=== PATIENT | female | born 1965 | race Caucasian/White ===

== ENCOUNTER → 2018-06-11 10:47 | Outpatient (CLI) | payer MEDICARE, MEDICAID, SELFPAY ==
--- NOTE | 2018-06-11 10:49 | FL_ITS ---
FL barium swallow modified: 06/11/2018 10:49 AM CLINICAL HISTORY: ORDERING PHYSICIAN: Js Gupta MD PATIENT AGE: 52 years Comparison: None TECHNIQUE: Patient administered varying consistencies of barium contrast, while viewed in lateral position under real-time fluoroscopy with cine recording. There is somewhat limited technically due to patient's severe cervical kyphosis FLUOROSCOPY TIME: 1 minute and 27 seconds The study was performed in conjunction with speech pathologist. Please see that report & recommendations. FINDINGS: Patient was given varying consistencies of barium. There was silent aspiration with all consistencies utilized.. IMPRESSION: Silent aspiration. Please see speech pathologist report and recommendations.
--- NOTE | 2018-06-11 13:47 | HMH.SLMBS2 ---
Speech & Language Evaluation Speech/Language Mod Barium Swallow Start: 06/11/18 12:46 Freq: once Status: Complete Protocol: Document 06/11/18 12:46 EDGAR (Rec: 06/11/18 13:47 EDGAR [id number]) MBS Recommendations Diet Dietary Recommendations NPO Mod Barium Swallow Impressions Summary and Impressions Oral Phase Impression No Impairment (WFL) Pharyngeal Phase Impression Severe Impairment Pharyngeal Phase Summary Silent aspiration of all consistencies during the swallow due to incomplete epiglottic closure. Vallecular residue noted with all consistencies. It is recommended that Ms. Jang remain NPO with all nutrition obtained via alternate feeding . Speech/Language MBS Assessment/Goals/Plan Assessment Date of Evaluation: 06/11/18 Evaluation Type Initial Certification Assessment/Problems Dysphagia Does Patient Qualify for Service Yes Qualify/Failure Comment Patient would benefit from ST services at [facility]. Plan Pt/Guardian verbally ack understanding Yes: Manager Community of dx/prognosis/goals G -code Required No Mod Barium Swallow Setup Exam Setup Radiologist Osei Costello Level of Consciousness Awake Position (degrees) 45 Comment Patient had poor posture due to CP Mod Barium Swallow-Lat View Textures Lateral View Food Presentation Thin Liquid via Cup,Thin Liquid via Straw,[place] Liquid via Straw,Honey Liquid via Straw,Pudding Oral Phase Labial Closure No Impairment (WFL) Bolus Formation Pooling L/R No Impairment (WFL) Bolus Formation under Tongue No Impairment (WFL) Bolus Formation Scattered Loss No Impairment (WFL) Aspiration? Yes Degree of Aspiration Medium When aspirated During the swallow Consistencies Aspirated All consistencies Silent aspiration? Yes Pharyngeal Phase Swallow Response Delay Severe Impairment Swallow Delay Time (sec) (seconds) 5 Epiglottic Coverage Moderate Impairment Laryngeal Elevation Moderate Impairment Vallecular Retention Clearing Moderate Impairment Mod Barium Swallow-AP View Performed Mod Barium Swallow A/P View Test Not Applicable/Performed PHYSICIAN CERTIFICATION: I certify the specified therapy services for Lorenza Jang are required, authorized, and review
== END ==
PROVIDERS: PCP Emergency Medicine; Visit Provider Emergency Medicine
DX: R13.10 Dysphagia, unspecified (principal)
CPT/HCPCS: 70371; 92611

== ENCOUNTER 2018-07-29 09:00 | Outpatient (CLI) | payer MEDICARE, MEDICAID, SELFPAY ==
[2018-07-29 09:35] VITALS: BP 135/71; PULSE 57; RESP 18; TEMP 36.6; O2SAT 97
== END 2018-07-29 09:45 | disposition home or self-care (01) ==
LOC: INF 09:12
PROVIDERS: Visit Provider Emergency Medicine
DX: M81.0 Age-related osteoporosis without current pathological fracture (principal)
CPT/HCPCS: 96372; J0897

== ENCOUNTER 2018-08-24 17:15 | Inpatient (IN) ==
--- NOTE | 2018-08-24 17:30 | Emergency Department Note ---
ED Disposition Clinical Impression: Seizure disorder, Cerebral palsy, Pneumonia, SIRS (systemic inflammatory response syndrome), Hydrocephalus Disposition: Still a Patient Condition on Discharge: Fair Referrals: Js Gupta MD [Primary Care Provider] - - Critical Care Critical Care Time: No Attestation: On , the high probability of a clinically significant, sudden or life threatening deterioration of the following system(s) required my full and direct attention, intervention and personal management. The time I documented below is in addition to time spent performing reported procedures but includes the following listed in this critical care notation. Medical Decision Making - Luis Inquiry Pt receiving controlled substance: No Luis was queried for this patient: No Vital Signs: 08/24/18 17:28 08/24/18 19:45 Temperature 104.5 F H 99.6 F Temperature Source Rectal Oral Pulse Rate [Left Radial] 170 H 124 H Respiratory Rate 46 H 20 Blood Pressure [Right Arm] 148/100 H 94/74 L Blood Pressure Mean [Right Arm] 116 80 Blood Pressure Position [Right Arm] Sitting 02 Sat by Pulse Oximetry 94 L 97 Oxygen Delivery Method Nasal Cannula Nasal Cannula Oxygen Flow Rate (LPM) 3 2 - Lab Data Lab Results 08/24/18 18:16: WBC 13.4 H, RBC 4.83, Hgb 15.5, Hct 48.7 H, MCV 100.9 H, MCH 32.0 H, MCHC 31.7 L, RDW 13.1, Plt Count 307, MPV 10.8 H, Neut % (Auto) 81.2 H, Lymph % (Auto) 11.7, [place] % (Auto) 5.5, Eos % (Auto) 1.2, Baso % (Auto) 0.5, [place] # (Auto) 10.9 H, Lymph # (Auto) 1.6, [place] # (Auto) 0.7, Eos # (Auto) 0.2, Baso # (Auto) 0.1 08/24/18 18:16: Sodium 136, Potassium 4.0, Chloride 104, Carbon Dioxide 15 L, Anion Gap 21.0 H, BUN 16, Creatinine 0.88, Estimated Creat Clear 52, Estimated GFR 68, Est GFR ( Amer) 82, Glucose 156 H, Calcium 7.9 L, Magnesium 2.5 H , Total Bilirubin 0.4, AST 42 H, ALT 53, Alkaline Phosphatase 71, Total Protein 6.5, Albumin 2.8 L, Globulin 3.7 H, Albumin/Globulin Ratio 0.8 L 08/24/18 18:16: Lactate 6.0 H Result diagrams: 08/24/18 18:16 08/24/18 18:16 Orders (Tests/Meds): ED MEDICATIONS Generic Name Dose Route Start Last Admin Trade Name Freq PRN Reason Stop Dose Admin Sodium Chloride 1,000 mls @ 999 mls/hr 08/24/18 17:45 08/24/18 17:39 Sod Chlor 0.9% 1000ml Bag IV 08/24/18 18:45 999 mls/hr .Q1H1M TRACY Administration Sodium Chloride 1,290 mls @ 645 mls/hr 08/24/18 19:20 08/24/18 19:32 Sod Chlor 0.9% 1000ml Bag 30 ml/kg infuse over 2 hr (1290 ml) 08/24/18 21:19 645 mls/hr IV Administration .Q2H ONE Levofloxacin/Dextrose 750 mg in 150 mls @ 100 mls/hr 08/24/18 19:45 08/24/18 19:32 Levofloxacin 750mg/150ml Premix IV 09/07/18 19:44 100 mls/hr Q24H TRACY Administration Protocol Discontinued Medications Generic Name Dose Route Start Last Admin Trade Name Celioq PRN Reason Stop Dose Admin Acetaminophen 650 mg 08/24/18 17:15 08/24/18 17:15 Acetaminophen 650mg Suppository RC 08/24/18 17:16 650 mg ONCE ONE Administration Levofloxacin 750 mg 08/24/18 17:35 08/24/18 19:32 Levaquin 750mg Tablet PO 08/24/18 17:36 Not Given ONCE ONE Protocol ORDERS Category Date Time Status CT head/brain wo con Stat Cat Scan 08/24/18 17:33 Taken Drug Screen,Urine Stat Lab 08/24/18 18:32 Received Urinalysis and Microscopic Stat Lab 08/24/18 18:32 Received Blood Culture Stat Micro 08/24/18 18:30 Ordered - Radiology Data #1 Image(s): Chest, Abdomen Image Reviewed: Yes I reviewed the patient's radiology image Preliminary Findings: Abnormal CXR : No acute Abdomen: GB stones. - CT Data CT Scan: Head Time Received: 19:[address] Reviewed: Yes: I discussed the CT results w/the radiologist Preliminary Findings: Abnormal Findings Narrative: Ct brain : S?P shunt and brain calcifications. - ECG Data Tracing #1 Sinus tachycardia 150 baseline artifact no acute findings ECG initial impression date: 08/24/18 ECG initial impression time: 17:20 Medical Decision Narrative: I discussed the patient's chest x-ray with Dr. Costello who is a who agreed that the patient has a right middle lobe or right upper lobe pneumonia. [address] call from [facility] regarding her CT scan with hydrocephalus and a shunt, chronic changes. 1949 I spoke with her Newman who agreed to admit the patient for IV antibiotic therapy using sepsis protocol. General Adult HPI - General Stated complaint: possible seizures, fever, elevated HR Time Seen by Provider: 08/24/18 17:20 Mode of Arrival: EMS Source of Information: EMS, Medical Record - History of Present Illness HPI narrative: 52 years old white female with history of cerebral palsy and detention resident and a ellison of the [facility]. Patient has seizure disorder and she is on Keppra. Today the detention staff noticed multiple seizure activities so they contacted EMS service. Upon arrival the patient had a fever of 102 oxygen saturation of 84% and had no seizure activity. On arrival to the ED her temperature was 104 and she looked mottled from the knee down. Patient is alert tearful, moist mucous membrane, nonverbal and unable to provide history. Onset (ago): hour(s) - Related Data Home Medications Medication Instructions Recorded Confirmed Atorvastatin Calcium [Atorvastatin 10 mg G-TUBE DAILY 08/24/18 08/24/18 10mg Tab] Carvedilol [Carvedilol 3.125mg Tab] 3.125 mg G-TUBE DAILY 08/24/18 08/24/18 Lacosamide [Vimpat] 150 mg PO BID 08/24/18 08/24/18 Lactulose [Lactulose 10gm/15ml 10 gm G-TUBE DAILY 08/24/18 08/24/18 Oral Soln] Loperamide HCl [Loperamide HCl 1 mg G-TUBE DAILY 08/24/18 08/24/18 1mg/5mL UDC] Medroxyprogesterone Acetate 2.5 mg G-TUBE DAILY 08/24/18 08/24/18 [Provera 2.5mg tablet] RX: Cetirizine HCl 10 mg G-TUBE DAILY 08/24/18 08/24/18 RX: Oxybutynin Chloride 5 mg G-TUBE BID 08/24/18 08/24/18 guaiFENesin [Robafen] 100 mg G-TUBE Q4-6H 08/24/18 08/24/18 levETIRAcetam [Keppra] 150 mg G-TUBE BID 08/24/18 08/24/18 Allergies Allergy/AdvReac Type Severity Reaction Status Date / Time ampicillin Allergy Verified 06/03/18 18:22 Penicillins Allergy Verified 06/03/18 18:22 Sulfa (Sulfonamide Allergy Verified 06/03/18 18:22 Antibiotics) sulfamethoxazole Allergy Verified 06/03/18 18:22 [From Bactrim] trimethoprim [From Bactrim] Allergy Verified 06/03/18 18:22 [facility] History - Hepatitis A Screen Attestation statement:: This patient has been screened for Hepatitis A risk factors. I have reviewed the patient's past medical history: Yes (Reviewed the detention records.) Medical History: Denies:: Cancer, Diabetes Mellitus Type 1, Diabetes Mellitus Type 2, MRSA Comment: cp Laterality Cases: Amputation: No - Social History Smoking Status: Smoker, status unknown Alcohol Intake: never Occupational Status: disabled Housing: detention ROS Obtained: Yes All systems reviewed & no additional complaints Physical Exam - General General appearance: alert, in no apparent distress - Head Head exam: atraumatic, normocephalic, normal inspection - Eye Eye exam: Present: normal appearance, PERRL, EOMI, other (Ptosis of the right eyelid. ). Absent: scleral icterus - ENT ENT exam: Present: normal exam, normal oropharynx, mucous membranes moist, TM's normal bilaterally, normal external ear exam - Neck Neck exam: Present: normal inspection, full ROM, trachea midline. Absent: meningismus, lymphadenopathy - Chest Chest inspection: Present: normal inspection, symmetric chest wall rise. Absent: tenderness - Respiratory Respiratory exam: Present: normal lung sounds bilaterally. Absent: respiratory distress - Cardiovascular Cardiovascular exam: Present: regular rate, normal rhythm. Absent: JVD - Abdominal Exam Abdominal exam: Present: soft, normal bowel sounds, other (Feeding tube in place. ). Absent: distention, tenderness, guarding, rebound, rigidity, Perkins's sign, tenderness at McBurney's Point - External exam: Present: normal external exam - Extremities Exam Extremities exam: Present: normal inspection, full ROM, normal capillary refill, other. Absent: tenderness, pedal edema, joint swelling, calf tenderness - Back Exam Back exam: Present: normal inspection. Absent: tenderness, CVA tenderness (R), CVA tenderness (L) - Neurological Exam Neurological exam: Present: alert, other (Right eyelid ptosis, spasticity of the upper and lower extremities.) - Psychiatric Psychiatric exam: Present: normal affect, normal mood - Skin Skin exam: Present: warm, dry, intact, normal color - Lymphatic Lymphatic Findings: no adenopathy
[2018-08-24 18:33] LABS: Basophils # 0.1 K/mm3 (0-0.2); Basophils % 0.5 % (0.1-2.0); Eosinophils # 0.2 K/mm3 (0.0-0.4); Eosinophils % 1.2 % (0.1-12.0); Hematocrit 48.7 % (37.0-47.0); Hemoglobin 15.5 g/dL (12.2-16.2); Lymphocytes # 1.6 K/mm3 (0.7-4.5); Lymphocytes % 11.7 % (10-50); Mean Corpuscular HGB Conc 31.7 g/dL (31.8-35.4); Mean Corpuscular Volume 100.9 fl (81-99); Mean Platelet Volume 10.8 fl (7.4-10.4); Monocytes # 0.7 K/mm3 (0.1-1.0); Monocytes % 5.5 % (1.7-9.3); Neutrophils # 10.9 K/mm3 (1.8-7.8); Neutrophils % 81.2 % (37.0-80.0); Platelet Count 307 K/mm3 (142-424); Red Blood Count 4.83 M/mm3 (4.20-5.40); Red Cell Distribution Width 13.1 % (11.5-17.5); White Blood Count 13.4 K/mm3 (4.8-10.8)
[2018-08-24 18:43] LABS: Albumin Level 2.8 gm/dL (3.4-5.0); Albumin/Globulin Ratio 0.8 (1.1-1.8); Bilirubin,Total 0.4 mg/dL (0.2-1.0); Calcium 7.9 mg/dL (8.5-10.1); Globulin 3.7 gm/dl (1.3-3.2); Total Protein,Serum 6.5 gm/dL (6.4-8.2)
[2018-08-24 19:41] LABS: Microscopic, Urine URINE MICROSCOPIC (MICROSCOPIC)
[2018-08-24 19:49] LABS: Appearance,Urine TURBID (Clear); Bilirubin,Urine Negative (Negative); Blood, Urine 3+ (Negative); Color,Urine YELLOW (Yellow); Glucose,Urine (UA) TRACE (Negative); Ketones,Urine Negative (Negative); Leukocyte Esterase,Urine 1+ (Negative); PH,Urine 6.5 (5.0-8.5); Protein,Urine 3+ (Negative); Specific Gravity, Urine 1.025 (1.005-1.030); Urobilinogen,Urine 0.2 EU/dl (0.2)
[2018-08-24 19:57] LABS: Amorphous Sediment,Urine 4+ /lpf; Squamous Epithelial Cell,Urine 20-50 #/hpf (0-5)
[2018-08-24 20:01] LABS: Amphetamine/Metha Screen,Urine Negative ng/mL (<1000); Barbiturates Screen,Urine Negative ng/mL (<200); Benzodiazepines Screen,Urine Negative ng/mL (<200); Cannabinoid Screen,Urine Negative ng/mL (<50); Cocaine Screen,Urine Negative ng/mL (<300); Methadone Screen,Urine Negative ng/mL (<300); Opiate Screen,Urine Negative ng/mL (<300); Phencyclidine Screen,Urine Negative ng/mL (<25)
--- NOTE | 2018-08-25 07:34 | Pharmacy Consult Notes ---
[facility] Pharmacy VTE Monitoring - Patient Demographics Admission date: 08/24/18 Report Date: 08/25/18 Time: 07:33 Allergies/Adverse Reactions: Patient Allergies ampicillin Allergy (Verified 06/03/18 18:22) Penicillins Allergy (Verified 06/03/18 18:22) Sulfa (Sulfonamide Antibiotics) Allergy (Verified 06/03/18 18:22) sulfamethoxazole [From Bactrim] Allergy (Verified 06/03/18 18:22) trimethoprim [From Bactrim] Allergy (Verified 06/03/18 18:22) Height: 1.65 m Weight: 48.336 kg Patient Problems: Current Active Problems (Updated 08/24/18 @ 19:54 by Argelia Troncoso MD) Seizure disorder (Acute) Pneumonia (Acute) SIRS (systemic inflammatory response syndrome) (Acute) Hydrocephalus (Acute) Cerebral palsy (Chronic) - VTE Risk Labs: VTE Related Lab Results Hgb 15.5 g/dL (12.2-16.2) 08/24/18 18:16 Hct 48.7 % (37.0-47.0) H 08/24/18 18:16 Plt Count 307 K/mm3 (142-424) 08/24/18 18:16 BUN 16 mg/dL (7-18) 08/24/18 18:16 Creatinine 0.88 mg/dL (0.55-1.02) 08/24/18 18:16 Estimated Creat Clear 52 mL/min (50-200) 08/24/18 18:16 VTE Risk Level: Moderate Risk - Prophylaxis VTE Prophylaxis Ordered?: Yes Types of VTE Prophylaxis: TEDS Knee High Location of Applied Device: Bilateral Lower Extremeties - VTE Diagnosis Confirmed Treatment or plan recommended: Continue Current Treatment
[2018-08-25 08:14] LABS: Basophils # 0.1 K/mm3 (0-0.2); Basophils % 0.3 % (0.1-2.0); Eosinophils # 0.1 K/mm3 (0.0-0.4); Eosinophils % 0.7 % (0.1-12.0); Hemoglobin 14.9 g/dL (12.2-16.2); Lymphocytes # 2.5 K/mm3 (0.7-4.5); Lymphocytes % 17.7 % (10-50); Mean Corpuscular HGB Conc 31.7 g/dL (31.8-35.4); Mean Corpuscular Volume 101.3 fl (81-99); Mean Platelet Volume 9.5 fl (7.4-10.4); Monocytes # 0.8 K/mm3 (0.1-1.0); Monocytes % 5.5 % (1.7-9.3); Neutrophils # 10.5 K/mm3 (1.8-7.8); Neutrophils % 75.8 % (37.0-80.0); Platelet Count 209 K/mm3 (142-424); Red Blood Count 4.64 M/mm3 (4.20-5.40); Red Cell Distribution Width 13.1 % (11.5-17.5); White Blood Count 13.9 K/mm3 (4.8-10.8)
[2018-08-25 08:23] LABS: Anion Gap 15.2 mEq/L (5-15)
--- NOTE | 2018-08-25 08:56 | History & Physical Report ---
*Admission Date: 08/24/18 *Chief complaint: Healthcare acquired pneumonia/sepsis *History of present illness: 52 years old white female with history of cerebral palsy and jail resident and a reddy of the [facility]. Patient has seizure disorder and she is on Keppra. Today the jail staff noticed multiple seizure activities so they contacted EMS service. Upon arrival the patient had a fever of 102 oxygen saturation of 84% and had no seizure activity. On arrival to the ED her temperature was 104 and she looked mottled from the knee down. Patient is alert tearful, moist mucous membrane, nonverbal and unable to provide history. Above note per ER physician., Given patient's inability to communicate I have no other information to add to the above-noted note. 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 He is chronically bedbound. Has a G-tube. Reddy of the [facility]. Laterality Cases: Bilateral: Other Other Surgeries: Yes: Other Amputation: No - *Social History Smoking Status: Never smoker Alcohol Intake: never *Occupational Status:: disabled Housing: jail *Travel in the last 8 weeks: None - Psychiatric History Expresses thoughts of harming self/others: None Suicide Plan Description: No Plan Family Hx:: Unable to obtain Review of Systems - Review of Systems Review of systems:: unable to obtain Meds Home Medications Medication Instructions Recorded Confirmed Type Atorvastatin Calcium [Atorvastatin 10 mg G-TUBE DAILY 08/24/18 08/24/18 History 10mg Tab] Carvedilol [Carvedilol 3.125mg Tab] 3.125 mg G-TUBE DAILY 08/24/18 08/24/18 History Cetirizine HCl 10 mg G-TUBE DAILY 08/24/18 08/24/18 History Lacosamide [Vimpat] 150 mg PO BID 08/24/18 08/24/18 History Lactulose [Lactulose 10gm/15ml 10 gm G-TUBE DAILY 08/24/18 08/24/18 History Oral Soln] Loperamide HCl [Loperamide HCl 1 mg G-TUBE DAILY 08/24/18 08/24/18 History 1mg/5mL UDC] Medroxyprogesterone Acetate 2.5 mg G-TUBE DAILY 08/24/18 08/24/18 History [Provera 2.5mg tablet] Oxybutynin Chloride 5 mg G-TUBE BID 08/24/18 08/24/18 History guaiFENesin [Robafen] 100 mg G-TUBE Q4-6H 08/24/18 08/24/18 History levETIRAcetam [Keppra] 150 mg G-TUBE BID 08/24/18 08/24/18 History Allergies Allergy/AdvReac Type Severity Reaction Status Date / Time ampicillin Allergy Verified 06/03/18 18:22 Penicillins Allergy Verified 06/03/18 18:22 Sulfa (Sulfonamide Allergy Verified 06/03/18 18:22 Antibiotics) sulfamethoxazole Allergy Verified 06/03/18 18:22 [From Bactrim] trimethoprim [From Bactrim] Allergy Verified 06/03/18 18:22 Exam Vital signs and Labs for Last 24 Hours: Temp Pulse Resp BP Pulse Ox 99 F 95 H 20 106/72 L 95 08/25/18 01:26 08/25/18 07:00 08/25/18 07:00 08/25/18 07:00 08/25/18 07:00 Laboratory Results - last 24 hr 08/24/18 18:16: WBC 13.4 H, RBC 4.83, Hgb 15.5, Hct 48.7 H, MCV 100.9 H, MCH 32.0 H, MCHC 31.7 L, RDW 13.1, Plt Count 307, MPV 10.8 H, Neut % (Auto) 81.2 H, Lymph % (Auto) 11.7, [place] % (Auto) 5.5, Eos % (Auto) 1.2, Baso % (Auto) 0.5, Neut # (Auto) 10.9 H, Lymph # (Auto) 1.6, [place] # (Auto) 0.7, Eos # (Auto) 0.2, Baso # (Auto) 0.1 08/24/18 18:16: Sodium 136, Potassium 4.0, Chloride 104, Carbon Dioxide 15 L, Anion Gap 21.0 H, BUN 16, Creatinine 0.88, Estimated Creat Clear 52, Estimated GFR 68, Est GFR ( Amer) 82, Glucose 156 H, Calcium 7.9 L, Magnesium 2.5 H , Total Bilirubin 0.4, AST 42 H, ALT 53, Alkaline Phosphatase 71, Total Protein 6.5, Albumin 2.8 L, Globulin 3.7 H, Albumin/Globulin Ratio 0.8 L 08/24/18 18:16: Lactate 6.0 H 08/24/18 18:32: Urine Color Yellow, Urine Appearance Turbid, Urine pH 6.5, Ur Specific [place] 1.025, Urine Protein 3+, Urine Glucose (UA) Trace, Urine Ketones Negative, Urine Blood 3+, Urine Nitrate Negative, Urine Bilirubin Negative, Urine Urobilinogen 0.2, Ur Leukocyte Esterase 1+ A, Urine RBC 10-20, Urine WBC 5-10, Ur Squamous Epith Cells 20-50, Amorphous Sediment 4+ 08/24/18 18:32: Urine Opiates Screen Negative, Urine Methadone Screen Negative, Ur Barbituates Screen Negative, Ur Phencyclidine Scrn Negative, Ur Amphetamines Screen Negative, U Benzodiazepines Scrn Negative, Urine Cocaine Screen Negative, U Marijuana (THC) Screen Negative 08/24/18 22:20: Lactate 1.6 08/25/18 08:00: WBC 13.9 H, RBC 4.64, Hgb 14.9, Hct 47.0, MCV 101.3 H, MCH 32.1 H, MCHC 31.7 L, RDW 13.1, Plt Count 209 D, MPV 9.5, Neut % (Auto) 75.8, Lymph % (Auto) 17.7, [place] % (Auto) 5.5, Eos % (Auto) 0.7, Baso % (Auto) 0.3, Neut # (Auto) 10.5 H, Lymph # (Auto) 2.5, [place] # (Auto) 0.8, Eos # (Auto) 0.1, Baso # (Auto) 0.1 08/25/18 08:00: Sodium 139, Potassium 4.2, Chloride 108 H, Carbon Dioxide 20 L D , Anion Gap 15.2 H, BUN 15, Creatinine 0.44 L D, Estimated Creat Clear 117, Estimated GFR 151, Est GFR ( Amer) 183 D, Glucose 82 D, Calcium 7.0 L D , Magnesium 2.1 D I & O for Last 24 hours: Intake & Output 08/22/18 08/23/18 08/24/18 08/25/18 11:59 11:59 11:59 11:59 Intake Total 2844 / 2844 Output Total 200 / 200 Balance 2644 / 2644 Weight 106 lb 9 oz Microbiology Reports for the Last 24 Hours: Microbiology 08/24/18 18:32 Urine,Catheterized Urine Culture - Preliminary Narrative: Patient is alert, smiles responsively. Is not crying as was reported in the ER yesterday. Heart rate regular. Blood pressure is excellent. Capillary refill has improved. Lung malagon are clear anteriorly and posteriorly. Abdomen is soft, G-tube site looks good. Patient wearing compression stockings. Neurologic exam markedly abnormal with hyperreflexia and stiffness and rigidity with contractures as previously noted. Assessment and Plan (1) Pneumonia Current visit: Yes Status: Acute Category: Medical Code(s): J18.9 - Pneumonia, unspecified organism Agree with admission for broad-spectrum IV antibiotics given high sepsis risk. Await blood cultures. Patient is improving. Remains with good perfusion and good blood pressure. We will stop levo fed drip and transfer out of intensive care unit. (2) SIRS (systemic inflammatory response syndrome) Current visit: Yes Status: Acute Category: Medical Code(s): R65.10 - Systemic inflammatory response syndrome (SIRS) of non-infectious origin without acute organ dysfunction (3) Seizure disorder Current visit: Yes Status: Acute Category: Medical Code(s): G40.909 - Epilepsy, unspecified, not intractable, without status epilepticus Stable. Continue current antiepileptics. (4) Cerebral palsy Current visit: Yes Status: Chronic Category: Medical Code(s): G80.9 - Cerebral palsy, unspecified (5) Complication of feeding tube Current visit: No Status: Acute Category: Medical Code(s): K94.23 - Gastrostomy malfunction - Assessment and plan all Dx Assessment and Plan for all problems:: Please note one hour critical care time.
--- NOTE | 2018-08-26 09:20 | Discharge Summary ---
General - General Admission date:: 08/24/18 <Senthil Molina - 08/26/18 18:44> 08/24/18 <Heber Holloway - 08/26/18 09:20> Discharge date: 08/26/18 <nelsyleslieHeber - 08/26/18 09:20> HPI HPI: 52 years old white female with history of cerebral palsy and residential resident and a ellison of the [facility]. Patient has seizure disorder and she is on Keppra. Today the residential staff noticed multiple seizure activities so they contacted EMS service. Upon arrival the patient had a fever of 102 oxygen saturation of 84% and had no seizure activity. On arrival to the ED her temperature was 104 and she looked mottled from the knee down. Patient is alert tearful, moist mucous membrane, nonverbal and unable to provide history. Above note per ER physician., Given patient's inability to communicate I have no other information to add to the above-noted note. <Heber Holloway - 08/26/18 09:20> Hospital Course Hospital Course: x ray: IMPRESSION: Peripheral wedge-shaped opacification in the right midlung which may be due to underlying pneumonia. ct head:IMPRESSION: 1. 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 2. Mild prominence of the lateral ventricles which could be related to underlying atrophy or developing hydrocephalus. Old studies are needed for comparison. 3. CHEMISTRY TEACHER shunt present. 4. No acute intracranial hemorrhage Today patient is alert, patient is answering yes or no to short questions. Will discharge back to [facility] with continuing Levaquin for pneumonia and UTI. Blood cultures and urine culture is pending call [facility] lab within 24 hours for results. While inpatient patient received IV fluids, IV antibiotics, and monitoring for seizure activities. Patient was placed on IV Levophed for blood pressure control drip was DC this a.m. blood pressure is 121/79. Patient skin is pink,pale in color normal to patient's baseline. <Heber Holloway - 08/26/18 09:27> Objective Vital signs: Temp Pulse Resp BP Pulse Ox 97.6 F 104 H 18 121/79 99 08/26/18 08:00 08/26/18 08:00 08/26/18 08:00 08/26/18 08:00 08/26/18 08:00 <Senthil Molina - 08/26/18 18:44> Temp Pulse Resp BP Pulse Ox 97.6 F 104 H 18 121/79 99 08/26/18 08:00 08/26/18 08:00 08/26/18 08:00 08/26/18 08:00 08/26/18 08:00 <nelsyleslieOseinikoena - 08/26/18 09:20> no acute distress, chronically ill appearing <juan carlosHeber - 08/26/18 09:27> - *Routine HEENT Exam Head: Present: normocephalic <juan carlosOseinikoena - 08/26/18 09:27> Eye: Present: PERRL <juan carlosOseinikoena - 08/26/18 09:27> ENT: Present: mucous membranes moist <juan carlosOseinikoena - 08/26/18 09:27> - *Routine Neck Exam Present: supple, full ROM <juan carlosOseiyvonne - 08/26/18 09:27> - *Routine Respiratory Exam Present: rhonchi, diminished air movement <ZoëleslieOseinikoena - 08/26/18 09:27> - *Routine Cardiovascular Exam Present: RRR <juan carlosOseinikoena - 08/26/18 09:27> - *Routine Abdominal Exam Present: soft, normoactive bowel sounds <juan carlosOseinikoena - 08/26/18 09:27> Comments: PEG tube in place <juan carlosOseiyvonne - 08/26/18 09:27> - *Routine Extremities Exam Present: full ROM, pulses intact, normal capillary refill <ZoëleslieOseinikoena - 08/26/18 09:27> - *Routine Skin Exam Present: intact <juan carlosOseiyvonne - 08/26/18 09:27> - *Routine Neurological Exam Present: alert <juan carlosOseiyvonne - 08/26/18 09:27> - Routine Psychiatric Exam Present: normal affect <juan carlosOseiyvonne - 08/26/18 09:27> Results Labs on day of discharge: Preliminary micro results at discharge 08/24/18 18:30 Blood Culture - Preliminary Blood NO GROWTH AFTER 48 HOURS 08/24/18 18:32 Urine Culture - Preliminary Urine,Catheterized <Senthil Molina - 08/26/18 18:44> Preliminary micro results at discharge 08/24/18 18:32 Urine Culture - Preliminary Urine,Catheterized <Heber Holloway - 08/26/18 09:20> - Additional Comments Rounded with nurse practitioner. Agree with exam findings and care plan as documented. <Senthil Molina - 08/26/18 18:44> Rounded with Dr. Molina all orders per Dr. Molina <Heber Holloway - 08/26/18 09:27> DS: Diagnosis - Discharge Diagnosis (1) Pneumonia Status: Acute (2) SIRS (systemic inflammatory response syndrome) Status: Acute (3) Seizure disorder Status: Acute (4) Cerebral palsy Status: Chronic (5) Complication of feeding tube Status: Acute <Heber Holloway - 08/26/18 09:21> (1) Pneumonia Status: Acute (2) SIRS (systemic inflammatory response syndrome) Status: Acute (3) Seizure disorder Status: Acute (4) Cerebral palsy Status: Chronic (5) Complication of feeding tube Status: Acute <Senthil Molina - 08/26/18 18:44> Discharge Plan - Patient Discharge Instructions ACTIVITY: Continue current activity <Heber Holloway - 08/26/18 09:27> DIET: continue same diet <Heber Holloway - 08/26/18 09:27> Patient Instructions: Pneumonia-Adult, DI for Sepsis -- Adult <Senthil Molina - 08/26/18 18:44> Forms: <Senthil Molina - 08/26/18 18:44> - Follow up Plan Follow up with: Heber Holloway APRN [Advanced Practice Nurse] - <Senthil Molina - 08/26/18 18:44> Disposition: Xfer SNF <Senthil Molina - 08/26/18 18:44> Home Medications: Home Medications Medication Instructions Recorded Confirmed Type Atorvastatin Calcium [Atorvastatin 10 mg G-TUBE HS 08/24/18 08/25/18 History 10mg Tab] Carvedilol [Carvedilol 3.125mg Tab] 3.125 mg G-TUBE DAILY 08/24/18 08/24/18 History Cetirizine HCl 10 mg G-TUBE DAILY 08/24/18 08/24/18 History Lacosamide [Vimpat] 150 mg G-TUBE BID 08/24/18 08/25/18 History Lactulose [Lactulose 10gm/15ml 20 gm G-TUBE DAILY 08/24/18 08/25/18 History Oral Soln] Oxybutynin Chloride 5 mg G-TUBE BID 08/24/18 08/24/18 History guaiFENesin [Robafen] 10 ml G-TUBE Q4HP PRN 08/24/18 08/25/18 History levETIRAcetam [Keppra] 1,500 mg G-TUBE BID 08/24/18 08/25/18 History Acetaminophen [Acetaminophen 325mg 650 mg G-TUBE Q6HP PRN 08/25/18 08/25/18 History tab] Calcium Carbonate [Calcium Antacid] 400 mg G-TUBE DAILY 08/25/18 08/25/18 History Loperamide HCl [Loperamide] 2 mg G-TUBE POSTTR 08/25/18 08/25/18 History Medroxyprogesterone Acetate 150 mg IM DIRECTED 08/25/18 08/25/18 History [Depo-Provera 150mg/mL Syringe] Multivitamin,Ther and Minerals 1 each G-TUBE DAILY 08/25/18 08/25/18 History [Vitamin and Minerals] Propylene Glycol/Peg 400 [Systane 1 drp OP BID 08/25/18 08/25/18 History Ultra 0.4-0.3% Eye Drp] Sennosides/Docusate Sodium 1 tab G-TUBE BID 08/25/18 08/25/18 History [Senokot-S Tablet] levoFLOXacin [Levaquin 500mg 500 mg PO DAILY #7 tab 08/26/18 Rx tab] <Senthil Molina - 08/26/18 18:44> Prescriptions/Medication Reconciliation: New levoFLOXacin [Levaquin 500mg tab] 500 mg PO DAILY #7 tab Continued Oxybutynin Chloride 5 mg G-TUBE BID levETIRAcetam [Keppra] 1,500 mg G-TUBE BID Lacosamide [Vimpat] 150 mg G-TUBE BID guaiFENesin [Robafen] 10 ml G-TUBE Q4HP PRN PRN Reason: Congestion Carvedilol [Carvedilol 3.125mg Tab] 3.125 mg G-TUBE DAILY Atorvastatin Calcium [Atorvastatin 10mg Tab] 10 mg G-TUBE HS Acetaminophen [Acetaminophen 325mg tab] 650 mg G-TUBE Q6HP PRN PRN Reason: As Needed For Fever Or Pain Calcium Carbonate [Calcium Antacid] 400 mg G-TUBE DAILY Medroxyprogesterone Acetate [Depo-Provera 150mg/mL Syringe] 150 mg IM DIRECTED Multivitamin,Ther and Minerals [Vitamin and Minerals] 1 each G-TUBE DAILY Propylene Glycol/Peg 400 [Systane Ultra 0.4-0.3% Eye Drp] 1 drp OP BID Lactulose [Lactulose 10gm/15ml Oral Soln] 20 gm G-TUBE DAILY Cetirizine HCl 10 mg G-TUBE DAILY Loperamide HCl [Loperamide] 2 mg G-TUBE POSTTR Sennosides/Docusate Sodium [Senokot-S Tablet] 1 tab G-TUBE BID <Senthil Molina - 08/26/18 18:44>
== END 2018-08-26 11:16 | DRG 194 ==
LOC: ER 17:15 → 2ND 19:58
PROVIDERS: ADMIT Emergency Medicine; ATTEND Emergency Medicine
CPT/HCPCS: 36415; 70450; 74021; 74022; 80048; 80053; 80305; 81001; 83605; 83735; 85025; 87040; 87086; 87088; 87186; 93005; 94761; 96365; 96366; 96367; 99285; J1956

== ENCOUNTER 2018-12-27 10:22 | Inpatient (IN) ==
[2018-12-27 10:40] LABS: Microscopic, Urine URINE MICROSCOPIC (MICROSCOPIC)
--- NOTE | 2018-12-27 10:42 | Emergency Department Note ---
ED Disposition Clinical Impression: Acute cystitis without hematuria Sepsis Qualifiers: Sepsis type: sepsis due to unspecified organism Sepsis acute organ dysfunction status: without acute organ dysfunction Qualified Code(s): A41.9 - Sepsis, u nspecified organism Right lower lobe pneumonia Qualifiers: Pneumonia type: due to unspecified organism Qualified Code(s): J18.9 - Pneumonia, unspecified organism Disposition: Admitted As Inpatient Condition on Discharge: Good Instructions: Pneumonia-Adult, DI for Fever (Symptom) -- Adult Additional Instructions: Discussed the patient's care with Dr. Booth who is covering for Dr. Gupta patient given aztreonam and vancomycin and Levaquin for her infections and for the sepsis protocol and is also being admitted to Dr. to Dr. Gupta with Dr. Booth covering Time of Disposition: 13:18 - Critical Care Critical Care Time: Yes Attestation: On , the high probability of a clinically significant, sudden or life threatening deterioration of the following system(s) required my full and direct attention, intervention and personal management. The time I documented below is in addition to time spent performing reported procedures but includes the following listed in this critical care notation. Total Critical Care Time: 60 Vital system(s) involved:: Respiratory Failure My critical care processes included: Assessment & monitoring of V/S, Initial and Re-exams, Data Review/Interpretation, Coordinating Care, Medication Orders and management, Documentation Medical Decision Making - Medical Records Medical records reviewed: Yes: I reviewed the patient's medical records. - Luis Inquiry Pt receiving controlled substance: No Luis was queried for this patient: No Vital Signs: 12/27/18 10:23 12/27/18 11:10 12/27/18 11:41 Temperature 103.4 F H Temperature Source Rectal Pulse Rate [Right Radial] 145 H 138 H 131 H Respiratory Rate 29 H Blood Pressure [Right Arm] 148/90 H 164/95 H 153/95 H Blood Pressure Mean [Right Arm] 109 118 114 02 Sat by Pulse Oximetry 80 L 86 L 87 L Oxygen Delivery Method Nasal Cannula Oxygen Flow Rate (LPM) 2 12/27/18 11:58 12/27/18 12:20 12/27/18 13:05 Temperature Temperature Source Pulse Rate [Right Radial] 130 H 127 H 123 H Respiratory Rate Blood Pressure [Right Arm] 171/87 H 157/98 H 167/97 H Blood Pressure Mean [Right Arm] 115 117 120 02 Sat by Pulse Oximetry 90 L 89 L 84 L Oxygen Delivery Method Oxygen Flow Rate (LPM) - Lab Data Lab Results 12/27/18 10:35: Urine Color Yellow, Urine Appearance Sl cloudy, Urine pH 6.0, Ur Specific [place] 1.025, Urine Protein 2+, Urine Glucose (UA) Negative, Urine Ketones Negative, Urine Blood 1+, Urine Nitrate Positive, Urine Bilirubin Negative, Urine Urobilinogen 0.2, Ur Leukocyte Esterase Trace, Urine RBC None, Urine WBC Occasional, Ur Squamous Epith Cells Occasional, Urine Bacteria 3+ 12/27/18 10:37: Influenza Type A Ag Negative, Influenza Type B Ag Negative 12/27/18 10:41: Specimen Source Right radial, O2 % 10% nrb, ABG pH 7.48 H, ABG pCO2 35.2, ABG pO2 53.4 L, ABG HCO3 25.4, ABG Total CO2 26.5, ABG O2 Saturation 89 L, ABG Base Excess 1.9, Osei Test Patient unable 12/27/18 11:06: Sodium 133 L, Potassium 4.1, Chloride 96 L, Carbon Dioxide 26, Anion Gap 15.1 H, BUN 13, Creatinine 0.46 L, Estimated Creat Clear 135, Estimated GFR 143, Est GFR ( Amer) 173, Glucose 137 H, Calcium 8.6, Total Bilirubin 0.3, AST 31, ALT 44, Alkaline Phosphatase 62, Troponin I < 0.02, Total Protein 6.5, Albumin 2.0 L, Globulin 4.5 H, Albumin/Globulin Ratio 0.4 L 12/27/18 11:06: Lactate 1.6 12/27/18 11:36: WBC 6.0, RBC 4.94, Hgb 13.4, Hct 38.5, MCV 77.9 L, MCH 27.1, MCHC 34.8, RDW 30.2 H*, Plt Count 92 L, MPV 18.1 H, Neut % (Auto) 72.1, Lymph % (Auto) 19.4, [place] % (Auto) 5.3, Eos % (Auto) 0.1, Baso % (Auto) 3.1 H, Neut # (Auto) 4.3, Lymph # (Auto) 1.2, [place] # (Auto) 0.3, Eos # (Auto) 0.0, Baso # (Auto) 0.2 Result diagrams: 12/27/18 11:36 12/27/18 11:06 Orders (Tests/Meds): ED MEDICATIONS Generic Name Dose Route Start Last Admin Trade Name Freq PRN Reason Stop Dose Admin Levofloxacin/Dextrose 500 mg in 100 mls @ 100 mls/hr 12/27/18 13:15 12/27/18 13:13 Levaquin 500mg/100ml Premix IV 01/10/19 13:14 100 mls/hr Q24H TRACY Administration Protocol Vancomycin HCl 1,000 mg/ 250 mls @ 125 mls/hr 12/27/18 13:10 Sodium Chloride IV 12/27/18 15:09 ONCE ONE Aztreonam 1 gm/ Sodium 50 mls @ 100 mls/hr 12/27/18 13:15 Chloride IV 01/10/19 13:14 Q8H TRACY Protocol Discontinued Medications Generic Name Dose Route Start Last Admin Trade Name Freq PRN Reason Stop Dose Admin Acetaminophen 650 mg 12/27/18 10:30 12/27/18 10:36 Acetaminophen 650mg Suppository RC 12/27/18 10:31 650 mg ONCE ONE Administration Sodium Chloride 1,000 mls @ 999 mls/hr 12/27/18 10:30 12/27/18 10:52 Sod Chlor 0.9% 1000ml Bag IV 12/27/18 11:30 999 mls/hr .Q1H1M TRACY Administration Methylprednisolone Sodium Succinate 125 mg 12/27/18 10:36 12/27/18 11:17 Solu-Medrol 125mg/2ml Vial IV 12/27/18 10:37 125 mg ONCE ONE Administration ORDERS Category Date Time Status CT head/brain wo con Stat Cat Scan 12/27/18 10:39 Taken XR chest portable Stat Exams 12/27/18 10:29 Taken Levetiracetam (Keppra) Stat Lab 12/27/18 11:06 Received Blood Culture Stat Micro 12/27/18 11:06 Received Urine Culture Stat Micro 12/27/18 10:35 Received - Radiology Data #1 Image(s): Chest Image Reviewed: Yes I reviewed the patient's radiology results, Yes I reviewed the patient's radiology image Right lower lobe infiltrate pending radiologist review - CT Data CT Scan: Head Time Received: 13:[address] Reviewed: Yes: I have reviewed the patient's CT results, I discussed the C T results w/the radiologist, I have viewed the radiologist's interpretation Preliminary Findings: Normal/NAD Resp/SOB HPI - General Chief Complaint: Fever Stated Complaint: FEVER Time Seen by Provider: 12/27/18 10:24 Mode of Arrival: EMS Limitations: Altered Mental Status Description of Symptoms (Recalled from ER Triage Doc. by RN): PT PRESENTS TO ED WITH C/O SHORTNESS OF BREATH, FEVER AND ALTERED MENTAL STATUS REPORTED BY PENITENTIARY. - History of Present Illness Patient is a 53-year-old severely debilitated wart of the stage II was sent from [facility] with worsening shortness of breath and fever to 103.4 degrees. Patient is nonverbal has a history of cerebral palsy and on arrival has an O2 sat of 79% on 2 L now satting 83.7% on 6 L and has a blood pressure 148/90 a temp of 103 and a heart rate of 144. She is a reddy of the [facility] and is a full code MD Complaint: shortness of breath Onset (ago): hour(s) Context: recent illness Relieving factors: nothing Exacerbating factors: other (Cerebral palsy and patient is immobile) - Related Data Home Medications Medication Instructions Recorded Confirmed Atorvastatin Calcium [Atorvastatin 10 mg G-TUBE HS 08/24/18 12/27/18 10mg Tab] Carvedilol [Carvedilol 3.125mg Tab] 3.125 mg G-TUBE DAILY 08/24/18 12/27/18 Cetirizine HCl 10 mg G-TUBE DAILY 08/24/18 12/27/18 Lacosamide [Vimpat] 150 mg G-TUBE BID 08/24/18 12/27/18 Lactulose [Lactulose 10gm/15ml 20 gm G-TUBE DAILY 08/24/18 12/27/18 Oral Soln] Oxybutynin Chloride 5 mg G-TUBE BID 08/24/18 12/27/18 guaiFENesin [Robafen] 10 ml G-TUBE Q4HP PRN 08/24/18 12/27/18 levETIRAcetam [Keppra] 1,500 mg G-TUBE BID 08/24/18 12/27/18 Acetaminophen [Acetaminophen 325mg 650 mg G-TUBE Q6HP PRN 08/25/18 12/27/18 tab] Loperamide HCl [Loperamide] 2 mg G-TUBE POSTTR 08/25/18 12/27/18 Medroxyprogesterone Acetate 150 mg IM DIRECTED 08/25/18 12/27/18 [Depo-Provera 150mg/mL Syringe] Multivitamin,Ther and Minerals 1 each G-TUBE DAILY 08/25/18 12/27/18 [Vitamin and Minerals] Sennosides/Docusate Sodium 1 tab G-TUBE BID 08/25/18 12/27/18 [Senokot-S Tablet] Fluticasone Propionate [24 Hour 1 spray IH DAILY 12/27/18 12/27/18 Allergy] Ketotifen Fumarate 1 - 2 drops OP BID 12/27/18 12/27/18 Propylene Glycol/Peg 400/Pf 1 each OP BID 12/27/18 12/27/18 [Systane Ultra 0.4-0.3% Eye Drp] Allergies Allergy/AdvReac Type Severity Reaction Status Date / Time ampicillin Allergy Verified 12/27/18 10:29 Penicillins Allergy Verified 12/27/18 10:29 Sulfa (Sulfonamide Allergy Verified 12/27/18 10:29 Antibiotics) sulfamethoxazole Allergy Verified 12/27/18 10:29 [From Bactrim] trimethoprim [From Bactrim] Allergy Verified 12/27/18 10:29 [facility] History - Hepatitis A Screen Drug use history?: No High risk sexual behaviors?: No History of sexually transmitted infection?: No Currently employed?: No Childcare worker?: No Do you have indoor plumbing?: Yes Do you have electricity?: Yes Attestation statement:: This patient has been screened for Hepatitis A risk factors. 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 He is chronically bedbound. Has a G-tube. Reddy of the [facility]. Laterality Cases: Bilateral: Other Other Surgeries: Yes: Other Amputation: No - Social History Smoking Status: Never smoker Alcohol Intake: never Occupational Status: disabled Housing: care home Family Hx:: Unable to obtain ROS Obtained: Yes All systems reviewed & no additional complaints - Constitutional Constitutional: Reports system reviewed and no additional complaints, except as docu, Reports as per HPI, Reports other (Patient has a feeding tube in place) - Respiratory Respiratory: Yes system reviewed and no additional complaints, except as docu, Yes as per HPI - Neurologic Neurologic: Reports system reviewed and no additional complaints, except as docu, Reports as per HPI (Patient has cerebral palsy and is nonverbal) Physical Exam - General General appearance: in distress - Head Head exam: atraumatic - Eye Eye exam: Present: other (Patient is obtunded) - ENT ENT exam: Present: normal exam - Neck Neck exam: Present: normal inspection - Chest Chest inspection: Present: normal inspection - Respiratory Respiratory exam: Present: respiratory distress, wheezes, accessory muscle use - Cardiovascular Cardiovascular exam: Present: regular rate, tachycardia - Abdominal Exam Abdominal exam: Present: soft, normal bowel sounds (Feeding tube in place) - Neurological Exam Neurological exam: Present: other (Patient is obtunded and not verbally responsive)
[2018-12-27 10:50] LABS: ABG Base Excess 1.9 mmol/L (-2.4-2.3); ABG HCO3 25.4 mmhg (22.0-26.0); ABG Oxygen Saturation 89 % (90-100); ABG PCO2 35.2 mmhg (35.0-45.0); ABG PH 7.48 mmol/L (7.35-7.45); ABG PO2 53.4 mmhg (80-100); ABG TCO2 26.5 mmhg (23-27)
[2018-12-27 10:51] LABS: Allen's Test Patient Unable
[2018-12-27 10:52] LABS: Appearance,Urine SL CLOUDY (Clear); Bilirubin,Urine Negative (Negative); Blood, Urine 1+ (Negative); Color,Urine YELLOW (Yellow); Glucose,Urine (UA) Negative (Negative); Ketones,Urine Negative (Negative); Leukocyte Esterase,Urine TRACE (Negative); Protein,Urine 2+ (Negative); Specific Gravity, Urine 1.025 (1.005-1.030); Urobilinogen,Urine 0.2 EU/dl (0.2)
[2018-12-27 11:39] LABS: Bacteria,Urine 3+ /lpf; Squamous Epithelial Cell,Urine Occasional #/hpf (0-5); WBC,Urine Occasional #/hpf (0-3)
[2018-12-27 11:51] LABS: Alanine Aminotransferase 44 U/L (12-78); Albumin/Globulin Ratio 0.4 (1.1-1.8); Alkaline Phosphatase 62 U/L (46-116); Anion Gap 15.1 mEq/L (5-15); Aspartate Amino Transferase 31 U/L (15-37); Bilirubin,Total 0.3 mg/dL (0.2-1.0); Blood Urea Nitrogen 13 mg/dL (7-18); Calcium 8.6 mg/dL (8.5-10.1); Carbon Dioxide 26 mmol/L (21.0-32.0); Chloride 96 mmol/L (98-107); Globulin 4.5 gm/dl (1.3-3.2); Glucose 137 mg/dL (74-106); Sodium 133 mmol/L (136-145); Total Protein,Serum 6.5 gm/dL (6.4-8.2)
[2018-12-27 12:32] LABS: Basophils # 0.2 K/mm3 (0-0.2); Basophils % 3.1 % (0.1-2.0); Eosinophils % 0.1 % (0.1-12.0); Hematocrit 38.5 % (37.0-47.0); Hemoglobin 13.4 g/dL (12.2-16.2); Lymphocytes # 1.2 K/mm3 (0.7-4.5); Lymphocytes % 19.4 % (10-50); Mean Corpuscular HGB Conc 34.8 g/dL (31.8-35.4); Mean Corpuscular Volume 77.9 fl (81-99); Mean Platelet Volume 18.1 fl (7.4-10.4); Monocytes # 0.3 K/mm3 (0.1-1.0); Monocytes % 5.3 % (1.7-9.3); Neutrophils # 4.3 K/mm3 (1.8-7.8); Neutrophils % 72.1 % (37.0-80.0); Platelet Count 92 K/mm3 (142-424); Red Blood Count 4.94 M/mm3 (4.20-5.40)
[2018-12-27 12:40] LABS: Red Cell Distribution Width 30.2 % (11.5-17.5)
--- NOTE | 2018-12-27 14:27 | Pharmacy Consult Notes ---
- Pharmacy Consult Date: 12/27/18 Time: 14:26 Referring provider: DR. IBANEZ Reason for Consult:: VANCOMYCIN DOSING Allergies and ADEs:: Allergies Allergy/AdvReac Type Severity Reaction Status Date / Time ampicillin Allergy Verified 12/27/18 10:29 Penicillins Allergy Verified 12/27/18 10:29 Sulfa (Sulfonamide Allergy Verified 12/27/18 10:29 Antibiotics) sulfamethoxazole Allergy Verified 12/27/18 10:29 [From Bactrim] trimethoprim [From Bactrim] Allergy Verified 12/27/18 10:29 Home Medications:: Home Medications Medication Instructions Recorded Confirmed Type Atorvastatin Calcium [Atorvastatin 10 mg G-TUBE HS 08/24/18 12/27/18 History 10mg Tab] Carvedilol [Carvedilol 3.125mg Tab] 3.125 mg G-TUBE DAILY 08/24/18 12/27/18 History Cetirizine HCl 10 mg G-TUBE DAILY 08/24/18 12/27/18 History Lacosamide [Vimpat] 150 mg G-TUBE BID 08/24/18 12/27/18 History Lactulose [Lactulose 10gm/15ml 20 gm G-TUBE DAILY 08/24/18 12/27/18 History Oral Soln] Oxybutynin Chloride 5 mg G-TUBE BID 08/24/18 12/27/18 History guaiFENesin [Robafen] 10 ml G-TUBE Q4HP PRN 08/24/18 12/27/18 History levETIRAcetam [Keppra] 1,500 mg G-TUBE BID 08/24/18 12/27/18 History Acetaminophen [Acetaminophen 325mg 650 mg G-TUBE Q6HP PRN 08/25/18 12/27/18 History tab] Loperamide HCl [Loperamide] 2 mg G-TUBE POSTTR 08/25/18 12/27/18 History Medroxyprogesterone Acetate 150 mg IM DIRECTED 08/25/18 12/27/18 History [Depo-Provera 150mg/mL Syringe] Multivitamin,Ther and Minerals 1 each G-TUBE DAILY 08/25/18 12/27/18 History [Vitamin and Minerals] Sennosides/Docusate Sodium 1 tab G-TUBE BID 08/25/18 12/27/18 History [Senokot-S Tablet] Fluticasone Propionate [24 Hour 1 spray IH DAILY 12/27/18 12/27/18 History Allergy] Ketotifen Fumarate 1 - 2 drops OP BID 12/27/18 12/27/18 History Propylene Glycol/Peg 400/Pf 1 each OP BID 12/27/18 12/27/18 History [Systane Ultra 0.4-0.3% Eye Drp] Height: 1.63 m Weight: 50.916 kg Laboratory Results:: Laboratory Results - last 24 hr 12/27/18 10:35: Urine Color Yellow, Urine Appearance Sl cloudy, Urine pH 6.0, Ur Specific [place] 1.025, Urine Protein 2+, Urine Glucose (UA) Negative, Urine Ketones Negative, Urine Blood 1+, Urine Nitrate Positive, Urine Bilirubin Negative, Urine Urobilinogen 0.2, Ur Leukocyte Esterase Trace, Urine RBC None, Urine WBC Occasional, Ur Squamous Epith Cells Occasional, Urine Bacteria 3+ 12/27/18 10:37: Influenza Type A Ag Negative, Influenza Type B Ag Negative 12/27/18 10:41: Specimen Source Right radial, O2 % 10% nrb, ABG pH 7.48 H, ABG pCO2 35.2, ABG pO2 53.4 L, ABG HCO3 25.4, ABG Total CO2 26.5, ABG O2 Saturation 89 L, ABG Base Excess 1.9, Osei Test Patient unable 12/27/18 11:06: Sodium 133 L, Potassium 4.1, Chloride 96 L, Carbon Dioxide 26, Anion Gap 15.1 H, BUN 13, Creatinine 0.46 L, Estimated Creat Clear 135, Estimated GFR 143, Est GFR ( Amer) 173, Glucose 137 H, Calcium 8.6, Total Bilirubin 0.3, AST 31, ALT 44, Alkaline Phosphatase 62, Troponin I < 0.02, Total Protein 6.5, Albumin 2.0 L, Globulin 4.5 H, Albumin/Globulin Ratio 0.4 L 12/27/18 11:06: Lactate 1.6 12/27/18 11:36: WBC 6.0, RBC 4.94, Hgb 13.4, Hct 38.5, MCV 77.9 L, MCH 27.1, MCHC 34.8, RDW 30.2 H*, Plt Count 92 L, MPV 18.1 H, Neut % (Auto) 72.1, Lymph % (Auto) 19.4, [place] % (Auto) 5.3, Eos % (Auto) 0.1, Baso % (Auto) 3.1 H, Neut # (Auto) 4.3, Lymph # (Auto) 1.2, [place] # (Auto) 0.3, Eos # (Auto) 0.0, Baso # (Auto) 0.2 Medical History: Reports:: Hyperlipidemia Denies:: Cancer, Diabetes Mellitus Type 1, Diabetes Mellitus Type 2, MRSA Assessment and Plan - Assessment and plan all Dx Assessment and Plan for all problems:: BASED ON PATIENT FACTORS, RECOMMEND VANCOMYCIN 1 GM IV Q12H. PHARMACY WILL FOLLOW DAILY AND ADJUST APPROPRIATE.
--- NOTE | 2018-12-27 14:53 | Pharmacy Consult Notes ---
[facility] Pharmacy VTE Monitoring - Patient Demographics Admission date: 12/27/18 Report Date: 12/27/18 Time: 14:53 Allergies/Adverse Reactions: Patient Allergies ampicillin Allergy (Verified 12/27/18 10:29) Penicillins Allergy (Verified 12/27/18 10:29) Sulfa (Sulfonamide Antibiotics) Allergy (Verified 12/27/18 10:29) sulfamethoxazole [From Bactrim] Allergy (Verified 12/27/18 10:29) trimethoprim [From Bactrim] Allergy (Verified 12/27/18 10:29) Height: 1.63 m Weight: 50.916 kg Patient Problems: Current Active Problems Sepsis (Acute) Right lower lobe pneumonia (Acute) Acute cystitis without hematuria (Acute) - VTE Risk Labs: VTE Related Lab Results Hgb 13.4 g/dL (12.2-16.2) 12/27/18 11:36 Hct 38.5 % (37.0-47.0) 12/27/18 11:36 Plt Count 92 K/mm3 (142-424) L 12/27/18 11:36 BUN 13 mg/dL (7-18) 12/27/18 11:06 Creatinine 0.46 mg/dL (0.55-1.02) L 12/27/18 11:06 Estimated Creat Clear 135 mL/min (50-200) 12/27/18 11:06 - Prophylaxis VTE Prophylaxis Ordered?: Yes Types of VTE Prophylaxis: TEDS Knee High Location of Applied Device: Bilateral Lower Extremeties
--- NOTE | 2018-12-27 18:25 | Electrocardiograph Report ---
APPROVED REPORT Exam: Resting ECG HR:140 bpm ECG Measurements Heart Rate 140 AXES ID 152 P 65 QRSd 76 QRS 31 QT 254 T36 QTc 387 <Conclusion> Sinus tachycardia Otherwise normal ECG Electronically signed by : Natalio Dunne, 12/27/2018 18:24:39
[2018-12-28 06:57] LABS: Basophils % 0.4 % (0.1-2.0); Eosinophils % 0.1 % (0.1-12.0); Hematocrit 33.8 % (37.0-47.0); Lymphocytes # 1.5 K/mm3 (0.7-4.5); Lymphocytes % 12.1 % (10-50); Mean Corpuscular HGB Conc 31.2 g/dL (31.8-35.4); Mean Corpuscular Volume 87.4 fl (81-99); Mean Platelet Volume 11.9 fl (7.4-10.4); Monocytes # 0.6 K/mm3 (0.1-1.0); Monocytes % 5.1 % (1.7-9.3); Neutrophils # 10.1 K/mm3 (1.8-7.8); Neutrophils % 82.4 % (37.0-80.0); Platelet Count 184 K/mm3 (142-424); Red Blood Count 3.86 M/mm3 (4.20-5.40); White Blood Count 12.3 K/mm3 (4.8-10.8)
[2018-12-28 06:58] LABS: Hemoglobin 10.5 g/dL (12.2-16.2)
[2018-12-28 07:13] LABS: Albumin Level 1.6 gm/dL (3.4-5.0); Albumin/Globulin Ratio 0.4 (1.1-1.8); Anion Gap 15.3 mEq/L (5-15); Bilirubin,Total 0.4 mg/dL (0.2-1.0); Calcium 8.6 mg/dL (8.5-10.1); Globulin 4.3 gm/dl (1.3-3.2); Total Protein,Serum 5.9 gm/dL (6.4-8.2)
--- NOTE | 2018-12-28 09:28 | History & Physical Report ---
*Admission Date: 12/27/18 *Chief complaint: soa *History of present illness: Patient is a 53-year-old severely debilitated [place] was sent from [facility] with worsening shortness of breath and fever to 103.4 degrees. Patient is nonverbal has a history of cerebral palsy and on arrival to ED has an O2 sat of 79% on 2 L now 83.7% on 6 L and has a blood pressure 148/90 a temp of 103 and a heart rate of 144. Pt admitted for UTI and workup, [facility] History I have reviewed the patient's past medical history: Yes Medical History: Reports:: Hyperlipidemia Denies:: Cancer, Diabetes Mellitus Type 1, Diabetes Mellitus Type 2, MRSA *Have you ever received a pneumonia vaccine?: Yes *Have you received a flu vaccine this season?: Yes Laterality Cases: Bilateral: Other Other Surgeries: Yes: Other Amputation: No - *Social History Smoking Status: Unknown if ever smoked Alcohol Intake: never *Occupational Status:: disabled Housing: group home *Travel in the last 8 weeks: None Family Hx:: Unable to obtain Review of Systems - Review of Systems Review of systems:: pertinent systems reviewed and negative unless documented below - Constitutional Reports fever(s) - Eyes Denies change in vision - ENT Denies change in voice - *Cardiovascular Reports shortness of breath, Denies chest pain with activity - *Respiratory Reports shortness of breath - *Gastrointestinal Denies nausea, Denies vomiting - *Musculoskeletal Denies joint pain - Integumentary/Breasts Denies rash - *Neurologic Denies dizziness - Psychiatric Denies anxiety - Endocrine Denies excessive sweating - Hematologic/Lymphatic Denies enlarged lymph nodes - Allergic/Immunologic Denies lip swelling Meds Home Medications Medication Instructions Recorded Confirmed Type Atorvastatin Calcium [Atorvastatin 10 mg G-TUBE HS 08/24/18 12/27/18 History 10mg Tab] Carvedilol [Carvedilol 3.125mg Tab] 3.125 mg G-TUBE DAILY 08/24/18 12/27/18 History Cetirizine HCl 10 mg G-TUBE DAILY 08/24/18 12/27/18 History Lacosamide [Vimpat] 150 mg G-TUBE BID 08/24/18 12/27/18 History Lactulose [Lactulose 10gm/15ml 20 gm G-TUBE DAILY 08/24/18 12/27/18 History Oral Soln] Oxybutynin Chloride 5 mg G-TUBE BID 08/24/18 12/27/18 History guaiFENesin [Robafen] 10 ml G-TUBE Q4HP PRN 08/24/18 12/27/18 History levETIRAcetam [Keppra] 1,500 mg G-TUBE BID 08/24/18 12/27/18 History Acetaminophen [Acetaminophen 325mg 650 mg G-TUBE Q6HP PRN 08/25/18 12/27/18 History tab] Loperamide HCl [Loperamide] 2 mg G-TUBE POSTTR 08/25/18 12/27/18 History Medroxyprogesterone Acetate 150 mg IM DIRECTED 08/25/18 12/27/18 History [Depo-Provera 150mg/mL Syringe] Multivitamin,Ther and Minerals 1 each G-TUBE DAILY 08/25/18 12/27/18 History [Vitamin and Minerals] Sennosides/Docusate Sodium 1 tab G-TUBE BID 08/25/18 12/27/18 History [Senokot-S Tablet] Calcium Carbonate 1,000 mg PO BID 12/27/18 12/27/18 History Cyanocobalamin (Vitamin B-12) 1,000 mcg G-TUBE DAILY 12/27/18 12/27/18 History [Vitamin B-12 1000mcg Tablet] Denosumab [Denosumab 60mg/mL 60 mg SQ DIRECTED 12/27/18 12/27/18 History syringe] Fluticasone Propionate [24 Hour 1 spray IH DAILY 12/27/18 12/27/18 History Allergy] Ketotifen Fumarate 1 - 2 drops OP BID 12/27/18 12/27/18 History Propylene Glycol/Peg 400/Pf 1 each OP BID 12/27/18 12/27/18 History [Systane Ultra 0.4-0.3% Eye Drp] Allergies Allergy/AdvReac Type Severity Reaction Status Date / Time ampicillin Allergy Verified 12/27/18 10:29 Penicillins Allergy Verified 12/27/18 10:29 Sulfa (Sulfonamide Allergy Verified 12/27/18 10:29 Antibiotics) sulfamethoxazole Allergy Verified 12/27/18 10:29 [From Bactrim] trimethoprim [From Bactrim] Allergy Verified 12/27/18 10:29 Exam Vital signs and Labs for Last 24 Hours: Temp Pulse Resp BP Pulse Ox 97.4 F L 94 H 22 117/78 93 L 12/28/18 07:59 12/28/18 07:59 12/28/18 07:59 12/28/18 07:59 12/28/18 07:59 Laboratory Results - last 24 hr 12/27/18 10:35: Urine Color Yellow, Urine Appearance Sl cloudy, Urine pH 6.0, Ur Specific [place] 1.025, Urine Protein 2+, Urine Glucose (UA) Negative, Urine Ketones Negative, Urine Blood 1+, Urine Nitrate Positive, Urine Bilirubin Negative, Urine Urobilinogen 0.2, Ur Leukocyte Esterase Trace, Urine RBC None, Urine WBC Occasional, Ur Squamous Epith Cells Occasional, Urine Bacteria 3+ 12/27/18 10:37: Influenza Type A Ag Negative, Influenza Type B Ag Negative 12/27/18 10:41: Specimen Source Right radial, O2 % 10% nrb, ABG pH 7.48 H, ABG pCO2 35.2, ABG pO2 53.4 L, ABG HCO3 25.4, ABG Total CO2 26.5, ABG O2 Saturation 89 L, ABG Base Excess 1.9, Osei Test Patient unable 12/27/18 11:06: Sodium 133 L, Potassium 4.1, Chloride 96 L, Carbon Dioxide 26, Anion Gap 15.1 H, BUN 13, Creatinine 0.46 L, Estimated Creat Clear 135, Estimated GFR 143, Est GFR ( Amer) 173, Glucose 137 H, Calcium 8.6, Total Bilirubin 0.3, AST 31, ALT 44, Alkaline Phosphatase 62, Troponin I < 0.02, Total Protein 6.5, Albumin 2.0 L, Globulin 4.5 H, Albumin/Globulin Ratio 0.4 L 12/27/18 11:06: Lactate 1.6 12/27/18 11:36: WBC 6.0, RBC 4.94, Hgb 13.4, Hct 38.5, MCV 77.9 L, MCH 27.1, MCHC 34.8, RDW 30.2 H*, Plt Count 92 L, MPV 18.1 H, Neut % (Auto) 72.1, Lymph % (Auto) 19.4, [place] % (Auto) 5.3, Eos % (Auto) 0.1, Baso % (Auto) 3.1 H, Neut # (Auto) 4.3, Lymph # (Auto) 1.2, [place] # (Auto) 0.3, Eos # (Auto) 0.0, Baso # (Auto) 0.2 12/27/18 16:06: POC Glucose 123 H 12/27/18 20:24: POC Glucose 99 12/28/18 05:42: POC Glucose 105 12/28/18 06:36: WBC 12.3 H D, RBC 3.86 L, Hgb 10.5 L D, Hct 33.8 L, MCV 87.4, MCH 27.2, MCHC 31.2 L, RDW 15.0 D, Plt Count 184 D, MPV 11.9 H, Neut % (Auto) 82.4 H, Lymph % (Auto) 12.1, [place] % (Auto) 5.1, Eos % (Auto) 0.1, Baso % (Auto) 0.4, Neut # (Auto) 10.1 H, Lymph # (Auto) 1.5, [place] # (Auto) 0.6, Eos # (Auto) 0.0, Baso # (Auto) 0.0 12/28/18 06:36: Sodium 140, Potassium 4.3, Chloride 107, Carbon Dioxide 22, Anion Gap 15.3 H, BUN 14, Creatinine 0.37 L, Estimated Creat Clear 153, Estimated GFR 184, Est GFR ( Amer) 223 D, Glucose 97 D, Calcium 8.6, Magnesium 1.8, Total Bilirubin 0.4, AST 40 H D, ALT 49, Alkaline Phosphatase 55, Total Protein 5.9 L, Albumin 1.6 L D, Globulin 4.3 H, Albumin/Globulin Ratio 0.4 L I & O for Last 24 hours: Intake & Output 12/25/18 12/26/18 12/27/18 12/28/18 11:59 11:59 11:59 11:59 Intake Total 2091 / 2091 Output Total 1175 / 1175 Balance 917 / 917 Weight 130 lb 119 lb 1 oz Microbiology Reports for the Last 24 Hours: Microbiology 12/27/18 10:35 Urine,Catheterized Urine Culture - Preliminary Gram Negative Rods - Constitutional thin, chronically ill appearing - *Routine HEENT Exam Head: Present: normocephalic Eye: Present: PERRL ENT: Present: mucous membranes moist - *Routine Neck Exam Present: supple. Absent: lymphadenopathy - *Routine Respiratory Exam Present: decreased breath sounds, wheezes - *Routine Cardiovascular Exam Present: RRR - *Routine Abdominal Exam Present: soft, normoactive bowel sounds. Absent: tenderness Comments: g tube in place - *Routine Extremities Exam Present: full ROM. Absent: cyanosis, clubbing, edema - *Routine Skin Exam Present: warm - *Routine Neurological Exam Present: alert - Routine Psychiatric Exam Present: normal affect Assessment and Plan (1) UTI (urinary tract infection) Current visit: No Status: Acute Qualifiers: Urinary tract infection type: catheter-associated UTI Indwelling urinary catheter type: unspecified Encounter type: initial encounter Qualified Code(s): T83.511A - Infection and inflammatory reaction due to indwelling urethral catheter, initial encounter; N39.0 - Urinary tract infection, site not specified Category: Medical Code(s): N39.0 - Urinary tract infection, site not specified (2) Cerebral palsy Current visit: No Status: Chronic Qualifiers: Cerebral palsy type: unspecified type Qualified Code(s): G80.9 - Cerebral palsy, unspecified Category: Medical Code(s): G80.9 - Cerebral palsy, unspecified (3) Feeding by G-tube Current visit: No Status: Chronic Category: Medical Code(s): Z93.1 - Gastrostomy status - Assessment and plan all Dx Assessment and Plan for all problems:: rounded with marysol all orders per marysol waiting for blood cx try to obtain iv access
--- NOTE | 2018-12-29 13:15 | Progress Note ---
Internal Medicine - PN: Subj *Date: 12/29/18 *Time: 13:13 Interval history: pt with uti with gram neg - Exam Vital signs and Labs for Last 24 Hours: Temp Pulse Resp BP Pulse Ox 98.3 F 100 H 18 163/95 H 98 12/29/18 12:00 12/29/18 12:00 12/29/18 12:00 12/29/18 12:00 12/29/18 12:00 Laboratory Results - last 24 hr 12/28/18 16:40: POC Glucose 105 12/28/18 21:22: POC Glucose 113 H 12/29/18 05:52: POC Glucose 95 12/29/18 11:21: POC Glucose 91 I & O for Last 24 hours: Intake & Output 12/27/18 12/28/18 12/29/18 12/30/18 11:59 11:59 11:59 11:59 Intake Total 2092 / 2092 1534 / 1534 Output Total 1175 / 1175 430 / 430 Balance 917 / 917 1104 / 1104 Weight 130 lb 119 lb 1 oz 113 lb 5 oz Microbiology Reports for the Last 24 Hours: Microbiology 12/27/18 11:06 Blood Blood Culture - Preliminary NO GROWTH AFTER 48 HOURS 12/27/18 11:06 Blood Blood Culture - Preliminary NO GROWTH AFTER 48 HOURS 12/27/18 10:35 Urine,Catheterized Urine Culture - Final Klebsiella pneumoniae - Constitutional no acute distress - *Routine HEENT Exam Head: Present: normocephalic Eye: Present: EOMI, PERRL ENT: Present: mucous membranes dry - *Routine Neck Exam Absent: JVD - *Routine Respiratory Exam Present: decreased breath sounds - *Routine Cardiovascular Exam Present: RRR - *Routine Abdominal Exam Comments: has g tube - *Routine Extremities Exam Absent: calf tenderness - *Routine Skin Exam Present: intact - *Routine Neurological Exam Present: alert, CN II-XII intact - Routine Psychiatric Exam Present: normal affect Assessment and Plan (1) UTI (urinary tract infection) Current visit: No Status: Acute Qualifiers: Urinary tract infection type: catheter-associated UTI Indwelling urinary catheter type: unspecified Encounter type: initial encounter Qualified Code(s): T83.511A - Infection and inflammatory reaction due to indwelling urethral catheter, initial encounter; N39.0 - Urinary tract infection, site not specified Category: Medical Code(s): N39.0 - Urinary tract infection, site not specified (2) Cerebral palsy Current visit: No Status: Chronic Qualifiers: Cerebral palsy type: unspecified type Qualified Code(s): G80.9 - Cerebral palsy, unspecified Category: Medical Code(s): G80.9 - Cerebral palsy, unspecified (3) Feeding by G-tube Current visit: No Status: Chronic Category: Medical Code(s): Z93.1 - Gastrostomy status (4) Klebsiella pneumoniae infection Current visit: Yes Status: Acute Category: Medical Code(s): B96.1 - Klebsiella pneumoniae [K. pneumoniae] as the cause of diseases classified elsewhere
--- NOTE | 2018-12-30 09:34 | Discharge Summary ---
General - General Admission date:: 12/27/18 Discharge date: 12/30/18 HPI HPI: Patient is a 53-year-old severely debilitated [place] was sent from [facility] with worsening shortness of breath and fever to 103.4 degrees. Patient is nonverbal has a history of cerebral palsy and on arrival to ED has an O2 sat of 79% on 2 L now 83.7% on 6 L and has a blood pressure 148/90 a temp of 103 and a heart rate of 144. Pt admitted for UTI and workup, Hospital Course Hospital Course: head ct:IMPRESSION: No Acute Intracranial Findings NoSignificant Change Since August 2018 Ct Head Again note the stable large calcified mass measures up to 2.2 cm AP dimension along region quadrant quadrigeminal plate or possibly pineal. Suspect this mass lesion yields the underlying hydrocephalus (spiral CT to yield multiplanar imaging could better localize if so desired. Only axial images obtained today) Moderate ventriculomegaly again noted similar to August 2018-stable Longstanding appearing RESERVATIONIST shunt catheter entering from right grossly intact and unchanged chest x ray: IMPRESSION: Limited markedly rotated portable CXR Right perihilar infiltrate. With additional infiltrate seen extending into right mid lung and right base Suggestion left perihilar, central infiltrate as well. Some of these appearance could be due developing CHF. urine culture positive for Klebseiella Pneumonie- will treat with 6 more days of Rocephin at [place]. transfer back to [place] continue rocephin. Objective Vital signs: Temp Pulse Resp BP Pulse Ox 98.1 F 93 H 19 171/93 H 96 12/30/18 07:53 12/30/18 07:53 12/30/18 07:53 12/30/18 07:53 12/30/18 07:53 chronically ill appearing - *Routine HEENT Exam Head: Present: normocephalic Eye: Present: PERRL ENT: Present: mucous membranes moist - *Routine Respiratory Exam Present: rhonchi, wheezes - *Routine Cardiovascular Exam Present: RRR - *Routine Abdominal Exam Present: soft, normoactive bowel sounds Comments: g tube left quad - *Routine Extremities Exam Present: full ROM - *Routine Skin Exam Present: warm - *Routine Neurological Exam Present: alert - Routine Psychiatric Exam Present: normal affect Results Labs on day of discharge: Labs from last 24 hours 11/02/0512/29/18 12/29/18 06:10 20:38 16:55 POC Glucose 99 84 97 12/29/18 12/29/18 11:21 05:52 POC Glucose 91 95 Preliminary micro results at discharge 12/27/18 11:06 Blood Culture - Preliminary Blood NO GROWTH AFTER 48 HOURS 12/27/18 11:06 Blood Culture - Preliminary Blood NO GROWTH AFTER 48 HOURS - Additional Comments rounded with marysol all orders per marysol DS: Diagnosis - Discharge Diagnosis (1) UTI (urinary tract infection) Status: Acute (2) Cerebral palsy Status: Chronic (3) Feeding by G-tube Status: Chronic (4) Klebsiella pneumoniae infection Status: Acute Discharge Plan - Patient Discharge Instructions ACTIVITY: Continue current activity DIET: continue same diet Patient Instructions: Pneumonia-Adult, DI for Urinary Tract Infection (UTI), DI for Sepsis -- Adult - Follow up Plan Disposition: [facility] Home Medications: Home Medications Medication Instructions Recorded Confirmed Type Atorvastatin Calcium [Atorvastatin 10 mg G-TUBE HS 08/24/18 12/27/18 History 10mg Tab] Carvedilol [Carvedilol 3.125mg Tab] 3.125 mg G-TUBE DAILY 08/24/18 12/27/18 History Cetirizine HCl 10 mg G-TUBE DAILY 08/24/18 12/27/18 History Lacosamide [Vimpat] 150 mg G-TUBE BID 08/24/18 12/27/18 History Lactulose [Lactulose 10gm/15ml 20 gm G-TUBE DAILY 08/24/18 12/27/18 History Oral Soln] Oxybutynin Chloride 5 mg G-TUBE BID 08/24/18 12/27/18 History guaiFENesin [Robafen] 10 ml G-TUBE Q4HP PRN 08/24/18 12/27/18 History levETIRAcetam [Keppra] 1,500 mg G-TUBE BID 08/24/18 12/27/18 History Acetaminophen [Acetaminophen 325mg 650 mg G-TUBE Q6HP PRN 08/25/18 12/27/18 History tab] Loperamide HCl [Loperamide] 2 mg G-TUBE Q6HP PRN 08/25/18 12/28/18 History Medroxyprogesterone Acetate 150 mg IM DIRECTED 08/25/18 12/27/18 History [Depo-Provera 150mg/mL Syringe] Multivitamin,Ther and Minerals 1 each G-TUBE DAILY 08/25/18 12/27/18 History [Vitamin and Minerals] Cyanocobalamin (Vitamin B-12) 1,000 mcg G-TUBE DAILY 12/27/18 12/27/18 History [Vitamin B-12 1000mcg Tablet] Denosumab [Denosumab 60mg/mL 60 mg SQ DIRECTED 12/27/18 12/27/18 History syringe] Fluticasone Propionate [24 Hour 1 spray IH DAILY 12/27/18 12/27/18 History Allergy] Ketotifen Fumarate 1 - 2 drops OP BID 12/27/18 12/27/18 History Propylene Glycol/Peg 400/Pf 1 drop OP BID 12/27/18 12/28/18 History [Systane Ultra 0.4-0.3% Eye Drp] Sennosides [Senna Lax] 8.6 mg G-TUBE BID 12/28/18 12/28/18 History Ceftriaxone Sodium [Rocephin 1gm 1 gm IM Q24H 6 Days #6 vial 12/30/18 Rx vial] Prescriptions/Medication Reconciliation: New Ceftriaxone Sodium [Rocephin 1gm vial] 1 gm IM Q24H 6 Days #6 vial Continued Oxybutynin Chloride 5 mg G-TUBE BID levETIRAcetam [Keppra] 1,500 mg G-TUBE BID Lacosamide [Vimpat] 150 mg G-TUBE BID guaiFENesin [Robafen] 10 ml G-TUBE Q4HP PRN PRN Reason: Congestion Carvedilol [Carvedilol 3.125mg Tab] 3.125 mg G-TUBE DAILY Atorvastatin Calcium [Atorvastatin 10mg Tab] 10 mg G-TUBE HS Acetaminophen [Acetaminophen 325mg tab] 650 mg G-TUBE Q6HP PRN PRN Reason: As Needed For Fever Or Pain Medroxyprogesterone Acetate [Depo-Provera 150mg/mL Syringe] 150 mg IM DIRECTED Multivitamin,Ther and Minerals [Vitamin and Minerals] 1 each G-TUBE DAILY Ketotifen Fumarate 1 - 2 drops OP BID Fluticasone Propionate [24 Hour Allergy] 1 spray IH DAILY Denosumab [Denosumab 60mg/mL syringe] 60 mg SQ DIRECTED Cyanocobalamin (Vitamin B-12) [Vitamin B-12 1000mcg Tablet] 1,000 mcg G-TUBE DAILY Lactulose [Lactulose 10gm/15ml Oral Soln] 20 gm G-TUBE DAILY Cetirizine HCl 10 mg G-TUBE DAILY Loperamide HCl [Loperamide] 2 mg G-TUBE Q6HP PRN PRN Reason: Diarrhea Propylene Glycol/Peg 400/Pf [Systane Ultra 0.4-0.3% Eye Drp] 1 drop OP BID Sennosides [Senna Lax] 8.6 mg G-TUBE BID - Problem Reconciliation Problems Reviewed?: Yes
== END 2018-12-30 14:00 | DRG 699 ==
LOC: ER 10:22 → 2ND 13:33
PROVIDERS: ADMIT Family Medicine; ATTEND Emergency Medicine
CPT/HCPCS: 36415; 70450; 71010; 71045; 80053; 80177; 81001; 82803; 82962; 83605; 83735; 84484; 85025; 87040; 87086; 87088; 87186; 87275; 87276; 93005; 94761; 96365; 96367; 96375; 99285; J1335; J1956; J3370

== ENCOUNTER 2019-01-28 09:21 | Outpatient (CLI) | payer MEDICARE, MEDICAID, SELFPAY ==
[2019-01-28 09:34] VITALS: BP 147/101; PULSE 93; RESP 18; O2SAT 100
== END 2019-01-28 09:34 | disposition home or self-care (01) ==
LOC: INF 09:21
PROVIDERS: Visit Provider Emergency Medicine
DX: M81.0 Age-related osteoporosis without current pathological fracture (principal)
CPT/HCPCS: 96372; J0897

== ENCOUNTER → 2019-03-23 12:43 | Outpatient (CLI) | payer MEDICARE, MEDICAID, SELFPAY | PROVIDERS: Visit Provider Emergency Medicine | DX: J11.1 Influenza due to unidentified influenza virus with other respiratory manifestations (principal) | CPT/HCPCS: 87275; 87276 ==

== ENCOUNTER → 2019-07-24 09:30 | Outpatient (CLI) | payer MEDICARE, MEDICAID, SELFPAY | PROVIDERS: PCP Emergency Medicine; Visit Provider Emergency Medicine | DX: Z12.31 Encounter for screening mammogram for malignant neoplasm of breast (principal) ==

== ENCOUNTER 2019-07-29 09:29 | Outpatient (CLI) | payer MEDICARE, MEDICAID, SELFPAY ==
--- NOTE | 2019-07-29 09:57 | US_ITS ---
PROCEDURE: US BREAST LT COMPLETE CLINICAL INDICATION: SCREENING COMPARISON: US BREAST RT COMPLETE from 07/29/2019 FINDINGS: The patient was unable to perform a mammogram. Ultrasound of the left breast including axilla shows no cystic or solid nodules. IMPRESSION: Negative left breast ultrasound. Dictated by: Osei Costello MD 08/07/2019 09:51 Electronically signed by Osei Costello MD in [place] 08/07/2019 09:51
--- NOTE | 2019-07-29 09:57 | US_ITS ---
PROCEDURE: US BREAST RT COMPLETE CLINICAL INDICATION: SCREENING COMPARISON: No exams were available for comparison FINDINGS: The patient is unable to have a mammogram. General survey performed of the right breast shows a 6 mm cyst at 11 o'clock near the nipple. At 12 o'clock there is a hypoechoic nodule at 7 mm and may be due to a cyst or fibroadenoma. Six-month follow-up suggested. This does contain some low level echoes. IMPRESSION: Probably benign findings. Recommend six-month follow-up. Dictated by: Osei Costello MD 08/07/2019 09:50 Electronically signed by Osei Costello MD in [place] 08/07/2019 09:50
[2019-07-29 10:41] VITALS: BP 139/88; PULSE 87; RESP 18; TEMP 36.9; O2SAT 98
== END 2019-07-29 11:00 | disposition home or self-care (01) ==
LOC: INF 09:29
PROVIDERS: PCP Emergency Medicine; Visit Provider Emergency Medicine
DX: M81.0 Age-related osteoporosis without current pathological fracture (principal); R92.8 Other abnormal and inconclusive findings on diagnostic imaging of breast
CPT/HCPCS: 76641; 96372; J0897

== ENCOUNTER → 2019-12-02 11:40 | Outpatient (CLI) | payer MEDICARE, MEDICAID, SELFPAY ==
--- NOTE | 2019-12-02 12:12 | XR_ITS ---
PROCEDURE: XR KUB CLINICAL INDICATION: CHECK G-TUBE PLACEMENT COMPARISON: CT CT ABDOMEN PELVIS WO CON from 10/12/2018 CR XR CHEST PORTABLE from 04/18/2019 FINDINGS: There are multiple peritoneal shunt catheters present. This includes a tube in the right mid abdominal region which appears to be coming from the left parasternal area of the chest. Cannot confirm that this catheter is complete over the spine area. An additional left parasternal catheter noted superiorly extending to the right mid lower abdomen incompletely imaged with a curled catheter also noted in the left upper quadrant. There is a G-tube present overlying the lower abdominal area just to the left of midline at the L3-L4 level. There are multiple right upper quadrant calcifications consistent with gallstones. Left nephrolithiasis present. Kidney stones on the left measure up to 16 mm. IMPRESSION: 1. G-tube noted over the mid to lower abdomen region as described above. 2. Multiple peritoneal/STUNT PERFORMER shunts noted. 3. Left nephrolithiasis Dictated by: Osei Costello MD 12/02/2019 13:57 Osei Costello MD in [place] 12/02/2019 13:57
--- NOTE | 2019-12-02 16:00 | XR_ITS ---
PROCEDURE: XR KUB CLINICAL INDICATION: G TUBE PLACEMENT COMPARISON: No exams were available for comparison FINDINGS: Fluoroscopy time: 33 seconds A mixture of gas a graafian and water was injected into the G-tube. The tube is in good position in the region of the body of the stomach inferiorly. No evidence of contrast extravasation. IMPRESSION: Adequate position of G-tube Dictated by: Osei Costello MD 12/02/2019 17:59 Osei Costello MD in [place] 12/02/2019 17:59
== END ==
PROVIDERS: PCP Emergency Medicine; Visit Provider Surgery
DX: K94.23 Gastrostomy malfunction (principal); Z78.9 Other specified health status
CPT/HCPCS: 74018; 76000

== ENCOUNTER 2019-12-09 08:17 | Emergency (ER) | payer MEDICARE, MEDICAID, SELFPAY ==
[2019-12-09 08:17] VITALS: BP 128/77; PULSE 91; RESP 17; TEMP 36.6; O2SAT 96; BMI 20.4
--- NOTE | 2019-12-09 08:34 | XR_ITS ---
PROCEDURE: XR KUB CLINICAL INDICATION: PEG replaced Evaluate PEG tube placement COMPARISON: CT CT ABDOMEN PELVIS WO CON from 10/12/2018 FINDINGS: Two images are submitted with Gastrografin injected into the G-tube. The G-tube is in satisfactory position in the region of the body of the stomach with no evidence of contrast extravasation. Multiple tubular density is once again noted over the abdomen consistent with WIRER MAINTENANCE shunts as previously described. IMPRESSION: G-tube in satisfactory position without evidence of contrast extravasation Dictated by: Osei Costello MD 12/09/2019 09:49 Osei Costello MD in [place] 12/09/2019 09:49
--- NOTE | 2019-12-09 08:36 | HMH.EDGENADL ---
ED Disposition Clinical Impression: PEG tube malfunction Disposition: Xfer SNF Condition on Discharge: Good Instructions: How to Care for Your PEG Tube Referrals: Js Gupta MD [Primary Care Provider] - Time of Disposition: 08:44 - Critical Care Critical Care Time: No Attestation: On 12/09/19, the high probability of a clinically significant, sudden or life threatening deterioration of the following system(s) required my full and direct attention, intervention and personal management. The time I documented below is in addition to time spent performing reported procedures but includes the following listed in this critical care notation. Medical Decision Making - Medical Records Medical records reviewed: Yes: I reviewed the patient's medical records. - Luis Inquiry Pt receiving controlled substance: No Vital Signs: 12/09/19 08:17 Temperature 97.9 F Temperature Source Oral Pulse Rate [Right Radial] 91 H Respiratory Rate 17 Blood Pressure [Right Arm] 128/77 Blood Pressure Mean [Right Arm] 94 02 Sat by Pulse Oximetry 96 Orders (Tests/Meds): ED MEDICATIONS Discontinued Medications Generic Name Dose Route Start Last Admin Trade Name Freq PRN Reason Stop Dose Admin Diatrizoate Meglum/Diatrizoate Sod 15 ml 12/09/19 08:35 Diatrizoate Laverne 66% & Diatrizoate Na 10% 30ml Udc PO 12/09/19 08:36 ONCE ONE ORDERS Category Date Time Status KUB (single view) [XR KUB] Stat Exams 12/09/19 08:34 Ordered Medical Decision Narrative: In summary this is a 54-year-old G-tube dependent female presenting to the emergency department with a PEG tube complication. Patient clinically stable on arrival. Vital signs within normal limits. 18 Faroese G-tube obtained. Tube exchanged without difficulty. Inflated with 20 cc of sterile water. Procedure well-tolerated. Port PEG xray performed with contrast. Shows contrast in the lumen of the stomach. Tube okay to use. Patient discharged in stable condition. Instructed to follow-up with her PCP and general surgery as needed. General Adult HPI - General Chief complaint: Abdominal Pain Stated complaint: g tube Time Seen by Provider: 12/09/19 08:26 Mode of Arrival: EMS Limitations: Physical Limitations Description of Symptoms (Recalled from ER Triage Doc. by RN): pt presents to ed with c/o pulling out g tube from [place]. - History of Present Illness HPI narrative: 54-year-old female presenting to the emergency department by EMS with a G-tube complication. Patient uses tube for feeding medications. Nursing staff this morning noticed that her G-tube was dislodged. They believe she pulled it out overnight. They were able to use it yesterday evening without difficulty. Chart review shows that the patient had the G-tube changed on 12/02/2019. Documentation at that time says that an 18 Faroese gastrostomy tube was placed without difficulty. The track was mature. No documented complications. Patient is minimally verbal, unable to state if she has abdominal pain, nausea, other concerns. - Related Data Home Medications Medication Instructions Recorded Confirmed Atorvastatin Calcium [Lipitor 10mg 10 mg G-TUBE HS 08/24/18 12/02/19 Tab] Cetirizine HCl 10 mg G-TUBE DAILY 08/24/18 12/02/19 Lacosamide [Vimpat] 150 mg G-TUBE BID 08/24/18 12/02/19 Lactulose [Lactulose 10gm/15ml 20 gm G-TUBE DAILY 08/24/18 12/02/19 Oral Soln] Oxybutynin Chloride 5 mg G-TUBE BID 08/24/18 12/02/19 carvediloL [Carvedilol 3.125mg Tab] 3.125 mg G-TUBE DAILY 08/24/18 12/02/19 guaiFENesin [Robafen] 10 ml G-TUBE Q4HP PRN 08/24/18 12/02/19 levETIRAcetam [Keppra] 1,500 mg G-TUBE BID 08/24/18 12/02/19 Acetaminophen [Acetaminophen 325mg 650 mg G-TUBE Q6HP PRN 08/25/18 12/02/19 tab] Loperamide HCl [Loperamide] 2 mg G-TUBE Q6HP PRN 08/25/18 12/02/19 Medroxyprogesterone Acetate 150 mg IM DIRECTED 08/25/18 12/02/19 [Depo-Provera 150mg/mL Syringe] Mu
[2019-12-09 09:33] VITALS: BP 135/79; PULSE 74; RESP 15; TEMP 36.8; O2SAT 99
== END 2019-12-09 09:33 ==
PROVIDERS: Emergency Provider Emergency Medicine; PCP Emergency Medicine
DX: K94.23 Gastrostomy malfunction (principal); E78.5 Hyperlipidemia, unspecified; Z88.0 Allergy status to penicillin; Z88.2 Allergy status to sulfonamides; G80.9 Cerebral palsy, unspecified
CPT/HCPCS: 43762; 74018; 99283

== ENCOUNTER 2019-12-16 05:53 | Emergency (ER) | payer MEDICARE, MEDICAID, SELFPAY ==
[2019-12-16 05:24] VITALS: BP 146/94; PULSE 84; RESP 18; TEMP 36.5; O2SAT 98; BMI 27.4
[2019-12-16 05:37] VITALS: BMI 26.5
--- NOTE | 2019-12-16 05:38 | XR_ITS ---
PROCEDURE: XR KUB CLINICAL INDICATION: g tube placement COMPARISON: CT CT ABDOMEN PELVIS WO CON from 10/12/2018 FINDINGS: A G-tube is seen within the body of the stomach near the greater curvature. Contrast was injected opacifying the stomach duodenal bulb and descending duodenum. There is no evidence of leakage around the G-tube. Bowel gas pattern is unremarkable with mild dilatation of the transverse colon. There are multiple calcified gallstones right upper quadrant. A drainage catheter appears to be present overlying the of gallstones and projecting over the inferior edge of the liver shadow.. There is no evidence of free air. IMPRESSION: Satisfactory placement of G-tube Dictated by: Dr. Myles Diaz MD 12/16/2019 07:57 Dr. Myles Diaz MD in [place] 12/16/2019 07:57
--- NOTE | 2019-12-16 05:45 | HMH.EDNVD ---
ED Disposition Clinical Impression: Encounter for gastrojejunal tube placement, Gastrojejunostomy tube dislodgement Disposition: Home, Self-Care Condition on Discharge: Good Instructions: DI for Feeding Tube Exchange Additional Instructions: resume orders - Critical Care Critical Care Time: No Attestation: On , the high probability of a clinically significant, sudden or life threatening deterioration of the following system(s) required my full and direct attention, intervention and personal management. The time I documented below is in addition to time spent performing reported procedures but includes the following listed in this critical care notation. Medical Decision Making - Medical Records Medical records reviewed: Yes: I reviewed the patient's medical records. - Luis Inquiry Pt receiving controlled substance: No Vital Signs: 12/16/19 05:24 Temperature 97.7 F Temperature Source Oral Pulse Rate [Right Radial] 84 Respiratory Rate 18 Blood Pressure [Right Arm] 146/94 H Blood Pressure Mean [Right Arm] 111 Blood Pressure Source [Right Arm] Automatic Cuff Blood Pressure Position [Right Arm] Supine 02 Sat by Pulse Oximetry 98 Oxygen Delivery Method Nasal Cannula Oxygen Flow Rate (LPM) 2 Orders (Tests/Meds): ORDERS Category Date Time Status XR KUB Stat Exams 12/16/19 05:38 Ordered Nausea/Vomiting/Diarrhea HPI - General Chief complaint: Recheck/Abnormal Lab/Rx Stated complaint: Gtube pulled out Time Seen by Provider: 12/16/19 05:30 Mode of Arrival: EMS Source of Information: EMS, Medical Record Limitations: Language Barrier Description of Symptoms (Recalled from ER Triage Doc. by RN): Mary sent pt to ED d/t pt pulling G-Tube out. Pt is non-verbal but does respond to commands. GCS 11. No apparent distress. - History of Present Illness HPI Narrative: g tube out at [facility] complaint: other (g tube out ) Onset (ago): hour(s) Associated Abdominal Pain: No Context: other (g tube out ) Associated symptoms: denies other symptoms - Related Data Home Medications Medication Instructions Recorded Confirmed Atorvastatin Calcium [Lipitor 10mg 10 mg G-TUBE HS 08/24/18 12/02/19 Tab] Cetirizine HCl 10 mg G-TUBE DAILY 08/24/18 12/02/19 Lacosamide [Vimpat] 150 mg G-TUBE BID 08/24/18 12/02/19 Lactulose [Lactulose 10gm/15ml 20 gm G-TUBE DAILY 08/24/18 12/02/19 Oral Soln] Oxybutynin Chloride 5 mg G-TUBE BID 08/24/18 12/02/19 carvediloL [Carvedilol 3.125mg Tab] 3.125 mg G-TUBE DAILY 08/24/18 12/02/19 guaiFENesin [Robafen] 10 ml G-TUBE Q4HP PRN 08/24/18 12/02/19 levETIRAcetam [Keppra] 1,500 mg G-TUBE BID 08/24/18 12/02/19 Acetaminophen [Acetaminophen 325mg 650 mg G-TUBE Q6HP PRN 08/25/18 12/02/19 tab] Loperamide HCl [Loperamide] 2 mg G-TUBE Q6HP PRN 08/25/18 12/02/19 Medroxyprogesterone Acetate 150 mg IM DIRECTED 08/25/18 12/02/19 [Depo-Provera 150mg/mL Syringe] Multivitamin,Ther and Minerals 1 each G-TUBE DAILY 08/25/18 12/02/19 [Vitamin and Minerals] Cyanocobalamin (Vitamin B-12) 1,000 mcg G-TUBE DAILY 12/27/18 12/02/19 [Vitamin B-12 1000mcg Tablet] Denosumab [Denosumab 60mg/mL 60 mg SQ DIRECTED 12/27/18 12/02/19 syringe] Fluticasone Propionate [24 Hour 1 spray IH DAILY 12/27/18 12/02/19 Allergy] Ketotifen Fumarate 1 - 2 drops OP BID 12/27/18 12/02/19 Propylene Glycol/Peg 400/Pf 1 drp OP BID 12/27/18 12/02/19 [Systane Ultra 0.4-0.3% Eye Drp] Sennosides [Senna Lax] 8.6 mg G-TUBE BID 12/28/18 12/02/19 Allergies Allergy/AdvReac Type Severity Reaction Status Date / Time ampicillin Allergy Verified 12/09/19 08:25 Penicillins Allergy Verified 12/09/19 08:25 Sulfa (Sulfonamide Allergy Verified 12/09/19 08:25 Antibiotics) sulfamethoxazole Allergy Verified 12/09/19 08:25 [From Bactrim] trimethoprim [From Bactrim] Allergy Verified 12/09/19 08:25 [facility] History - Hepatitis A Screen Drug use history?: No High risk sexual beha
[2019-12-16 06:26] VITALS: BP 148/87; PULSE 93; RESP 18; TEMP 36.5; O2SAT 90
== END 2019-12-16 06:25 ==
LOC: ER 06:23
PROVIDERS: Emergency Provider Emergency Medicine; PCP Emergency Medicine
DX: K94.23 Gastrostomy malfunction (principal); G80.8 Other cerebral palsy; E78.5 Hyperlipidemia, unspecified; Z79.899 Other long term (current) drug therapy; Z88.0 Allergy status to penicillin; Z88.2 Allergy status to sulfonamides
CPT/HCPCS: 43762; 74018; 99283

== ENCOUNTER 2019-12-16 15:22 | Emergency (ER) | payer MEDICARE, MEDICAID, SELFPAY ==
[2019-12-16 15:24] VITALS: BP 127/77; PULSE 83; RESP 18; TEMP 37.3; O2SAT 100; BMI 23.0
[2019-12-16 15:25] VITALS: BMI 23.0
--- NOTE | 2019-12-16 15:26 | XR_ITS ---
PROCEDURE: XR KUB CLINICAL INDICATION: gtube placement COMPARISON: CT CT ABDOMEN PELVIS WO CON from 10/12/2018 FINDINGS: Contrast is injected into the G-tube which appears be in good position. The tube is in the region of the body of the stomach with no obvious extravasation. Incidental note is made of cholelithiasis. Multiple shunt tubes are present in the abdomen. IMPRESSION: PEG tube tip in good position. Dictated by: Osei Costello MD 12/16/2019 16:00 Osei Costello MD in [place] 12/16/2019 16:00
--- NOTE | 2019-12-16 15:31 | HMH.EDGENADL ---
ED Disposition Clinical Impression: Gastrojejunostomy tube dislodgement Disposition: Xfer SNF Condition on Discharge: Good Instructions: DI for Gastrostomy: Permanent and Temporary Additional Instructions: Follow-up with your primary care provider in 2 to 3 days for reevaluation. - Critical Care Critical Care Time: No Attestation: On , the high probability of a clinically significant, sudden or life threatening deterioration of the following system(s) required my full and direct attention, intervention and personal management. The time I documented below is in addition to time spent performing reported procedures but includes the following listed in this critical care notation. Medical Decision Making - Medical Records Medical records reviewed: Yes: I reviewed the patient's medical records. - Luis Inquiry Pt receiving controlled substance: No Orders (Tests/Meds): ED MEDICATIONS Discontinued Medications Generic Name Dose Route Start Last Admin Trade Name Freq PRN Reason Stop Dose Admin Diatrizoate Meglum/Diatrizoate Sod 30 ml 12/16/19 15:28 12/16/19 15:36 Diatrizoate Laverne 66% & Diatrizoate Na 10% 30ml Udc FEED TUBE 12/16/19 15:29 30 ml ONCE ONE Administration ORDERS Category Date Time Status Abdomen XR flat & upright [XR acute abdomen series] Exams 12/16/19 15:26 Ordered Stat - Radiology Data #1 Image(s): Abdomen Image Reviewed: Yes I reviewed the patient's radiology image Gastrograffin indicates appropriate placement of G-tube Medical Decision Narrative: Patient with G-tube removal from erratic extremity movements. G-tube replaced easily. Confirmed with port PEG. Discharged back to correction. General Adult HPI - General Stated complaint: gtube dislodged Time Seen by Provider: 12/16/19 15:25 Mode of Arrival: EMS Source of Information: EMS Limitations: Altered Mental Status - History of Present Illness HPI narrative: This is a 54-year-old female with a past medical history significant for Vassar's chorea who presents to the emergency department for accidental removal of G-tube. Patient was also here at 4 AM this morning for the same as she has erratic extremity movements and accidentally pulled out her G-tube. This happened again today and so she is here for G-tube replacement. No complaints or other acute conditions reported by correction staff. - Related Data Home Medications Medication Instructions Recorded Confirmed Atorvastatin Calcium [Lipitor 10mg 10 mg G-TUBE HS 07/07/19 10/14/20 Tab] Cetirizine HCl 10 mg G-TUBE DAILY 08/24/18 12/02/19 Lacosamide [Vimpat] 150 mg G-TUBE BID 08/24/18 12/02/19 Lactulose [Lactulose 10gm/15ml 20 gm G-TUBE DAILY 08/24/18 12/02/19 Oral Soln] Oxybutynin Chloride 5 mg G-TUBE BID 08/24/18 12/02/19 carvediloL [Carvedilol 3.125mg Tab] 3.125 mg G-TUBE DAILY 08/24/18 12/02/19 guaiFENesin [Robafen] 10 ml G-TUBE Q4HP PRN 08/24/18 12/02/19 levETIRAcetam [Keppra] 1,500 mg G-TUBE BID 08/24/18 12/02/19 Acetaminophen [Acetaminophen 325mg 650 mg G-TUBE Q6HP PRN 08/25/18 12/02/19 tab] Loperamide HCl [Loperamide] 2 mg G-TUBE Q6HP PRN 08/25/18 12/02/19 Medroxyprogesterone Acetate 150 mg IM DIRECTED 08/25/18 12/02/19 [Depo-Provera 150mg/mL Syringe] Multivitamin,Ther and Minerals 1 each G-TUBE DAILY 08/25/18 12/02/19 [Vitamin and Minerals] Cyanocobalamin (Vitamin B-12) 1,000 mcg G-TUBE DAILY 12/27/18 12/02/19 [Vitamin B-12 1000mcg Tablet] Denosumab [Denosumab 60mg/mL 60 mg SQ DIRECTED 12/27/18 12/02/19 syringe] Fluticasone Propionate [24 Hour 1 spray IH DAILY 12/27/18 12/02/19 Allergy] Ketotifen Fumarate 1 - 2 drops OP BID 12/27/18 12/02/19 Propylene Glycol/Peg 400/Pf 1 drp OP BID 12/27/18 12/02/19 [Systane Ultra 0.4-0.3% Eye Drp] Sennosides [Senna Lax] 8.6 mg G-TUBE BID 12/28/18 12/02/19 Allergies Allergy/AdvReac Type Severity Reaction Status Date / Time ampicillin Allergy
--- NOTE | 2019-12-16 15:34 | PC.NURSE ---
rad at BS
[2019-12-16 15:57] VITALS: BP 122/83; PULSE 80; RESP 18; TEMP 37.3; O2SAT 100
== END 2019-12-16 15:57 | disposition home or self-care (01) ==
PROVIDERS: Emergency Provider Emergency Medicine; PCP Emergency Medicine
DX: K94.23 Gastrostomy malfunction (principal); G80.8 Other cerebral palsy; G10 Huntington's disease; E78.5 Hyperlipidemia, unspecified; Z79.899 Other long term (current) drug therapy; Z88.2 Allergy status to sulfonamides
CPT/HCPCS: 43762; 74018; 99282; 99283

== ENCOUNTER 2019-12-23 20:23 | Emergency (ER) | payer MEDICARE, MEDICAID, SELFPAY ==
[2019-12-23 20:30] VITALS: RESP 14; TEMP 36.8; O2SAT 98; BMI 23.6
--- NOTE | 2019-12-23 20:34 | XR_ITS ---
PROCEDURE: XR KUB CLINICAL INDICATION: verify gtube placement COMPARISON: CT CT ABDOMEN PELVIS WO CON from 10/12/2018 FINDINGS: There are 2 KUBs which are obtained before and after Gastrografin injection into the G-tube. The G-tube peers to be in good position along the body of the stomach with no contrast extravasation. 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 IMPRESSION: Peg tube in good position. Dictated by: Osei Costello MD 12/24/2019 05:31 Osei Costello MD in [place] 12/24/2019 05:31
[2019-12-23 20:37] VITALS: BP 140/98; PULSE 75; RESP 16; O2SAT 98
--- NOTE | 2019-12-23 20:51 | HMH.EDRECH ---
ED Disposition Clinical Impression: Dislodged gastrostomy tube Disposition: Home, Self-Care Condition on Discharge: Good Instructions: How to Care for Your PEG Tube Additional Instructions: resume orders Referrals: Js Gupta MD [Primary Care Provider] - - Critical Care Critical Care Time: No Attestation: On 12/23/19, the high probability of a clinically significant, sudden or life threatening deterioration of the following system(s) required my full and direct attention, intervention and personal management. The time I documented below is in addition to time spent performing reported procedures but includes the following listed in this critical care notation. Medical Decision Making - Medical Records Medical records reviewed: Yes: I reviewed the patient's medical records. - Luis Inquiry Pt receiving controlled substance: No Vital Signs: 12/23/19 20:30 12/23/19 20:37 Temperature 98.2 F Temperature Source Oral Pulse Rate [Right] 75 Respiratory Rate 14 16 Blood Pressure [Right Arm] 140/98 H Blood Pressure Mean [Right Arm] 112 02 Sat by Pulse Oximetry 98 98 Oxygen Delivery Method Room Air Room Air Orders (Tests/Meds): ORDERS Category Date Time Status XR KUB Stat Exams 12/23/19 20:34 Ordered - Radiology Data #1 Image(s): KUB Image Reviewed: Yes I reviewed the patient's radiology image Preliminary Findings: Abnormal (g-tube ok ) Recheck HPI - General Chief Complaint: Recheck/Abnormal Lab/Rx Stated Complaint: pulled out feeding tube Time Seen by Provider: 12/23/19 20:35 Mode of Arrival: Family Vehicle Source of Information: Patient, EMS, Medical Record Limitations: No Limitations Description of Symptoms (Recalled from ER Triage Doc. by RN): gtube pulled out at some point of time while at the group home. unclear on how long exactly its been out. vss. sent over for replacement - History of Present Illness HPI narrative: pulled out g tube at [facility] - MD complaint: other (pulled out g tube ) Associated symptoms: none - Related Data Home Medications Medication Instructions Recorded Confirmed Atorvastatin Calcium [Lipitor 10mg 10 mg G-TUBE HS 08/24/18 12/23/19 Tab] Cetirizine HCl 10 mg G-TUBE DAILY 08/24/18 12/23/19 Lacosamide [Vimpat] 150 mg G-TUBE BID 08/24/18 12/23/19 Lactulose [Lactulose 10gm/15ml 20 gm G-TUBE DAILY 08/24/18 12/23/19 Oral Soln] Oxybutynin Chloride 5 mg G-TUBE BID 08/24/18 12/23/19 carvediloL [Carvedilol 3.125mg Tab] 3.125 mg G-TUBE DAILY 08/24/18 12/23/19 guaiFENesin [Robafen] 10 ml G-TUBE Q4HP PRN 08/24/18 12/23/19 levETIRAcetam [Keppra] 1,500 mg G-TUBE BID 08/24/18 12/23/19 Acetaminophen [Acetaminophen 325mg 650 mg G-TUBE Q6HP PRN 08/25/18 12/23/19 tab] Loperamide HCl [Loperamide] 2 mg G-TUBE Q6HP PRN 08/25/18 12/23/19 Medroxyprogesterone Acetate 150 mg IM DIRECTED 08/25/18 12/23/19 [Depo-Provera 150mg/mL Syringe] Multivitamin,Ther and Minerals 1 each G-TUBE DAILY 08/25/18 12/23/19 [Vitamin and Minerals] Cyanocobalamin (Vitamin B-12) 1,000 mcg G-TUBE DAILY 12/27/18 12/23/19 [Vitamin B-12 1000mcg Tablet] Denosumab [Denosumab 60mg/mL 60 mg SQ DIRECTED 12/27/18 12/23/19 syringe] Fluticasone Propionate [24 Hour 1 spray IH DAILY 12/27/18 12/23/19 Allergy] Ketotifen Fumarate 1 - 2 drops OP BID 12/27/18 12/23/19 Propylene Glycol/Peg 400/Pf 1 drp OP BID 12/27/18 12/23/19 [Systane Ultra 0.4-0.3% Eye Drp] Sennosides [Senna Lax] 8.6 mg G-TUBE BID 12/28/18 12/23/19 Allergies Allergy/AdvReac Type Severity Reaction Status Date / Time ampicillin Allergy Verified 12/09/19 08:25 Penicillins Allergy Verified 12/09/19 08:25 Sulfa (Sulfonamide Allergy Verified 12/09/19 08:25 Antibiotics) sulfamethoxazole Allergy Verified 12/09/19 08:25 [From Bactrim] trimethoprim [From Bactrim] Allergy Verified 12/09/19 08:25 H History - Hepatitis A Screen Drug use history?: No High risk sexual
[2019-12-23 21:15] VITALS: BP 151/71; PULSE 81; RESP 14; TEMP 36.8; O2SAT 97
== END 2019-12-23 21:21 | disposition home or self-care (01) ==
PROVIDERS: Emergency Provider Emergency Medicine; PCP Emergency Medicine
DX: K94.23 Gastrostomy malfunction (principal); G10 Huntington's disease; G80.8 Other cerebral palsy; Z88.0 Allergy status to penicillin; Z88.2 Allergy status to sulfonamides; E78.5 Hyperlipidemia, unspecified; Z79.899 Other long term (current) drug therapy
CPT/HCPCS: 74018; 99282

== ENCOUNTER 2019-12-29 08:30 | Emergency (ER) | payer MEDICARE, MEDICAID, SELFPAY ==
[2019-12-29] VITALS (17 sets, daily range): BP systolic 102–133; BP diastolic 65–95; PULSE 102–149; RESP 14–22; TEMP 37.7–38.6; O2SAT 90–100; BMI 25.7
--- NOTE | 2019-12-29 08:32 | PC.NURSE ---
called pharmacy for keppra dosing.
--- NOTE | 2019-12-29 08:34 | XR_ITS ---
PROCEDURE: XR CHEST PORTABLE CLINICAL HISTORY: poss pneumoina Endotracheal tube placement COMPARISON: CR XR CHEST PORTABLE from 10/12/2018 CR XR CHEST PORTABLE from 12/27/2018 CR XR CHEST PORTABLE from 04/18/2019 FINDINGS: 9:02 a.m.. The endotracheal tube is slightly low 6 mm above the brian projected toward the right mainstem bronchus. Normal heart size. Infiltrate is present in the right lung base. DENTAL INSURANCE BILLER shunt is noted traversing the hemithorax and looped in the left upper quadrant. No acute bony abnormalities. IMPRESSION: Low position of endotracheal tube with right lower lobe pneumonia May in the ER was notified of these findings by telephone 12/29/2019 at 9:29 a.m. Dictated by: Osei Costello MD 12/29/2019 09:31 Osei Costello MD in [place] 12/29/2019 09:31
--- NOTE | 2019-12-29 08:55 | PC.NURSE ---
attempted to do US IV, unsuccessful at this time
--- NOTE | 2019-12-29 08:57 | PC.NURSE ---
EJ attempted, no success at this time. Pt remains stable, no seizure activity at this time. HR 149
--- NOTE | 2019-12-29 08:58 | PC.NURSE ---
Second US guided IV attempted with no success
[2019-12-29 09:00] LABS: Alanine Aminotransferase 51 U/L (12-78); Albumin Level 4.3 g/dl (3.5-5.0); Albumin/Globulin Ratio 1.3 (1.1-1.8); Alkaline Phosphatase 71 U/L (38-126); Aspartate Amino Transferase 38 U/L (14-36); Bilirubin,Total 0.6 mg/dl (0.2-1.3); Blood Urea Nitrogen 19 mg/dl (7-17); Carbon Dioxide 22 mmol/L (22.0-30.0); Chloride 104 mmol/L (98-107); Estimated Glomerular Filt Rate 66 ml/min (>60); GFR (African American) 80 ML/MIN (>60); Globulin 3.2 g/dL (1.3-3.2); Glucose 221 mg/dl (74-100); Sodium 147 mmol/L (136-145); Total Protein,Serum 7.5 g/dl (6.3-8.2)
--- NOTE | 2019-12-29 09:03 | PC.NURSE ---
Pt intubated at this time. ENT placed 22 at the lip with 7.5 tube. Pt stable at this time.
[2019-12-29 09:04] LABS: Basophils # 0.2 K/mm3 (0-0.2); Eosinophils # 0.2 K/mm3 (0.0-0.4); Eosinophils % 1.3 % (0.1-12.0); Hematocrit 55.8 % (37.0-47.0); Hemoglobin 17.6 g/dL (12.2-16.2); Lymphocytes # 9.4 K/mm3 (0.7-4.5); Lymphocytes % 61.7 % (10-50); Mean Corpuscular HGB Conc 31.6 g/dL (31.8-35.4); Mean Corpuscular Hemoglobin 34.3 pg (27.0-31.2); Mean Corpuscular Volume 108.5 fl (81-99); Mean Platelet Volume 12.2 fl (7.4-10.4); Monocytes # 0.6 K/mm3 (0.1-1.0); Monocytes % 4.2 % (1.7-9.3); Neutrophils # 4.8 K/mm3 (1.8-7.8); Neutrophils % 31.7 % (37.0-80.0); Platelet Count 258 K/mm3 (142-424); Red Blood Count 5.14 M/mm3 (4.20-5.40); White Blood Count 15.2 K/mm3 (4.8-10.8)
--- NOTE | 2019-12-29 09:04 | PC.NURSE ---
Central line tray at bedside. MD attempted, not successful at this time.
--- NOTE | 2019-12-29 09:08 | PC.NURSE ---
Portable x-ray, tube is placed 20 at the lip. Pt tolerated well. VSS
[2019-12-29 09:11] LABS: MANUAL DIFFERENTIAL MANUAL DIFFERENTIAL (MANUAL DIFF)
--- NOTE | 2019-12-29 09:14 | ECG_ITS ---
APPROVED REPORT Exam: Resting ECG HR:130 bpm ECG Measurements Heart Rate 130 AXES RI 142 P 51 QRSd 76 QRS 14 QT 310 T 76 QTc 456 Conclusion Sinus tachycardia Poor r wave progression - unchanged over prior Abnormal ECG Electronically signed by : Abhijit Bradford, 12/29/2019 19:47:51
[2019-12-29 09:16] LABS: Troponin I < 0.01 ng/ml (0.00-0.034)
[2019-12-29 09:17] LABS: Eosinophils % 2 % (0-3); Lymphocytes % 58 % (10-50); Monocytes % 1 % (2-9); Neutrophils % 38 % (42-76); Total Cells Counted 100
[2019-12-29 09:23] LABS: Platelet Estimate Normal; RBC Morphology Normal
--- NOTE | 2019-12-29 09:23 | PC.NURSE ---
notified of potassium 6
--- NOTE | 2019-12-29 09:29 | PC.NURSE ---
Olivia with RT at bedside for ABG collection.
--- NOTE | 2019-12-29 09:30 | PC.NURSE ---
ETT pulled back to 20 cm at lip. Pt being prepped for central line placement. Hienra IV complete.
--- NOTE | 2019-12-29 09:30 | PC.NURSE ---
Spoke with Dr. Costello who advised tube needed to be pulled back 2-3 centimeters. Notified
[2019-12-29 09:42] LABS: ABG Base Excess -7.9 mmol/L (-2.4-2.3); ABG HCO3 16.8 mmhg (22.0-26.0); ABG Oxygen Saturation 100 % (90-100); ABG PCO2 27.3 mmhg (35.0-45.0); ABG PH 7.41 mmol/L (7.35-7.45); ABG PO2 328.7 mmhg (80-100); ABG TCO2 17.6 mmhg (23-27)
[2019-12-29 09:43] LABS: Allen's Test UNABLE; Oxygen 100 %; PEEP 10; Source R RADIAL; Tidal Volume 350; Vent Rate 20
--- NOTE | 2019-12-29 09:50 | PC.NURSE ---
dr hackett attempting central line placement at this time.
--- NOTE | 2019-12-29 09:50 | PC.NURSE ---
ABG results in, given to Dr Bradley.
[2019-12-29 09:51] LABS: Procalcitonin 0.056 ng/mL (0.0-2.0)
--- NOTE | 2019-12-29 09:51 | PC.NURSE ---
Vent settings as follows per RT: AC14, FIo2 60%, PEEP+8, Vt 350
--- NOTE | 2019-12-29 09:56 | PC.NURSE ---
Dr Bradley attempted right neck central line placement and is unsuccessful.
--- NOTE | 2019-12-29 09:56 | PC.NURSE ---
Dr Bradley attempting left femoral central line placement and is success. central line secured per hospital protocol. pt tolerated well.
--- NOTE | 2019-12-29 10:23 | HMH.EDGENADL ---
ED Disposition Clinical Impression: Status epilepticus, Right lower lobe pneumonia, Acute respiratory failure with hypoxia, Hyperkalemia Sepsis Qualifiers: Sepsis acute organ dysfunction status: with acute organ dysfunction UTI (urinary tract infection) Qualifiers: Urinary tract infection type: site unspecified Disposition: Xfer Short-Term Hosp Condition on Discharge: Critical Referrals: PCP,No [Non-Staff] - - Critical Care Critical Care Time: Yes (45) Attestation: On 12/29/19, the high probability of a clinically significant, sudden or life threatening deterioration of the following system(s) required my full and direct attention, intervention and personal management. The time I documented below is in addition to time spent performing reported procedures but includes the following listed in this critical care notation. Total Critical Care Time: 45 Vital system(s) involved:: Metabolic Failure, Respiratory Failure My critical care processes included: Assessment & monitoring of V/S, Initial and Re-exams, Data Review/Interpretation, Coordinating Care, Medication Orders and management Medical Decision Making - Medical Records Medical records reviewed: Yes: I reviewed the patient's medical records. - Luis Inquiry Pt receiving controlled substance: No Vital Signs: 12/29/19 08:30 12/29/19 08:57 12/29/19 09:04 Temperature 101.5 F H Temperature Source Rectal Pulse Rate [Right Radial] 134 H 149 H 139 H Respiratory Rate 22 Blood Pressure [Left Arm] 124/85 Blood Pressure Mean [Left Arm] 98 Blood Pressure Source [Left Arm] Blood Pressure Position [Left Arm] 02 Sat by Pulse Oximetry 90 L 92 L 93 L Oxygen Delivery Method Non-Rebreather Non-Rebreather Ambu-Bag Oxygen Flow Rate (LPM) 12/29/19 09:05 12/29/19 09:07 12/29/19 09:11 Temperature Temperature Source Pulse Rate [Right Radial] 135 H 145 H 114 H Respiratory Rate Blood Pressure [Left Arm] 131/88 102/83 L Blood Pressure Mean [Left Arm] 102 89 Blood Pressure Source [Left Arm] Automatic Cuff Automatic Cuff Blood Pressure Position [Left Arm] Sitting Sitting 02 Sat by Pulse Oximetry 97 92 L 98 Oxygen Delivery Method Ambu-Bag Non-Rebreather Non-Rebreather Oxygen Flow Rate (LPM) 15 15 12/29/19 09:30 12/29/19 09:37 12/29/19 09:39 Temperature Temperature Source Pulse Rate [Right Radial] 133 H 124 H 127 H Respiratory Rate Blood Pressure [Left Arm] 102/65 L 109/69 L 106/71 L Blood Pressure Mean [Left Arm] 77 82 82 Blood Pressure Source [Left Arm] Automatic Cuff Blood Pressure Position [Left Arm] Sitting 02 Sat by Pulse Oximetry 100 100 100 Oxygen Delivery Method Mechanical Ventilation Mechanical Ventilation Oxygen Flow Rate (LPM) 12/29/19 10:00 12/29/19 10:30 12/29/19 11:06 Temperature Temperature Source Pulse Rate [Right Radial] 125 H 122 H 116 H Respiratory Rate Blood Pressure [Left Arm] 112/85 117/86 119/91 H Blood Pressure Mean [Left Arm] 94 96 100 Blood Pressure Source [Left Arm] Automatic Cuff Automatic Cuff Automatic Cuff Blood Pressure Position [Left Arm] Sitting Sitting Sitting 02 Sat by Pulse Oximetry 99 100 100 Oxygen Delivery Method Mechanical Ventilation Mechanical Ventilation Mechanical Ventilation Oxygen Flow Rate (LPM) 100 12/29/19 11:17 12/29/19 11:37 Temperature Temperature Source Pulse Rate [Right Radial] 121 H 119 H Respiratory Rate Blood Pressure [Left Arm] 133/92 H 127/95 H Blood Pressure Mean [Left Arm] 105 105 Blood Pressure Source [Left Arm] Automatic Cuff Automatic Cuff Blood Pressure Position [Left Arm] Sitting Sitting 02 Sat by Pulse Oximetry 100 100 Oxygen Delivery Method Mechanical Ventilation Mechanical Ventilation Oxygen Flow Rate (LPM) - Lab Data Lab results reviewed: Yes: I reviewed the patient's lab results. Lab Results 12/29/19 08:32: WBC 15.2 H, RBC 5.14, Hgb 17.6 H, Hct 55.8 H, MCV 108.5 H, MCH 34.3 H, MCHC 31.6 L, RDW 13.0
--- NOTE | 2019-12-29 10:27 | PC.NURSE ---
dr hackett consulting with dr Alvarez pulmonary at concerning possible patient transfer/acceptance.
--- NOTE | 2019-12-29 10:30 | PC.NURSE ---
patient placed on list at [facility]. states there is 8 patients ahead of her on the list.
--- NOTE | 2019-12-29 10:32 | PC.NURSE ---
[facility] contacted for transfer consult. hospitalist to call back.
--- NOTE | 2019-12-29 10:37 | PC.NURSE ---
rpid covid swab collected and to lab for resulting.
--- NOTE | 2019-12-29 10:39 | PC.NURSE ---
[facility] called for transfer consult. To return call once bed status assessed.
--- NOTE | 2019-12-29 10:45 | PC.NURSE ---
[facility] returns call and electric transfer operator states that they do not have any ICU beds and they do not place ICU patient on a wait list. Coordinator states to call back later to check for bed status if needed.
--- NOTE | 2019-12-29 10:47 | PC.NURSE ---
Called [facility] to speak with a Neuro ICU hospitalist. They will return call.
[2019-12-29 10:50] LABS: Microscopic, Urine URINE MICROSCOPIC (MICROSCOPIC)
[2019-12-29 10:50] LABS: Adenovirus,PCR Not Detected (NotDetected); Bordetella Pertussis Not Detected (NotDetected); Chlamydophila Pneumoniae, PCR Not Detected (NotDetected); Coronavirus 19, PCR Not Detected (NotDetected); Coronavirus 229E Not Detected (NotDetected); Coronavirus NL63 Not Detected (NotDetected); Coronavirus OC43 Not Detected (NotDetected); Coronovirus HKU1,PCR Not Detected (NotDetected); Human Metapneumovirus Not Detected (NotDetected); Influenza A, PCR Not Detected (NotDetected); Influenza AH1, 2009 Not Detected (NotDetected); Influenza AH1, PCR Not Detected (NotDetected); Influenza AH3,PCR Not Detected (NotDetected); Influenza B, PCR Not Detected (NotDetected); Mycoplasma Pneumoniae, PCR Not Detected (NotDetected); Parainfluenza 1, PCR Not Detected (NotDetected); Parainfluenza 2, PCR Not Detected (NotDetected); Parainfluenza 3, PCR Not Detected (NotDetected); Parainfluenza 4, PCR Not Detected (NotDetected); Respiratory Syncytial Virus Not Detected (NotDetected); Rhinovirus/Enterovirus Not Detected (NotDetected)
[2019-12-29 10:51] LABS: Appearance,Urine CLOUDY (Clear); Bilirubin,Urine Negative (Negative); Blood, Urine 1+ (Negative); Color,Urine YELLOW (Yellow); Glucose,Urine (UA) 2+ (Negative); Ketones,Urine Negative (Negative); Leukocyte Esterase,Urine 1+ (Negative); Nitrate,Urine Negative (Negative); Protein,Urine 2+ (Negative); Specific Gravity, Urine >= 1.030 (1.005-1.030); Urobilinogen,Urine 0.2 EU/dl (0.2)
[2019-12-29 10:56] LABS: Chloride 104 mmol/L (98-107); Sodium 146 mmol/L (136-145)
--- NOTE | 2019-12-29 10:56 | PC.NURSE ---
[facility] returned call.
--- NOTE | 2019-12-29 10:58 | PC.NURSE ---
Pt was given 1 liter of LR, order was stated for 500 ml
[2019-12-29 10:59] LABS: Bacteria,Urine 1+ /lpf; Squamous Epithelial Cell,Urine Occasional #/hpf (0-5)
[2019-12-29 10:59] LABS: Blood Urea Nitrogen 20 mg/dl (7-17); Creatinine Clearance Estimated 76 mL/min (50-200); Estimated Glomerular Filt Rate 66 ml/min (>60); GFR (African American) 80 ML/MIN (>60)
[2019-12-29 11:00] LABS: Calcium 9.8 mg/dl (8.4-10.2); Carbon Dioxide 19 mmol/L (22.0-30.0); Glucose 213 mg/dl (74-100)
[2019-12-29 11:02] LABS: Lactic Acid 4.7 mmol/L (0.7-2.1)
--- NOTE | 2019-12-29 11:02 | PC.NURSE ---
critical lactic reported to dr hackett. new orders received.
--- NOTE | 2019-12-29 11:03 | PC.NURSE ---
critical potassium reported at 6.[address] Bradley. fluid resusitation already initiated for septic shock prior to receiving lab values. SEE MAR.
--- NOTE | 2019-12-29 11:05 | PC.NURSE ---
[facility] called with Dr Capone to wants to speak with Dr. Bradley. Dr Capone hung up while on hold. Called [facility] back and had them repage him at this time. Spoke with
--- NOTE | 2019-12-29 11:09 | PC.NURSE ---
Dr rocha returned call
--- NOTE | 2019-12-29 11:11 | PC.NURSE ---
Calling [facility] at this time
--- NOTE | 2019-12-29 11:12 | PC.NURSE ---
[facility] does not have ICU beds at this time. aware. going to call [facility] at this time.
--- NOTE | 2019-12-29 12:06 | PC.NURSE ---
Dr Domingo pulmonary at [facility] states that he accepts patient. cargo services coordinator states that they have no beds currently and that patient can be placed on a list.
--- NOTE | 2019-12-29 12:10 | PC.NURSE ---
Attempted to contact for possible admission here until bed is available at other facility. No answer at this time. Will continue to monitor
--- NOTE | 2019-12-29 12:37 | PC.NURSE ---
FARRUKH Ortiz on phone with [facility]. Attempting to arrange transport to
--- NOTE | 2019-12-29 12:37 | PC.NURSE ---
Glucose check was 78
[2019-12-29 12:44] LABS: Troponin I 0.17 ng/ml (0.00-0.034)
--- NOTE | 2019-12-29 12:51 | PC.NURSE ---
Report given to Oly at
--- NOTE | 2019-12-29 12:52 | PC.NURSE ---
Updated [facility] about pt transfer
--- NOTE | 2019-12-29 13:35 | PC.NURSE ---
Flight crew at [id number]
--- NOTE | 2019-12-29 13:36 | PC.NURSE ---
Flight crew departed w/ patient
[2019-12-29 13:49] LABS: POC Glucose,Bedside 78 (70-110)
[2019-12-29 13:49] LABS: POC Glucose,Bedside 104 (70-110)
[2019-12-29 14:49] LABS: Reflex Lactic Add Lactic Reflex
--- NOTE | 2020-01-01 09:21 | PC.NURSE ---
attempted to contact [facility] multiple times, drill rig operator helper has transferred me to the unit where pt is assigned but there is no answer at nurses station. Will call back later.
[2020-01-03 17:09] LABS: Levetiracetam (Keppra) <1.0 ug/mL (10.0-40.0)
== END 2019-12-29 14:07 | disposition short-term general hospital (02) ==
PROVIDERS: Emergency Provider Physician Assistant; PCP Emergency Medicine
DX: G40.803 Other epilepsy, intractable, with status epilepticus (principal); J18.9 Pneumonia, unspecified organism; E87.5 Hyperkalemia; G80.9 Cerebral palsy, unspecified; N30.00 Acute cystitis without hematuria; G10 Huntington's disease; E78.5 Hyperlipidemia, unspecified; Z79.899 Other long term (current) drug therapy; Z88.0 Allergy status to penicillin; Z88.2 Allergy status to sulfonamides
CPT/HCPCS: 31500; 71045; 80048; 80053; 80177; 81001; 82803; 82962; 83605; 84145; 84484; 85007; 85025; 87040; 87070; 87077; 87086; 87088; 87186; 87205; 87581; 87633; 87798; 93005; 96365; 96366; 96367; 96375; 96376; 99285; C1751; J0330; J1953; J2543; J2704; J3370

== ENCOUNTER 2020-01-07 21:31 | Emergency (ER) | payer MEDICARE, MEDICAID, SELFPAY ==
[2020-01-07 21:29] VITALS: BP 124/80; PULSE 81; RESP 16; TEMP 36.3; O2SAT 97; BMI 31.2
--- NOTE | 2020-01-07 21:42 | XR_ITS ---
PROCEDURE: XR KUB CLINICAL INDICATION: removed gtube Evaluate G-tube placement COMPARISON: CT CT ABDOMEN PELVIS WO CON from 10/12/2018 CR XR KUB from 12/23/2019 FINDINGS: Two KUBs are submitted. The 1st KUB shows AUTOMOBILE TECHNICIAN shunts curled in the abdomen as before some of which are discontinuous. There is a nonspecific bowel gas pattern. G-tube is present in the left mid abdominal region. Bilateral nephrolithiasis noted. The 2nd KUB shows contrast injected into the G-tube which is in good position. The bulb is in the region of the fundus of the stomach. No evidence of contrast extravasation into the peritoneal cavity. IMPRESSION: Intragastric location of the tip of the G-tube. Bilateral nephrolithiasis. Tubing curled in the abdomen consistent with AUTOMOBILE TECHNICIAN shunts Dictated by: Osei Costello MD 01/08/2020 05:46 Osei Costello MD in [place] 01/08/2020 05:46
--- NOTE | 2020-01-07 21:52 | PC.NURSE ---
rad at bedside for KUB to confirm placement
--- NOTE | 2020-01-07 21:53 | PC.NURSE ---
12f gtube replaced. Abd binder applied after confirmation xray taken.
[2020-01-07 22:00] VITALS: BP 128/82; PULSE 88; RESP 17; O2SAT 95
--- NOTE | 2020-01-07 22:11 | HMH.EDNVD ---
ED Disposition Clinical Impression: Dislodged gastrostomy tube, Feeding by G-tube Disposition: Home, Self-Care Condition on Discharge: Good Instructions: How to Care for Your PEG Tube Additional Instructions: resume prev orders Referrals: Js Gupta MD [Primary Care Provider] - - Critical Care Critical Care Time: No Attestation: On 01/07/20, the high probability of a clinically significant, sudden or life threatening deterioration of the following system(s) required my full and direct attention, intervention and personal management. The time I documented below is in addition to time spent performing reported procedures but includes the following listed in this critical care notation. Medical Decision Making - Medical Records Medical records reviewed: Yes: I reviewed the patient's medical records. - Luis Inquiry Pt receiving controlled substance: No Vital Signs: 01/07/20 21:29 01/07/20 22:00 Temperature 97.4 F L Temperature Source Axillary Pulse Rate [Left Radial] 81 88 Respiratory Rate 16 17 Blood Pressure [Right Arm] 124/80 128/82 Blood Pressure Mean [Right Arm] 94 97 Blood Pressure Source [Right Arm] Automatic Cuff Automatic Cuff Blood Pressure Position [Right Arm] Supine Supine 02 Sat by Pulse Oximetry 97 95 Oxygen Delivery Method Room Air Room Air Orders (Tests/Meds): ORDERS Category Date Time Status XR KUB Stat Exams 01/07/20 21:42 Taken - Radiology Data #1 Image(s): Abdomen Image Reviewed: Yes I reviewed the patient's radiology image Preliminary Findings: Abnormal (has gtube ) Nausea/Vomiting/Diarrhea HPI - General Chief complaint: Recheck/Abnormal Lab/Rx Stated complaint: pulled gtube out Time Seen by Provider: 01/07/20 21:55 Mode of Arrival: EMS Source of Information: Patient, EMS, Medical Record Limitations: Language Barrier Description of Symptoms (Recalled from ER Triage Doc. by RN): [place] reports pt removed gtube. - History of Present Illness HPI Narrative: g tube dislodged at [facility] complaint: other (g tube out ) Onset (ago): hour(s) Associated Abdominal Pain: No Severity: moderate Associated symptoms: denies other symptoms - Related Data Home Medications Medication Instructions Recorded Confirmed Atorvastatin Calcium [Lipitor 10mg 10 mg G-TUBE HS 08/24/18 01/07/20 Tab] Cetirizine HCl 10 mg G-TUBE DAILY 08/24/18 01/07/20 Lacosamide [Vimpat] 150 mg G-TUBE BID 08/24/18 01/07/20 Lactulose [Lactulose 10gm/15ml 20 gm G-TUBE DAILY 08/24/18 01/07/20 Oral Soln] Oxybutynin Chloride 5 mg G-TUBE BID 08/24/18 01/07/20 carvediloL [Carvedilol 3.125mg Tab] 3.125 mg G-TUBE DAILY 08/24/18 01/07/20 guaiFENesin [Robafen] 10 ml G-TUBE Q4H PRN 08/24/18 01/07/20 levETIRAcetam [Keppra] 1,500 mg G-TUBE BID 08/24/18 01/07/20 Acetaminophen [Acetaminophen 325mg 650 mg G-TUBE Q6H PRN 08/25/18 01/07/20 tab] Loperamide HCl [Loperamide] 2 mg G-TUBE Q6H PRN 08/25/18 01/07/20 Medroxyprogesterone Acetate 150 mg IM DIRECTED 08/25/18 01/07/20 [Depo-Provera 150mg/mL Syringe] Multivitamin,Ther and Minerals 1 each G-TUBE DAILY 08/25/18 01/07/20 [Vitamin and Minerals] Cyanocobalamin (Vitamin B-12) 1,000 mcg G-TUBE DAILY 12/27/18 01/07/20 [Vitamin B-12 1000mcg Tablet] Denosumab [Denosumab 60mg/mL 60 mg SQ DIRECTED 12/27/18 01/07/20 syringe] Fluticasone Propionate [24 Hour 1 spray IH DAILY 12/27/18 01/07/20 Allergy] Ketotifen Fumarate 1 - 2 drops OP BID 12/27/18 01/07/20 Propylene Glycol/Peg 400/Pf 1 drp OP BID 12/27/18 01/07/20 [Systane Ultra 0.4-0.3% Eye Drp] Sennosides [Senna Lax] 8.6 mg G-TUBE BID 12/28/18 01/07/20 Lacosamide [Vimpat] 125 mg NG-TUBE BID 01/07/20 01/07/20 Allergies Allergy/AdvReac Type Severity Reaction Status Date / Time ampicillin Allergy Verified 12/09/19 08:25 Penicillins Allergy Verified 12/09/19 08:25 Sulfa (Sulfonamide Allergy Verified 12/09/19 08:25 Antibiotics) sulfamethoxazole Allergy
--- NOTE | 2020-01-07 22:57 | PC.NURSE ---
received verification of vrad confirmation of placement. md states is ok.
--- NOTE | 2020-01-07 23:16 | PC.NURSE ---
Report called to Gini Hernandez at this time.
[2020-01-07 23:17] VITALS: BP 115/95; PULSE 102; RESP 14; TEMP 36.7; O2SAT 99
== END 2020-01-07 23:39 | disposition home or self-care (01) ==
PROVIDERS: Emergency Provider Emergency Medicine; PCP Emergency Medicine
DX: K94.23 Gastrostomy malfunction (principal); G80.9 Cerebral palsy, unspecified; G10 Huntington's disease; E78.5 Hyperlipidemia, unspecified; Z88.0 Allergy status to penicillin; Z79.899 Other long term (current) drug therapy
CPT/HCPCS: 43762; 74018; 99283

== ENCOUNTER → 2020-01-21 13:32 | Outpatient (CLI) | payer MEDICARE, MEDICAID, SELFPAY ==
--- NOTE | 2020-01-21 13:33 | US_ITS ---
PROCEDURE: US BREAST RT COMPLETE CLINICAL INDICATION: Follow-up breast cysts COMPARISON: US US BREAST RT COMPLETE from 07/29/2019 US US BREAST LT COMPLETE from 07/29/2019 FINDINGS: The patient is unable perform a mammogram. There is a hypoechoic area at 12 o'clock measuring 6 by 6 mm. There is some enhanced through transmission of sound. The margin of the nodule somewhat irregular. This is now more hypoechoic than when compared to the previous study and there is no posterior acoustical shadowing. 11 o'clock there is 5 mm cyst unchanged IMPRESSION: Two cystic lesions of the right breast once again noted not significantly changed Dictated by: Osei Costello MD 01/29/2020 18:45 Osei Costello MD in [place] 01/29/2020 18:45
== END ==
PROVIDERS: PCP Emergency Medicine; Visit Provider Emergency Medicine
DX: R92.8 Other abnormal and inconclusive findings on diagnostic imaging of breast (principal)
CPT/HCPCS: 76641

== ENCOUNTER 2020-01-29 10:35 | Outpatient (CLI) | payer MEDICARE, MEDICAID, SELFPAY ==
[2020-01-29 11:15] VITALS: BP 111/73; PULSE 94; RESP 20; TEMP 36.9; O2SAT 95
== END 2020-01-29 11:30 | disposition home or self-care (01) ==
LOC: INF 10:40
PROVIDERS: Visit Provider Emergency Medicine
DX: G80.9 Cerebral palsy, unspecified (principal); M81.0 Age-related osteoporosis without current pathological fracture
CPT/HCPCS: 96372; J0897

== ENCOUNTER 2020-02-09 16:59 | Emergency (ER) | payer MEDICARE, MEDICAID, SELFPAY ==
[2020-02-09 16:57] VITALS: BP 135/91; PULSE 73; RESP 16; TEMP 36.8; O2SAT 98; BMI 24.7
--- NOTE | 2020-02-09 17:08 | XR_ITS ---
PROCEDURE: XR KUB CLINICAL INDICATION: G tube placement - with gastrograffin COMPARISON: CT CT ABDOMEN PELVIS WO CON from 10/12/2018 CR XR KUB from 01/07/2020 FINDINGS: Gastrografin is injected into the G-tube. The bulb of the G-tube is in the region of the body of the stomach. No evidence of extravasation of contrast. Numerous segmented CLINICAL GENETICS LABORATORY CHIEF shunt tubing noted. Bilateral nephrolithiasis. IMPRESSION: G-tube tip is in the region of the body of the stomach. Dictated by: Osei Costello MD 02/09/2020 17:34 Osei Costello MD in [place] 02/09/2020 17:34
--- NOTE | 2020-02-09 17:09 | PC.NURSE ---
Assisted MD with G-tube replacement, will get confirmation xrays.
--- NOTE | 2020-02-09 17:10 | HMH.EDGENADL ---
ED Disposition Clinical Impression: Dislodged gastrostomy tube Disposition: Home, Self-Care Condition on Discharge: Good - Critical Care Critical Care Time: No Attestation: On , the high probability of a clinically significant, sudden or life threatening deterioration of the following system(s) required my full and direct attention, intervention and personal management. The time I documented below is in addition to time spent performing reported procedures but includes the following listed in this critical care notation. Medical Decision Making - Luis Inquiry Pt receiving controlled substance: No Vital Signs: 02/09/20 16:57 Temperature 98.2 F Temperature Source Oral Pulse Rate [Radial] 73 Respiratory Rate 16 Blood Pressure [Right Arm] 135/91 H Blood Pressure Mean [Right Arm] 105 Blood Pressure Position [Right Arm] Sitting 02 Sat by Pulse Oximetry 98 Oxygen Delivery Method Room Air Orders (Tests/Meds): ED MEDICATIONS Discontinued Medications Generic Name Dose Route Start Last Admin Trade Name Freq PRN Reason Stop Dose Admin Diatrizoate Meglum/Diatrizoate Sod 15 ml 02/09/20 17:09 02/09/20 17:11 Diatrizoate Laverne 66% & Diatrizoate Na 10% 30ml Udc PO 02/09/20 17:10 15 ml ONCE ONE Administration - Radiology Data #1 Image(s): KUB Image Reviewed: Yes I have reviewed radiologist's interpretation PROCEDURE: XR KUB CLINICAL INDICATION: G tube placement - with gastrograffin COMPARISON: CT CT ABDOMEN PELVIS WO CON from 10/12/2018 CR XR KUB from 01/07/2020 FINDINGS: Gastrografin is injected into the G-tube. The bulb of the G-tube is in the region of the body of the stomach. No evidence of extravasation of contrast. Numerous segmented ARCHITECTURAL DRAFTSPERSON shunt tubing noted. Bilateral nephrolithiasis. IMPRESSION: G-tube tip is in the region of the body of the stomach. Dictated by: Osei Costello MD 02/09/2020 17:34 Osei Costello MD in [place] 02/09/2020 17:34 General Adult HPI - General Chief complaint: Recheck/Abnormal Lab/Rx Stated complaint: pulled g tube out Time Seen by Provider: 02/09/20 17:00 Mode of Arrival: EMS Limitations: Physical Limitations Description of Symptoms (Recalled from ER Triage Doc. by RN): TO ED PER [facility] PT PULLED OUT G-TUBE. - History of Present Illness HPI narrative: Brought in by ambulance from [facility] for gastrostomy tube being dislodged. This is a recurrent problem for the patient. The tube was not brought in, but I have reviewed her last several visits for gastrostomy tube replacement and it appears that a 12 Kinyarwanda tube with a 5 cc balloon was used for the last several times. - Related Data Home Medications Medication Instructions Recorded Confirmed Atorvastatin Calcium [Lipitor 10mg 10 mg G-TUBE HS 08/24/18 01/29/20 Tab] Cetirizine HCl 10 mg G-TUBE DAILY 08/24/18 01/29/20 Lacosamide [Vimpat] 150 mg G-TUBE BID 08/24/18 01/29/20 Lactulose [Lactulose 10gm/15ml 20 gm G-TUBE DAILY 08/24/18 01/29/20 Oral Soln] Oxybutynin Chloride 5 mg G-TUBE BID 08/24/18 01/29/20 guaiFENesin [Robafen] 10 ml G-TUBE Q4H PRN 08/24/18 01/29/20 levETIRAcetam [Keppra] 1,500 mg G-TUBE BID 08/24/18 01/29/20 Acetaminophen [Acetaminophen 325mg 650 mg G-TUBE Q6H PRN 08/25/18 01/29/20 tab] Loperamide HCl [Loperamide] 2 mg G-TUBE Q6H PRN 08/25/18 01/29/20 Medroxyprogesterone Acetate 150 mg IM DIRECTED 08/25/18 01/29/20 [Depo-Provera 150mg/mL Syringe] Multivitamin,Ther and Minerals 1 each G-TUBE DAILY 08/25/18 01/29/20 [Vitamin and Minerals] Cyanocobalamin (Vitamin B-12) 1,000 mcg G-TUBE DAILY 12/27/18 01/29/20 [Vitamin B-12 1000mcg Tablet] Fluticasone Propionate [24 Hour 1 spray IH DAILY 12/27/18 01/29/20 Allergy] Ketotifen Fumarate 1 - 2 drops OP BID 12/27/18 01/29/20 Propylene Glycol/Peg 400/Pf 1 drp OP BID 12/27/18 01/29/20 [Systane Ultra 0.4-0.3% Eye Drp] Sennosides [Senna Lax] 8.6 mg G-TUBE BID 12/28/18 01/29/20 Lac
--- NOTE | 2020-02-09 18:36 | PC.NURSE ---
Report called to Mary.
[2020-02-09 18:41] VITALS: BP 135/78; PULSE 78; RESP 16; TEMP 36.6; O2SAT 98
== END 2020-02-09 18:42 | disposition home or self-care (01) ==
PROVIDERS: Emergency Provider Emergency Medicine; PCP Emergency Medicine
DX: K94.23 Gastrostomy malfunction (principal); G80.9 Cerebral palsy, unspecified; G40.901 Epilepsy, unspecified, not intractable, with status epilepticus; E78.5 Hyperlipidemia, unspecified; Z88.0 Allergy status to penicillin; Z88.2 Allergy status to sulfonamides; Z79.899 Other long term (current) drug therapy
CPT/HCPCS: 43762; 74018; 99283

== ENCOUNTER → 2020-03-04 21:04 | Outpatient (CLI) | payer MEDICARE, MEDICAID, SELFPAY | PROVIDERS: PCP Emergency Medicine; Visit Provider Emergency Medicine | DX: U07.1 COVID-19 (principal) | CPT/HCPCS: U0003 ==

== ENCOUNTER 2020-03-24 10:01 | Emergency (ER) | payer MEDICARE, MEDICAID, SELFPAY ==
[2020-03-24 10:02] VITALS: BP 132/93; PULSE 94; PULSE 97; RESP 18; TEMP 37.1; O2SAT 94; O2SAT 95; BMI 27.4
--- NOTE | 2020-03-24 10:13 | HMH.EDGENADL ---
ED Disposition Clinical Impression: Dislodged gastrostomy tube Disposition: Home, Self-Care Condition on Discharge: Fair Instructions: How to Care for Your PEG Tube Time of Disposition: 10:31 - Critical Care Critical Care Time: No Attestation: On , the high probability of a clinically significant, sudden or life threatening deterioration of the following system(s) required my full and direct attention, intervention and personal management. The time I documented below is in addition to time spent performing reported procedures but includes the following listed in this critical care notation. Medical Decision Making - Medical Records Medical records reviewed: Yes: I reviewed the patient's medical records. - Luis Inquiry Pt receiving controlled substance: No Vital Signs: 03/24/20 10:02 Temperature 98.7 F Temperature Source Oral Pulse Rate [Radial] 94 H Respiratory Rate 18 Blood Pressure [Right Arm] 132/93 H Blood Pressure Mean [Right Arm] 106 Blood Pressure Position [Right Arm] Sitting 02 Sat by Pulse Oximetry 94 L Oxygen Delivery Method Room Air Orders (Tests/Meds): ORDERS Category Date Time Status KUB (single view) [XR KUB] Stat Exams 03/24/20 10:30 Ordered Medical Decision Narrative: In summary this is a 54-year-old female, G-tube dependent, presenting to the emergency department with a feeding tube complication. Patient in no distress on arrival. The G-tube site is clean and intact. A 16 Dominican catheter was placed to hold the tract. Chart review shows that she previously had a 22 Dominican feeding tube. [facility] requesting an increase in size if possible. 16 Dominican gastrostomy tube placed without difficulty. X-ray confirms placement. Patient stable for discharge back to her nursing facility. General Adult HPI - General Chief complaint: Recheck/Abnormal Lab/Rx Stated complaint: Pulled G-tube Time Seen by Provider: 03/24/20 10:13 Mode of Arrival: EMS Source of Information: EMS, Medical Record Limitations: Physical Limitations Description of Symptoms (Recalled from ER Triage Doc. by RN): to ed per zachery pt pulled out g-tube this am. [facility] was unable to replace tube. - History of Present Illness HPI narrative: 54-year-old female presenting to the emergency department with a G-tube complication. She [place] by EMS from her [place] [facility]. [facility] staff state that she pulled her G-tube out earlier this morning. They did not have a replacement and were unable to replace it. They did not send the tube with her. Patient is nonverbal. Does not appear to be in any pain on arrival. Tube was most recently changed on February 09, 2020. At that time she had a 12 Dominican gastrostomy tube placed. Old tract. - Related Data Home Medications Medication Instructions Recorded Confirmed Atorvastatin Calcium [Lipitor 10mg 10 mg G-TUBE HS 08/24/18 03/07/20 Tab] Cetirizine HCl 10 mg G-TUBE DAILY 08/24/18 03/07/20 Lacosamide [Vimpat] 150 mg G-TUBE BID 08/24/18 03/07/20 Lactulose [Lactulose 10gm/15ml 20 gm G-TUBE DAILY 08/24/18 03/07/20 Oral Soln] Oxybutynin Chloride 5 mg G-TUBE BID 08/24/18 03/07/20 guaiFENesin [Robafen] 10 ml G-TUBE Q4H PRN 08/24/18 03/07/20 levETIRAcetam [Keppra] 1,500 mg G-TUBE BID 08/24/18 03/07/20 Acetaminophen [Acetaminophen 325mg 650 mg G-TUBE Q6H PRN 08/25/18 03/07/20 tab] Loperamide HCl [Loperamide] 2 mg G-TUBE Q6H PRN 08/25/18 03/07/20 Medroxyprogesterone Acetate 150 mg IM DIRECTED 08/25/18 03/07/20 [Depo-Provera 150mg/mL Syringe] Multivitamin,Ther and Minerals 1 each G-TUBE DAILY 08/25/18 03/07/20 [Vitamin and Minerals] Cyanocobalamin (Vitamin B-12) 1,000 mcg G-TUBE DAILY 12/27/18 03/07/20 [Vitamin B-12 1000mcg Tablet] Fluticasone Propionate [24 Hour 1 spray IH DAILY 12/27/18 03/07/20 Allergy] Ketotifen Fumarate 1 - 2 drops OP BID 12/27/18 03/07/20 Propylene Glycol/Peg 400/Pf 1 drp OP BID 12/27/18 03/07/20 [Systane Ultra
--- NOTE | 2020-03-24 10:30 | XR_ITS ---
PROCEDURE: XR KUB CLINICAL INDICATION: G-tube replaced COMPARISON: CT CT ABDOMEN PELVIS WO CON from 10/12/2018 FINDINGS: Small amount contrast is injected into the G-tube which appears to be in good position in the region the body of the stomach. Multiple separate HAT CUTTER shunt tubing noted as before some of which is discontinuous. Multiple gallstones noted. Left-sided renal calculi. IMPRESSION: G-tube in good position. Dictated by: Osei Costello MD 03/24/2020 11:02 Osei Costello MD in [place] 03/24/2020 11:02
[2020-03-24 10:32] VITALS: BP 128/92; PULSE 100; RESP 18; O2SAT 97
[2020-03-24 11:02] VITALS: BP 140/95; PULSE 100; RESP 18; O2SAT 95
--- NOTE | 2020-03-24 11:16 | PC.NURSE ---
report called to elisabet perales rn
--- NOTE | 2020-03-24 11:16 | PC.NURSE ---
calling [facility] for transfer back to long term
[2020-03-24 11:52] VITALS: BP 140/94; PULSE 74; RESP 16; TEMP 36.9; O2SAT 98
== END 2020-03-24 11:53 | disposition home or self-care (01) ==
PROVIDERS: Emergency Provider Emergency Medicine; PCP Emergency Medicine
DX: K94.23 Gastrostomy malfunction (principal); G80.9 Cerebral palsy, unspecified; G40.909 Epilepsy, unspecified, not intractable, without status epilepticus; G91.9 Hydrocephalus, unspecified; Z88.0 Allergy status to penicillin; Z88.2 Allergy status to sulfonamides; Z79.899 Other long term (current) drug therapy
CPT/HCPCS: 43762; 74018; 99283

== ENCOUNTER 2020-05-08 18:44 | Emergency (ER) | payer MEDICARE, MEDICAID, SELFPAY ==
[2020-05-08 18:44] VITALS: BP 143/98; PULSE 112; RESP 18; TEMP 37.2; O2SAT 96; BMI 21.1
--- NOTE | 2020-05-08 19:00 | XR_ITS ---
PROCEDURE: XR CHEST PORTABLE CLINICAL HISTORY: rhochi lung sounds noted COMPARISON: CR XR CHEST PORTABLE from 12/27/2018 CR XR CHEST PORTABLE from 04/18/2019 CR XR CHEST PORTABLE from 12/29/2019 FINDINGS: The cardiomediastinal silhouette and pulmonary vascularity are within normal limits. TOBACCO SWEEPER shunt traverses the right hemithorax. Right hemidiaphragm is slightly elevated. Minimal atelectatic changes are present in the right lung base. There are old left-sided rib fractures. Degenerative changes are present in the left shoulder. No acute bony abnormalities. IMPRESSION: Minimal right basilar atelectasis with other nonacute findings as described above Dictated by: Osei Costello MD 05/09/2020 05:37 Osei Costello MD in [place] 05/09/2020 05:37
--- NOTE | 2020-05-08 19:13 | PC.NURSE ---
rad at BS
[2020-05-08 19:50] LABS: Chloride 104 mmol/L (98-107); Potassium 4.5 mmoL/L (3.5-5.1); Sodium 137 mmol/L (136-145)
--- NOTE | 2020-05-08 19:50 | HMH.EDGENADL ---
ED Disposition Clinical Impression: Rhonchi Disposition: Home, Self-Care Condition on Discharge: Fair Referrals: PCP,No [Primary Care Provider] - - Critical Care Critical Care Time: No Attestation: On 05/08/20, the high probability of a clinically significant, sudden or life threatening deterioration of the following system(s) required my full and direct attention, intervention and personal management. The time I documented below is in addition to time spent performing reported procedures but includes the following listed in this critical care notation. Medical Decision Making - Medical Records Medical records reviewed: Yes: I reviewed the patient's medical records. - Luis Inquiry Pt receiving controlled substance: No Vital Signs: 05/08/20 18:44 Temperature 99.0 F Temperature Source Rectal Pulse Rate [Right Radial] 112 H Respiratory Rate 18 Blood Pressure [Right Arm] 143/98 H Blood Pressure Mean [Right Arm] 113 Blood Pressure Source [Right Arm] Automatic Cuff Blood Pressure Position [Right Arm] Sitting 02 Sat by Pulse Oximetry 96 Oxygen Delivery Method Nasal Cannula Oxygen Flow Rate (LPM) 2 - Lab Data Lab Results 05/08/20 19:20: WBC 10.9 H, RBC 4.86, Hgb 15.3, Hct 47.4 H, MCV 97.6, MCH 31.5 H, MCHC 32.3, RDW 15.0, Plt Count 284, MPV 10.3, Neut % (Auto) 67.2, Lymph % (Auto) 25.3, [place] % (Auto) 6.4, Eos % (Auto) 0.6, Baso % (Auto) 0.6, Neut # (Auto) 7.3, Lymph # (Auto) 2.7, [place] # (Auto) 0.7, Eos # (Auto) 0.1, Baso # (Auto) 0.1 05/08/20 19:20: Sodium 137, Potassium 4.5, Chloride 104, Carbon Dioxide 27, Anion Gap 10.5, BUN 19 H, Creatinine 0.50 L, Estimated Creat Clear 116, Estimated GFR 130, Est GFR ( Amer) 157, Glucose 91, Calcium 9.7, Total Bilirubin 0.6, AST 41 H, ALT 30, Alkaline Phosphatase 78, Total Protein 7.6, Albumin 4.1, Globulin 3.5 H, Albumin/Globulin Ratio 1.2 Result diagrams: 05/08/20 19:20 05/08/20 19:20 Orders (Tests/Meds): ORDERS Category Date Time Status Chest XR -- portable [XR chest portable] Stat Exams 05/08/20 19:00 Taken Medical Decision Narrative: Patient presents as a transfer from alf for bilateral wheezes. On my exam, patient sounds rhonchorous with bilateral breath sounds. Given concern for wheezes, basic labs including a CBC and a CMP were obtained along with a chest x-ray. I reviewed patient's chest x-ray which not demonstrate any signs of focal pneumonia. Patient's labs were nonactionable at this time. Patient was discharged in stable condition back to the alf. General Adult HPI - General Chief complaint: Recheck/Abnormal Lab/Rx Stated complaint: RESPIRATORY Time Seen by Provider: 05/08/20 18:55 Mode of Arrival: EMS Source of Information: EMS Limitations: Physical Limitations Description of Symptoms (Recalled from ER Triage Doc. by RN): Pt was sent to ED for evaluation for alf reporting bilateral wheezes. Pt presents to ED, Rhonchi noted in kev lung malagon. Pt is to her normal mentation, pt has hx of CP. Pt is home O2 dependent at 2L per NC, no distress noted. - History of Present Illness HPI narrative: Patient presents from alf after staff identified bilateral wheezes on routine examination. Patient is on 2 L nasal cannula at baseline, and continues to be on 2 L now without distress. Of note, patient was diagnosed with a UTI earlier today and has been started on antibiotic therapy. No further history obtained secondary to patient's condition. Treatments prior to arrival: none - Related Data Home Medications Medication Instructions Recorded Confirmed Atorvastatin Calcium [Lipitor 10mg 10 mg G-TUBE HS 08/24/18 03/07/20 Tab] Cetirizine HCl 10 mg G-TUBE DAILY 08/24/18 03/07/20 Lacosamide [Vimpat] 150 mg G-TUBE BID 08/24/18 03/07/20 Lactulose [Lactulose 10gm/15ml 20 gm G-TUBE DAILY 08/24/18 03/07/20 Oral Soln] Oxybutynin Chloride 5 mg G-TUBE BID 08/24/18 03/07/20 guaiFENesin [Robafen]
[2020-05-08 19:53] LABS: Alanine Aminotransferase 30 U/L (12-78); Albumin Level 4.1 g/dl (3.5-5.0); Albumin/Globulin Ratio 1.2 (1.1-1.8); Alkaline Phosphatase 78 U/L (38-126); Anion Gap 10.5 mEq/L (5-15); Aspartate Amino Transferase 41 U/L (14-36); Bilirubin,Total 0.6 mg/dl (0.2-1.3); Blood Urea Nitrogen 19 mg/dl (7-17); Calcium 9.7 mg/dl (8.4-10.2); Carbon Dioxide 27 mmol/L (22.0-30.0); Creatinine Clearance Estimated 116 mL/min (50-200); Estimated Glomerular Filt Rate 130 ml/min (>60); GFR (African American) 157 ML/MIN (>60); Globulin 3.5 g/dL (1.3-3.2); Glucose 91 mg/dl (74-100); Total Protein,Serum 7.6 g/dl (6.3-8.2)
[2020-05-08 19:56] LABS: Basophils # 0.1 K/mm3 (0-0.2); Basophils % 0.6 % (0.1-2.0); Eosinophils # 0.1 K/mm3 (0.0-0.4); Eosinophils % 0.6 % (0.1-12.0); Hematocrit 47.4 % (37.0-47.0); Hemoglobin 15.3 g/dL (12.2-16.2); Lymphocytes # 2.7 K/mm3 (0.7-4.5); Lymphocytes % 25.3 % (10-50); Mean Corpuscular HGB Conc 32.3 g/dL (31.8-35.4); Mean Corpuscular Hemoglobin 31.5 pg (27.0-31.2); Mean Corpuscular Volume 97.6 fl (81-99); Mean Platelet Volume 10.3 fl (7.4-10.4); Monocytes # 0.7 K/mm3 (0.1-1.0); Monocytes % 6.4 % (1.7-9.3); Neutrophils # 7.3 K/mm3 (1.8-7.8); Neutrophils % 67.2 % (37.0-80.0); Platelet Count 284 K/mm3 (142-424); Red Blood Count 4.86 M/mm3 (4.20-5.40); White Blood Count 10.9 K/mm3 (4.8-10.8)
[2020-05-08 22:09] VITALS: BP 126/65; PULSE 97; RESP 18; TEMP 37.2; O2SAT 96
== END 2020-05-08 22:12 | disposition home or self-care (01) ==
PROVIDERS: Emergency Provider Emergency Medicine
DX: R06.2 Wheezing (principal); N30.00 Acute cystitis without hematuria; G80.9 Cerebral palsy, unspecified; Z93.1 Gastrostomy status; Z99.81 Dependence on supplemental oxygen; E78.5 Hyperlipidemia, unspecified; Z79.899 Other long term (current) drug therapy; Z88.0 Allergy status to penicillin; Z88.2 Allergy status to sulfonamides
CPT/HCPCS: 71045; 80053; 85025; 99283

== ENCOUNTER 2020-05-10 13:48 | Inpatient (IN) | payer MEDICARE, MEDICAID, SELFPAY ==
[2020-05-10] VITALS (14 sets, daily range): BP systolic 95–137; BP diastolic 69–92; PULSE 103–122; RESP 22–30; TEMP 36.4–38.4; O2SAT 89–100; BMI 211106.5; BMI 21.1; BMI 22.3
--- NOTE | 2020-05-10 14:25 | PC.NURSE ---
contacted [facility] nurse to come down to attempt u/s guided IV
[2020-05-10 14:33] LABS: Chloride 102 mmol/L (98-107); Sodium 136 mmol/L (136-145)
[2020-05-10 14:34] LABS: Potassium 5.2 mmoL/L (3.5-5.1)
[2020-05-10 14:36] LABS: Alanine Aminotransferase 27 U/L (12-78); Albumin Level 3.6 g/dl (3.5-5.0); Alkaline Phosphatase 67 U/L (38-126); Anion Gap 11.2 mEq/L (5-15); Aspartate Amino Transferase 27 U/L (14-36); Bilirubin,Total 0.6 mg/dl (0.2-1.3); Blood Urea Nitrogen 26 mg/dl (7-17); Carbon Dioxide 28 mmol/L (22.0-30.0); Creatinine Clearance Estimated 145 mL/min (50-200); Estimated Glomerular Filt Rate 168 ml/min (>60); GFR (African American) 203 ML/MIN (>60); Globulin 3.5 g/dL (1.3-3.2); Total Protein,Serum 7.1 g/dl (6.3-8.2)
[2020-05-10 14:37] LABS: Calcium 9.4 mg/dl (8.4-10.2); Glucose 130 mg/dl (74-100)
--- NOTE | 2020-05-10 14:45 | HMH.EDGENADL ---
ED Disposition Clinical Impression: HCAP (healthcare-associated pneumonia) Respiratory failure Qualifiers: Chronicity: acute on chronic Respiratory failure complication: hypoxia Qualified Code(s): J96.21 - Acute and chronic respiratory failure with hypoxia Sepsis Qualifiers: Sepsis type: sepsis due to unspecified organism Sepsis acute organ dysfunction status: with acute organ dysfunction Severe sepsis acute organ dysfunction type: acute respiratory failure Acute respiratory failure type: with hypoxia Severe sepsis shock status: without septic shock Qualified Code(s): A41.9 - Sepsis, unspecified organism Disposition: Admitted As Inpatient Condition on Discharge: Serious - Critical Care Critical Care Time: Yes Attestation: On 05/10/20, the high probability of a clinically significant, sudden or life threatening deterioration of the following system(s) required my full and direct attention, intervention and personal management. The time I documented below is in addition to time spent performing reported procedures but includes the following listed in this critical care notation. Total Critical Care Time: 45 Vital system(s) involved:: Respiratory Failure My critical care processes included: Assessment & monitoring of V/S, Initial and Re-exams, Data Review/Interpretation, Coordinating Care, Medication Orders and management, Documentation Medical Decision Making - Medical Records Medical records reviewed: Yes: I reviewed the patient's medical records. MR Comment: Seen in this emergency department 2 days ago for reported wheezing. Diagnosed with rhonchi. Work-up unremarkable. - Luis Inquiry Pt receiving controlled substance: No Vital Signs: 05/10/20 13:49 05/10/20 13:58 05/10/20 14:00 Temperature 101.1 F H Temperature Source Oral Pulse Rate 122 H 122 H Pulse Rate [Apical] 121 H Respiratory Rate 26 H Blood Pressure Blood Pressure [Left Arm] 95/71 L Blood Pressure Mean Blood Pressure Mean [Left Arm] 79 Blood Pressure Source [Left Arm] Automatic Cuff Blood Pressure Position [Left Arm] Sitting 02 Sat by Pulse Oximetry 89 L 89 L 89 L Oxygen Delivery Method Nasal Cannula Oxygen Flow Rate (LPM) 4 05/10/20 14:15 05/10/20 14:30 05/10/20 14:45 Temperature Temperature Source Pulse Rate 118 H 111 H 111 H Pulse Rate [Apical] Respiratory Rate 30 H 26 H 26 H Blood Pressure Blood Pressure [Left Arm] Blood Pressure Mean Blood Pressure Mean [Left Arm] Blood Pressure Source [Left Arm] Blood Pressure Position [Left Arm] 02 Sat by Pulse Oximetry 93 L 95 97 Oxygen Delivery Method Oxygen Flow Rate (LPM) 05/10/20 16:00 05/10/20 16:30 05/10/20 17:00 Temperature Temperature Source Pulse Rate 109 H 104 H 112 H Pulse Rate [Apical] Respiratory Rate 24 22 22 Blood Pressure 137/89 130/89 135/92 H Blood Pressure [Left Arm] Blood Pressure Mean 103 97 102 Blood Pressure Mean [Left Arm] Blood Pressure Source [Left Arm] Blood Pressure Position [Left Arm] 02 Sat by Pulse Oximetry 99 99 100 Oxygen Delivery Method Nasal Cannula Nasal Cannula Nasal Cannula Oxygen Flow Rate (LPM) 5 5 5 05/10/20 17:30 Temperature Temperature Source Pulse Rate 103 H Pulse Rate [Apical] Respiratory Rate 24 Blood Pressure 117/87 Blood Pressure [Left Arm] Blood Pressure Mean 92 Blood Pressure Mean [Left Arm] Blood Pressure Source [Left Arm] Blood Pressure Position [Left Arm] 02 Sat by Pulse Oximetry 99 Oxygen Delivery Method Oxygen Flow Rate (LPM) - Lab Data Lab Results 05/10/20 13:58: Specimen Source Right radial, O2 % 5l nc, ABG pH 7.48 H, ABG pCO2 34.2 L, ABG pO2 70.9 L, ABG HCO3 24.7, ABG Total CO2 25.7, ABG O2 Saturation 96, ABG Base Excess 1.1, Osei Test Patient unable 05/10/20 14:05: Sodium 136, Potassium 5.2 H, Chloride 102, Carbon Dioxide 28, Anion Gap 11.2, BUN 26 H D, Creatinine 0.40 L, Estimated Creat Clear 145, Estimated GFR 168, Est GF
[2020-05-10 14:52] LABS: ABG Base Excess 1.1 mmol/L (-2.4-2.3); ABG HCO3 24.7 mmhg (22.0-26.0); ABG Oxygen Saturation 96 % (90-100); ABG PCO2 34.2 mmhg (35.0-45.0); ABG PH 7.48 mmol/L (7.35-7.45); ABG PO2 70.9 mmhg (80-100); ABG TCO2 25.7 mmhg (23-27)
[2020-05-10 14:53] LABS: Allen's Test Patient Unable; Oxygen 5L NC %; Source Right Radial
--- NOTE | 2020-05-10 15:02 | XR_ITS ---
PROCEDURE: XR CHEST PORTABLE CLINICAL HISTORY: low saO2 COMPARISON: CR XR CHEST PORTABLE from 04/18/2019 CR XR CHEST PORTABLE from 12/29/2019 CR XR CHEST PORTABLE from 05/08/2020 FINDINGS: Normal heart size. 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 There is a 2nd tubular density in the right neck region also and may be related to an additional shunt tube. The right hemidiaphragm is elevated. There is increased density of the right lung which is developed in the interval suggesting right-sided pneumonia and/or volume loss versus posterior layering effusion. The left lung is clear. Severe degenerative changes are present in the shoulders. IMPRESSION: Increased density of the right lung has developed in the interval may be due to pneumonia, volume loss/atelectatic change and/or posterior layering effusion. Dictated by: Osei Costello MD 05/10/2020 16:55 Osei Costello MD in [place] 05/10/2020 16:55
[2020-05-10 15:05] LABS: Microscopic, Urine URINE MICROSCOPIC (MICROSCOPIC)
[2020-05-10 15:19] LABS: Appearance,Urine CLOUDY (Clear); Bilirubin,Urine Negative (Negative); Blood, Urine 3+ (Negative); Color,Urine YELLOW (Yellow); Glucose,Urine (UA) Negative (Negative); Ketones,Urine Negative (Negative); Leukocyte Esterase,Urine 2+ (Negative); Nitrate,Urine Negative (Negative); PH,Urine 5.5 (5.0-8.5); Protein,Urine TRACE (Negative); Urobilinogen,Urine 0.2 EU/dl (0.2)
[2020-05-10 15:37] LABS: Lactic Acid 0.9 mmol/L (0.7-2.1)
[2020-05-10 15:45] LABS: Basophils # 0.1 K/mm3 (0-0.2); Basophils % 0.3 % (0.1-2.0); Eosinophils # 0.1 K/mm3 (0.0-0.4); Eosinophils % 0.4 % (0.1-12.0); Hematocrit 38.7 % (37.0-47.0); Hemoglobin 12.9 g/dL (12.2-16.2); Lymphocytes # 3.2 K/mm3 (0.7-4.5); Lymphocytes % 22.9 % (10-50); Mean Corpuscular HGB Conc 33.3 g/dL (31.8-35.4); Mean Corpuscular Volume 95.9 fl (81-99); Mean Platelet Volume 10.6 fl (7.4-10.4); Monocytes % 7.4 % (1.7-9.3); Neutrophils # 9.8 K/mm3 (1.8-7.8); Platelet Count 194 K/mm3 (142-424); Red Blood Count 4.03 M/mm3 (4.20-5.40); Red Cell Distribution Width 14.8 % (11.5-17.5); White Blood Count 14.2 K/mm3 (4.8-10.8)
[2020-05-10 16:09] LABS: WBC,Urine 20-50 #/hpf (0-3)
[2020-05-10 16:10] LABS: Bacteria,Urine 3+ /lpf; Mucus,Urine 2+ /lpf; RBC,Urine 20-50 #/hpf (0-3); Squamous Epithelial Cell,Urine TNTC #/hpf (0-5)
--- NOTE | 2020-05-10 17:31 | PC.NURSE ---
[facility] pharmacy paged per railroad operator
--- NOTE | 2020-05-10 17:33 | PC.NURSE ---
per lab 25 mins left on covid swab
--- NOTE | 2020-05-10 17:38 | PC.NURSE ---
spoke with emil in pharmacy r/t vancomycin dosing he states to do Vancomycin q12h per IV notified ER of pharmacy's dosing
--- NOTE | 2020-05-10 17:41 | ECG_ITS ---
APPROVED REPORT Exam: Resting ECG HR:113 bpm ECG Measurements Heart Rate 113 AXES [place] 176 P 34 QRSd 72 QRS 25 QT 326 T 49 QTc 447 Conclusion Sinus tachycardia Otherwise normal ECG Electronically signed by : Abhijit Bradford, 05/11/2020 17:47:33
--- NOTE | 2020-05-10 18:01 | PC.NURSE ---
talked to house about admitting
--- NOTE | 2020-05-10 18:40 | PC.NURSE ---
report called to Silvia Atwood RN on second floor at this time, states she will send staff down to get pt
--- NOTE | 2020-05-10 18:49 | PC.NURSE ---
Pt arrived to the floor at this tome.
--- NOTE | 2020-05-10 20:08 | HMH.HP ---
*Admission Date: 05/10/20 *Chief complaint: altered mental status - *History of present illness: this pt was sent from [facility] in from group home with report of low oxygen saturation. The patient has cerebral palsy and is debilitated, she is unable to give any history herself. She has recently had Covid. pt was admitted for ivf and treatment [facility] History I have reviewed the patient's past medical history: Yes Medical History: Reports:: Hyperlipidemia Denies:: Cancer, Diabetes Mellitus Type 1, Diabetes Mellitus Type 2, Internal Pacemaker, MRSA *Have you ever received a pneumonia vaccine?: No *Have you received a flu vaccine this season?: No Other Medical History: Reports: Other (cerebral palsy) Laterality Cases: Bilateral: Other Other Surgeries: Yes: Other. No: Pacemaker Amputation: No Fractures: No - *Social History Smoking Status: Never smoker Alcohol Intake: never *Occupational Status:: unemployed Housing: house Household Members: spouse *Travel in the last 8 weeks: None Family Hx:: Unable to obtain Review of Systems - Review of Systems Review of systems:: unable to obtain Meds Home Medications Medication Instructions Recorded Confirmed Type Atorvastatin Calcium [Lipitor 10mg 10 mg G-TUBE HS 08/24/18 05/10/20 History Tab] Cetirizine HCl 10 mg G-TUBE DAILY 08/24/18 05/10/20 History Lactulose [Lactulose 10gm/15ml 30 ml G-TUBE DAILYP PRN 08/24/18 05/11/20 History Oral Soln] guaiFENesin [Robafen] 10 ml G-TUBE Q4HP PRN 08/24/18 05/11/20 History levETIRAcetam [Keppra] 500 mg G-TUBE BID 08/24/18 05/10/20 History Acetaminophen [Acetaminophen 325mg 500 mg G-TUBE Q6H PRN 08/25/18 05/11/20 History tab] Loperamide HCl [Loperamide] 2 mg G-TUBE Q6HP PRN 08/25/18 05/11/20 History Medroxyprogesterone Acetate 150 mg IM .EVERY 3 MONTHS 08/25/18 05/11/20 History [Depo-Provera 150mg/mL Syringe] Multivitamin,Ther and Minerals 1 each G-TUBE DAILY 08/25/18 05/10/20 History [Vitamin and Minerals] Cyanocobalamin (Vitamin B-12) 1,000 mcg G-TUBE DAILY 12/27/18 05/11/20 History [Vitamin B-12 1000mcg Tablet] Fluticasone Propionate [24 Hour 1 spray IH DAILY 12/27/18 05/10/20 History Allergy] Ketotifen Fumarate 1 drops OP BID 12/27/18 05/11/20 History Propylene Glycol/Peg 400/Pf 1 drp OP BID 12/27/18 05/11/20 History [Systane Ultra 0.4-0.3% Eye Drp] Sennosides [Senna Lax] 8.6 mg G-TUBE BID 12/28/18 05/10/20 History carvedilol 3.125 mg tablet 3.125 mg G-TUBE BID tab 01/25/20 05/10/20 History lisinopril 2.5 mg tablet 2.5 mg G-TUBE DAILY tab 01/25/20 05/11/20 History Furosemide [Furosemide 20mg Tab*] 20 mg G-TUBE DAILY 01/29/20 05/11/20 History Spironolactone [Spironolactone 12.5 mg G-TUBE DAILY 01/29/20 05/11/20 History 25mg Tablet] Lacosamide [Vimpat] 60 mg G-TUBE BID 05/10/20 05/11/20 History nitrofurantoin macrocrystaL 100 mg G-TUBE BID 05/10/20 05/11/20 History [Macrodantin 100mg capsule] Acetaminophen [Tylenol 500mg 500 mg G-TUBE BID 05/11/20 05/11/20 History tablet] Denosumab [Denosumab 60mg/mL 60 mg SQ .EVERY 6 MONTHS 05/11/20 05/11/20 History syringe] Cefdinir [Omnicef 125mg/5mL Oral 300 mg G-TUBE BID 7 Days #1 bottle 05/13/20 Rx Susp 60mL] Allergies Allergy/AdvReac Type Severity Reaction Status Date / Time ampicillin Allergy Verified 05/10/20 22:51 Penicillins Allergy Verified 05/10/20 22:51 Sulfa (Sulfonamide Allergy Verified 05/10/20 22:51 Antibiotics) sulfamethoxazole Allergy Verified 05/10/20 22:51 [From Bactrim] trimethoprim [From Bactrim] Allergy Verified 05/10/20 22:51 Exam Vital signs and Labs for Last 24 Hours: Temp Pulse Resp BP Pulse Ox 98.2 F 115 H 22 115/85 99 05/10/20 18:58 05/10/20 18:58 05/10/20 18:58 05/10/20 18:58 05/10/20 18:58 Laboratory Results - last 24 hr 05/10/20 13:58: Specimen Source Right radial, O2 % 5l nc, ABG pH 7.48 H, ABG pCO2 34.2 L, ABG pO2 70.9 L, ABG HCO3 24.7, ABG Total CO2 25.7, A
[2020-05-11] VITALS (7 sets, daily range): BP systolic 108–146; BP diastolic 69–93; PULSE 93–114; RESP 16–26; TEMP 36.8–37.3; O2SAT 97–100; BMI 21.7
--- NOTE | 2020-05-11 03:04 | PC.NURSE ---
20[facility] pharmacy contacted to verify vancomycin dose, David from pharmacy stated that the 1250 mg dose was correct and verified the mixing of the medication
--- NOTE | 2020-05-11 04:48 | PC.NURSE ---
0440 Dr. Damico notified of conflict with cefepime and this patient's allergies, Dr. Damico advised to hold this medication
--- NOTE | 2020-05-11 06:19 | PC.NURSE ---
pt is non verbal, has been turned t/o the shift, remains on 5L NC, O2 sats 95-100%, tried to decrease O2 to 4L and O2 sats dropped to low 80's, coarse crackles and wheezing noted on auscultation,
--- NOTE | 2020-05-11 07:56 | HMH.PHAVTE ---
[facility] Pharmacy VTE Monitoring - Patient Demographics Admission date: 05/11/20 Report Date: 05/11/20 Time: 07:56 Allergies/Adverse Reactions: Patient Allergies ampicillin Allergy (Verified 05/10/20 22:51) Penicillins Allergy (Verified 05/10/20 22:51) Sulfa (Sulfonamide Antibiotics) Allergy (Verified 05/10/20 22:51) sulfamethoxazole [From Bactrim] Allergy (Verified 05/10/20 22:51) trimethoprim [From Bactrim] Allergy (Verified 05/10/20 22:51) Height: 1.63 m Weight: 57.691 kg Patient Problems: Current Active Problems Sepsis (Acute) HCAP (healthcare-associated pneumonia) (Acute) Respiratory failure (Acute) - VTE Risk Labs: VTE Related Lab Results Hgb 12.9 g/dL (12.2-16.2) 05/10/20 15:30 Hct 38.7 % (37.0-47.0) 05/10/20 15:30 Plt Count 194 K/mm3 (142-424) D 05/10/20 15:30 BUN 26 mg/dl (7-17) H D 05/10/20 14:05 Creatinine 0.40 mg/dl (0.52-1.04) L 05/10/20 14:05 Estimated Creat Clear 145 mL/min (50-200) 05/10/20 14:05 Was VTE Risk Assessment Performed: Yes VTE Score: 8 VTE Risk Level: Moderate Risk Clinical Trial Participant: No - Prophylaxis VTE Prophylaxis Ordered?: Yes Types of VTE Prophylaxis: TEDS Knee High
--- NOTE | 2020-05-11 08:32 | HMH.PHACONS ---
- Pharmacy Consult Date: 05/11/20 Time: 08:32 Referring provider: DR. IBANEZ Reason for Consult:: VANCOMYCIN DOSING Allergies and ADEs:: Allergies Allergy/AdvReac Type Severity Reaction Status Date / Time ampicillin Allergy Verified 05/10/20 22:51 Penicillins Allergy Verified 05/10/20 22:51 Sulfa (Sulfonamide Allergy Verified 05/10/20 22:51 Antibiotics) sulfamethoxazole Allergy Verified 05/10/20 22:51 [From Bactrim] trimethoprim [From Bactrim] Allergy Verified 05/10/20 22:51 Home Medications:: Home Medications Medication Instructions Recorded Confirmed Type Atorvastatin Calcium [Lipitor 10mg 10 mg G-TUBE HS 08/24/18 05/10/20 History Tab] Cetirizine HCl 10 mg G-TUBE DAILY 08/24/18 05/10/20 History Lactulose [Lactulose 10gm/15ml 20 gm G-TUBE DAILY 08/24/18 05/10/20 History Oral Soln] Oxybutynin Chloride 5 mg G-TUBE BID 08/24/18 03/07/20 History guaiFENesin [Robafen] 10 ml G-TUBE Q4H PRN 08/24/18 03/07/20 History levETIRAcetam [Keppra] 500 mg G-TUBE BID 08/24/18 05/10/20 History Acetaminophen [Acetaminophen 325mg 650 mg G-TUBE Q6H PRN 08/25/18 03/07/20 History tab] Loperamide HCl [Loperamide] 2 mg G-TUBE Q6H PRN 08/25/18 03/07/20 History Medroxyprogesterone Acetate 150 mg IM DIRECTED 08/25/18 03/07/20 History [Depo-Provera 150mg/mL Syringe] Multivitamin,Ther and Minerals 1 each G-TUBE DAILY 08/25/18 05/10/20 History [Vitamin and Minerals] Cyanocobalamin (Vitamin B-12) 1,000 mcg G-TUBE DAILY 12/27/18 03/07/20 History [Vitamin B-12 1000mcg Tablet] Fluticasone Propionate [24 Hour 1 spray IH DAILY 12/27/18 05/10/20 History Allergy] Ketotifen Fumarate 1 - 2 drops OP BID 12/27/18 03/07/20 History Propylene Glycol/Peg 400/Pf 1 drp OP BID 12/27/18 03/07/20 History [Systane Ultra 0.4-0.3% Eye Drp] Sennosides [Senna Lax] 8.6 mg G-TUBE BID 12/28/18 05/10/20 History carvedilol 3.125 mg tablet 3.125 mg G-TUBE BID tab 01/25/20 05/10/20 History lisinopril 2.5 mg tablet 2.5 mg NG-TUBE DAILY tab 01/25/20 05/10/20 History Furosemide [Furosemide 20mg Tab*] 20 mg NG-TUBE DAILY 01/29/20 05/10/20 History Spironolactone [Spironolactone 12.5 mg NG-TUBE DAILY 01/29/20 05/10/20 History 25mg Tablet] denosumab 60 mg/mL subcutaneous 60 mg SQ DIRECTED #1 ml 02/01/20 03/07/20 Rx syringe lacosamide 10 mg/mL oral solution 60 mg NG-TUBE BID #360 ml 04/06/20 Rx Lacosamide [Vimpat] 60 mg FEED TUBE BID 05/10/20 05/10/20 History nitrofurantoin macrocrystaL 100 mg FEED TUBE BID 05/10/20 05/10/20 History [Macrodantin 100mg capsule] Height: 1.63 m Weight: 57.691 kg Laboratory Results:: Laboratory Results - last 24 hr 05/10/20 13:58: Specimen Source Right radial, O2 % 5l nc, ABG pH 7.48 H, ABG pCO2 34.2 L, ABG pO2 70.9 L, ABG HCO3 24.7, ABG Total CO2 25.7, ABG O2 Saturation 96, ABG Base Excess 1.1, Osei Test Patient unable 05/10/20 14:05: Sodium 136, Potassium 5.2 H, Chloride 102, Carbon Dioxide 28, Anion Gap 11.2, BUN 26 H D, Creatinine 0.40 L, Estimated Creat Clear 145, Estimated GFR 168, Est GFR ( Amer) 203 D, Glucose 130 H, Calcium 9.4, Total Bilirubin 0.6, AST 27 D, ALT 27, Alkaline Phosphatase 67, Total Protein 7.1, Albumin 3.6, Globulin 3.5 H, Albumin/Globulin Ratio 1.0 L 05/10/20 14:37: Urine Color Yellow, Urine Appearance Cloudy, Urine pH 5.5, Ur Specific [place] 1.020, Urine Protein Trace, Urine Glucose (UA) Negative, Urine Ketones Negative, Urine Blood 3+, Urine Nitrate Negative, Urine Bilirubin Negative, Urine Urobilinogen 0.2, Ur Leukocyte Esterase 2+ A, Urine RBC 20-50, Urine WBC 20-50, Ur Squamous Epith Cells Tntc, Urine Bacteria 3+, Urine Mucus 2+ 05/10/20 15:10: Lactate 0.9 05/10/20 15:30: WBC 14.2 H D, RBC 4.03 L, Hgb 12.9, Hct 38.7, MCV 95.9, MCH 32.0 H, MCHC 33.3, RDW 14.8, Plt Count 194 D, MPV 10.6 H, Neut % (Auto) 69.0, Lymph % (Auto) 22.9, [place] % (Auto) 7.4, Eos % (Auto) 0.4, Baso % (Auto) 0.3, Neut # (Auto) 9.8 H, Lymph # (Auto) 3.2, [place] # (Auto) 1.0, Eos # (A
--- NOTE | 2020-05-11 09:02 | HMH.ACPN2 ---
Internal Medicine - PN: Subj *Date: 05/11/20 *Time: 20:31 Interval history: 54-year-old female patient resting quietly, she is unresponsive. Chest x-ray showing pneumonia, on cefepime, Levaquin, and vancomycin IV antibiotics. We will begin tube feeds today and remove bennett. Exam Vital signs and Labs for Last 24 Hours: Temp Pulse Resp BP Pulse Ox 98.8 F 98 H 18 138/83 100 05/11/20 08:00 05/11/20 08:00 05/11/20 08:00 05/11/20 08:00 05/11/20 08:00 Laboratory Results - last 24 hr 05/10/20 13:58: Specimen Source Right radial, O2 % 5l nc, ABG pH 7.48 H, ABG pCO2 34.2 L, ABG pO2 70.9 L, ABG HCO3 24.7, ABG Total CO2 25.7, ABG O2 Saturation 96, ABG Base Excess 1.1, Osei Test Patient unable 05/10/20 14:05: Sodium 136, Potassium 5.2 H, Chloride 102, Carbon Dioxide 28, Anion Gap 11.2, BUN 26 H D, Creatinine 0.40 L, Estimated Creat Clear 145, Estimated GFR 168, Est GFR ( Amer) 203 D, Glucose 130 H, Calcium 9.4, Total Bilirubin 0.6, AST 27 D, ALT 27, Alkaline Phosphatase 67, Total Protein 7.1, Albumin 3.6, Globulin 3.5 H, Albumin/Globulin Ratio 1.0 L 05/10/20 14:37: Urine Color Yellow, Urine Appearance Cloudy, Urine pH 5.5, Ur Specific [place] 1.020, Urine Protein Trace, Urine Glucose (UA) Negative, Urine Ketones Negative, Urine Blood 3+, Urine Nitrate Negative, Urine Bilirubin Negative, Urine Urobilinogen 0.2, Ur Leukocyte Esterase 2+ A, Urine RBC 20-50, Urine WBC 20-50, Ur Squamous Epith Cells Tntc, Urine Bacteria 3+, Urine Mucus 2+ 05/10/20 15:10: Lactate 0.9 05/10/20 15:30: WBC 14.2 H D, RBC 4.03 L, Hgb 12.9, Hct 38.7, MCV 95.9, MCH 32.0 H, MCHC 33.3, RDW 14.8, Plt Count 194 D, MPV 10.6 H, Neut % (Auto) 69.0, Lymph % (Auto) 22.9, [place] % (Auto) 7.4, Eos % (Auto) 0.4, Baso % (Auto) 0.3, Neut # (Auto) 9.8 H, Lymph # (Auto) 3.2, [place] # (Auto) 1.0, Eos # (Auto) 0.1, Baso # (Auto) 0.1 I & O for Last 24 hours: Intake & Output 05/08/20 05/09/20 05/10/20 05/11/20 23:59 23:59 23:59 23:59 Intake Total 965 / 965 Output Total 450 / 450 Balance 515 / 515 Weight 130 lb 9 oz 127 lb 3 oz Microbiology Reports for the Last 24 Hours: Microbiology 05/10/20 15:28 Nasopharyngeal Coronavirus COVID-19 PCR - Final - Constitutional no acute distress, chronically ill appearing - *Routine HEENT Exam Head: Present: normocephalic Eye: Present: EOMI ENT: Present: mucous membranes moist - *Routine Neck Exam Present: trachea midline. Absent: tracheal deviation - *Routine Respiratory Exam Present: rhonchi. Absent: accessory muscle use - *Routine Cardiovascular Exam Present: RRR - *Routine Abdominal Exam Present: soft, normoactive bowel sounds. Absent: tenderness, firm Comments: Feeding tube in place - *Routine Extremities Exam Present: pulses intact. Absent: cyanosis, clubbing - *Routine Skin Exam Present: intact, dry, warm. Absent: cyanosis, erythema Comments: Feeding tube in place - *Routine Neurological Exam Present: alert, altered mental status - Routine Psychiatric Exam Present: unable to assess Assessment and Plan (1) Dislodged gastrostomy tube Status: Acute Category: Medical Code(s): Z43.1 - Encounter for attention to gastrostomy (2) Complication of feeding tube Status: Acute Category: Medical Code(s): K94.23 - Gastrostomy malfunction (3) Pneumonia Status: Acute Category: Medical Code(s): J18.9 - Pneumonia, unspecified organism (4) Status epilepticus Status: Acute Category: Medical Code(s): G40.901 - Epilepsy, unspecified, not intractable, with status epilepticus - Assessment and plan all Dx Assessment and Plan for all problems:: Rounded w/ Dr. Gupta, all orders per Dr. Gupta: 1. Cont current medical regimen 2. D/C Bennett 3. Start Tube feeds
--- NOTE | 2020-05-11 09:04 | PC.NURSE ---
Called Mary for remainder of pt's med rec. Med rec completed at this time.
--- NOTE | 2020-05-11 09:24 | DIET.NUTRFU ---
Pt from [facility] admit with AMS, she has a Jtube and receives continuous tube feeding regimen of Osmolite 1.5 at 35ml/h there. Verbal order from Dr. Gupta received to initiate enteral nutrition. Recommend initiating continuous tube feeding regimen of Osmolite 1.2 at 20ml/h and advance by 10ml/h q 8h as tolerated to goal rate of 44ml/h. Pt currently receiving IVF at 100ml/h, recommend minimal water flushes of 30-60ml at GR checks/for irrigation. If IVF dc'd water flushes of 225ml q 6h meets additional fluid needs. This regimen provides 1214kcal, 56g protein, 159g cho, 40g fat, and 830ml free water. (1728ml total fluids with water flushes of 225ml q6h)
--- NOTE | 2020-05-11 09:35 | SW/DCPLANNER ---
Addendum entered by Lay Baker 05/13/20 10:10: I have notified Julee with [facility] that this patient will return today. No further COVID testing is needed at this time. Original Note: This patient currently resides at [facility]. I have spoke with Julee from [facility] and she has stated that patient is ICF level of care. I will continue to follow up with Julee until patient is medically stable for discharge.
--- NOTE | 2020-05-11 11:07 | HMH.PHAINT ---
home medication list verified using mar from [facility]
--- NOTE | 2020-05-11 18:42 | PC.NURSE ---
RA SATS 89%. PUT PT BACK ON 2L N/C
[2020-05-12] VITALS (7 sets, daily range): BP systolic 116–143; BP diastolic 70–88; PULSE 95–107; RESP 17–24; TEMP 36.8–37.4; O2SAT 94–100; BMI 22.4
--- NOTE | 2020-05-12 03:35 | PC.NURSE ---
NO acute changes overnight, pt on 2L NC. Lungs have crackles noted throughout, no cough. Pt has been turned q2h, oral care q2h. PEG tube is patent, tube feed running at 40ml/hr. Last residual was 0. Bowel sounds x4, abd soft and nontender. IV patent, NS @ 100. VSS, call light in reach, no concerns at this time.
[2020-05-12 09:12] LABS: Vancomycin,Trough 13.5 ug/mL (5.0-10.0)
--- NOTE | 2020-05-12 09:55 | HMH.PHACONS ---
- Pharmacy Consult Date: 05/12/20 Time: 09:55 Referring provider: DR. IBANEZ Reason for Consult:: VANCOMYCIN TROUGH LEVEL Allergies and ADEs:: Allergies Allergy/AdvReac Type Severity Reaction Status Date / Time ampicillin Allergy Verified 05/10/20 22:51 Penicillins Allergy Verified 05/10/20 22:51 Sulfa (Sulfonamide Allergy Verified 05/10/20 22:51 Antibiotics) sulfamethoxazole Allergy Verified 05/10/20 22:51 [From Bactrim] trimethoprim [From Bactrim] Allergy Verified 05/10/20 22:51 Home Medications:: Home Medications Medication Instructions Recorded Confirmed Type Atorvastatin Calcium [Lipitor 10mg 10 mg G-TUBE HS 08/24/18 05/10/20 History Tab] Cetirizine HCl 10 mg G-TUBE DAILY 08/24/18 05/10/20 History Lactulose [Lactulose 10gm/15ml 30 ml G-TUBE DAILYP PRN 08/24/18 05/11/20 History Oral Soln] guaiFENesin [Robafen] 10 ml G-TUBE Q4HP PRN 08/24/18 05/11/20 History levETIRAcetam [Keppra] 500 mg G-TUBE BID 08/24/18 05/10/20 History Acetaminophen [Acetaminophen 325mg 500 mg G-TUBE Q6H PRN 08/25/18 05/11/20 History tab] Loperamide HCl [Loperamide] 2 mg G-TUBE Q6HP PRN 08/25/18 05/11/20 History Medroxyprogesterone Acetate 150 mg IM .EVERY 3 MONTHS 08/25/18 05/11/20 History [Depo-Provera 150mg/mL Syringe] Multivitamin,Ther and Minerals 1 each G-TUBE DAILY 08/25/18 05/10/20 History [Vitamin and Minerals] Cyanocobalamin (Vitamin B-12) 1,000 mcg G-TUBE DAILY 12/27/18 05/11/20 History [Vitamin B-12 1000mcg Tablet] Fluticasone Propionate [24 Hour 1 spray IH DAILY 12/27/18 05/10/20 History Allergy] Ketotifen Fumarate 1 drops OP BID 12/27/18 05/11/20 History Propylene Glycol/Peg 400/Pf 1 drp OP BID 12/27/18 05/11/20 History [Systane Ultra 0.4-0.3% Eye Drp] Sennosides [Senna Lax] 8.6 mg G-TUBE BID 12/28/18 05/10/20 History carvedilol 3.125 mg tablet 3.125 mg G-TUBE BID tab 01/25/20 05/10/20 History lisinopril 2.5 mg tablet 2.5 mg G-TUBE DAILY tab 01/25/20 05/11/20 History Furosemide [Furosemide 20mg Tab*] 20 mg G-TUBE DAILY 01/29/20 05/11/20 History Spironolactone [Spironolactone 12.5 mg G-TUBE DAILY 01/29/20 05/11/20 History 25mg Tablet] Lacosamide [Vimpat] 60 mg G-TUBE BID 05/10/20 05/11/20 History nitrofurantoin macrocrystaL 100 mg G-TUBE BID 05/10/20 05/11/20 History [Macrodantin 100mg capsule] Acetaminophen [Tylenol 500mg 500 mg G-TUBE BID 05/11/20 05/11/20 History tablet] Denosumab [Denosumab 60mg/mL 60 mg SQ .EVERY 6 MONTHS 05/11/20 05/11/20 History syringe] Height: 1.63 m Weight: 59.477 kg Laboratory Results:: Laboratory Results - last 24 hr 05/12/20 08:46: Vancomycin Trough 13.5 H Medical History: Reports:: Hyperlipidemia Denies:: Cancer, Diabetes Mellitus Type 1, Diabetes Mellitus Type 2, Internal Pacemaker, MRSA Assessment and Plan (1) Dislodged gastrostomy tube Status: Acute Category: Medical Code(s): Z43.1 - Encounter for attention to gastrostomy (2) Complication of feeding tube Status: Acute Category: Medical Code(s): K94.23 - Gastrostomy malfunction (3) Pneumonia Status: Acute Category: Medical Code(s): J18.9 - Pneumonia, unspecified organism (4) Status epilepticus Status: Acute Category: Medical Code(s): G40.901 - Epilepsy, unspecified, not intractable, with status epilepticus - Assessment and plan all Dx Assessment and Plan for all problems:: BASED ON PATIENT FACTORS AND VANCOMYCIN TROUGH LEVEL, RECOMMEND CONTINUING VANCOMYCIN 1250 MG IV Q12H. PHARMACY WILL CONTINUE TO MONITOR DAILY AND ADJUST APPROPRIATE.
[2020-05-12 10:01] LABS: Chloride 109 mmol/L (98-107); Potassium 4.5 mmoL/L (3.5-5.1); Sodium 135 mmol/L (136-145)
[2020-05-12 10:04] LABS: Anion Gap 11.5 mEq/L (5-15); Blood Urea Nitrogen 14 mg/dl (7-17); Carbon Dioxide 19 mmol/L (22.0-30.0); Creatinine Clearance Estimated 206 mL/min (50-200); Estimated Glomerular Filt Rate 234 ml/min (>60); GFR (African American) 283 ML/MIN (>60); Glucose 124 mg/dl (74-100)
--- NOTE | 2020-05-12 14:00 | PC.NURSE ---
pt sputum induced at his time. cup left at bedside.
--- NOTE | 2020-05-12 16:09 | P.PN_ITS ---
Internal Medicine - PN: Subj *Date: 05/12/20 *Time: 08:45 Exam Vital signs and Labs for Last 24 Hours: Temp Pulse Resp BP Pulse Ox 99.3 F 99 H 20 135/77 100 05/12/20 11:22 05/12/20 11:22 05/12/20 11:22 05/12/20 11:22 05/12/20 11:22 Laboratory Results - last 24 hr 05/10/20 14:37: Urine Color Yellow, Urine Appearance Cloudy, Urine pH 5.5, Ur Specific [place] 1.020, Urine Protein Trace, Urine Glucose (UA) Negative, Urine Ketones Negative, Urine Blood 3+, Urine Nitrate Negative, Urine Bilirubin Negative, Urine Urobilinogen 0.2, Ur Leukocyte Esterase 2+ A, Urine RBC 20-50, Urine WBC 20-50, Ur Squamous Epith Cells Tntc, Urine Bacteria 3+, Urine Mucus 2+ 05/12/20 08:46: Vancomycin Trough 13.5 H 05/12/20 08:46: Sodium 135 L, Potassium 4.5, Chloride 109 H, Carbon Dioxide 19 L D, Anion Gap 11.5, BUN 14 D, Creatinine 0.30 L D, Estimated Creat Clear 206, Estimated GFR 234, Est GFR ( Amer) 283 D, Glucose 124 H, Calcium 8.0 L D I & O for Last 24 hours: Intake & Output 05/10/20 05/11/20 05/12/20 05/13/20 11:59 11:59 11:59 11:59 Intake Total 965 / 965 0 / 0 0 / 0 Output Total 450 / 450 250 / 250 Balance 515 / 515 -250 / -250 0 / 0 Weight 126 lb 15.78 oz 131 lb 2 oz Microbiology Reports for the Last 24 Hours: Microbiology 05/10/20 15:10 Blood Blood Culture - Preliminary NO GROWTH AFTER 48 HOURS 05/10/20 14:37 Urine,Catheterized Urine Culture - Preliminary Gram Negative Rods 05/10/20 15:10 Blood Blood Culture - Preliminary - Constitutional no acute distress, chronically ill appearing - *Routine HEENT Exam Head: Present: normocephalic Eye: Present: PERRL ENT: Present: mucous membranes moist - *Routine Neck Exam Present: supple. Absent: lymphadenopathy - *Routine Respiratory Exam Present: decreased breath sounds, rhonchi - *Routine Cardiovascular Exam Present: RRR - *Routine Abdominal Exam Present: soft, normoactive bowel sounds, other. Absent: tenderness Comments: peg tube in place - *Routine Extremities Exam Present: normal capillary refill. Absent: cyanosis, clubbing, edema - *Routine Skin Exam Present: warm. Absent: rash - *Routine Neurological Exam pt is nonverbal - Routine Psychiatric Exam Present: unable to assess Assessment and Plan (1) Dislodged gastrostomy tube Status: Acute Category: Medical Code(s): Z43.1 - Encounter for attention to gastrostomy (2) Complication of feeding tube Status: Acute Category: Medical Code(s): K94.23 - Gastrostomy malfunction (3) Pneumonia Status: Acute Category: Medical Code(s): J18.9 - Pneumonia, unspecified organism (4) Status epilepticus Status: Acute Category: Medical Code(s): G40.901 - Epilepsy, unspecified, not intractable, with status epilepticus (5) COVID-19 Status: Acute Category: Medical Code(s): U07.1 - COVID-19 dx 03/14/20 (6) UTI (urinary tract infection) Status: Acute Qualifiers: Urinary tract infection type: site unspecified Category: Medical Code(s): N39.0 - Urinary tract infection, site not specified - Assessment and plan all Dx Assessment and Plan for all problems:: rounded with dr suarez all orders per dr suarez wait final cx results
--- NOTE | 2020-05-12 16:44 | PC.NURSE ---
Pt opens her eyes spontaneously, obeys motor commands, and is non-verbal. GCS is 11. Pt is receiving O2 via NC @ 2 LPM with sats. >90%. Lungs CTA. No edema noted. Pt is incontinent and a brief is in place. No BM this shift. Pt has been turned/repositioned and provided oral care Q2H this shift. PEG tube is in place and pt is receiving Osmolite 1.2 @ 44 ML/HR with 30/60 ML water flushes Q4H. Residuals have been 0 today. 20 G peripheral IV in the RT chest is patent and infusing NS @ 100 ML/HR. VSS. Call light within reach. Will continue to monitor.
--- NOTE | 2020-05-12 18:42 | PC.NURSE ---
RA SATS 96%. LEFT PT ON RA. INFORMED RN
[2020-05-13] VITALS: BP 154/99; PULSE 99; RESP 22; TEMP 37.5; O2SAT 96
--- NOTE | 2020-05-13 03:12 | PC.NURSE ---
No acute changes overnight, pt has been turned q2h, oral care q2h. IV is patent, 20g L chest, NS @ 100. Lungs are CTA, on room air. PEG in place, osmolite 1.2 @ goal, 44ml/hr, residuals have been 0. Pt has been incontinent of urine, brief is in place. NO BM this shift. Pt is nonverbal, opens eyes spontaneously. VSS, call light in reach, no concerns at this time
[2020-05-13 04:00] VITALS: BP 157/81; PULSE 95; RESP 24; TEMP 37.3; O2SAT 93
[2020-05-13 05:00] VITALS: BMI 22.7
[2020-05-13 07:12] LABS: Basophils % 0.3 % (0.1-2.0); Eosinophils # 0.1 K/mm3 (0.0-0.4); Eosinophils % 1.2 % (0.1-12.0); Hematocrit 41.2 % (37.0-47.0); Hemoglobin 13.6 g/dL (12.2-16.2); Lymphocytes # 2.2 K/mm3 (0.7-4.5); Lymphocytes % 24.7 % (10-50); Mean Corpuscular HGB Conc 32.9 g/dL (31.8-35.4); Mean Corpuscular Hemoglobin 31.9 pg (27.0-31.2); Mean Corpuscular Volume 96.7 fl (81-99); Mean Platelet Volume 11.1 fl (7.4-10.4); Monocytes # 1.1 K/mm3 (0.1-1.0); Neutrophils # 5.5 K/mm3 (1.8-7.8); Neutrophils % 61.9 % (37.0-80.0); Platelet Count 222 K/mm3 (142-424); Red Blood Count 4.26 M/mm3 (4.20-5.40); Red Cell Distribution Width 14.7 % (11.5-17.5); White Blood Count 8.8 K/mm3 (4.8-10.8)
[2020-05-13 08:00] VITALS: BP 137/97; PULSE 122; RESP 17; TEMP 37.4; O2SAT 94
[2020-05-13 08:23] LABS: Anion Gap 12.2 mEq/L (5-15); Blood Urea Nitrogen 8 mg/dl (7-17); Calcium 8.2 mg/dl (8.4-10.2); Carbon Dioxide 20 mmol/L (22.0-30.0); Chloride 107 mmol/L (98-107); Creatinine Clearance Estimated 314 mL/min (50-200); Estimated Glomerular Filt Rate 373 ml/min (>60); GFR (African American) 451 ML/MIN (>60); Glucose 108 mg/dl (74-100); Potassium 5.2 mmoL/L (3.5-5.1); Sodium 134 mmol/L (136-145)
--- NOTE | 2020-05-13 09:03 | P.PN_ITS ---
Internal Medicine - PN: Subj *Date: 05/13/20 *Time: 09:03 Exam Vital signs and Labs for Last 24 Hours: Temp Pulse Resp BP Pulse Ox 99.2 F 95 H 24 157/81 H 93 L 05/13/20 04:00 05/13/20 04:00 05/13/20 04:00 05/13/20 04:00 05/13/20 04:00 Laboratory Results - last 24 hr 05/10/20 14:37: Urine Color Yellow, Urine Appearance Cloudy, Urine pH 5.5, Ur Specific [place] 1.020, Urine Protein Trace, Urine Glucose (UA) Negative, Urine Ketones Negative, Urine Blood 3+, Urine Nitrate Negative, Urine Bilirubin Negative, Urine Urobilinogen 0.2, Ur Leukocyte Esterase 2+ A, Urine RBC 20-50, Urine WBC 20-50, Ur Squamous Epith Cells Tntc, Urine Bacteria 3+, Urine Mucus 2+ 05/12/20 08:46: Vancomycin Trough 13.5 H 05/12/20 08:46: Sodium 135 L, Potassium 4.5, Chloride 109 H, Carbon Dioxide 19 L D, Anion Gap 11.5, BUN 14 D, Creatinine 0.30 L D, Estimated Creat Clear 206, Estimated GFR 234, Est GFR ( Amer) 283 D, Glucose 124 H, Calcium 8.0 L D 05/13/20 06:20: WBC 8.8 D, RBC 4.26, Hgb 13.6, Hct 41.2, MCV 96.7, MCH 31.9 H, MCHC 32.9, RDW 14.7, Plt Count 222, MPV 11.1 H, Neut % (Auto) 61.9, Lymph % (Auto) 24.7, [place] % (Auto) 12.0 H, Eos % (Auto) 1.2, Baso % (Auto) 0.3, Neut # (Auto) 5.5, Lymph # (Auto) 2.2, [place] # (Auto) 1.1 H, Eos # (Auto) 0.1, Baso # (Auto) 0.0 05/13/20 06:20: Sodium 134 L, Potassium 5.2 H, Chloride 107, Carbon Dioxide 20 L , Anion Gap 12.2, BUN 8 D, Creatinine 0.20 L D, Estimated Creat Clear 314 H, Estimated GFR 373, Est GFR ( Amer) 451 D, Glucose 108 H, Calcium 8.2 L I & O for Last 24 hours: Intake & Output 05/10/20 05/11/20 05/12/20 05/13/20 23:59 23:59 23:59 23:59 Intake Total 965 / 965 4273 / 4273 Output Total 700 / 700 Balance 265 / 265 4273 / 4273 Weight 59.222 kg 57.6 kg 59.477 kg 60.413 kg Microbiology Reports for the Last 24 Hours: Microbiology 05/10/20 14:37 Urine,Catheterized Urine Culture - Final Proteus mirabilis 05/10/20 15:10 Blood Blood Culture - Preliminary NO GROWTH AFTER 48 HOURS Assessment and Plan (1) Dislodged gastrostomy tube Status: Acute Category: Medical Code(s): Z43.1 - Encounter for attention to gastrostomy (2) Complication of feeding tube Status: Acute Category: Medical Code(s): K94.23 - Gastrostomy malfunction (3) Pneumonia Status: Acute Category: Medical Code(s): J18.9 - Pneumonia, unspecified organism (4) Status epilepticus Status: Acute Category: Medical Code(s): G40.901 - Epilepsy, unspecified, not intractable, with status epilepticus (5) COVID-19 Status: Acute Category: Medical Code(s): U07.1 - COVID-19 (6) UTI (urinary tract infection) Status: Acute Qualifiers: Urinary tract infection type: site unspecified Category: Medical Code(s): N39.0 - Urinary tract infection, site not specified The patient's infection will respond to the chosen ABx?: Yes (SENSITIVE PROTEUS IN URINE) Is the patient receiving the right drug, dose, and route?: Yes Could a more targeted ABx be ordered?: No
--- NOTE | 2020-05-13 09:49 | HMH.DCSUM ---
General - General Admission date:: 05/10/20 Discharge date: 05/13/20 HPI HPI: this pt was [facility] with report of low oxygen saturation. The patient has cerebral palsy and is debilitated, she is unable to give any history herself. She has recently had Covid. pt was admitted for ivf and treatment Hospital Course Hospital Course: Laboratory Tests 05/10/20 05/10/20 05/10/20 13:58 14:05 14:37 WBC RBC Hgb Hct MCV MCH MCHC RDW Plt Count MPV Neut % (Auto) Lymph % (Auto) [place] % (Auto) Eos % (Auto) Baso % (Auto) Neut # (Auto) Lymph # (Auto) [place] # (Auto) Eos # (Auto) Baso # (Auto) Specimen Source Right radial O2 % 5l nc ABG pH 7.48 H ABG pCO2 34.2 L ABG pO2 70.9 L ABG HCO3 24.7 ABG Total CO2 25.7 ABG O2 Saturation 96 ABG Base Excess 1.1 Osei Test Patient unable Sodium 136 Potassium 5.2 H Chloride 102 Carbon Dioxide 28 Anion Gap 11.2 BUN 26 H D Creatinine 0.40 L Estimated Creat Clear 145 Estimated GFR 168 Est GFR ( Amer) 203 D Glucose 130 H Lactate Calcium 9.4 Total Bilirubin 0.6 AST 27 D ALT 27 Alkaline Phosphatase 67 Total Protein 7.1 Albumin 3.6 Globulin 3.5 H Albumin/Globulin Ratio 1.0 L Urine Color Yellow Urine Appearance Cloudy Urine pH 5.5 Ur Specific [place] 1.020 Urine Protein Trace Urine Glucose (UA) Negative Urine Ketones Negative Urine Blood 3+ Urine Nitrate Negative Urine Bilirubin Negative Urine Urobilinogen 0.2 Ur Leukocyte Esterase 2+ A Urine RBC 20-50 Urine WBC 20-50 Ur Squamous Epith Cells Tntc Urine Bacteria 3+ Urine Mucus 2+ Vancomycin Trough 05/10/20 05/10/20 05/12/20 15:10 15:30 08:46 WBC 14.2 H D RBC 4.03 L Hgb 12.9 Hct 38.7 MCV 95.9 MCH 32.0 H MCHC 33.3 RDW 14.8 Plt Count 194 D MPV 10.6 H Neut % (Auto) 69.0 Lymph % (Auto) 22.9 [place] % (Auto) 7.4 Eos % (Auto) 0.4 Baso % (Auto) 0.3 Neut # (Auto) 9.8 H Lymph # (Auto) 3.2 [place] # (Auto) 1.0 Eos # (Auto) 0.1 Baso # (Auto) 0.1 Specimen Source O2 % ABG pH ABG pCO2 ABG pO2 ABG HCO3 ABG Total CO2 ABG O2 Saturation ABG Base Excess Osei Test Sodium Potassium Chloride Carbon Dioxide Anion Gap BUN Creatinine Estimated Creat Clear Estimated GFR Est GFR ( Amer) Glucose Lactate 0.9 Calcium Total Bilirubin AST ALT Alkaline Phosphatase Total Protein Albumin Globulin Albumin/Globulin Ratio Urine Color Urine Appearance Urine pH Ur Specific [place] Urine Protein Urine Glucose (UA) Urine Ketones Urine Blood Urine Nitrate Urine Bilirubin Urine Urobilinogen Ur Leukocyte Esterase Urine RBC Urine WBC Ur Squamous Epith Cells Urine Bacteria Urine Mucus Vancomycin Trough 13.5 H 05/12/20 05/13/20 05/13/20 08:46 06:20 06:20 WBC 8.8 D RBC 4.26 Hgb 13.6 Hct 41.2 MCV 96.7 MCH 31.9 H MCHC 32.9 RDW 14.7 Plt Count 222 MPV 11.1 H Neut % (Auto) 61.9 Lymph % (Auto) 24.7 [place] % (Auto) 12.0 H Eos % (Auto) 1.2 Baso % (Auto) 0.3 Neut # (Auto) 5.5 Lymph # (Auto) 2.2 [place] # (Auto) 1.1 H Eos # (Auto) 0.1 Baso # (Auto) 0.0 Specimen Source O2 % ABG pH ABG pCO2 ABG pO2 ABG HCO3 ABG Total CO2 ABG O2 Saturation ABG Base Excess Osei Test Sodium 135 L 134 L Potassium 4.5 5.2 H Chloride 109 H 107 Carbon Dioxide 19 L D 20 L Anion Gap 11.5 12.2 BUN 14 D 8 D Creatinine 0.30 L D 0.20 L D Estimated Creat Clear 206 314 H Estimated GFR 234 373 Est GFR ( Amer) 283 D 451 D Glucose 124 H 108 H Lactate
== END 2020-05-13 11:30 | DRG 193 ==
LOC: ER 17:01 → 2ND 19:21
PROVIDERS: Nurse Practitioner Family; Admitting Provider Family Medicine; Emergency Provider Emergency Medicine; Visit Provider Emergency Medicine
DX: J18.9 Pneumonia, unspecified organism (principal); J96.21 Acute and chronic respiratory failure with hypoxia; G82.50 Quadriplegia, unspecified; N39.0 Urinary tract infection, site not specified; Z88.0 Allergy status to penicillin; Z88.2 Allergy status to sulfonamides; Z88.1 Allergy status to other antibiotic agents; Y95 Nosocomial condition; E78.5 Hyperlipidemia, unspecified; G80.9 Cerebral palsy, unspecified; Z74.01 Bed confinement status; Z93.1 Gastrostomy status; G40.901 Epilepsy, unspecified, not intractable, with status epilepticus; Z86.16 Personal history of COVID-19; Y83.3 Surgical operation with formation of external stoma as the cause of abnormal reaction of the patient, or of later complication, without mention of misadventure at the time of the procedure; K94.29 Other complications of gastrostomy
CPT/HCPCS: 36415; 71045; 80048; 80053; 80202; 81001; 82803; 83605; 85025; 87040; 87077; 87086; 87088; 87186; 93005; 96365; 99283; 99284; J1956; J3370; U0003

== ENCOUNTER 2020-05-30 06:11 | Emergency (ER) | payer MEDICARE, MEDICAID, SELFPAY ==
[2020-05-30] VITALS (16 sets, daily range): BP systolic 140–169; BP diastolic 76–110; PULSE 74–94; RESP 16–24; TEMP 36.8; O2SAT 93–98; BMI 27.4
--- NOTE | 2020-05-30 06:18 | HMH.EDGENADL ---
ED Disposition Clinical Impression: Facial swelling UTI (urinary tract infection) Qualifiers: Urinary tract infection type: site unspecified Hematuria presence: with hematuria Qualified Code(s): N39.0 - Urinary tract infection, site not specified; R31.9 - Hematuria, unspecified Disposition: Home, Self-Care Condition on Discharge: Good Instructions: DI for Urinary Tract Infection (UTI), DI for General Allergic Reactions Additional Instructions: Rocephin 1 g intramuscular daily for 6 more days, beginning on 05/31/2020. Decadron liquid, 10 mg once on 06/01/2020. Benadryl liquid 25 mg every 6 hours for 3 days beginning today, 05/30/2020. Call primary care provider if any worsening of symptoms. Referrals: PCP,No [Non-Staff] - - Critical Care Critical Care Time: No Attestation: On 05/30/20, the high probability of a clinically significant, sudden or life threatening deterioration of the following system(s) required my full and direct attention, intervention and personal management. The time I documented below is in addition to time spent performing reported procedures but includes the following listed in this critical care notation. Medical Decision Making - Medical Records Medical records reviewed: Yes: I reviewed the patient's medical records. MR Comment: Reviewed discharge summary from most recent admission. The patient had healthcare associated pneumonia and was also discovered to have a urinary tract infection with Proteus. Sensitive to cefepime, with which she was treated in the hospital. Discharged on Cefdinir. - Luis Inquiry Pt receiving controlled substance: No Vital Signs: 05/30/20 06:01 05/30/20 06:30 Temperature 98.3 F Temperature Source Oral Pulse Rate [Right Brachial] 94 H Respiratory Rate 22 20 Blood Pressure 152/104 H Blood Pressure [Right Arm] 169/110 H Blood Pressure Mean 126 Blood Pressure Mean [Right Arm] 129 Blood Pressure Source [Right Arm] Automatic Cuff Blood Pressure Position [Right Arm] Sitting 02 Sat by Pulse Oximetry 93 L Oxygen Delivery Method Room Air - Lab Data Lab Results 05/30/20 06:50: Urine Color Yellow, Urine Appearance Clear, Urine pH 7.0, Ur Specific [place] 1.010, Urine Protein Negative, Urine Glucose (UA) Negative, Urine Ketones Negative, Urine Blood 2+, Urine Nitrate Positive, Urine Bilirubin Negative, Urine Urobilinogen 0.2, Ur Leukocyte Esterase 2+ A, Urine RBC 10-20, Urine WBC 10-20, Ur Squamous Epith Cells 3-5, Urine Bacteria 1+ 05/30/20 07:15: WBC 9.0, RBC 5.03, Hgb 16.0, Hct 48.6 H, MCV 96.7, MCH 31.8 H, MCHC 32.9, RDW 14.4, Plt Count 368, MPV 9.1, Neut % (Auto) 56.8, Lymph % (Auto) 35.3, [place] % (Auto) 6.6, Eos % (Auto) 0.7, Baso % (Auto) 0.6, Neut # (Auto) 5.1, Lymph # (Auto) 3.2, [place] # (Auto) 0.6, Eos # (Auto) 0.1, Baso # (Auto) 0.1 05/30/20 07:15: Sodium 133 L, Potassium 5.2 H, Chloride 100, Carbon Dioxide 25, Anion Gap 13.2, BUN 11, Creatinine 0.30 L, Estimated Creat Clear 243, Estimated GFR 234, Est GFR ( Amer) 283, Glucose 94, Calcium 9.5 Result diagrams: 05/30/20 07:15 05/30/20 07:15 Orders (Tests/Meds): ED MEDICATIONS Generic Name Dose Route Start Last Admin Trade Name Freq PRN Reason Stop Dose Admin Dexamethasone Sodium Phosphate 10 mg 05/30/20 08:05 Dexamethasone 4mg/Ml 1ml Vial IV 05/30/20 08:06 ONCE ONE Ceftriaxone Sodium 1 gm/ 50 mls @ 100 mls/hr 05/30/20 08:04 Sodium Chloride IV 05/30/20 08:33 ONCE ONE Protocol Discontinued Medications Generic Name Dose Route Start Last Admin Trade Name Freq PRN Reason Stop Dose Admin Diphenhydramine HCl 25 mg 05/30/20 06:50 05/30/20 07:36 Diphenhydramine 50mg/Ml Vial IV 05/30/20 06:51 25 mg ONCE ONE Administration Methylprednisolone Sodium Succinate 125 mg 05/30/20 06:50 05/30/20 07:34 Methylprednisolone Sod Succ 125mg Vial IV 05/30/20 06:51 125 mg ONCE ONE Administration ORDERS Category Date Time Status C-Reactive Pro
--- NOTE | 2020-05-30 06:58 | PC.NURSE ---
in&out cath pt, she tolerated well.
--- NOTE | 2020-05-30 06:58 | PC.NURSE ---
unable to get labs on pt, notified lab for the need of blood draw
[2020-05-30 07:00] LABS: Microscopic, Urine URINE MICROSCOPIC (MICROSCOPIC)
[2020-05-30 07:01] LABS: Appearance,Urine CLEAR (Clear); Bilirubin,Urine Negative (Negative); Blood, Urine 2+ (Negative); Color,Urine YELLOW (Yellow); Glucose,Urine (UA) Negative (Negative); Ketones,Urine Negative (Negative); Leukocyte Esterase,Urine 2+ (Negative); Nitrate,Urine POSITIVE (Negative); Protein,Urine Negative (Negative); Urobilinogen,Urine 0.2 EU/dl (0.2)
--- NOTE | 2020-05-30 07:03 | PC.NURSE ---
Lab called to report it will be awhile for someone to come draw labs. FARRUKH Webster will attempt IV access
[2020-05-30 07:08] LABS: Bacteria,Urine 1+ /lpf
[2020-05-30 07:43] LABS: Basophils # 0.1 K/mm3 (0-0.2); Basophils % 0.6 % (0.1-2.0); Eosinophils # 0.1 K/mm3 (0.0-0.4); Eosinophils % 0.7 % (0.1-12.0); Hematocrit 48.6 % (37.0-47.0); Lymphocytes # 3.2 K/mm3 (0.7-4.5); Lymphocytes % 35.3 % (10-50); Mean Corpuscular HGB Conc 32.9 g/dL (31.8-35.4); Mean Corpuscular Hemoglobin 31.8 pg (27.0-31.2); Mean Corpuscular Volume 96.7 fl (81-99); Mean Platelet Volume 9.1 fl (7.4-10.4); Monocytes # 0.6 K/mm3 (0.1-1.0); Monocytes % 6.6 % (1.7-9.3); Neutrophils # 5.1 K/mm3 (1.8-7.8); Neutrophils % 56.8 % (37.0-80.0); Platelet Count 368 K/mm3 (142-424); Red Blood Count 5.03 M/mm3 (4.20-5.40); Red Cell Distribution Width 14.4 % (11.5-17.5)
[2020-05-30 07:57] LABS: Chloride 100 mmol/L (98-107)
[2020-05-30 07:58] LABS: Potassium 5.2 mmoL/L (3.5-5.1); Sodium 133 mmol/L (136-145)
[2020-05-30 08:01] LABS: Anion Gap 13.2 mEq/L (5-15); Blood Urea Nitrogen 11 mg/dl (7-17); Calcium 9.5 mg/dl (8.4-10.2); Carbon Dioxide 25 mmol/L (22.0-30.0); Creatinine Clearance Estimated 243 mL/min (50-200); Estimated Glomerular Filt Rate 234 ml/min (>60); GFR (African American) 283 ML/MIN (>60); Glucose 94 mg/dl (74-100)
[2020-05-30 08:10] LABS: Lactic Acid 0.8 mmol/L (0.7-2.1)
[2020-05-30 08:12] LABS: Alanine Aminotransferase 26 U/L (12-78); Albumin Level 3.5 g/dl (3.5-5.0); Alkaline Phosphatase 80 U/L (38-126); Aspartate Amino Transferase 29 U/L (14-36); Bilirubin,Indirect 0.4 mg/dL (0.0-0.9); Bilirubin,Total 0.4 mg/dl (0.2-1.3); Bilirubin,Unconjugated 0.4 mg/dL (0.0-1.1); Total Protein,Serum 6.4 g/dl (6.3-8.2)
[2020-05-30 08:18] LABS: C-Reactive Protein 6.7 mg/L (0-4)
[2020-05-30 08:25] LABS: Erythrocyte Sedimentation Rate 17 mm/hr (0-30)
[2020-05-30 08:32] LABS: Procalcitonin 0.068 ng/mL (0.0-2.0)
--- NOTE | 2020-05-30 09:09 | PC.NURSE ---
EMS NOTIFIED PATIENT REQUIRES TRANSPORTATION. NO ETA AT THIS TIME
--- NOTE | 2020-05-30 09:28 | PC.NURSE ---
GAVE REPORT TO GREGG CUNNINGHAM RN AT THIS TIME
== END 2020-05-30 13:50 | disposition home or self-care (01) ==
PROVIDERS: Emergency Provider Emergency Medicine; PCP Emergency Medicine
DX: N30.01 Acute cystitis with hematuria (principal); R22.0 Localized swelling, mass and lump, head; G80.8 Other cerebral palsy; Z79.899 Other long term (current) drug therapy; Z88.0 Allergy status to penicillin; Z88.2 Allergy status to sulfonamides; E78.5 Hyperlipidemia, unspecified
CPT/HCPCS: 80048; 80076; 81001; 83605; 84145; 85025; 85651; 86140; 87040; 87070; 87077; 87086; 87186; 87205; 96374; 96375; 99283

== ENCOUNTER 2020-07-01 16:58 | Emergency (ER) | payer MEDICARE, MEDICAID, SELFPAY ==
[2020-07-01 16:58] VITALS: BP 115/77; PULSE 57; RESP 16; TEMP 36.8; O2SAT 98; BMI 21.3
--- NOTE | 2020-07-01 17:42 | XR_ITS ---
PROCEDURE INFORMATION: Exam: XR Abdomen Exam date and time: 07/01/2020 5:42 PM Age: 54 years old Clinical indication: Device placement; Gi device; Other: Gtube; Additional info: G tube placement TECHNIQUE: Imaging protocol: XR of the abdomen. Views: Frontal supine view of the abdomen. 1 View. COMPARISON: CR XR KUB 03/24/2020 10:56 AM FINDINGS: Tubes, catheters and devices: G-tube in good position in the stomach. There is reflux of contrast into the distal esophagus. Gastrointestinal tract: No bowel obstruction. Bones/joints: Unremarkable. IMPRESSION: G-tube is seen in the stomach but contrast shows reflux into the distal esophagus.
[2020-07-01 17:50] VITALS: BP 122/93; PULSE 64; O2SAT 80
--- NOTE | 2020-07-01 17:50 | PC.NURSE ---
Rad at bedside
--- NOTE | 2020-07-01 18:24 | HMH.EDGENADL ---
ED Disposition Clinical Impression: Dislodged gastrostomy tube Disposition: Home, Self-Care Condition on Discharge: Good Referrals: Provider,Referral, [Primary Care Provider] - - Critical Care Critical Care Time: No Attestation: On 07/01/20, the high probability of a clinically significant, sudden or life threatening deterioration of the following system(s) required my full and direct attention, intervention and personal management. The time I documented below is in addition to time spent performing reported procedures but includes the following listed in this critical care notation. Medical Decision Making - Medical Records Medical records reviewed: Yes: I reviewed the patient's medical records. - Luis Inquiry Pt receiving controlled substance: No Vital Signs: 07/01/20 16:58 07/01/20 17:50 Temperature 98.2 F Temperature Source Oral Pulse Rate 64 Pulse Rate [Right] 57 L Respiratory Rate 16 Blood Pressure 122/93 H Blood Pressure [Right Arm] 115/77 Blood Pressure Mean [Right Arm] 89 Blood Pressure Source [Right Arm] Automatic Cuff Blood Pressure Position [Right Arm] Sitting 02 Sat by Pulse Oximetry 98 80 L Oxygen Delivery Method Room Air Orders (Tests/Meds): ED MEDICATIONS Discontinued Medications Generic Name Dose Route Start Last Admin Trade Name Freq PRN Reason Stop Dose Admin Diatrizoate Meglum/Diatrizoate Sod 30 ml 07/01/20 17:52 07/01/20 17:53 Diatrizoate [place] 66% & Diatrizoate Na 10% 30ml Udc PO 07/01/20 17:53 30 ml ONCE ONE Administration - Reevaluation(s) Time: 18:26 Reevaluation #1: On reevaluation, patient tolerated procedure well. We did obtain films with Gastrografin. The G-tube appears to be in appropriate place, however there is reflux into the esophagus. We did try to manipulate the tube and it appears to be pulling gastric contents without any issue. Patient needs to follow-up with PCP. Given strict return precautions. [facility] verbalized understanding. Medical Decision Narrative: 54-year-old female presented to the emergency department after removing G-tube. This will be replaced by emergency physician. General Adult HPI - General Chief complaint: Recheck/Abnormal Lab/Rx Stated complaint: G-tube Replacement Time Seen by Provider: 07/01/20 17:00 Mode of Arrival: EMS Limitations: No Limitations Description of Symptoms (Recalled from ER Triage Doc. by RN): PT pulled out g-tube - History of Present Illness HPI narrative: 54-year-old female presented to the emergency department with removal of her G-tube. Patient is done this frequently in the past. She is G-tube dependent. There were no other injuries sustained. This appears to be accidental. Patient has severe debility at baseline. No fevers or chills. No vomiting or diarrhea. - Related Data Home Medications Medication Instructions Recorded Confirmed Atorvastatin Calcium [Lipitor 10mg 10 mg G-TUBE HS 08/24/18 05/30/20 Tab] Cetirizine HCl 10 mg G-TUBE DAILY 08/24/18 05/30/20 Lactulose [Lactulose 10gm/15ml 30 ml G-TUBE DAILYP PRN 08/24/18 05/30/20 Oral Soln] guaiFENesin [Robafen] 10 ml G-TUBE Q4HP PRN 08/24/18 05/30/20 levETIRAcetam [Keppra] 500 mg G-TUBE BID 08/24/18 05/30/20 Acetaminophen [Acetaminophen 325mg 500 mg G-TUBE Q6H PRN 08/25/18 05/30/20 tab] Loperamide HCl [Loperamide] 2 mg G-TUBE Q6HP PRN 08/25/18 05/30/20 Medroxyprogesterone Acetate 150 mg IM .EVERY 3 MONTHS 08/25/18 05/30/20 [Depo-Provera 150mg/mL Syringe] Multivitamin,Ther and Minerals 1 each G-TUBE DAILY 08/25/18 05/30/20 [Vitamin and Minerals] Cyanocobalamin (Vitamin B-12) 1,000 mcg G-TUBE DAILY 12/27/18 05/30/20 [Vitamin B-12 1000mcg Tablet] Fluticasone Propionate [24 Hour 1 spray IH DAILY 12/27/18 05/30/20 Allergy] Ketotifen Fumarate 1 drops OP BID 12/27/18 05/30/20 Propylene Glycol/Peg 400/Pf 1 drp OP BID 12/27/18 05/30/20 [Systane Ultra 0.4-0.3% Eye Drp]
--- NOTE | 2020-07-01 18:51 | PC.NURSE ---
Called report to amber
[2020-07-01 18:59] VITALS: BP 112/86; PULSE 74; RESP 16; TEMP 36.8; O2SAT 98
== END 2020-07-01 19:01 | disposition home or self-care (01) ==
PROVIDERS: Emergency Provider Emergency Medicine
DX: Z43.4 Encounter for attention to other artificial openings of digestive tract (principal); G80.9 Cerebral palsy, unspecified; E78.5 Hyperlipidemia, unspecified; Z88.0 Allergy status to penicillin; Z88.2 Allergy status to sulfonamides; Z79.899 Other long term (current) drug therapy
CPT/HCPCS: 43762; 74018; 99283

== ENCOUNTER 2020-08-08 08:25 | Inpatient (IN) | payer MEDICARE, MEDICAID, SELFPAY ==
[2020-08-08] VITALS (38 sets, daily range): BP systolic 64–142; BP diastolic 38–79; PULSE 91–148; RESP 16–39; TEMP 36.8–39.9; O2SAT 90–100; BMI 24.7; BMI 24.5; BMI 22.7
--- NOTE | 2020-08-08 08:40 | HMH.EDGENADL ---
ED Disposition Clinical Impression: Septic shock Aspiration pneumonia Qualifiers: Aspiration pneumonia type: due to regurgitated food Laterality: right Lung location: middle lobe of lung Qualified Code(s): J69.0 - Pneumonitis due to inhalation of food and vomit Acute respiratory failure Qualifiers: Respiratory failure complication: hypoxia Qualified Code(s): J96.01 - Acute respiratory failure with hypoxia UTI (urinary tract infection) Qualifiers: Urinary tract infection type: site unspecified Hematuria presence: with hematuria Qualified Code(s): N39.0 - Urinary tract infection, site not specified; R31.9 - Hematuria, unspecified Disposition: Admitted As Inpatient Condition on Discharge: Fair - Critical Care Critical Care Time: Yes Attestation: On 08/08/20, the high probability of a clinically significant, sudden or life threatening deterioration of the following system(s) required my full and direct attention, intervention and personal management. The time I documented below is in addition to time spent performing reported procedures but includes the following listed in this critical care notation. Total Critical Care Time: 95 Vital system(s) involved:: Circulatory Failure, Respiratory Failure, Shock (Septic) My critical care processes included: Assessment & monitoring of V/S, Initial and Re-exams, Data Review/Interpretation, Coordinating Care, Medication Orders and management, Documentation Medical Decision Making - Medical Records Medical records reviewed: Yes: I reviewed the patient's medical records. - Luis Inquiry Pt receiving controlled substance: No Vital Signs: 08/08/20 08:25 08/08/20 08:50 08/08/20 08:57 Temperature 103.9 F H Temperature Source Rectal Pulse Rate 142 H Pulse Rate [Left] 148 H Respiratory Rate 39 H 32 H Blood Pressure 101/52 L Blood Pressure [Right Arm] 106/78 L Blood Pressure Mean Blood Pressure Mean [Right Arm] 87 Blood Pressure Source Manual Cuff/ Auscultation Blood Pressure Source [Right Arm] Automatic Cuff Blood Pressure Position Supine Blood Pressure Position [Right Arm] Sitting 02 Sat by Pulse Oximetry 93 L 98 Oxygen Delivery Method Non-Rebreather Non-Rebreather Oxygen Flow Rate (LPM) 15 15 08/08/20 09:00 08/08/20 09:15 08/08/20 09:22 Temperature Temperature Source Pulse Rate 140 H 139 H 136 H Pulse Rate [Left] Respiratory Rate 32 H 30 H 30 H Blood Pressure 127/61 85/49 L 92/57 L Blood Pressure [Right Arm] Blood Pressure Mean Blood Pressure Mean [Right Arm] Blood Pressure Source Blood Pressure Source [Right Arm] Blood Pressure Position Blood Pressure Position [Right Arm] 02 Sat by Pulse Oximetry 97 100 97 Oxygen Delivery Method Non-Rebreather Non-Rebreather Non-Rebreather Oxygen Flow Rate (LPM) 15 15 15 08/08/20 09:43 08/08/20 10:01 Temperature 102.1 F H Temperature Source Rectal Pulse Rate 124 H Pulse Rate [Left] Respiratory Rate 32 H Blood Pressure 89/38 L Blood Pressure [Right Arm] Blood Pressure Mean 55 Blood Pressure Mean [Right Arm] Blood Pressure Source Blood Pressure Source [Right Arm] Blood Pressure Position Blood Pressure Position [Right Arm] 02 Sat by Pulse Oximetry 97 Oxygen Delivery Method Non-Rebreather Oxygen Flow Rate (LPM) 15 - Lab Data Lab results reviewed: Yes: I reviewed the patient's lab results. Lab Results 08/08/20 08:20: Lactate 4.5 H 08/08/20 08:20: Sodium 133 L, Potassium 4.6, Chloride 98, Carbon Dioxide 23, Anion Gap 16.6 H, BUN 19 H, Creatinine 0.60, Estimated Creat Clear 106, Estimated GFR 105, Est GFR ( Amer) 127, Glucose 111 H, Calcium 8.7, Total Bilirubin 0.5, AST 42 H, ALT 29, Alkaline Phosphatase 82, Total Protein 6.6, Albumin 3.6, Globulin 3.0, Albumin/Globulin Ratio 1.2 08/08/20 08:50: WBC 8.7, RBC 5.13, Hgb 15.5, Hct 47.2 H, MCV 91.9, MCH 30.2, MCHC 32.9, RDW 15.1, Plt Count 120 L, MPV 9.9, Neut % (Auto) 93.7 H, Lymph % (Auto
--- NOTE | 2020-08-08 08:57 | XR_ITS ---
PROCEDURE: XR CHEST PORTABLE CLINICAL HISTORY: hypoxia COMPARISON: CR XR CHEST PORTABLE from 12/29/2019 CR XR CHEST PORTABLE from 05/08/2020 CR XR CHEST PORTABLE from 05/10/2020 FINDINGS: The cardiomediastinal silhouette and pulmonary vascularity are within normal limits. Patchy density is present in the right upper and right lower lobe laterally and may be due to pneumonia. Suggest following till clear. Left lung is clear. [employer] shunts are noted as previously described. Degenerative changes are noted in the shoulders. IMPRESSION: Right upper and right lower lobe pneumonia laterally Dictated by: Osei Costello MD 08/08/2020 09:46 Osei Costello MD in [facility] 08/08/2020 09:46
--- NOTE | 2020-08-08 09:00 | PC.NURSE ---
upon assessment of patient, patient has skin breakdown/scab on left elbow that appears to be healing. patient also has excoriation/erythema on left butt cheek with breakdown, appears to be a stage one pressure sore. patient was cleaned up, bennett catheter inserted and medication administered. MD notified of patient skin conditions, and temperature of 103.9 rectally.
--- NOTE | 2020-08-08 09:10 | PC.NURSE ---
critical lab called from lab of Lactic Acid 4.5. Notified.
[2020-08-08 09:11] LABS: Microscopic, Urine URINE MICROSCOPIC (MICROSCOPIC)
[2020-08-08 09:11] LABS: Lactic Acid 4.5 mmol/L (0.7-2.1)
[2020-08-08 09:21] LABS: Coronavirus 19, PCR Not Detected (NotDetected); Influenza A, PCR Not Detected (NotDetected); Influenza B, PCR Not Detected (NotDetected)
--- NOTE | 2020-08-08 09:24 | PC.NURSE ---
received a phone call from Lab for critical lab values. Lab stated that NA was 167, K was >14, CA+ was <1. I asked lab to please rerun labs as to the critical nature and that if necessary labs would need to be redrawn. She is supposed to call me when new labs result.
[2020-08-08 09:39] LABS: Appearance,Urine CLEAR (Clear); Bilirubin,Urine Negative (Negative); Blood, Urine 2+ (Negative); Color,Urine YELLOW (Yellow); Glucose,Urine (UA) Negative (Negative); Ketones,Urine Negative (Negative); Leukocyte Esterase,Urine 2+ (Negative); Nitrate,Urine POSITIVE (Negative); Protein,Urine Negative (Negative); Urobilinogen,Urine 0.2 EU/dl (0.2)
[2020-08-08 09:39] LABS: ABG Base Excess -8.1 mmol/L (-2.4-2.3); ABG HCO3 16.3 mmhg (22.0-26.0); ABG Oxygen Saturation 88 % (90-100); ABG PCO2 25.2 mmhg (35.0-45.0); ABG PH 7.43 mmol/L (7.35-7.45); ABG PO2 53.7 mmhg (80-100); Oxygen 100% %
[2020-08-08 09:40] LABS: Source R BRACHIAL
--- NOTE | 2020-08-08 09:41 | ECG_ITS ---
APPROVED REPORT Exam: Resting ECG HR:137 bpm ECG Measurements Heart Rate 137 AXES DE 148 P 63 QRSd 70 QRS 37 QT 324 T 51 QTc 489 Conclusion Sinus tachycardia Otherwise normal ECG Electronically signed by : Abhijit Bradford, 08/10/2020 17:40:41
--- NOTE | 2020-08-08 09:47 | PC.NURSE ---
attempted to call state guardian listed on [facility] sheet x2. will not accept call
--- NOTE | 2020-08-08 09:47 | PC.NURSE ---
called lab and checked on blood that was getting re-ran. Rut in lab stated that the blood should be ready and resulted within the next 10-15 min.
[2020-08-08 09:51] LABS: Bacteria,Urine 3+ /lpf
[2020-08-08 10:13] LABS: Chloride 98 mmol/L (98-107); Sodium 133 mmol/L (136-145)
[2020-08-08 10:14] LABS: Potassium 4.6 mmoL/L (3.5-5.1)
[2020-08-08 10:16] LABS: Alanine Aminotransferase 29 U/L (12-78); Alkaline Phosphatase 82 U/L (38-126); Anion Gap 16.6 mEq/L (5-15); Aspartate Amino Transferase 42 U/L (14-36); Bilirubin,Total 0.5 mg/dl (0.2-1.3); Blood Urea Nitrogen 19 mg/dl (7-17); Carbon Dioxide 23 mmol/L (22.0-30.0); Creatinine Clearance Estimated 106 mL/min (50-200); Estimated Glomerular Filt Rate 105 ml/min (>60); GFR (African American) 127 ML/MIN (>60)
[2020-08-08 10:17] LABS: Albumin Level 3.6 g/dl (3.5-5.0); Albumin/Globulin Ratio 1.2 (1.1-1.8); Calcium 8.7 mg/dl (8.4-10.2); Glucose 111 mg/dl (74-100); Total Protein,Serum 6.6 g/dl (6.3-8.2)
--- NOTE | 2020-08-08 10:30 | PC.NURSE ---
ART LINE RT ARM PER DR LOREDO
--- NOTE | 2020-08-08 10:37 | PC.NURSE ---
lab called to inform the ED that we will need another CBC redraw due to issues in the lab with the blood.
[2020-08-08 10:52] LABS: Basophils % 0.4 % (0.1-2.0); Eosinophils % 0.2 % (0.1-12.0); Hematocrit 47.2 % (37.0-47.0); Hemoglobin 15.5 g/dL (12.2-16.2); Lymphocytes # 0.1 K/mm3 (0.7-4.5); Lymphocytes % 1.5 % (10-50); Mean Corpuscular HGB Conc 32.9 g/dL (31.8-35.4); Mean Corpuscular Hemoglobin 30.2 pg (27.0-31.2); Mean Corpuscular Volume 91.9 fl (81-99); Mean Platelet Volume 9.9 fl (7.4-10.4); Monocytes # 0.4 K/mm3 (0.1-1.0); Monocytes % 4.3 % (1.7-9.3); Neutrophils # 8.1 K/mm3 (1.8-7.8); Neutrophils % 93.7 % (37.0-80.0); Platelet Count 120 K/mm3 (142-424); Red Blood Count 5.13 M/mm3 (4.20-5.40); Red Cell Distribution Width 15.1 % (11.5-17.5); White Blood Count 8.7 K/mm3 (4.8-10.8)
[2020-08-08 10:54] LABS: MANUAL DIFFERENTIAL MANUAL DIFFERENTIAL (MANUAL DIFF)
[2020-08-08 11:23] LABS: Eosinophils % 1 % (0-3); Lymphocytes % 7 % (10-50); Monocytes % 10 % (2-9); Neutrophils % 82 % (42-76); Platelet Estimate Normal; Total Cells Counted 100
[2020-08-08 11:24] LABS: Hypochromasia 1+
--- NOTE | 2020-08-08 11:33 | XR_ITS ---
PROCEDURE: XR CHEST PORTABLE CLINICAL HISTORY: central line placement COMPARISON: CR XR CHEST PORTABLE from 05/08/2020 CR XR CHEST PORTABLE from 05/10/2020 CR XR CHEST PORTABLE from 08/08/2020 FINDINGS: Left IJ central venous line has been placed. No evidence of pneumothorax. There is moderate patient rotation. The tip is in the area of the distal SVC/right atrium. The right hemidiaphragm is elevated with increasing density in the right upper lobe which may be due to worsening volume loss/consolidation. Infiltrate is present in the right lower lobe. WRIST [employer]ER shunts are noted on the right. There are degenerative changes in the shoulders. IMPRESSION: Status post left IJ CVL placement without evidence of pneumothorax. The tip is in the right atrial/distal SVC region. Increasing density right upper lobe with increasing elevation of the right hemidiaphragm suggesting worsening right upper lobe volume loss/consolidation with infiltrate in the right lower lobe. Dictated by: Osei Costello MD 08/08/2020 11:56 Osei Costello MD in [facility] 08/08/2020 11:56
--- NOTE | 2020-08-08 11:56 | PC.NURSE ---
ER discussing pt with Dr Gupta for admission
--- NOTE | 2020-08-08 12:04 | PC.NURSE ---
CARE MANAGEMENT CALLED FOR BED
--- NOTE | 2020-08-08 12:21 | PC.NURSE ---
NOR EPI RIP INCREASED TO 9MCG
--- NOTE | 2020-08-08 12:50 | PC.NURSE ---
ATTEMPTED TO CALL REPORT. ROOM NEEDS CLEANED, WILL CALL BACK WHEN ROOM IS READY
[2020-08-08 13:01] LABS: Reflex Lactic Add Lactic Reflex
--- NOTE | 2020-08-08 13:03 | PC.NURSE ---
NOREPI DRIP INCREASED TO 11MCG
--- NOTE | 2020-08-08 13:09 | PC.NURSE ---
NOREPI INCREASED TO 13MCG
--- NOTE | 2020-08-08 13:24 | SW/DCPLANNER ---
Addendum entered by Lay Baker 08/09/20 14:23: I have notified Julee with [facility] that this patient will transfer today. Addendum entered by Lay Baker 08/09/20 10:45: Due to Dr Gupta requested I have started the process of making this patient a DNR due to being a ellison of the [facility]. I will consult with Dr Damico/Pj to complete patient information for code change status . Original Note: This patient currently resides at [facility]. I spoke with Julee whom stated that patient is ICF level of care. I will continue to follow up with Julee until patient is medically stable for discharge.
[2020-08-08 13:33] LABS: Lactic Acid Follow Up (RFLX 1) 3.9 mmol/L (0.7-2.1)
--- NOTE | 2020-08-08 13:39 | PC.NURSE ---
REPORT CALLED TO KEELEY LEIVA RN
[2020-08-08 15:20] LABS: Reflex Lactic (2 hrs) Add Lactic Reflex
--- NOTE | 2020-08-08 15:32 | P.CONPHA_ITS ---
[facility] Pharmacy VTE Monitoring - Patient Demographics Admission date: 08/08/20 Report Date: 08/08/20 Time: 15:33 Allergies/Adverse Reactions: Patient Allergies ampicillin Allergy (Verified 08/08/20 08:45) Penicillins Allergy (Verified 08/08/20 08:45) Sulfa (Sulfonamide Antibiotics) Allergy (Verified 08/08/20 08:45) sulfamethoxazole [From Bactrim] Allergy (Verified 08/08/20 08:45) trimethoprim [From Bactrim] Allergy (Verified 08/08/20 08:45) Height: 1.57 m Weight: 60.526 kg Patient Problems: Current Active Problems Septic shock (Acute) UTI (urinary tract infection) (Acute) Aspiration pneumonia (Acute) Acute respiratory failure (Acute) - VTE Risk Labs: VTE Related Lab Results Hgb 15.5 g/dL (12.2-16.2) 08/08/20 08:50 Hct 47.2 % (37.0-47.0) H 08/08/20 08:50 Plt Count 120 K/mm3 (142-424) L 08/08/20 08:50 BUN 19 mg/dl (7-17) H 08/08/20 08:20 Creatinine 0.60 mg/dl (0.52-1.04) 08/08/20 08:20 Estimated Creat Clear 106 mL/min (50-200) 08/08/20 08:20 Clinical Trial Participant: No - Prophylaxis VTE Prophylaxis Ordered?: Yes Types of VTE Prophylaxis: IPCS Knee High, Pharmacological Pharmacologic Type: Enoxaparin
[2020-08-08 15:38] LABS: ABG Base Excess -6.2 mmol/L (-2.4-2.3); ABG HCO3 18.6 mmhg (22.0-26.0); ABG Oxygen Saturation 97 % (90-100); ABG PCO2 30.4 mmhg (35.0-45.0); ABG PO2 92.1 mmhg (80-100); ABG TCO2 19.5 mmhg (23-27)
[2020-08-08 15:39] LABS: Allen's Test Patient Unable; Oxygen 100 %
[2020-08-08 15:40] LABS: Source A LINE
--- NOTE | 2020-08-08 16:03 | CT_ITS ---
PROCEDURE: CT HEAD/BRAIN WO CON CLINICAL INDICATION: AMS Mac Altered mental status, altered level of consciousness, confusion, disorientation COMPARISON: CT HEADWO CT head/brain wo con from 08/24/[address] HEAD/BRAIN WO CON from 12/27/2018 TECHNIQUE: Axial images obtained. All CT scans at the facility use one or more dose reduction, viz: automated exposure control, ma/kV adjustment per patient size (including targeted exams where dose is matched to indication, i.e. head), or iterative reconstruction technique. FINDINGS: Helical imaging performed. Moderate patient head rotation. 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 There has been a craniotomy in the central and left aspect of the parietal bone and central occipital area. There is severe hydrocephalus which has worsened compared to the previous exam. A [employer] INTERN shunt is present from the right parietal temporal area extending into the anterior horn of the right lateral ventricle. Low-density changes are present in the periventricular region may be related to transependymal flow of CSF. The 3rd ventricle is somewhat obliterated by the calcific mass. No acute intracranial hemorrhage is evident. IMPRESSION: No change the calcific mass within the pineal area extending into the posterior aspect of the 3rd ventricle. 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 Dictated by: Osei Costello MD 08/09/2020 09:46 Osei Costello MD in [place] 08/09/2020 09:46
--- NOTE | 2020-08-08 16:07 | HMH.PULMCON ---
*Admission Date: 08/08/20 *Reason for consult:: Acute hypoxic respiratory failure, septic shock *History of present illness: Patient altered responding only to painful stimuli, much of history is obtained from chart review Ms. Jang is a 54-year-old female with a history of cerebral palsy chronically debilitated assisted patient was presented with worsening mentation and respiratory status and on admission to the ER patient found to be in septic shock has received 1.8 L of fluids and was initiated on pressors and pulmonary was called for further management. [facility] History Medical History: Reports:: Hyperlipidemia Denies:: Cancer, Diabetes Mellitus Type 1, Diabetes Mellitus Type 2, Internal Pacemaker, MRSA *Have you ever received a pneumonia vaccine?: No *Have you received a flu vaccine this season?: No Other Medical History: Reports: Other (cerebral palsy) Laterality Cases: Bilateral: Other Other Surgeries: Yes: Other. No: Pacemaker Amputation: No Fractures: No - *Social History Last grade of school completed: Some college Smoking Status: Never smoker Alcohol Intake: never Substance Use Type: other *Occupational Status:: disabled Housing: assisted Household Members: spouse *Travel in the last 8 weeks: None Family Hx:: Unable to obtain ROS - Review of Systems Unable to obtain as patient was altered and only grimacing to painful stimuli Meds Home Medications Medication Instructions Recorded Confirmed Type Atorvastatin Calcium [Lipitor 10mg 10 mg G-TUBE HS 08/24/18 08/08/20 History Tab] Cetirizine HCl 10 mg G-TUBE DAILY 08/24/18 08/08/20 History Lactulose [Lactulose 10gm/15ml 30 ml G-TUBE DAILYP PRN 08/24/18 08/08/20 History Oral Soln] guaiFENesin [Robafen] 10 ml G-TUBE Q4HP PRN 08/24/18 08/08/20 History levETIRAcetam [Keppra] 500 mg G-TUBE BID 08/24/18 08/08/20 History Acetaminophen [Acetaminophen 325mg 500 mg G-TUBE Q4HP PRN 08/25/18 08/08/20 History tab] Loperamide HCl [Loperamide] 2 mg G-TUBE Q6HP PRN 08/25/18 08/08/20 History Multivitamin,Ther and Minerals 1 each G-TUBE DAILY 08/25/18 08/08/20 History [Vitamin and Minerals] Cyanocobalamin (Vitamin B-12) 1,000 mcg G-TUBE DAILY 12/27/18 08/08/20 History [Vitamin B-12 1000mcg Tablet] Fluticasone Propionate [24 Hour 1 spray IH DAILY 12/27/18 08/08/20 History Allergy] Ketotifen Fumarate 1 drops OP BIDP PRN 12/27/18 08/08/20 History Propylene Glycol/Peg 400/Pf 1 drp OP DAILY 12/27/18 08/08/20 History [Systane Ultra 0.4-0.3% Eye Drp] Sennosides [Senna Lax] 17.2 mg G-TUBE BID 12/28/18 08/08/20 History carvedilol 3.125 mg tablet 3.125 mg G-TUBE BID tab 01/25/20 08/08/20 History lisinopril 2.5 mg tablet 2.5 mg G-TUBE DAILY tab 01/25/20 08/08/20 History Furosemide [Furosemide 20mg Tab*] 20 mg G-TUBE DAILY 01/29/20 08/08/20 History Spironolactone [Spironolactone 12.5 mg G-TUBE DAILY 01/29/20 08/08/20 History 25mg Tablet] Acetaminophen [Tylenol 500mg 500 mg G-TUBE BID 05/11/20 08/08/20 History tablet] Denosumab [Denosumab 60mg/mL 60 mg SQ .EVERY 6 MONTHS 05/11/20 08/08/20 History syringe] lacosamide 10 mg/mL oral solution 60 mg G-TUBE BID #360 ml 07/13/20 08/08/20 Rx Calcium Carbonate 500 mg PO BID 08/08/20 08/08/20 History Allergies Allergy/AdvReac Type Severity Reaction Status Date / Time ampicillin Allergy Verified 08/08/20 08:45 Penicillins Allergy Verified 08/08/20 08:45 Sulfa (Sulfonamide Allergy Verified 08/08/20 08:45 Antibiotics) sulfamethoxazole Allergy Verified 08/08/20 08:45 [From Bactrim] trimethoprim [From Bactrim] Allergy Verified 08/08/20 08:45 Exam - Constitutional Constitutional:: Absent: no acute distress, comfortable, healthy appearing - HENMT Exam HENMT: Present: atraumatic - Respiratory Exam Respiratory:: Present: respiratory distress. Absent: able to speak in complete sentences, normal breath sounds Comments: Coarse breath sounds in the left lung malagon and signi
--- NOTE | 2020-08-08 16:31 | HMH.HP ---
*Admission Date: 08/08/20 *Chief complaint: sepsis *History of present illness: 54yr old female presented to ED via EMS sent for evaluation from the skilled nursing after being found this am in resp distress making gasping sounds and foaming at the mouth with a fever. Patient has a history of cerebral palsy chronically debilitated skilled nursing. This am per skilled nursing staff pt was having worsening mentation and respiratory status. pt is a ellison of the the [facility] and is non verbal. Pt receives tube feedings. pt was found to be in sepic shock and sepsis with multiple organ failure and admitted to hospital for treatment, consult and interventions. [facility] History I have reviewed the patient's past medical history: Yes Medical History: Reports:: Hyperlipidemia Denies:: Cancer, Diabetes Mellitus Type 1, Diabetes Mellitus Type 2, Internal Pacemaker, MRSA *Have you ever received a pneumonia vaccine?: No *Have you received a flu vaccine this season?: No Other Medical History: Reports: Other (cerebral palsy) Laterality Cases: Bilateral: Other Other Surgeries: Yes: Other. No: Pacemaker Amputation: No Fractures: No - *Social History Smoking Status: Never smoker Alcohol Intake: never *Occupational Status:: disabled Housing: skilled nursing Household Members: spouse *Travel in the last 8 weeks: None Family Hx:: Unable to obtain Review of Systems - Review of Systems Review of systems:: unable to obtain Meds Home Medications Medication Instructions Recorded Confirmed Type Atorvastatin Calcium [Lipitor 10mg 10 mg G-TUBE HS 08/24/18 08/08/20 History Tab] Cetirizine HCl 10 mg G-TUBE DAILY 08/24/18 08/08/20 History Lactulose [Lactulose 10gm/15ml 30 ml G-TUBE DAILYP PRN 08/24/18 08/08/20 History Oral Soln] guaiFENesin [Robafen] 10 ml G-TUBE Q4HP PRN 08/24/18 08/08/20 History levETIRAcetam [Keppra] 500 mg G-TUBE BID 08/24/18 08/08/20 History Acetaminophen [Acetaminophen 325mg 500 mg G-TUBE Q4HP PRN 08/25/18 08/08/20 History tab] Loperamide HCl [Loperamide] 2 mg G-TUBE Q6HP PRN 08/25/18 08/08/20 History Multivitamin,Ther and Minerals 1 each G-TUBE DAILY 08/25/18 08/08/20 History [Vitamin and Minerals] Cyanocobalamin (Vitamin B-12) 1,000 mcg G-TUBE DAILY 12/27/18 08/08/20 History [Vitamin B-12 1000mcg Tablet] Fluticasone Propionate [24 Hour 1 spray IH DAILY 12/27/18 08/08/20 History Allergy] Ketotifen Fumarate 1 drops OP BIDP PRN 12/27/18 08/08/20 History Propylene Glycol/Peg 400/Pf 1 drp OP DAILY 12/27/18 08/08/20 History [Systane Ultra 0.4-0.3% Eye Drp] Sennosides [Senna Lax] 17.2 mg G-TUBE BID 12/28/18 08/08/20 History carvedilol 3.125 mg tablet 3.125 mg G-TUBE BID tab 01/25/20 08/08/20 History lisinopril 2.5 mg tablet 2.5 mg G-TUBE DAILY tab 01/25/20 08/08/20 History Furosemide [Furosemide 20mg Tab*] 20 mg G-TUBE DAILY 01/29/20 08/08/20 History Spironolactone [Spironolactone 12.5 mg G-TUBE DAILY 01/29/20 08/08/20 History 25mg Tablet] Acetaminophen [Tylenol 500mg 500 mg G-TUBE BID 05/11/20 08/08/20 History tablet] Denosumab [Denosumab 60mg/mL 60 mg SQ .EVERY 6 MONTHS 05/11/20 08/08/20 History syringe] lacosamide 10 mg/mL oral solution 60 mg G-TUBE BID #360 ml 07/13/20 08/08/20 Rx Calcium Carbonate 500 mg PO BID 08/08/20 08/08/20 History Allergies Allergy/AdvReac Type Severity Reaction Status Date / Time ampicillin Allergy Verified 08/08/20 08:45 Penicillins Allergy Verified 08/08/20 08:45 Sulfa (Sulfonamide Allergy Verified 08/08/20 08:45 Antibiotics) sulfamethoxazole Allergy Verified 08/08/20 08:45 [From Bactrim] trimethoprim [From Bactrim] Allergy Verified 08/08/20 08:45 Exam Vital signs and Labs for Last 24 Hours: Temp Pulse Resp BP Pulse Ox 98.6 F 110 H 32 H 82/54 L 94 L 08/08/20 15:14 08/08/20 16:00 08/08/20 14:34 08/08/20 14:34 08/08/20 13:49 Laboratory Results - last 24 hr 08/08/20 08:20: Lactate 4.5 H 08/08/20 08:20: Sodium 133 L, Potassium 4.6
[2020-08-08 16:32] LABS: Lactic Acid Follow up (RFLX 2) 1.5 mmol/L (0.7-2.1)
--- NOTE | 2020-08-08 19:50 | PC.NURSE ---
late entry: 1423 142/79 levo at 15mcg decreased to 12mcg 1530 93/38 levo increased to 12mcg
--- NOTE | 2020-08-08 21:51 | PC.NURSE ---
Trash pulled and patient changed at 1999
[2020-08-09] VITALS (21 sets, daily range): BP systolic 90–115; BP diastolic 51–74; PULSE 88–113; RESP 19–25; TEMP 36.9–37.9; O2SAT 88–100; BMI 22.8
--- NOTE | 2020-08-09 00:12 | PC.NURSE ---
She was noted to have a large mucus plug on her sheets at shift change. Her O2 has been weaned from 40LPM 100%FiO2 to 30LPM 90FiO2 on the vapotherm. She received a complete bed bath and linen change. NSR-sinus tach on telemetry. HOB elevated. She continues to be turned and repositioned and provided oral care q 2 hours. F/c is patent with yellow, clear urine that has a strong odor. She is in contact precautions r/t CRE swab pending.
[2020-08-09 05:23] LABS: Basophils # 0.1 K/mm3 (0-0.2); Basophils % 0.4 % (0.1-2.0); Eosinophils # 0.1 K/mm3 (0.0-0.4); Eosinophils % 0.2 % (0.1-12.0); Hematocrit 37.5 % (37.0-47.0); Lymphocytes # 1.8 K/mm3 (0.7-4.5); Mean Corpuscular HGB Conc 33.6 g/dL (31.8-35.4); Mean Corpuscular Hemoglobin 30.3 pg (27.0-31.2); Mean Corpuscular Volume 90.2 fl (81-99); Mean Platelet Volume 9.6 fl (7.4-10.4); Monocytes # 1.2 K/mm3 (0.1-1.0); Monocytes % 3.4 % (1.7-9.3); Neutrophils # 32.6 K/mm3 (1.8-7.8); Neutrophils % 90.9 % (37.0-80.0); Platelet Count 140 K/mm3 (142-424); Red Blood Count 4.15 M/mm3 (4.20-5.40); Red Cell Distribution Width 15.6 % (11.5-17.5); White Blood Count 35.8 K/mm3 (4.8-10.8)
[2020-08-09 05:26] LABS: MANUAL DIFFERENTIAL MANUAL DIFFERENTIAL (MANUAL DIFF)
[2020-08-09 05:27] LABS: Chloride 106 mmol/L (98-107)
[2020-08-09 05:28] LABS: Potassium 3.6 mmoL/L (3.5-5.1); Sodium 137 mmol/L (136-145)
[2020-08-09 05:30] LABS: Alanine Aminotransferase 23 U/L (12-78); Albumin Level 2.6 g/dl (3.5-5.0); Albumin/Globulin Ratio 0.9 (1.1-1.8); Alkaline Phosphatase 60 U/L (38-126); Anion Gap 10.6 mEq/L (5-15); Aspartate Amino Transferase 40 U/L (14-36); Bilirubin,Total 0.2 mg/dl (0.2-1.3); Blood Urea Nitrogen 14 mg/dl (7-17); Carbon Dioxide 24 mmol/L (22.0-30.0); Creatinine Clearance Estimated 126 mL/min (50-200); Estimated Glomerular Filt Rate 130 ml/min (>60); GFR (African American) 157 ML/MIN (>60); Globulin 2.9 g/dL (1.3-3.2); Hemoglobin 12.5 g/dL (12.2-16.2); Total Protein,Serum 5.5 g/dl (6.3-8.2)
[2020-08-09 05:31] LABS: Glucose 87 mg/dl (74-100)
--- NOTE | 2020-08-09 05:35 | PC.NURSE ---
trash pulled and pt repositioned at this time
[2020-08-09 05:45] LABS: Calcium 7.7 mg/dl (8.4-10.2)
[2020-08-09 05:51] LABS: Lymphocytes % 4 % (10-50); Monocytes % 3 % (2-9); Neutrophils % 93 % (42-76); Platelet Estimate Normal; Stomatocytes 1+; Total Cells Counted 100
--- NOTE | 2020-08-09 07:26 | DIET.NUTRFU ---
Nutrition Consult to initiate TF received. Pt has been started on Osmolite 1.2 at 20mL/hr continuous with a goal rate of 44mL/hr. Recommend advancing TF by 10mL/hr every 8 hours as tolerated to reach goal rate of 44mL/hr. Pt is currently receiving IV Fluids so minimal water flushes of 30-60mL recommend at [facility] checks for irrigation. When IV fluids discontinued it is recommend that free water flushes are increased to 225mL every 6 hours to meet additional fluid needs. This TF goal will provide the most similar in house TF as pt receives at [facility]. Will monitor and adjust TF/fluid to match patients needs.
--- NOTE | 2020-08-09 08:18 | HMH.PHACONS ---
- Pharmacy Consult Date: 08/08/20 Time: 16:16 Referring provider: DR. XIONG Reason for Consult:: VANCOMYCIN DOSING Allergies and ADEs:: Allergies Allergy/AdvReac Type Severity Reaction Status Date / Time ampicillin Allergy Verified 08/08/20 08:45 Penicillins Allergy Verified 08/08/20 08:45 Sulfa (Sulfonamide Allergy Verified 08/08/20 08:45 Antibiotics) sulfamethoxazole Allergy Verified 08/08/20 08:45 [From Bactrim] trimethoprim [From Bactrim] Allergy Verified 08/08/20 08:45 Home Medications:: Home Medications Medication Instructions Recorded Confirmed Type Atorvastatin Calcium [Lipitor 10mg 10 mg G-TUBE HS 08/24/18 08/08/20 History Tab] Cetirizine HCl 10 mg G-TUBE DAILY 08/24/18 08/08/20 History Lactulose [Lactulose 10gm/15ml 30 ml G-TUBE DAILYP PRN 08/24/18 08/08/20 History Oral Soln] guaiFENesin [Robafen] 10 ml G-TUBE Q4HP PRN 08/24/18 08/08/20 History levETIRAcetam [Keppra] 500 mg G-TUBE BID 08/24/18 08/08/20 History Acetaminophen [Acetaminophen 325mg 500 mg G-TUBE Q4HP PRN 08/25/18 08/08/20 History tab] Loperamide HCl [Loperamide] 2 mg G-TUBE Q6HP PRN 08/25/18 08/08/20 History Multivitamin,Ther and Minerals 1 each G-TUBE DAILY 08/25/18 08/08/20 History [Vitamin and Minerals] Cyanocobalamin (Vitamin B-12) 1,000 mcg G-TUBE DAILY 12/27/18 08/08/20 History [Vitamin B-12 1000mcg Tablet] Fluticasone Propionate [24 Hour 1 spray IH DAILY 12/27/18 08/08/20 History Allergy] Ketotifen Fumarate 1 drops OP BIDP PRN 12/27/18 08/08/20 History Propylene Glycol/Peg 400/Pf 1 drp OP DAILY 12/27/18 08/08/20 History [Systane Ultra 0.4-0.3% Eye Drp] Sennosides [Senna Lax] 17.2 mg G-TUBE BID 12/28/18 08/08/20 History carvedilol 3.125 mg tablet 3.125 mg G-TUBE BID tab 01/25/20 08/08/20 History lisinopril 2.5 mg tablet 2.5 mg G-TUBE DAILY tab 01/25/20 08/08/20 History Furosemide [Furosemide 20mg Tab*] 20 mg G-TUBE DAILY 01/29/20 08/08/20 History Spironolactone [Spironolactone 12.5 mg G-TUBE DAILY 01/29/20 08/08/20 History 25mg Tablet] Acetaminophen [Tylenol 500mg 500 mg G-TUBE BID 05/11/20 08/08/20 History tablet] Denosumab [Denosumab 60mg/mL 60 mg SQ .EVERY 6 MONTHS 05/11/20 08/08/20 History syringe] lacosamide 10 mg/mL oral solution 60 mg G-TUBE BID #360 ml 07/13/20 08/08/20 Rx Calcium Carbonate 500 mg PO BID 08/08/20 08/08/20 History Height: 1.63 m Weight: 60.526 kg Laboratory Results:: Laboratory Results - last 24 hr 08/08/20 08:20: Lactate 4.5 H 08/08/20 08:20: Sodium 133 L, Potassium 4.6, Chloride 98, Carbon Dioxide 23, Anion Gap 16.6 H, BUN 19 H, Creatinine 0.60, Estimated Creat Clear 106, Estimated GFR 105, Est GFR ( Amer) 127, Glucose 111 H, Calcium 8.7, Total Bilirubin 0.5, AST 42 H, ALT 29, Alkaline Phosphatase 82, Total Protein 6.6, Albumin 3.6, Globulin 3.0, Albumin/Globulin Ratio 1.2 08/08/20 08:50: WBC 8.7, RBC 5.13, Hgb 15.5, Hct 47.2 H, MCV 91.9, MCH 30.2, MCHC 32.9, RDW 15.1, Plt Count 120 L, MPV 9.9, Neut % (Auto) 93.7 H, Lymph % (Auto) 1.5 L, [place] % (Auto) 4.3, Eos % (Auto) 0.2, Baso % (Auto) 0.4, Neut # (Auto) 8.1 H, Lymph # (Auto) 0.1 L, [place] # (Auto) 0.4, Eos # (Auto) 0.0, Baso # (Auto) 0.0, Total Counted 100, Neutrophils % (Manual) 82 H, Lymphocytes % (Manual) 7 L, Monocytes % (Manual) 10 H, Eosinophils % (Manual) 1, Platelet Estimate Normal, Hypochromasia 1+ 08/08/20 08:58: Specimen Source R brachial, O2 % 100%, ABG pH 7.43, ABG pCO2 25.2 L, ABG pO2 53.7 L, ABG HCO3 16.3 L, ABG Total CO2 17.0 L, ABG O2 Saturation 88 L, ABG Base Excess -8.1 L 08/08/20 09:05: Urine Color Yellow, Urine Appearance Clear, Urine pH 6.0, Ur Specific [place] 1.010, Urine Protein Negative, Urine Glucose (UA) Negative, Urine Ketones Negative, Urine Blood 2+, Urine Nitrate Positive, Urine Bilirubin Negative, Urine Urobilinogen 0.2, Ur Leukocyte Esterase 2+ A, Urine RBC 10-20, Urine WBC 5-10, Ur Squamous Epith Cells None, Urine Bacteria 3+ 08/08/20 09:15: SARS-CoV-2 (PCR) Not d
--- NOTE | 2020-08-09 08:27 | PC.NURSE ---
assessed peg tube, no residual/stomach contents, but could hear appropriate placement. currently patient is receiving a high dose of levophed. will hold off on starting tube feeds until this can be weaned down.
--- NOTE | 2020-08-09 08:50 | PC.NURSE ---
noted on art line patient map starting to maintain 70 80s so decreased levophed down to 13mcg/min
--- NOTE | 2020-08-09 09:44 | PC.NURSE ---
sujit turned vapotherm down to 60%
--- NOTE | 2020-08-09 09:45 | HMH.ACPN2 ---
Internal Medicine - PN: Subj *Date: 08/09/20 *Time: 09:45 Exam Vital signs and Labs for Last 24 Hours: Temp Pulse Resp BP Pulse Ox 100.2 F H 109 H 22 99/60 L 95 08/09/20 09:00 08/09/20 09:00 08/09/20 09:00 08/09/20 09:00 08/09/20 09:00 Laboratory Results - last 24 hr 08/08/20 08:20: Sodium 133 L, Potassium 4.6, Chloride 98, Carbon Dioxide 23, Anion Gap 16.6 H, BUN 19 H, Creatinine 0.60, Estimated Creat Clear 106, Estimated GFR 105, Est GFR ( Amer) 127, Glucose 111 H, Calcium 8.7, Total Bilirubin 0.5, AST 42 H, ALT 29, Alkaline Phosphatase 82, Total Protein 6.6, Albumin 3.6, Globulin 3.0, Albumin/Globulin Ratio 1.2 08/08/20 08:50: WBC 8.7, RBC 5.13, Hgb 15.5, Hct 47.2 H, MCV 91.9, MCH 30.2, MCHC 32.9, RDW 15.1, Plt Count 120 L, MPV 9.9, Neut % (Auto) 93.7 H, Lymph % (Auto) 1.5 L, [place] % (Auto) 4.3, Eos % (Auto) 0.2, Baso % (Auto) 0.4, Neut # (Auto) 8.1 H, Lymph # (Auto) 0.1 L, [place] # (Auto) 0.4, Eos # (Auto) 0.0, Baso # (Auto) 0.0, Total Counted 100, Neutrophils % (Manual) 82 H, Lymphocytes % (Manual) 7 L, Monocytes % (Manual) 10 H, Eosinophils % (Manual) 1, Platelet Estimate Normal, Hypochromasia 1+ 08/08/20 09:05: Urine Color Yellow, Urine Appearance Clear, Urine pH 6.0, Ur Specific [place] 1.010, Urine Protein Negative, Urine Glucose (UA) Negative, Urine Ketones Negative, Urine Blood 2+, Urine Nitrate Positive, Urine Bilirubin Negative, Urine Urobilinogen 0.2, Ur Leukocyte Esterase 2+ A, Urine RBC 10-20, Urine WBC 5-10, Ur Squamous Epith Cells None, Urine Bacteria 3+ 08/08/20 09:15: SARS-CoV-2 (PCR) Not detected, Influenza A Untype (PCR) Not detected, Influenza Type B (PCR) Not detected 08/08/20 13:20: Lactate 3.9 H 08/08/20 15:34: Specimen Source A line, O2 % 100, ABG pH 7.40, ABG pCO2 30.4 L, ABG pO2 92.1, ABG HCO3 18.6 L, ABG Total CO2 19.5 L, ABG O2 Saturation 97, ABG Base Excess -6.2 L, Osei Test Patient unable 08/08/20 15:34: ABG Lactate 2.0 08/08/20 16:15: Lactate 1.5 08/09/20 05:16: WBC 35.8 H* D, RBC 4.15 L, Hgb 12.5 D, Hct 37.5, MCV 90.2, MCH 30.3, MCHC 33.6, RDW 15.6, Plt Count 140 L, MPV 9.6, Neut % (Auto) 90.9 H, Lymph % (Auto) 5.0 L, [place] % (Auto) 3.4, Eos % (Auto) 0.2, Baso % (Auto) 0.4, Neut # (Auto) 32.6 H, Lymph # (Auto) 1.8, [place] # (Auto) 1.2 H, Eos # (Auto) 0.1, Baso # (Auto) 0.1, Total Counted 100, Neutrophils % (Manual) 93 H, Lymphocytes % (Manual) 4 L, Monocytes % (Manual) 3, Platelet Estimate Normal, RBC Morphology Not Reportable, Stomatocytes 1+ 08/09/20 05:16: Sodium 137, Potassium 3.6 D, Chloride 106, Carbon Dioxide 24, Anion Gap 10.6, BUN 14 D, Creatinine 0.50 L, Estimated Creat Clear 126, Estimated GFR 130, Est GFR ( Amer) 157 D, Glucose 87 D, Calcium 7.7 L D, Total Bilirubin 0.2, AST 40 H, ALT 23, Alkaline Phosphatase 60, Total Protein 5.5 L, Albumin 2.6 L D, Globulin 2.9, Albumin/Globulin Ratio 0.9 L I & O for Last 24 hours: Intake & Output 0608/07/20 08/08/20 08/09/20 23:59 23:59 23:59 23:59 Intake Total 615 / 615 1212.484 / 1212.484 Output Total 870 / 870 807 / 807 Balance -255 / -255 405.484 / 405.484 Weight 133 lb 6.075 oz 133 lb 7 oz Microbiology Reports for the Last 24 Hours: Microbiology 08/08/20 09:05 Urine,Catheterized Urine Culture - Preliminary Gram Negative Rods 08/08/20 Unknown Sputum - Expectorated Sputum Gram Stain - Final Assessment and Plan (1) Acute respiratory failure Status: Acute Qualifiers: Respiratory failure complication: hypoxia Qualified Code(s): J96.01 - Acute respiratory failure with hypoxia Category: Medical Code(s): J96.00 - Acute respiratory failure, unspecified whether with hypoxia or hypercapnia (2) Acute respiratory failure with hypoxia Status: Acute Category: Medical Code(s): J96.01 - Acute respiratory failure with hypoxia (3) Aspiration pneumonia Status: Acute Qualifiers: Aspiration pneumonia type: due to regurgitated food Laterality: right L
--- NOTE | 2020-08-09 10:23 | HMH.ITSTN ---
TALKED TO FARRUKH YU, AND NOTIFIED HER ON SIGNIFICANT FINDINGS FOR HEAD CT @ 0038
--- NOTE | 2020-08-09 10:29 | HMH.PULMPN ---
Internal Medicine - PN: Subj *Date: 08/09/20 *Time: 10:29 Interval history: No acute respiratory events overnight. Exam - Constitutional Constitutional:: Absent: no acute distress, comfortable - HENMT Exam HENMT: Present: normocephalic - Eye Exam Eyes:: Present: normal appearance both eyes and related structures - Neck Exam Neck:: Present: normal visual inspection - Respiratory Exam Respiratory:: Present: respiratory distress, decreased breath sounds, crackles. Absent: able to speak in complete sentences - Cardiovascular Exam Cardiac:: Present: S1, S2 - GI Exam GI:: Present: soft - Skin Exam Skin: Present: warm - Neurological Exam Neurological: Absent: alert, awake, normal cognition - Extremities Exam Extremities: Present: no cyanosis, no clubbing, edema Assessment and Plan (1) Acute respiratory failure Status: Acute Qualifiers: Respiratory failure complication: hypoxia Qualified Code(s): J96.01 - Acute respiratory failure with hypoxia Category: Medical Code(s): J96.00 - Acute respiratory failure, unspecified whether with hypoxia or hypercapnia (2) Acute respiratory failure with hypoxia Status: Acute Category: Medical Code(s): J96.01 - Acute respiratory failure with hypoxia (3) Aspiration pneumonia Status: Acute Qualifiers: Aspiration pneumonia type: due to regurgitated food Laterality: right Lung location: middle lobe of lung Qualified Code(s): J69.0 - Pneumonitis due to inhalation of food and vomit Category: Medical Code(s): J69.0 - Pneumonitis due to inhalation of food and vomit (4) Sepsis with multiple organ dysfunction (MOD) Status: Acute Category: Medical Code(s): A41.9 - Sepsis, unspecified organism; R65.20 - Severe sepsis without septic shock (5) Septic shock Status: Acute Category: Medical Code(s): A41.9 - Sepsis, unspecified organism; R65.21 - Severe sepsis with septic shock - Assessment and plan all Dx Assessment and Plan for all problems:: #Acute hypoxic respiratory failure: #Pneumonia: #Septic shock: 54-year-old history of cerebral palsy chronically debilitated presented with worsening respiratory failure and septic shock. Patient has prior episodes of bacteremia and UTI with staph aureus, staph epi Proteus and Enterococcus and Klebsiella. Patient also noted to be in septic shock with elevated lactate status post resuscitation with fluids and initiated on pressors. Patient also having seizure disorder and she is on Keppra at 500 twice daily. The possibility of underlying seizures and status epilepticus cannot be completely ruled out. Patient was loaded with Keppra along with continuation of IV Keppra twice daily Patient repeat ABG improved oxygenation and normalized lactic with Patient hemodynamics improved with improving map. Respiratory status improved, FiO2 decreased to 60% this morning CT head performed yesterday showed shunt malfunction with worsening hydrocephalus, patient need immediate transfer to neurosurgical care. Urine culture growing gram-negative rods, will continue current antibiotics awaiting further cultures Plan: -Recommend STAT EEG and immediate transfer to higher level of care where neurosurgical intervention is available for her shunt malfunction -Continue high flow nasal cannula to maintain oxygen saturation goal of 90 to 92%. Will obtain sputum cultures. -Follow with blood, urine and sputum cultures -Elevate the bed at 30 degrees with strict aspiration precautions. -Continuevancomycin and cefepime at 2 g -DuoNebs every 6 hours scheduled #Thank you for involving pulmonary in this patient care. We will continue to follow. Please call with any questions or concerns.
--- NOTE | 2020-08-09 10:53 | HMH.DCSUM ---
General - General Admission date:: 08/08/20 Discharge date: 08/09/20 HPI HPI: 54yr old female presented to ED via EMS sent for evaluation from the [facility] after being found this am in resp distress making gasping sounds and foaming at the mouth with a fever. Patient has a history of cerebral palsy chronically debilitated [facility]. This am per [facility] staff pt was having worsening mentation and respiratory status. pt [place] and is non verbal. Pt receives tube feedings. pt was found to be in sepic shock and sepsis with multiple organ failure and admitted to hospital for treatment, consult and interventions. Hospital Course Hospital Course: 54yr old female presented to ED via EMS sent for evaluation from the [facility] after being found this am in resp distress making gasping sounds and foaming at the mouth with a fever. Patient has a history of cerebral palsy chronically debilitated [facility]. This am per [facility] staff pt was having worsening mentation and respiratory status. pt [place] and is non verbal. Pt receives tube feedings. pt was found to be in sepic shock and sepsis with multiple organ failure and admitted to hospital for treatment, consult and interventions. 08/08/20 CXR: FINDINGS: The cardiomediastinal silhouette and pulmonary vascularity are within normal limits. Patchy density is present in the right upper and right lower lobe laterally and may be due to pneumonia. Suggest following till clear. Left lung is clear. [employer] shunts are noted as previously described. Degenerative changes are noted in the shoulders. IMPRESSION: Right upper and right lower lobe pneumonia laterally Dictated by: Osei Costlelo MD 08/08/[address]: FINDINGS: Helical imaging performed. Moderate patient head rotation. 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 There has been a craniotomy in the central and left aspect of the parietal bone and central occipital area. There is severe hydrocephalus which has worsened compared to the previous exam. A [employer] shunt is present from the right parietal temporal area extending into the anterior horn of the right lateral ventricle. Low-density changes are present in the periventricular region may be related to transependymal flow of CSF. The 3rd ventricle is somewhat obliterated by the calcific mass. No acute intracranial hemorrhage is evident. IMPRESSION: No change the calcific mass within the pineal area extending into the posterior aspect of the 3rd ventricle. 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 Dictated by: Osei Costello MD Pulmonary has seen and recommends: Patient also noted to be in septic shock with elevated lactate status post resuscitation with fluids and initiated on pressors. Patient also having seizure disorder and she is on Keppra at 500 twice daily. The possibility of underlying seizures and status epilepticus cannot be completely ruled out. Patient was loaded with Keppra along with continuation of IV Keppra twice daily Patient repeat ABG improved oxygenation and normalized lactic with Patient hemodynamics improved with improving map. Respiratory status improved, FiO2 decreased to 60% this morning CT head performed yesterday showed shunt malfunction with worsening hydrocephalus, patient need immediate transfer to neurosurgical care. Urine culture growing gram-negative rods, will continue current antibiotics awaiting further cultures Plan: -Recommend STAT EEG and immediate transfer to higher level of care where neurosurgical intervention is available for her shunt malfunction -Continue high flow nasal cannula to maintain oxygen saturation goal of 90 to 92%. Will obtain sputum cultures. -Follow with blood, urine and sputum cultures -
--- NOTE | 2020-08-09 10:56 | PC.NURSE ---
after most recent turn noted patient o2 sats dropped to 80% and pressures dripped into the 70s systolic. patient levophed was increased and at the end was at 20mcg/min. currently pressure has stabilized with a bp of 80-90s systolic. vapotherm was increased back up to 100%. improvement was noted after deep suction from respiratory therapy. currently with a o2 sat of 95%>
--- NOTE | 2020-08-09 11:43 | PC.NURSE ---
1033 sujit was the one who ordered head ct so results called to him 1035 dr. yoon was also notified of the ct of the head findings.
--- NOTE | 2020-08-09 11:45 | XR_ITS ---
PROCEDURE: XR CHEST PORTABLE CLINICAL HISTORY: PNA Pneumonia COMPARISON: CR XR CHEST PORTABLE from 05/10/2020 CR XR CHEST PORTABLE from 08/08/2020 CR XR CHEST PORTABLE from 08/08/2020 FINDINGS: Increasing opacification/volume loss of the right lung is once again noted. There is mild patient rotation. There is some tracheal shift toward the right. Left IJ central venous line tip is in the region right atrium/distal SVC. Left lung is clear. IMPRESSION: Increasing opacification of the right lung consistent underlying pneumonia and/or volume loss. It is difficult to determine how much mediastinal shift there is to the right due to patient rotation however, the trachea does appear bowed to the right suggesting that the alveolar process may be more due to collapse as opposed to pneumonia. CT chest may provide further evaluation if clinically warranted. Dictated by: Osei Costello MD 08/09/2020 14:14 Osei Costello MD in [facility] 08/09/2020 14:14
--- NOTE | 2020-08-09 11:49 | PC.NURSE ---
reported notification of blood cultures to md office
--- NOTE | 2020-08-09 14:23 | PC.NURSE ---
attempted to call report to [facility] at this time. stated they would call back
--- NOTE | 2020-08-09 14:33 | PC.NURSE ---
called and updated giann guardian about the plan of care and transfer to .
--- NOTE | 2020-08-09 14:37 | PC.NURSE ---
decreased levophed to 18mcg/min
--- NOTE | 2020-08-09 14:57 | PC.NURSE ---
report called to [facility]
--- NOTE | 2020-08-09 15:13 | PC.NURSE ---
decreased levophed down to 16mcg/min a this time systolic maintaining 110-120
--- NOTE | 2020-08-09 15:43 | PC.NURSE ---
[facility] has arrived for patient. report given to them.
--- NOTE | 2020-08-09 15:43 | PC.NURSE ---
patient levophed has gradually been decreased down and she will be leaving on 12mcg/min of levophed.
[2020-08-11 05:26] LABS: Peripheral Smear Review Scanned Result
== END 2020-08-09 16:07 | disposition short-term general hospital (02) | DRG 871 ==
LOC: ER 09:54 → 2ND 12:41
PROVIDERS: Internal Medicine Pulmonary Disease; Admitting Provider Emergency Medicine; Emergency Provider Family Medicine; Visit Provider Emergency Medicine
DX: A41.9 Sepsis, unspecified organism (principal); J96.01 Acute respiratory failure with hypoxia; J69.0 Pneumonitis due to inhalation of food and vomit; R65.21 Severe sepsis with septic shock; N39.0 Urinary tract infection, site not specified; G80.9 Cerebral palsy, unspecified; R31.9 Hematuria, unspecified; E78.5 Hyperlipidemia, unspecified; Z88.1 Allergy status to other antibiotic agents; Z88.0 Allergy status to penicillin; Z88.2 Allergy status to sulfonamides; G40.909 Epilepsy, unspecified, not intractable, without status epilepticus; Z74.01 Bed confinement status; Z93.1 Gastrostomy status
CPT/HCPCS: 36415; 36620; 70450; 71045; 80053; 81001; 82803; 83605; 85007; 85025; 87040; 87070; 87077; 87081; 87086; 87088; 87186; 87205; 93005; 94640; 94760; 96365; 96367; 99285; C1751; J1335; J1953; J3370; U0003

== ENCOUNTER → 2020-09-01 11:22 | Outpatient (CLI) | payer MEDICARE, MEDICAID, SELFPAY ==
[2020-09-01 11:42] LABS: Basophils # 0.1 K/mm3 (0-0.2); Eosinophils % 0.3 % (0.1-12.0); Hematocrit 38.7 % (37.0-47.0); Hemoglobin 12.7 g/dL (12.2-16.2); Lymphocytes # 2.9 K/mm3 (0.7-4.5); Lymphocytes % 28.4 % (10-50); Mean Corpuscular HGB Conc 32.7 g/dL (31.8-35.4); Mean Corpuscular Hemoglobin 29.5 pg (27.0-31.2); Mean Corpuscular Volume 90.3 fl (81-99); Mean Platelet Volume 9.6 fl (7.4-10.4); Monocytes # 0.7 K/mm3 (0.1-1.0); Monocytes % 6.8 % (1.7-9.3); Neutrophils # 6.5 K/mm3 (1.8-7.8); Neutrophils % 63.3 % (37.0-80.0); Platelet Count 467 K/mm3 (142-424); Red Blood Count 4.29 M/mm3 (4.20-5.40); Red Cell Distribution Width 15.9 % (11.5-17.5); White Blood Count 10.3 K/mm3 (4.8-10.8)
[2020-09-01 11:49] LABS: Chloride 101 mmol/L (98-107); Potassium 4.3 mmoL/L (3.5-5.1); Sodium 138 mmol/L (136-145)
[2020-09-01 11:51] LABS: Blood Urea Nitrogen 24 mg/dl (7-17); Estimated Glomerular Filt Rate 130 ml/min (>60); GFR (African American) 157 ML/MIN (>60)
[2020-09-01 11:52] LABS: Alanine Aminotransferase 39 U/L (12-78); Albumin Level 4.1 g/dl (3.5-5.0); Albumin/Globulin Ratio 1.1 (1.1-1.8); Alkaline Phosphatase 83 U/L (38-126); Anion Gap 13.3 mEq/L (5-15); Aspartate Amino Transferase 36 U/L (14-36); Bilirubin,Total 0.2 mg/dl (0.2-1.3); Calcium 9.4 mg/dl (8.4-10.2); Carbon Dioxide 28 mmol/L (22.0-30.0); Globulin 3.7 g/dL (1.3-3.2); Glucose 105 mg/dl (74-100); Total Protein,Serum 7.8 g/dl (6.3-8.2)
== END ==
PROVIDERS: Visit Provider Emergency Medicine
DX: R09.89 Other specified symptoms and signs involving the circulatory and respiratory systems (principal)
CPT/HCPCS: 80053; 85025

== ENCOUNTER 2020-09-25 10:26 | Inpatient (IN) | payer MEDICARE, MEDICAID, SELFPAY ==
[2020-09-25] VITALS (17 sets, daily range): BP systolic 84–118; BP diastolic 51–81; PULSE 78–121; RESP 16–32; TEMP 36.6–37.1; O2SAT 97–100; BMI 27.4; BMI 21.0
--- NOTE | 2020-09-25 10:04 | HMH.EDSOB ---
ED Disposition Clinical Impression: Community acquired pneumonia Qualifiers: Laterality: right Lung location: lower lobe of lung Qualified Code(s): J18.9 - Pneumonia, unspecified organism Sepsis Qualifiers: Sepsis type: sepsis due to unspecified organism Sepsis acute organ dysfunction status: without acute organ dysfunction Qualified Code(s): A41.9 - Sepsis, unspecified organism Disposition: Admitted as Observation Condition on Discharge: Serious - Critical Care Critical Care Time: No Attestation: On , the high probability of a clinically significant, sudden or life threatening deterioration of the following system(s) required my full and direct attention, intervention and personal management. The time I documented below is in addition to time spent performing reported procedures but includes the following listed in this critical care notation. Medical Decision Making - Medical Records Medical records reviewed: Yes: I reviewed the patient's medical records. - Luis Inquiry Pt receiving controlled substance: No Vital Signs: 09/25/20 09:58 09/25/20 10:25 09/25/20 10:35 Temperature 98.8 F Temperature Source Rectal Pulse Rate 116 H 119 H Pulse Rate [Left Radial] 114 H Respiratory Rate 26 H 28 H 27 H Blood Pressure 101/69 L Blood Pressure [Right Arm] 109/81 L Blood Pressure Mean Blood Pressure Mean [Right Arm] 90 Blood Pressure Source [Right Arm] Automatic Cuff Blood Pressure Position [Right Arm] Sitting 02 Sat by Pulse Oximetry 97 98 99 Oxygen Delivery Method Room Air BiPAP 09/25/20 11:00 09/25/20 11:15 09/25/20 11:40 Temperature Temperature Source Pulse Rate 118 H 121 H 119 H Pulse Rate [Left Radial] Respiratory Rate 30 H 30 H 30 H Blood Pressure 96/60 L 84/57 L Blood Pressure [Right Arm] Blood Pressure Mean 73 Blood Pressure Mean [Right Arm] Blood Pressure Source [Right Arm] Blood Pressure Position [Right Arm] 02 Sat by Pulse Oximetry 99 99 100 Oxygen Delivery Method BiPAP BiPAP BiPAP - Lab Data Lab results reviewed: Yes: I reviewed the patient's lab results. Lab Results 09/25/20 09:55: WBC 20.3 H*, RBC 4.59, Hgb 13.5, Hct 40.3, MCV 87.8, MCH 29.3, MCHC 33.4, RDW 15.1, Plt Count 379, MPV 9.6, Neut % (Auto) 83.9 H, Lymph % (Auto) 10.4, [place] % (Auto) 4.8, Eos % (Auto) 0.3, Baso % (Auto) 0.5, Neut # (Auto) 17.0 H, Lymph # (Auto) 2.1, [place] # (Auto) 1.0, Eos # (Auto) 0.1, Baso # (Auto) 0.1, Total Counted 100, Neutrophils % (Manual) 69, Band Neutrophils % 7.0, Lymphocytes % (Manual) 19, Atypical Lymphs % 1.0, Monocytes % (Manual) 3, Eosinophils % (Manual) 1, Platelet Estimate Normal, Hypochromasia 1+ 09/25/20 09:55: Sodium 135 L, Potassium 4.5, Chloride 101, Carbon Dioxide 28, Anion Gap 10.5, BUN 18 H, Creatinine 0.40 L, Estimated GFR 168, Est GFR ( Amer) 203, Glucose 133 H, Calcium 9.0, Total Bilirubin 0.4, AST 28, ALT 29, Alkaline Phosphatase 85, Troponin I < 0.01, NT-Pro-B Natriuret Pep 270 H, Total Protein 7.0, Albumin 3.7, Globulin 3.3 H, Albumin/Globulin Ratio 1.1 09/25/20 09:55: Lactate 1.2 09/25/20 09:55: SARS-CoV-2 (PCR) Not detected, Influenza A Untype (PCR) Not detected, Influenza Type B (PCR) Not detected 09/25/20 10:44: Urine Color Yellow, Urine Appearance Cloudy, Urine pH 7.5, Ur Specific [place] 1.020, Urine Protein 1+, Urine Glucose (UA) Negative, Urine Ketones Negative, Urine Blood 3+, Urine Nitrate Negative, Urine Bilirubin Negative, Urine Urobilinogen 0.2, Ur Leukocyte Esterase Trace, Urine RBC 5-10, Urine WBC Occasional, Ur Squamous Epith Cells Occasional, Urine Bacteria None Result diagrams: 09/25/20 09:55 09/25/20 09:55 Orders (Tests/Meds): ED MEDICATIONS Generic Name Dose Route Start Last Admin Trade Name Freq PRN Reason Stop Dose Admin Ceftriaxone Sodium 1 gm/ 50 mls @ 100 mls/hr 09/25/20 11:30 09/25/20 11:37 Sodium Chloride IV 10/09/20 11:29 100 mls/hr Q24H TRACY Administration Protocol Vancomycin HCl 1,000
--- NOTE | 2020-09-25 10:08 | XR_ITS ---
PROCEDURE INFORMATION: Exam: XR Chest Exam date and time: 09/25/2020 10:08 AM Age: 54 years old Clinical indication: Dyspnea; Additional info: Dyspnea, covid+, cp TECHNIQUE: Imaging protocol: XR of the chest. Views: 1 view. COMPARISON: CR XR CHEST PORTABLE 08/09/2020 12:43 PM FINDINGS: Tubes, catheters and devices: There is a [employer] shunt catheter that traverses the right hemithorax and upper abdomen. Lungs: There is focal airspace opacity in the right lower lobe. Pleural spaces: Unremarkable. No pleural effusion. No pneumothorax. Heart/Mediastinum: Unremarkable. No cardiomegaly. Bones/joints: Unremarkable. IMPRESSION: Focal airspace opacity right lower lobe.
--- NOTE | 2020-09-25 10:17 | ECG_ITS ---
APPROVED REPORT Exam: Resting ECG HR:113 bpm ECG Measurements Heart Rate 113 AXES WI 150 P 56 QRSd 70 QRS 66 QT 328 T 61 QTc 449 Conclusion Sinus tachycardia Otherwise normal ECG Electronically signed by : Abhijit Bradford MD 09/27/2020 21:06:58
[2020-09-25 10:23] LABS: Coronavirus 19, PCR Not Detected (NotDetected); Influenza A, PCR Not Detected (NotDetected); Influenza B, PCR Not Detected (NotDetected)
[2020-09-25 10:29] LABS: Chloride 101 mmol/L (98-107); Potassium 4.5 mmoL/L (3.5-5.1); Sodium 135 mmol/L (136-145)
[2020-09-25 10:31] LABS: Blood Urea Nitrogen 18 mg/dl (7-17); Estimated Glomerular Filt Rate 168 ml/min (>60); GFR (African American) 203 ML/MIN (>60)
[2020-09-25 10:32] LABS: Alanine Aminotransferase 29 U/L (12-78); Albumin Level 3.7 g/dl (3.5-5.0); Albumin/Globulin Ratio 1.1 (1.1-1.8); Alkaline Phosphatase 85 U/L (38-126); Anion Gap 10.5 mEq/L (5-15); Aspartate Amino Transferase 28 U/L (14-36); Bilirubin,Total 0.4 mg/dl (0.2-1.3); Carbon Dioxide 28 mmol/L (22.0-30.0); Globulin 3.3 g/dL (1.3-3.2); Glucose 133 mg/dl (74-100); Lactic Acid 1.2 mmol/L (0.7-2.1)
[2020-09-25 10:40] LABS: NT Pro Brain Natriuretic Pep. 270 pg/mL (0-125)
[2020-09-25 10:45] LABS: Troponin I < 0.01 ng/ml (0.00-0.034)
[2020-09-25 10:51] LABS: Microscopic, Urine URINE MICROSCOPIC (MICROSCOPIC)
[2020-09-25 10:54] LABS: Basophils # 0.1 K/mm3 (0-0.2); Basophils % 0.5 % (0.1-2.0); Eosinophils # 0.1 K/mm3 (0.0-0.4); Eosinophils % 0.3 % (0.1-12.0); Hematocrit 40.3 % (37.0-47.0); Hemoglobin 13.5 g/dL (12.2-16.2); Lymphocytes # 2.1 K/mm3 (0.7-4.5); Lymphocytes % 10.4 % (10-50); Mean Corpuscular HGB Conc 33.4 g/dL (31.8-35.4); Mean Corpuscular Hemoglobin 29.3 pg (27.0-31.2); Mean Corpuscular Volume 87.8 fl (81-99); Mean Platelet Volume 9.6 fl (7.4-10.4); Monocytes % 4.8 % (1.7-9.3); Neutrophils % 83.9 % (37.0-80.0); Platelet Count 379 K/mm3 (142-424); Red Blood Count 4.59 M/mm3 (4.20-5.40); Red Cell Distribution Width 15.1 % (11.5-17.5); White Blood Count 20.3 K/mm3 (4.8-10.8)
[2020-09-25 10:58] LABS: Appearance,Urine CLOUDY (Clear); Bilirubin,Urine Negative (Negative); Blood, Urine 3+ (Negative); Color,Urine YELLOW (Yellow); Glucose,Urine (UA) Negative (Negative); Ketones,Urine Negative (Negative); Leukocyte Esterase,Urine TRACE (Negative); Nitrate,Urine Negative (Negative); PH,Urine 7.5 (5.0-8.5); Protein,Urine 1+ (Negative); Urobilinogen,Urine 0.2 EU/dl (0.2)
[2020-09-25 11:01] LABS: MANUAL DIFFERENTIAL MANUAL DIFFERENTIAL (MANUAL DIFF)
[2020-09-25 11:13] LABS: Squamous Epithelial Cell,Urine Occasional #/hpf (0-5); WBC,Urine Occasional #/hpf (0-3)
[2020-09-25 11:33] LABS: Eosinophils % 1 % (0-3); Lymphocytes % 19 % (10-50); Monocytes % 3 % (2-9); Neutrophils % 69 % (42-76); Platelet Estimate Normal; Total Cells Counted 100
[2020-09-25 11:35] LABS: Hypochromasia 1+
--- NOTE | 2020-09-25 11:44 | PC.NURSE ---
Dr Booth returned call
--- NOTE | 2020-09-25 12:01 | PC.NURSE ---
Attempted to call for DNR status from guardian, tried multi numbers given on answering machine, no response at this time. Will pass this along in report and will continue to monitor
--- NOTE | 2020-09-25 12:20 | PC.NURSE ---
Talked with guardian Halie Redman who verified that DNR is correct, signed consent placed on chart
--- NOTE | 2020-09-25 12:39 | HMH.PHACONS ---
- Pharmacy Consult Date: 09/25/20 Time: 12:39 Referring provider: DR. FELDER Reason for Consult:: VANCOMYCIN CONSULT Allergies and ADEs:: Allergies Allergy/AdvReac Type Severity Reaction Status Date / Time ampicillin Allergy Verified 08/08/20 08:45 Penicillins Allergy Verified 08/08/20 08:45 Sulfa (Sulfonamide Allergy Verified 08/08/20 08:45 Antibiotics) sulfamethoxazole Allergy Verified 08/08/20 08:45 [From Bactrim] trimethoprim [From Bactrim] Allergy Verified 08/08/20 08:45 Home Medications:: Home Medications Medication Instructions Recorded Confirmed Type Cetirizine HCl 10 mg G-TUBE DAILY 08/24/18 09/25/20 History levETIRAcetam [Keppra] 500 mg G-TUBE BID 08/24/18 09/25/20 History Multivitamin,Ther and Minerals 1 each G-TUBE DAILY 08/25/18 09/25/20 History [Vitamin and Minerals] Cyanocobalamin (Vitamin B-12) 1,000 mcg G-TUBE DAILY 12/27/18 09/25/20 History [Vitamin B-12 1000mcg Tablet] Fluticasone Propionate [24 Hour 1 spray IH DAILY 12/27/18 09/25/20 History Allergy] Propylene Glycol/Peg 400/Pf 1 drp OP DAILY 12/27/18 09/25/20 History [Systane Ultra 0.4-0.3% Eye Drp] Sennosides [Senna Lax] 17.2 mg G-TUBE BID 12/28/18 09/25/20 History lisinopril 2.5 mg tablet 2.5 mg G-TUBE DAILY tab 01/25/20 09/25/20 History Furosemide [Furosemide 20mg Tab*] 20 mg G-TUBE DAILY 01/29/20 09/25/20 History Spironolactone [Spironolactone 12.5 mg G-TUBE DAILY 01/29/20 09/25/20 History 25mg Tablet] Hyoscyamine Sulfate 0.125 mg PO BID 09/25/20 09/25/20 History Lacosamide [Vimpat] 60 mg PO BID 09/25/20 09/25/20 History Medroxyprogesterone Acetate 150 mg IM DIRECTED 09/25/20 09/25/20 History [Depo-Provera] Height: 1.63 m Weight: 72.575 kg Laboratory Results:: Laboratory Results - last 24 hr 09/25/20 09:55: WBC 20.3 H*, RBC 4.59, Hgb 13.5, Hct 40.3, MCV 87.8, MCH 29.3, MCHC 33.4, RDW 15.1, Plt Count 379, MPV 9.6, Neut % (Auto) 83.9 H, Lymph % (Auto) 10.4, [place] % (Auto) 4.8, Eos % (Auto) 0.3, Baso % (Auto) 0.5, Neut # (Auto) 17.0 H, Lymph # (Auto) 2.1, [place] # (Auto) 1.0, Eos # (Auto) 0.1, Baso # (Auto) 0.1, Total Counted 100, Neutrophils % (Manual) 69, Band Neutrophils % 7.0, Lymphocytes % (Manual) 19, Atypical Lymphs % 1.0, Monocytes % (Manual) 3, Eosinophils % (Manual) 1, Platelet Estimate Normal, Hypochromasia 1+ 09/25/20 09:55: Sodium 135 L, Potassium 4.5, Chloride 101, Carbon Dioxide 28, Anion Gap 10.5, BUN 18 H, Creatinine 0.40 L, Estimated GFR 168, Est GFR ( Amer) 203, Glucose 133 H, Calcium 9.0, Total Bilirubin 0.4, AST 28, ALT 29, Alkaline Phosphatase 85, Troponin I < 0.01, NT-Pro-B Natriuret Pep 270 H, Total Protein 7.0, Albumin 3.7, Globulin 3.3 H, Albumin/Globulin Ratio 1.1 09/25/20 09:55: Lactate 1.2 09/25/20 09:55: SARS-CoV-2 (PCR) Not detected, Influenza A Untype (PCR) Not detected, Influenza Type B (PCR) Not detected 09/25/20 10:44: Urine Color Yellow, Urine Appearance Cloudy, Urine pH 7.5, Ur Specific [place] 1.020, Urine Protein 1+, Urine Glucose (UA) Negative, Urine Ketones Negative, Urine Blood 3+, Urine Nitrate Negative, Urine Bilirubin Negative, Urine Urobilinogen 0.2, Ur Leukocyte Esterase Trace, Urine RBC 5-10, Urine WBC Occasional, Ur Squamous Epith Cells Occasional, Urine Bacteria None Medical History: Reports:: Hyperlipidemia Denies:: Cancer, Diabetes Mellitus Type 1, Diabetes Mellitus Type 2, Internal Pacemaker, MRSA Assessment and Plan - Assessment and plan all Dx Assessment and Plan for all problems:: Age: 54 yo Serum creatinine: ~1 mg/dL Height: 63.8 Inches Weight (kg): 72 Assessment: IBW (kg): 54.24 Dosing wt(kg): 72 Estimated Creatinine clearance (ml/min): 56.3 CRCL method: Cockcroft and Gault using ibw(default). Drug selected: Vancomycin Loading dose (mg): 0 Vd (liters): 57.6 (factor used: 0.8 L/kg) [place] (hr-1): 0.051 Half life (hrs): 13.59 Recommended dose: 1250 mg Interval: 18 hrs
--- NOTE | 2020-09-25 12:55 | PC.NURSE ---
Attempted to call report, nurse unavailable at this time.
--- NOTE | 2020-09-25 13:00 | PC.NURSE ---
Report called to Judy CHADWICK, room is being cleaned at this time, will call and inform me when ready
--- NOTE | 2020-09-25 14:00 | PC.NURSE ---
pt arrived to the floor at this time.
--- NOTE | 2020-09-25 14:16 | HMH.HP ---
*Admission Date: 09/25/20 *Chief complaint: pneumonia and sepsis *History of present illness: The patient [facility] the emergency department [facility] She was found at the [facility]iary to be hypoxic and in respiratory distress. Upon arrival to the emergency department the patient was started on BiPAP. Her oxygen saturations anuj from the 80s to the 90s. She was tachycardic. She was in respiratory distress. Her work-up in the emergency department revealed that the patient is septic with a white count of about 20,000, tachycardia, hypoxia, and I infiltrate in her right lung base on chest x-ray. The patient is a DNR. She is tolerating the BiPAP well. She is receiving empiric antibiotics for pneumonia/sepsis. She will have to be admitted to the hospital due to her oxygen requirements. The patient presents to the emergency department via EMS due to altered mental status and hypoxia. She is a [facility] patient. Apparently, according to the report, the patient was acting normally earlier today and then deteriorated to the point of having oxygen saturations in the 70s. The patient's paperwork includes a DO NOT RESUSCITATE order. During the patient's evaluation white count exceeded 20,000, ST imaging showed an infiltrative process in the right base. Her lactate was 1.2. Patient was placed on a BiPAP 16/8 rate of 20, 50% FiO2. She is maintaining good saturations on that. Her blood pressure was soft in the high 80s systolic, has come up to about 115 after arrival to the floor. [facility] History Medical History: Reports:: Hyperlipidemia Denies:: Cancer, Diabetes Mellitus Type 1, Diabetes Mellitus Type 2, Internal Pacemaker, MRSA *Have you ever received a pneumonia vaccine?: No *Have you received a flu vaccine this season?: No Other Medical History: Reports: Other (cerebral palsy) Laterality Cases: Bilateral: Other Other Surgeries: Yes: Other. No: Pacemaker Amputation: No Fractures: No - *Social History Smoking Status: Never smoker Alcohol Intake: never Alcohol Intake Frequency:: holidays/special occasions only Substance Use Type: denies use Last Used Substance: unknown *Occupational Status:: disabled Housing: penitentiary Household Members: spouse *Travel in the last 8 weeks: None Family Hx:: Unable to obtain Review of Systems - Review of Systems Review of systems:: unable to obtain Meds Home Medications Medication Instructions Recorded Confirmed Type Cetirizine HCl 10 mg G-TUBE DAILY 08/24/18 09/25/20 History levETIRAcetam [Keppra] 500 mg G-TUBE BID 08/24/18 09/25/20 History Multivitamin,Ther and Minerals 1 each G-TUBE DAILY 08/25/18 09/25/20 History [Vitamin and Minerals] Cyanocobalamin (Vitamin B-12) 1,000 mcg G-TUBE DAILY 12/27/18 09/25/20 History [Vitamin B-12 1000mcg Tablet] Fluticasone Propionate [24 Hour 1 spray IH DAILY 12/27/18 09/25/20 History Allergy] Propylene Glycol/Peg 400/Pf 1 drp OP DAILY 12/27/18 09/25/20 History [Systane Ultra 0.4-0.3% Eye Drp] Sennosides [Senna Lax] 17.2 mg G-TUBE BID 12/28/18 09/25/20 History lisinopril 2.5 mg tablet 2.5 mg G-TUBE DAILY tab 01/25/20 09/25/20 History Furosemide [Furosemide 20mg Tab*] 20 mg G-TUBE DAILY 01/29/20 09/25/20 History Spironolactone [Spironolactone 12.5 mg G-TUBE DAILY 01/29/20 09/25/20 History 25mg Tablet] Hyoscyamine Sulfate 0.125 mg PO BID 09/25/20 09/25/20 History Lacosamide [Vimpat] 60 mg PO BID 09/25/20 09/25/20 History Medroxyprogesterone Acetate 150 mg IM DIRECTED 09/25/20 09/25/20 History [Depo-Provera] Allergies Allergy/AdvReac Type Severity Reaction Status Date / Time ampicillin Allergy Verified 08/08/20 08:45 Penicillins Allergy Verified 08/08/20 08:45 Sulfa (Sulfonamide Allergy Verified 08/08/20 08:45 Antibiotics) sulfamethoxazole Allergy Verified 08/08/20 08:45 [From Bactrim] trimethoprim [From Bactrim] Allergy Verified 08/08/20 08:45 Exam Vital signs and Labs for L
--- NOTE | 2020-09-25 15:04 | HMH.PHAINT ---
MEDICATION RECONCILIATION COMPLETE USING MAR FROM [facility]
--- NOTE | 2020-09-25 15:05 | P.CONPHA_ITS ---
[facility] VTE Monitoring - Patient Demographics Allergies/Adverse Reactions: Patient Allergies ampicillin Allergy (Verified 08/08/20 08:45) Penicillins Allergy (Verified 08/08/20 08:45) Sulfa (Sulfonamide Antibiotics) Allergy (Verified 08/08/20 08:45) sulfamethoxazole [From Bactrim] Allergy (Verified 08/08/20 08:45) trimethoprim [From Bactrim] Allergy (Verified 08/08/20 08:45) Height: 1.63 m Weight: 56.019 kg Patient Problems: Current Active Problems Pneumonia (Acute) Septic shock (Acute) Sepsis (Acute) Right lower lobe pneumonia (Acute) Acute respiratory failure with hypoxia (Acute) Respiratory failure (Acute) Acute respiratory failure (Acute) Community acquired pneumonia (Acute) Low body mass index (BMI) (Chronic) - VTE Risk Labs: VTE Related Lab Results Hgb 13.5 g/dL (12.2-16.2) 09/25/20 09:55 Hct 40.3 % (37.0-47.0) 09/25/20 09:55 Plt Count 379 K/mm3 (142-424) 09/25/20 09:55 BUN 18 mg/dl (7-17) H 09/25/20 09:55 Creatinine 0.40 mg/dl (0.52-1.04) L 09/25/20 09:55 VTE Score: 4 VTE Risk Level: Low Risk Clinical Trial Participant: No - Prophylaxis VTE Prophylaxis Ordered?: Yes Types of VTE Prophylaxis: TEDS Knee High Location of Applied Device: Bilateral Lower Extremeties
[2020-09-25 16:07] LABS: POC Glucose,Bedside 68 (70-110)
--- NOTE | 2020-09-25 16:09 | PC.NURSE ---
Pt unable to make productive cough. Pt NT suctioned, specimen sent to lab.
[2020-09-25 19:30] LABS: POC Glucose,Bedside 74 (70-110)
[2020-09-26] VITALS (11 sets, daily range): BP systolic 104–127; BP diastolic 64–76; PULSE 84–120; RESP 18–26; TEMP 36.8–37.6; O2SAT 92–100; BMI 22.6
[2020-09-26 00:45] LABS: POC Glucose,Bedside 99 (70-110)
[2020-09-26 04:55] LABS: POC Glucose,Bedside 87 (70-110)
--- NOTE | 2020-09-26 06:00 | XR_ITS ---
PROCEDURE INFORMATION: Exam: XR Chest Exam date and time: 09/26/2020 6:00 AM Age: 54 years old Clinical indication: Shortness of breath and other: Pneumonia TECHNIQUE: Imaging protocol: XR of the chest. Views: 1 view. COMPARISON: CR XR CHEST PORTABLE 09/25/2020 10:30 AM FINDINGS: Lungs: See Pleural spaces finding. Pleural spaces: Relatively large right basilar opacity, probably combination of pleural effusion and adjacent atelectasis/consolidation. No significant left-sided pleural effusion or left-sided pneumonic consolidation. Heart/Mediastinum: Stable cardiomediastinal silhouette. Bones/joints: Stable osseous structures. IMPRESSION: Relatively large right basilar opacity, probably combination of pleural effusion and adjacent atelectasis/consolidation.
[2020-09-26 06:04] LABS: Basophils # 0.2 K/mm3 (0-0.2); Basophils % 0.9 % (0.1-2.0); Eosinophils # 0.1 K/mm3 (0.0-0.4); Eosinophils % 0.5 % (0.1-12.0); Hematocrit 36.4 % (37.0-47.0); Lymphocytes # 2.4 K/mm3 (0.7-4.5); Lymphocytes % 13.8 % (10-50); Mean Corpuscular HGB Conc 31.5 g/dL (31.8-35.4); Mean Corpuscular Hemoglobin 27.8 pg (27.0-31.2); Mean Corpuscular Volume 88.3 fl (81-99); Mean Platelet Volume 9.4 fl (7.4-10.4); Monocytes # 0.9 K/mm3 (0.1-1.0); Monocytes % 4.8 % (1.7-9.3); Neutrophils # 14.1 K/mm3 (1.8-7.8); Platelet Count 253 K/mm3 (142-424); Red Blood Count 4.13 M/mm3 (4.20-5.40); Red Cell Distribution Width 15.2 % (11.5-17.5); White Blood Count 17.7 K/mm3 (4.8-10.8)
[2020-09-26 06:08] LABS: Hemoglobin 11.5 g/dL (12.2-16.2)
[2020-09-26 06:09] LABS: MANUAL DIFFERENTIAL MANUAL DIFFERENTIAL (MANUAL DIFF)
[2020-09-26 06:28] LABS: Chloride 107 mmol/L (98-107); Potassium 4.8 mmoL/L (3.5-5.1); Sodium 135 mmol/L (136-145)
[2020-09-26 06:31] LABS: Alanine Aminotransferase 23 U/L (12-78); Albumin Level 3.1 g/dl (3.5-5.0); Alkaline Phosphatase 83 U/L (38-126); Anion Gap 8.8 mEq/L (5-15); Aspartate Amino Transferase 33 U/L (14-36); Bilirubin,Total 0.5 mg/dl (0.2-1.3); Blood Urea Nitrogen 15 mg/dl (7-17); Carbon Dioxide 24 mmol/L (22.0-30.0); Creatinine Clearance Estimated 208 mL/min (50-200); Estimated Glomerular Filt Rate 234 ml/min (>60); GFR (African American) 283 ML/MIN (>60); Globulin 3.1 g/dL (1.3-3.2); Glucose 95 mg/dl (74-100); Total Protein,Serum 6.2 g/dl (6.3-8.2)
[2020-09-26 06:33] LABS: Hypochromasia 1+; Lymphocytes % 13 % (10-50); Neutrophils % 71 % (42-76); Platelet Estimate Normal; Total Cells Counted 100
--- NOTE | 2020-09-26 06:47 | PC.NURSE ---
shift summary. patient remains the same neurologically with only moaning at time. have had periods of desaturations where fio2 need to be increased. at one point o2 sats dropped to 77%, patient repositioned and fio2 increased to 100%. within an hour fio2 was able to be titrated back down to 50%.
--- NOTE | 2020-09-26 08:20 | PC.NURSE ---
pt is aphasic, bipap in place at this time
--- NOTE | 2020-09-26 09:15 | SW/DCPLANNER ---
Addendum entered by Lay Baker 09/28/20 11:23: This patient will discharge back to [facility] today. I have informed Julee with [facility]: no further COVID testing is needed at this time. Addendum entered by Lay Baker 09/27/20 09:20: I spoke with Julee at [facility] regarding this patient: if patient discharge back today she will NOT need another COVID swab per Julee. I will continue to update Julee regarding this patient. Patient could potentially discharge back later today. Original Note: This patient currently resides at [facility]. I spoke with Julee from [facility] whom stated that patient is ICF level of care. I will continue to follow up with Julee until patient is medically stable for discharge.
--- NOTE | 2020-09-26 10:28 | HMH.PULMCON ---
*Admission Date: 09/25/20 *Reason for consult:: Community-acquired pneumonia, acute hypoxic respiratory failure *History of present illness: Ms. Jang is a 54-year-old male history of cerebral palsy was presented to hospital acute worsening respiratory failure and initially needing BiPAP in the emergency department chest x-ray right lower lobe pneumonia and pulmonary was called for further management. Much of the history is obtained from chart review and floor staff. [facility] History Medical History: Reports:: Hyperlipidemia Denies:: Cancer, Diabetes Mellitus Type 1, Diabetes Mellitus Type 2, Internal Pacemaker, MRSA *Have you ever received a pneumonia vaccine?: Yes *Have you received a flu vaccine this season?: Yes Other Medical History: Reports: Other (cerebral palsy) Laterality Cases: Bilateral: Other Other Surgeries: Yes: Other. No: Pacemaker Amputation: No Fractures: No - *Social History Smoking Status: Never smoker Alcohol Intake: never Alcohol Intake Frequency:: holidays/special occasions only Substance Use Type: denies use Last Used Substance: unknown *Occupational Status:: unemployed Housing: care home Household Members: spouse *Travel in the last 8 weeks: None Family Hx:: Unable to obtain ROS - Review of Systems Review of systems:: unable to obtain Unable to obtain as patient has cerebral palsy and not appropriately verbal Meds Home Medications Medication Instructions Recorded Confirmed Type Cetirizine HCl 10 mg G-TUBE DAILY 08/24/18 09/25/20 History levETIRAcetam [Keppra] 500 mg G-TUBE BID 08/24/18 09/25/20 History Multivitamin,Ther and Minerals 1 each G-TUBE DAILY 08/25/18 09/25/20 History [Vitamin and Minerals] Cyanocobalamin (Vitamin B-12) 1,000 mcg G-TUBE DAILY 12/27/18 09/25/20 History [Vitamin B-12 1000mcg Tablet] Fluticasone Propionate [24 Hour 1 spray NOSTRIL-B DAILY 12/27/18 09/25/20 History Allergy] Propylene Glycol/Peg 400/Pf 1 drp EYE-BOTH DAILY 12/27/18 09/25/20 History [Systane Ultra 0.4-0.3% Eye Drp] Sennosides [Senna Lax] 17.2 mg G-TUBE BID 12/28/18 09/25/20 History lisinopril 2.5 mg tablet 2.5 mg G-TUBE DAILY tab 01/25/20 09/25/20 History Furosemide [Furosemide 20mg Tab*] 20 mg G-TUBE DAILY 01/29/20 09/25/20 History Spironolactone [Spironolactone 12.5 mg G-TUBE BID 01/29/20 09/25/20 History 25mg Tablet] Denosumab [Denosumab 60mg/mL 60 mg SQ Q6M 09/25/20 09/25/20 History syringe] Hyoscyamine Sulfate [Levsin-Sl] 0.125 mg SL BID 09/25/20 09/25/20 History Lacosamide [Vimpat] 60 mg G-TUBE BID 09/25/20 09/25/20 History Medroxyprogesterone Acetate 150 mg IM Q3M 09/25/20 09/25/20 History [Depo-Provera] Allergies Allergy/AdvReac Type Severity Reaction Status Date / Time ampicillin Allergy Verified 08/08/20 08:45 Penicillins Allergy Verified 08/08/20 08:45 Sulfa (Sulfonamide Allergy Verified 08/08/20 08:45 Antibiotics) sulfamethoxazole Allergy Verified 08/08/20 08:45 [From Bactrim] trimethoprim [From Bactrim] Allergy Verified 08/08/20 08:45 Exam - Constitutional Constitutional:: Present: no acute distress, comfortable - HENMT Exam HENMT: Present: normocephalic, atraumatic - Respiratory Exam Respiratory:: Present: no respiratory distress, crackles. Absent: able to speak in complete sentences, wheezing - Cardiovascular Exam Cardiac:: Present: S1, S2 - GI Exam GI:: Present: soft - Skin Exam Skin: Present: warm - Neurological Exam Neurological: Absent: alert, awake, normal cognition - Extremities Exam Extremities: Present: no cyanosis, no clubbing, no edema Internal Medicine - CN: Reslt - Labs CBC & Chem 7: 09/26/20 05:21 09/26/20 05:21 Labs: Short CBC 09/25/20 09/26/20 Range/Units 09:55 05:21 WBC 20.3 H* 17.7 H (4.8-10.8) K/mm3 Hgb 13.5 11.5 L D (12.2-16.2) g/dL Hct 40.3 36.4 L (37.0-47.0) % Plt Count 379 253 D (142-424) K/mm3 BMP 09/25/20 09/26/20 09:55 05:21 Sodium 135
--- NOTE | 2020-09-26 13:23 | HMH.ACPN2 ---
Internal Medicine - PN: Subj *Date: 09/26/20 *Time: 08:30 Interval history: pt laying in bed bipap on Exam Vital signs and Labs for Last 24 Hours: Temp Pulse Resp BP Pulse Ox 99.4 F 100 H 18 104/64 L 96 09/26/20 12:00 09/26/20 12:00 09/26/20 12:00 09/26/20 12:00 09/26/20 12:00 Laboratory Results - last 24 hr 09/25/20 16:00: POC Glucose 68 L 09/25/20 19:23: POC Glucose 74 09/26/20 00:36: POC Glucose 99 09/26/20 04:48: POC Glucose 87 09/26/20 05:21: WBC 17.7 H, RBC 4.13 L, Hgb 11.5 L D, Hct 36.4 L, MCV 88.3, MCH 27.8, MCHC 31.5 L, RDW 15.2, Plt Count 253 D, MPV 9.4, Neut % (Auto) 80.0, Lymph % (Auto) 13.8, [place] % (Auto) 4.8, Eos % (Auto) 0.5, Baso % (Auto) 0.9, Neut # (Auto) 14.1 H, Lymph # (Auto) 2.4, [place] # (Auto) 0.9, Eos # (Auto) 0.1, Baso # (Auto) 0.2, Total Counted 100, Neutrophils % (Manual) 71, Band Neutrophils % 16.0 H, Lymphocytes % (Manual) 13, Platelet Estimate Normal, Hypochromasia 1+ 09/26/20 05:21: Sodium 135 L, Potassium 4.8, Chloride 107, Carbon Dioxide 24, Anion Gap 8.8, BUN 15, Creatinine 0.30 L D, Estimated Creat Clear 208, Estimated GFR 234, Est GFR ( Amer) 283 D, Glucose 95 D, Calcium 8.0 L D, Total Bilirubin 0.5, AST 33, ALT 23, Alkaline Phosphatase 83, Total Protein 6.2 L, Albumin 3.1 L D, Globulin 3.1, Albumin/Globulin Ratio 1.0 L I & O for Last 24 hours: Intake & Output 09/24/20 09/25/20 09/26/20 09/27/20 11:59 11:59 11:59 11:59 Intake Total 1787 Balance 1787 Weight 160 lb 132 lb 4.438 oz Microbiology Reports for the Last 24 Hours: Microbiology 09/25/20 15:52 Sputum - Expectorated Sputum Gram Stain - Final 09/25/20 15:52 Sputum - Expectorated Sputum Sputum Culture - Preliminary - Constitutional no acute distress - *Routine HEENT Exam Head: Present: normocephalic Eye: Present: PERRL ENT: Present: mucous membranes moist - *Routine Neck Exam Present: supple. Absent: lymphadenopathy - *Routine Respiratory Exam Present: rhonchi - *Routine Cardiovascular Exam Present: RRR - *Routine Abdominal Exam Present: soft, normoactive bowel sounds. Absent: tenderness Comments: peg tube - *Routine Extremities Exam Present: normal capillary refill. Absent: cyanosis, clubbing, edema - *Routine Skin Exam Present: warm. Absent: rash - *Routine Neurological Exam pt is nonverbal - Routine Psychiatric Exam Present: normal affect Assessment and Plan (1) Community acquired pneumonia Status: Acute Qualifiers: Laterality: right Lung location: lower lobe of lung Qualified Code(s): J18.9 - Pneumonia, unspecified organism Category: Medical Code(s): J18.9 - Pneumonia, unspecified organism (2) Sepsis Status: Acute Qualifiers: Sepsis type: sepsis due to unspecified organism Sepsis acute organ dysfunction status: without acute organ dysfunction Qualified Code(s): A41.9 - Sepsis, unspecified organism Category: Medical Code(s): A41.9 - Sepsis, unspecified organism (3) Acute respiratory failure Status: Acute Qualifiers: Respiratory failure complication: hypoxia Qualified Code(s): J96.01 - Acute respiratory failure with hypoxia Category: Medical Code(s): J96.00 - Acute respiratory failure, unspecified whether with hypoxia or hypercapnia (4) Acute respiratory failure with hypoxia Status: Acute Category: Medical Code(s): J96.01 - Acute respiratory failure with hypoxia (5) Pneumonia Status: Acute Category: Medical Code(s): J18.9 - Pneumonia, unspecified organism (6) Respiratory failure Status: Acute Qualifiers: Chronicity: acute on chronic Respiratory failure complication: hypoxia Qualified Code(s): J96.21 - Acute and chronic respiratory failure with hypoxia Category: Medical Code(s): J96.90 - Respiratory failure, unspecified, unspecified whether with hypoxia or hypercapnia (7) Right lower lobe pneumonia Status: Acute Category: Medical
--- NOTE | 2020-09-26 16:30 | DIET.NUTRFU ---
Addendum entered by Tiffanie Marinelli 09/28/20 11:16: Tolerating Tube feeds at goal rate, IVF dc'd- order altered to add water flushes of 225ml q 6h to meet additional fluid needs not provided by formula. Addendum entered by Linda Sarmiento RDN, ISIDRA 09/27/20 11:55: Nutrition consult to initiate TF has been received. Order has been placed for pt to begin on Osmolite 1.2 at 20mL/hr and slowly advance to goal rate of 40mL/hr. Will monitor pt tolerance and adjust TF as needed. Original Note: Pt admit with PNA. Pt with CP and is resident of [facility], has received Gtube feedings for several years and maintained weight/nutritional status. Pt is on Osmolite 1.5 at [place], will provide similar regimen with Osmolite 1.2 available to [facility]. Upon MD order, recommend initiating continuous tube feeding regimen of Osmolite 1.2 at 20ml/h and advance by 10ml/h q 8h as tolerated to goal rate of 44ml/h. Pt currently receiving IVF, recommend minimal water flushes of 30-60ml at [facility] checks/for irrigation. If IVF dc'd water flushes of 225ml q 6h meets additional fluid needs. This regimen provides 1214kcal, 56g protein, 159g cho, 40g fat, and 830ml free water. (1728ml total fluids with water flushes of 225ml q6h) Will monitor pt tolerance, nutrition related labs, meds, fluids to alter nutritional regimen as indicated.
--- NOTE | 2020-09-26 16:52 | PC.NURSE ---
pt has rested in room this shift. pt is noted to periodically make loud gagging/retching sound. upon entering room pt eyes will be closed and pt is relaxed. pt will have excess drool noted but no vomit or further retching noted. pt has rhonchi scattered throughout, bowel sounds are hypo active. pt has gtube in place. nad noted. will monitor.
[2020-09-26 17:37] LABS: POC Glucose,Bedside 74 (70-110)
[2020-09-26 17:37] LABS: POC Glucose,Bedside 89 (70-110)
[2020-09-26 22:27] LABS: POC Glucose,Bedside 72 (70-110)
[2020-09-27] VITALS (11 sets, daily range): BP systolic 110–167; BP diastolic 69–96; PULSE 76–118; RESP 16–24; TEMP 36.5–37.2; O2SAT 96–100; BMI 22.1
[2020-09-27 04:47] LABS: POC Glucose,Bedside 57 (70-110)
[2020-09-27 05:12] LABS: POC Glucose,Bedside 116 (70-110)
[2020-09-27 05:58] LABS: Basophils % 0.3 % (0.1-2.0); Eosinophils # 0.2 K/mm3 (0.0-0.4); Eosinophils % 1.5 % (0.1-12.0); Hematocrit 32.4 % (37.0-47.0); Hemoglobin 10.1 g/dL (12.2-16.2); Lymphocytes # 2.4 K/mm3 (0.7-4.5); Lymphocytes % 20.5 % (10-50); Mean Corpuscular HGB Conc 31.1 g/dL (31.8-35.4); Mean Corpuscular Hemoglobin 27.7 pg (27.0-31.2); Mean Corpuscular Volume 89.1 fl (81-99); Monocytes # 1.1 K/mm3 (0.1-1.0); Monocytes % 9.1 % (1.7-9.3); Neutrophils % 68.6 % (37.0-80.0); Platelet Count 245 K/mm3 (142-424); Red Blood Count 3.64 M/mm3 (4.20-5.40); Red Cell Distribution Width 15.2 % (11.5-17.5); White Blood Count 11.6 K/mm3 (4.8-10.8)
[2020-09-27 06:03] LABS: Chloride 106 mmol/L (98-107); Potassium 4.4 mmoL/L (3.5-5.1); Sodium 132 mmol/L (136-145)
--- NOTE | 2020-09-27 06:05 | PC.NURSE ---
Pt remains on 2l O2 NC. Lungs noted to have rhonchi t/o. Oral care and suctioning provided. Medications administered per apr. Pt fsbs was 57 this AM. 1/2 amp of D50 admin. FSBS was repeated resulting 116. No other concerns. Will continue to monitor.
[2020-09-27 06:06] LABS: Blood Urea Nitrogen 3 mg/dl (7-17); Creatinine Clearance Estimated 202 mL/min (50-200); Estimated Glomerular Filt Rate 233 ml/min (>60); GFR (African American) 282 ML/MIN (>60)
[2020-09-27 06:07] LABS: Anion Gap 10.4 mEq/L (5-15); Calcium 7.5 mg/dl (8.4-10.2); Carbon Dioxide 20 mmol/L (22.0-30.0); Glucose 112 mg/dl (74-100)
--- NOTE | 2020-09-27 08:41 | HMH.ACPN2 ---
Internal Medicine - PN: Subj *Date: 09/27/20 *Time: 09:33 Interval history: 55-year-old female patient lying in bed resting quietly with eyes closed, she does not respond to any verbal stimulation will move and moan with tactile stimulation. Oxygenation 2 L per nasal cannula and saturations 98% Exam Vital signs and Labs for Last 24 Hours: Temp Pulse Resp BP Pulse Ox 98.5 F 118 H 21 127/83 98 09/27/20 08:00 09/27/20 08:00 09/27/20 08:00 09/27/20 08:00 09/27/20 08:00 Laboratory Results - last 24 hr 09/26/20 13:28: POC Glucose 89 09/26/20 17:28: POC Glucose 74 09/26/20 22:10: POC Glucose 72 09/27/20 04:35: POC Glucose 57 L 09/27/20 05:06: POC Glucose 116 H 09/27/20 05:38: Sodium 132 L, Potassium 4.4, Chloride 106, Carbon Dioxide 20 L, Anion Gap 10.4, BUN 3 L D, Creatinine 0.30 L, Estimated Creat Clear 202, Estimated GFR 233, Est GFR ( Amer) 282, Glucose 112 H, Calcium 7.5 L 09/27/20 05:48: WBC 11.6 H D, RBC 3.64 L, Hgb 10.1 L, Hct 32.4 L, MCV 89.1, MCH 27.7, MCHC 31.1 L, RDW 15.2, Plt Count 245, MPV 11.0 H, Neut % (Auto) 68.6, Lymph % (Auto) 20.5, [place] % (Auto) 9.1, Eos % (Auto) 1.5, Baso % (Auto) 0.3, Neut # (Auto) 8.0 H, Lymph # (Auto) 2.4, [place] # (Auto) 1.1 H, Eos # (Auto) 0.2, Baso # (Auto) 0.0 I & O for Last 24 hours: Intake & Output 09/24/20 09/25/20 09/26/20 09/27/20 23:59 23:59 23:59 23:59 Intake Total 1787 Output Total 0 / 0 0 / 0 Balance 1788 / 1788 0 / 0 Weight 123 lb 8 oz 132 lb 4.438 oz 130 lb Microbiology Reports for the Last 24 Hours: Microbiology 09/25/20 15:52 Sputum - Expectorated Sputum Gram Stain - Final 09/25/20 15:52 Sputum - Expectorated Sputum Sputum Culture - Preliminary - Constitutional no acute distress, chronically ill appearing - *Routine HEENT Exam Head: Present: normocephalic, other ENT: Present: mucous membranes moist - *Routine Neck Exam Present: trachea midline. Absent: tracheal deviation - *Routine Respiratory Exam Present: decreased breath sounds, rhonchi - *Routine Cardiovascular Exam Present: RRR - *Routine Abdominal Exam Present: soft, normoactive bowel sounds. Absent: distended, firm Comments: Peg tube - *Routine Extremities Exam Present: pulses intact. Absent: cyanosis, clubbing, edema - *Routine Skin Exam Present: intact, dry, warm. Absent: cyanosis - *Routine Neurological Exam Present: altered mental status - Routine Psychiatric Exam Present: unable to assess Assessment and Plan (1) Community acquired pneumonia Status: Acute Qualifiers: Laterality: right Lung location: lower lobe of lung Qualified Code(s): J18.9 - Pneumonia, unspecified organism Category: Medical Code(s): J18.9 - Pneumonia, unspecified organism (2) Sepsis Status: Acute Qualifiers: Sepsis type: sepsis due to unspecified organism Sepsis acute organ dysfunction status: without acute organ dysfunction Qualified Code(s): A41.9 - Sepsis, unspecified organism Category: Medical Code(s): A41.9 - Sepsis, unspecified organism (3) Acute respiratory failure Status: Acute Qualifiers: Respiratory failure complication: hypoxia Qualified Code(s): J96.01 - Acute respiratory failure with hypoxia Category: Medical Code(s): J96.00 - Acute respiratory failure, unspecified whether with hypoxia or hypercapnia (4) Acute respiratory failure with hypoxia Status: Acute Category: Medical Code(s): J96.01 - Acute respiratory failure with hypoxia (5) Pneumonia Status: Acute Category: Medical Code(s): J18.9 - Pneumonia, unspecified organism (6) Respiratory failure Status: Acute Qualifiers: Chronicity: acute on chronic Respiratory failure complication: hypoxia Qualified Code(s): J96.21 - Acute and chronic respiratory failure with hypoxia Category: Medical Code(s): J96.90 - Respiratory failure, unspecified, unspecified whether with hypoxia or hypercapnia (7) R
[2020-09-27 08:42] LABS: Vancomycin,Peak 18.9 ug/ml (11-39)
--- NOTE | 2020-09-27 08:56 | XR_ITS ---
PROCEDURE: XR CHEST PORTABLE CLINICAL HISTORY: pnm Pneumonia follow-up COMPARISON: CR XR CHEST PORTABLE from 08/09/2020 CR XR CHEST PORTABLE from 09/25/2020 CR XR CHEST PORTABLE from 09/26/2020 FINDINGS: The cardiomediastinal silhouette and pulmonary vascularity are within normal limits. Consolidation is present in the right lower lobe with improvement in aeration in the right lung base. The remaining lungs are clear. Degenerative changes in the shoulders. Two [employer] shunts traverses the right hemithorax. IMPRESSION: Persistent but improving right lower lobe pneumonia Dictated by: Osei Costello MD 09/27/2020 10:21 Osei Costello MD in [place] 09/27/2020 10:21
--- NOTE | 2020-09-27 10:36 | HMH.PULMPN ---
Internal Medicine - PN: Subj *Date: 09/27/20 *Time: 10:36 Interval history: No acute respiratory events overnight. Patient weaned to room air this morning. Exam - Constitutional Constitutional:: Present: no acute distress, comfortable - HENMT Exam HENMT: Present: normocephalic, moist mucous membranes - Eye Exam Eyes:: Present: normal appearance both eyes and related structures - Neck Exam Neck:: Present: normal visual inspection - Respiratory Exam Respiratory:: Present: able to speak in complete sentences, no respiratory distress, crackles. Absent: wheezing - Cardiovascular Exam Cardiac:: Present: S1, S2 - GI Exam GI:: Present: soft - Skin Exam Skin: Present: warm, no rash - Neurological Exam Neurological: Absent: alert, awake, normal cognition, oriented X3 - Extremities Exam Extremities: Present: no cyanosis, no clubbing, no edema Assessment and Plan (1) Community acquired pneumonia Status: Acute Qualifiers: Laterality: right Lung location: lower lobe of lung Qualified Code(s): J18.9 - Pneumonia, unspecified organism Category: Medical Code(s): J18.9 - Pneumonia, unspecified organism (2) Sepsis Status: Acute Qualifiers: Sepsis type: sepsis due to unspecified organism Sepsis acute organ dysfunction status: without acute organ dysfunction Qualified Code(s): A41.9 - Sepsis, unspecified organism Category: Medical Code(s): A41.9 - Sepsis, unspecified organism (3) Acute respiratory failure Status: Acute Qualifiers: Respiratory failure complication: hypoxia Qualified Code(s): J96.01 - Acute respiratory failure with hypoxia Category: Medical Code(s): J96.00 - Acute respiratory failure, unspecified whether with hypoxia or hypercapnia (4) Acute respiratory failure with hypoxia Status: Acute Category: Medical Code(s): J96.01 - Acute respiratory failure with hypoxia (5) Pneumonia Status: Acute Category: Medical Code(s): J18.9 - Pneumonia, unspecified organism (6) Respiratory failure Status: Acute Qualifiers: Chronicity: acute on chronic Respiratory failure complication: hypoxia Qualified Code(s): J96.21 - Acute and chronic respiratory failure with hypoxia Category: Medical Code(s): J96.90 - Respiratory failure, unspecified, unspecified whether with hypoxia or hypercapnia (7) Right lower lobe pneumonia Status: Acute Category: Medical Code(s): J18.9 - Pneumonia, unspecified organism (8) Septic shock Status: Acute Category: Medical Code(s): A41.9 - Sepsis, unspecified organism; R65.21 - Severe sepsis with septic shock (9) Low body mass index (BMI) Status: Chronic Category: Medical - Assessment and plan all Dx Assessment and Plan for all problems:: #Community-acquired pneumonia: 54-year-old history of cerebral palsy, prior history of E. coli and Klebsiella UTI and MRSA wound cultures presented to hospital with worsening respiratory failure and leukocytosis. Chest x-ray showed right lower lobe pulmonary infiltrates and injection subsequent chest x-ray showed concerning worsening effusion. BNP is not elevated on admission. Patient also had a recent history of shunt malfunction. COVID-19 along with influenza A and B PCR negative on admission. Patient was initiated on ceftriaxone azithromycin and vancomycin on BiPAP on admission. Patient respiratory status continued to improve, weaned to room air this morning. Repeat chest x-ray showed slight improvement in right lower lobe consolidation along with right-sided pleural effusion. Patient prior imaging also showed intermittent episodes of right lower lobe airspace disease highly suggestive of recurrent aspiration pneumonia. Leukocytosis improving. Blood cultures no growth 48 hours Plan: -Recommend to Discontinue vancomycin -Strict aspiration precautions -F/U Nasal MRSA screen. -Continue ceftriaxone, Azithromycin -Recommend obtaining urine cultures. Follow wit
--- NOTE | 2020-09-27 11:12 | PC.NURSE ---
called and spoke with md office about patient not having medications reodered. patient has seizure medication that has not been reordered also asked about nutrition. awaiting call back
[2020-09-27 11:37] LABS: POC Glucose,Bedside 87 (70-110)
--- NOTE | 2020-09-27 15:50 | PC.NURSE ---
no changes noted to patient this shift. tech mentioned they noticed patient had some twitching earlier in shift that stopped. spoke with md about getting meds reordered. some redness to armpits and bottom noted. tube feeds started at 1330. remains on room air currently. vitals stable.
[2020-09-27 17:37] LABS: POC Glucose,Bedside 81 (70-110)
[2020-09-27 23:46] LABS: POC Glucose,Bedside 111 (70-110)
[2020-09-28] VITALS (8 sets, daily range): BP systolic 105–138; BP diastolic 68–82; PULSE 88–111; RESP 16–20; TEMP 36.6–36.8; O2SAT 94–100
--- NOTE | 2020-09-28 05:56 | PC.NURSE ---
shift summary patient has remained r/a throughout shift with sats maintaining 90% and above. incontinent of urine. moans at times. fsbs greater than 100. tube feedings now at 40ml/hr. tolerating well
[2020-09-28 06:33] LABS: Chloride 104 mmol/L (98-107); Sodium 134 mmol/L (136-145)
[2020-09-28 06:34] LABS: Potassium 4.4 mmoL/L (3.5-5.1)
[2020-09-28 06:36] LABS: Blood Urea Nitrogen 3 mg/dl (7-17); Creatinine Clearance Estimated 146 mL/min (50-200); Estimated Glomerular Filt Rate 167 ml/min (>60); GFR (African American) 202 ML/MIN (>60)
[2020-09-28 06:37] LABS: Anion Gap 12.4 mEq/L (5-15); Carbon Dioxide 22 mmol/L (22.0-30.0); Glucose 107 mg/dl (74-100)
[2020-09-28 06:47] LABS: Calcium 8.6 mg/dl (8.4-10.2)
--- NOTE | 2020-09-28 08:00 | PC.NURSE ---
gastric residual 0mL. Tubefeed rate increased to goal rate of 44mL/hr.
--- NOTE | 2020-09-28 09:11 | HMH.PULMPN ---
Internal Medicine - PN: Subj *Date: 09/28/20 *Time: 11:05 Interval history: No acute respiratory events overnight. Patient continued to remain on room air. Sputum culture growing strep Exam - Constitutional Constitutional:: Present: no acute distress, comfortable - HENMT Exam HENMT: Present: normocephalic, atraumatic - Neck Exam Neck:: Present: normal visual inspection - Respiratory Exam Respiratory:: Present: lungs clear, normal respiratory effort - Cardiovascular Exam Cardiac:: Present: S1, S2 - GI Exam GI:: Present: soft - Skin Exam Skin: Present: warm, no rash - Neurological Exam Neurological: Absent: alert, awake, normal cognition, normal speech - Extremities Exam Extremities: Present: no cyanosis, no clubbing, no edema Assessment and Plan (1) Community acquired pneumonia Status: Acute Qualifiers: Laterality: right Lung location: lower lobe of lung Qualified Code(s): J18.9 - Pneumonia, unspecified organism Category: Medical Code(s): J18.9 - Pneumonia, unspecified organism (2) Sepsis Status: Acute Qualifiers: Sepsis type: sepsis due to unspecified organism Sepsis acute organ dysfunction status: without acute organ dysfunction Qualified Code(s): A41.9 - Sepsis, unspecified organism Category: Medical Code(s): A41.9 - Sepsis, unspecified organism (3) Acute respiratory failure Status: Acute Qualifiers: Respiratory failure complication: hypoxia Qualified Code(s): J96.01 - Acute respiratory failure with hypoxia Category: Medical Code(s): J96.00 - Acute respiratory failure, unspecified whether with hypoxia or hypercapnia (4) Acute respiratory failure with hypoxia Status: Acute Category: Medical Code(s): J96.01 - Acute respiratory failure with hypoxia (5) Pneumonia Status: Acute Category: Medical Code(s): J18.9 - Pneumonia, unspecified organism (6) Respiratory failure Status: Acute Qualifiers: Chronicity: acute on chronic Respiratory failure complication: hypoxia Qualified Code(s): J96.21 - Acute and chronic respiratory failure with hypoxia Category: Medical Code(s): J96.90 - Respiratory failure, unspecified, unspecified whether with hypoxia or hypercapnia (7) Right lower lobe pneumonia Status: Acute Category: Medical Code(s): J18.9 - Pneumonia, unspecified organism (8) Septic shock Status: Acute Category: Medical Code(s): A41.9 - Sepsis, unspecified organism; R65.21 - Severe sepsis with septic shock (9) Low body mass index (BMI) Status: Chronic Category: Medical - Assessment and plan all Dx Assessment and Plan for all problems:: #Community-acquired pneumonia: # Aspiration Pneumonia 54-year-old history of cerebral palsy, prior history of E. coli and Klebsiella UTI and MRSA wound cultures presented to hospital with worsening respiratory failure and leukocytosis. Chest x-ray showed right lower lobe pulmonary infiltrates and injection subsequent chest x-ray showed concerning worsening effusion. BNP is not elevated on admission. Patient also had a recent history of shunt malfunction. COVID-19 along with influenza A and B PCR negative on admission. Patient was initiated on ceftriaxone and azithromycin along with vancomycin on admission. Leukocytosis improving. Blood cultures no growth so far. Sputum culture grew group-B strep agalactiae, will de-escalate antibiotics to levofloxacin. Repeat chest x-ray showed slight improvement in right lower lobe consolidation along with right-sided pleural effusion. Patient prior imaging also showed intermittent episodes of right lower lobe airspace disease highly suggestive of recurrent aspiration pneumonia. Patient also did not have a gag reflex that was noticed during deep suctioning and this will increase her risk of aspiration further and she definitely needs strict aspiration precautions. Plan: -De-escalate antibiotics to levofloxacin to complete a total of 7-day co
[2020-09-28 09:58] LABS: Basophils # 0.1 K/mm3 (0-0.2); Basophils % 0.7 % (0.1-2.0); Eosinophils # 0.1 K/mm3 (0.0-0.4); Eosinophils % 0.5 % (0.1-12.0); Hematocrit 36.6 % (37.0-47.0); Lymphocytes # 2.1 K/mm3 (0.7-4.5); Mean Corpuscular HGB Conc 31.9 g/dL (31.8-35.4); Mean Corpuscular Volume 87.8 fl (81-99); Mean Platelet Volume 11.4 fl (7.4-10.4); Monocytes # 0.8 K/mm3 (0.1-1.0); Monocytes % 9.3 % (1.7-9.3); Neutrophils % 66.4 % (37.0-80.0); Platelet Count 322 K/mm3 (142-424); Red Blood Count 4.17 M/mm3 (4.20-5.40)
[2020-09-28 10:21] LABS: Hemoglobin 11.9 g/dL (12.2-16.2)
[2020-09-28 10:26] LABS: Microscopic, Urine URINE MICROSCOPIC (MICROSCOPIC)
[2020-09-28 10:30] LABS: Appearance,Urine SL CLOUDY (Clear); Bilirubin,Urine Negative (Negative); Blood, Urine 3+ (Negative); Color,Urine YELLOW (Yellow); Glucose,Urine (UA) Negative (Negative); Ketones,Urine Negative (Negative); Leukocyte Esterase,Urine Negative (Negative); Nitrate,Urine Negative (Negative); PH,Urine 5.5 (5.0-8.5); Protein,Urine TRACE (Negative); Specific Gravity, Urine 1.015 (1.005-1.030); Urobilinogen,Urine 0.2 EU/dl (0.2)
[2020-09-28 11:38] LABS: POC Glucose,Bedside 119 (70-110)
--- NOTE | 2020-09-28 12:24 | HMH.DCSUM ---
General - General Admission date:: 09/25/20 Discharge date: 09/28/20 HPI HPI: The patient presents to the emergency department via EMS from a skilled nursing. She was found at the skilled nursing to be hypoxic and in respiratory distress. Upon arrival to the emergency department the patient was started on BiPAP. Her oxygen saturations anuj from the 80s to the 90s. She was tachycardic. She was in respiratory distress. Her work-up in the emergency department revealed that the patient is septic with a white count of about 20,000, tachycardia, hypoxia, and I infiltrate in her right lung base on chest x-ray. The patient is a DNR. She is tolerating the BiPAP well. She is receiving empiric antibiotics for pneumonia/sepsis. She will have to be admitted to the hospital due to her oxygen requirements. The patient presents to the emergency department via EMS due to altered mental status and hypoxia. She is a skilled nursing patient. Apparently, according to the report, the patient was acting normally earlier today and then deteriorated to the point of having oxygen saturations in the 70s. The patient's paperwork includes a DO NOT RESUSCITATE order. During the patient's evaluation white count exceeded 20,000, ST imaging showed an infiltrative process in the right base. Her lactate was 1.2. Patient was placed on a BiPAP 16/8 rate of 20, 50% FiO2. She is maintaining good saturations on that. Her blood pressure was soft in the high 80s systolic, has come up to about 115 after arrival to the floor. Hospital Course Hospital Course: Laboratory Tests 09/25/20 09/25/20 09/25/20 09:55 09:55 09:55 WBC 20.3 H* RBC 4.59 Hgb 13.5 Hct 40.3 MCV 87.8 MCH 29.3 MCHC 33.4 RDW 15.1 Plt Count 379 MPV 9.6 Neut % (Auto) 83.9 H Lymph % (Auto) 10.4 Becker % (Auto) 4.8 Eos % (Auto) 0.3 Baso % (Auto) 0.5 Neut # (Auto) 17.0 H Lymph # (Auto) 2.1 Becker # (Auto) 1.0 Eos # (Auto) 0.1 Baso # (Auto) 0.1 Total Counted 100 Neutrophils % (Manual) 69 Band Neutrophils % 7.0 Lymphocytes % (Manual) 19 Atypical Lymphs % 1.0 Monocytes % (Manual) 3 Eosinophils % (Manual) 1 Platelet Estimate Normal Hypochromasia 1+ Sodium 135 L Potassium 4.5 Chloride 101 Carbon Dioxide 28 Anion Gap 10.5 BUN 18 H Creatinine 0.40 L Estimated Creat Clear Estimated GFR 168 Est GFR ( Amer) 203 Glucose 133 H POC Glucose Lactate 1.2 Calcium 9.0 Total Bilirubin 0.4 AST 28 ALT 29 Alkaline Phosphatase 85 Troponin I < 0.01 NT-Pro-B Natriuret Pep 270 H Total Protein 7.0 Albumin 3.7 Globulin 3.3 H Albumin/Globulin Ratio 1.1 Urine Color Urine Appearance Urine pH Ur Specific [place] Urine Protein Urine Glucose (UA) Urine Ketones Urine Blood Urine Nitrate Urine Bilirubin Urine Urobilinogen Ur Leukocyte Esterase Urine RBC Urine WBC Ur Squamous Epith Cells Urine Bacteria Vancomycin Peak SARS-CoV-2 (PCR) Influenza A Untype (PCR) Influenza Type B (PCR) 09/25/20 09/25/20 09/25/20 09:55 10:44 16:00 WBC RBC Hgb Hct MCV MCH MCHC RDW Plt Count MPV Neut % (Auto) Lymph % (Auto) Becker % (Auto) Eos % (Auto) Baso % (Auto) Neut # (Auto) Lymph # (Auto) Becker # (Auto) Eos # (Auto) Baso # (Auto) Total Counted Neutrophils % (Manual) Band Neutrophils % Lymphocytes % (Manual) Atypical Lymphs % Monocytes % (Manual) Eosinophils % (Manual) Platelet Estimate Hypochromasia Sodium Potassium Chloride Carbon Dioxide Anion Gap BUN Creatinine Estimated Creat Clear Estimated GFR Est GFR ( Amer) Glucose POC Glucose 68 L Lactate Calcium Total Bilirubin AST ALT Alkaline Phosphatase Troponin I
[2020-09-29 05:54] LABS: POC Glucose,Bedside 110 (70-110)
== END 2020-09-28 18:36 | DRG 871 ==
LOC: ER 11:28 → 2ND 11:57
PROVIDERS: Family Medicine; Nurse Practitioner Family; Admitting Provider Family Medicine; Emergency Provider Emergency Medicine; Visit Provider Emergency Medicine
DX: A41.9 Sepsis, unspecified organism (principal); J18.9 Pneumonia, unspecified organism; J96.21 Acute and chronic respiratory failure with hypoxia; R65.21 Severe sepsis with septic shock; Z20.822 Contact with and (suspected) exposure to COVID-19; G80.9 Cerebral palsy, unspecified; Z66 Do not resuscitate; Z74.01 Bed confinement status; E78.5 Hyperlipidemia, unspecified
CPT/HCPCS: 36415; 71045; 80048; 80053; 80202; 81001; 82962; 83605; 83880; 84484; 85007; 85025; 87040; 87070; 87077; 87081; 87186; 87205; 93005; 94640; 94660; 96365; 96375; 99285; J0456; J3370; U0003

== ENCOUNTER 2020-12-05 09:18 | Emergency (ER) | payer MEDICARE, MEDICAID, SELFPAY ==
[2020-12-05 09:05] VITALS: BP 100/46; PULSE 86; RESP 16; TEMP 36.7; O2SAT 93; BMI 24.6
--- NOTE | 2020-12-05 09:29 | PC.NURSE ---
confirmed placement of gtube by auscultation. MD nunez
--- NOTE | 2020-12-05 09:30 | XR_ITS ---
PROCEDURE: XR KUB CLINICAL INDICATION: G-tube placement COMPARISON: CT CT ABDOMEN PELVIS WO CON from 10/12/2018 FINDINGS: A G-tube has been placed. The bulb of the G-tube lies along the left aspect of L2 and L3 with the tip of the catheter to the right of L3. This does suggest intragastric location with the tip in the duodenum. There are numerous gallstones present bilateral nephrolithiasis. Bowel gas pattern is nonspecific. A [employer] shunt is present with the tip in the right abdominal region. An additional shunt tube is noted traversing the right anterior hemithorax and abdomen and is broken with intra-abdominal shunt tube present. The right hemidiaphragm is elevated. IMPRESSION: G-tube placement appears to be in satisfactory position on the AP image. Cholelithiasis and bilateral nephrolithiasis. Dictated by: Osei Costello MD 12/05/2020 10:31 Osei Costello MD in [place] 12/05/2020 10:31
--- NOTE | 2020-12-05 09:31 | HMH.EDGENADL ---
ED Disposition Clinical Impression: Gastrointestinal tube present, Gastrojejunostomy tube status, Feeding by G-tube Disposition: Xfer [facility] Not MCR Cert Condition on Discharge: Good Additional Instructions: If you continue to experience faculties with the G-tube, please follow-up with the surgeon who placed it continues to be leakage, on x-ray and our assessment G-tube is in correct place. Referrals: Provider,Referral, [Primary Care Provider] - - Critical Care Critical Care Time: No Attestation: On 12/05/20, the high probability of a clinically significant, sudden or life threatening deterioration of the following system(s) required my full and direct attention, intervention and personal management. The time I documented below is in addition to time spent performing reported procedures but includes the following listed in this critical care notation. Medical Decision Making - Luis Inquiry Pt receiving controlled substance: No Luis was queried for this patient: No Vital Signs: 12/05/20 09:05 Temperature 98.1 F Temperature Source Axillary Pulse Rate [Right Radial] 86 Respiratory Rate 16 Blood Pressure [Left Arm] 100/46 L Blood Pressure Mean [Left Arm] 64 Blood Pressure Source [Left Arm] Automatic Cuff Blood Pressure Position [Left Arm] Right Lateral 02 Sat by Pulse Oximetry 93 L Oxygen Delivery Method Room Air Orders (Tests/Meds): ORDERS Category Date Time Status XR KUB Stat Exams 12/05/20 09:30 Taken Medical Decision Narrative: Patient is a 55-year-old female presented to emergency department with concern for G-tube displacement, G-tube leaking. Discussed patient with the alf nurse caring for her, as any history of G-tube removal. Differential diagnosis includes slow gastric transit, tube perforation, constipation, G-tube malplacement among others. On physical exam, was able to appreciate bowel sounds on examination, good hear air in the stomach. Will order abdominal x-ray to further assess placement of tube, but on examination tube flushed well, have little suspicion for malplacement of the G-tube. She has no malplacement, flush without difficulty, given this patient was discharged in stable addition with instructions to follow-up with surgery provider if continued problems. General Adult HPI - General Chief complaint: Recheck/Abnormal Lab/Rx Stated complaint: G-Tube Dislodgments Time Seen by Provider: 12/05/20 09:20 Mode of Arrival: EMS Limitations: Physical Limitations Description of Symptoms (Recalled from ER Triage Doc. by RN): Pt to ED per EMS after alf staff reported that pt's g-tube was leaking during a feeding and they expressed concern about possible dislodgement. - History of Present Illness HPI narrative: Patient is a 55-year-old female who presents today to the emergency department from a alf concern for G-tube placement. Per report G-tube flushed well, but when they attempted feeding there was some leakage around the G-tube. They are concerned that it is not in the appropriate place. Is unable to provide any additional history, and is nonverbal. There are no other stated complaints. Discussed patient with staff caring for her at the alf, they had removed portion of G-tube, cleaned and replaced it, her she was off and she noted some flow of the feeds around it states this is never happened before. She had a bowel movement within the last 3 days. - Related Data Home Medications Medication Instructions Recorded Confirmed Cetirizine HCl 10 mg G-TUBE DAILY 08/24/18 09/25/20 levETIRAcetam [Keppra] 500 mg G-TUBE BID 08/24/18 09/25/20 Multivitamin,Ther and Minerals 1 each G-TUBE DAILY 08/25/18 09/25/20 [Vitamin and Minerals] Cyanocobalamin (Vitamin B-12) 1,000 mcg G-TUBE DAILY 12/27/18 09/25/20 [Vitamin B-12 1000mcg Tablet] Fluticasone Propionate [24 Hour 1 spray NOSTRIL-B DAILY 12/27/18 09/25/20 Allergy] Propylene Glycol/P
--- NOTE | 2020-12-05 10:06 | PC.NURSE ---
GONE OVER FOR XRAY
--- NOTE | 2020-12-05 10:29 | PC.NURSE ---
[facility] aware of pt being ready for discharge back to [facility]
[2020-12-05 11:20] VITALS: BP 92/56; PULSE 79; RESP 16; TEMP 36.7; O2SAT 95
== END 2020-12-05 11:20 ==
PROVIDERS: Emergency Provider Emergency Medicine
DX: K94.23 Gastrostomy malfunction (principal); G80.9 Cerebral palsy, unspecified; E78.5 Hyperlipidemia, unspecified; Z88.0 Allergy status to penicillin; Z88.2 Allergy status to sulfonamides
CPT/HCPCS: 74018; 99283

== ENCOUNTER 2020-12-13 05:54 | Emergency (ER) | payer MEDICARE, MEDICAID, SELFPAY ==
[2020-12-13 05:20] VITALS: BP 115/74; PULSE 93; RESP 16; TEMP 36.6; O2SAT 96; BMI 21.2
--- NOTE | 2020-12-13 06:01 | CT_ITS ---
PROCEDURE: CT ABDOMEN PELVIS W CON CLINICAL INDICATION: coffe emesis COMPARISON: CT CT ABDOMEN PELVIS WO CON from 10/12/2018 TECHNIQUE: IV Contrast: 75ML Isovue 370 Oral Contrast None Axial images obtained with sagittal and coronal reformats. All CT scans at the facility use one or more dose reduction, viz: automated exposure control, ma/kV adjustment per patient size (including targeted exams where dose is matched to indication, i.e. head), or iterative reconstruction technique. FINDINGS: LOWER THORAX: There is abandoned shunt tubing in the subcutaneous soft tissues of the lower thorax in addition to the [employer] shunt. The patient has significant elevation of the right hemidiaphragm and scoliosis with numerous skeletal deformities. There is a right lower lobe calcified granuloma. There is rounded atelectasis at the right lung base. ABDOMEN & PELVIS: The entire liver is not imaged however appears unremarkable and visualized extent. There are extensive calcified gallstones within the gallbladder. Pancreas, adrenals, spleen, appear unremarkable. There is left renal cortical thinning and tiny less than 1 millimeter renal cysts bilaterally. There is no hydronephrosis. Ureters and bladder appear unremarkable. There is a probable small uterine fibroid and a small amount of fluid in the vagina. There is contrast in the rectum and sigmoid. There is a small hiatal hernia. There is a percutaneous gastrostomy which appears in appropriate position. The appendix is not definitely visualized. There is trace fluid in the cul-de-sac. The study is nondiagnostic for GI bleeding as it is not protocoled as a GI bleed study and there is also contrast in the rectum. There is diffuse muscle atrophy. Thoracolumbar spondylosis. Sacral dural calcifications. IMPRESSION: 1. Nondiagnostic study for GI bleeding due to lack of use of GI bleed CT protocol. 2. Appropriately positioned percutaneous gastrostomy. Dictated by: Malinda Lugo MD 12/13/2020 09:44 Malinda Lugo MD in [place] 12/13/2020 09:44
[2020-12-13 06:32] LABS: Basophils # 0.1 K/mm3 (0-0.2); Eosinophils # 0.1 K/mm3 (0.0-0.4); Eosinophils % 0.7 % (0.1-12.0); Hematocrit 47.1 % (37.0-47.0); Hemoglobin 14.7 g/dL (12.2-16.2); Lymphocytes # 2.3 K/mm3 (0.7-4.5); Lymphocytes % 19.2 % (10-50); Mean Corpuscular HGB Conc 31.3 g/dL (31.8-35.4); Mean Corpuscular Hemoglobin 27.4 pg (27.0-31.2); Mean Corpuscular Volume 87.6 fl (81-99); Mean Platelet Volume 10.5 fl (7.4-10.4); Monocytes # 0.8 K/mm3 (0.1-1.0); Monocytes % 6.6 % (1.7-9.3); Neutrophils # 8.5 K/mm3 (1.8-7.8); Neutrophils % 72.4 % (37.0-80.0); Platelet Count 362 K/mm3 (142-424); Red Blood Count 5.38 M/mm3 (4.20-5.40); Red Cell Distribution Width 17.8 % (11.5-17.5); White Blood Count 11.7 K/mm3 (4.8-10.8)
[2020-12-13 06:54] LABS: Erythrocyte Sedimentation Rate 12 mm/hr (0-30)
[2020-12-13 07:00] VITALS: BP 104/77; PULSE 105; RESP 16; O2SAT 98
--- NOTE | 2020-12-13 07:02 | HMH.EDGIBL ---
ED Disposition Clinical Impression: Upper gastrointestinal hemorrhage Disposition: Home, Self-Care Condition on Discharge: Good Instructions: DI for Gastrointestinal Bleeding Additional Instructions: will arraange op eval by surg for egd and plave on ppi at this time Prescriptions: Pantoprazole Sodium [Protonix 40mg tablet] 40 mg PO HS #30 tab Transmission Status: Pending to [facility] Referrals: Provider,Referral, [Primary Care Provider] - - Critical Care Critical Care Time: No Attestation: On 12/13/20, the high probability of a clinically significant, sudden or life threatening deterioration of the following system(s) required my full and direct attention, intervention and personal management. The time I documented below is in addition to time spent performing reported procedures but includes the following listed in this critical care notation. Medical Decision Making - Medical Records Medical records reviewed: Yes: I reviewed the patient's medical records. - Luis Inquiry Pt receiving controlled substance: No Vital Signs: 12/13/20 05:20 12/13/20 07:00 12/13/20 07:31 Temperature 97.8 F Temperature Source Oral Pulse Rate 105 H 102 H Pulse Rate [Right] 93 H Respiratory Rate 16 16 Blood Pressure 104/77 L 141/63 H Blood Pressure [Right Arm] 115/74 Blood Pressure Mean [Right Arm] 87 Blood Pressure Source Automatic Cuff Automatic Cuff 02 Sat by Pulse Oximetry 96 98 97 Oxygen Delivery Method Room Air Room Air - Lab Data Lab results reviewed: Yes: I reviewed the patient's lab results. Lab Results 12/13/20 05:56: Gastric Occult Blood Positive 12/13/20 06:10: WBC 11.7 H, RBC 5.38, Hgb 14.7, Hct 47.1 H, MCV 87.6, MCH 27.4, MCHC 31.3 L, RDW 17.8 H, Plt Count 362, MPV 10.5 H, Neut % (Auto) 72.4, Lymph % (Auto) 19.2, Smyth % (Auto) 6.6, Eos % (Auto) 0.7, Baso % (Auto) 1.0, Neut # (Auto) 8.5 H, Lymph # (Auto) 2.3, Smyth # (Auto) 0.8, Eos # (Auto) 0.1, Baso # (Auto) 0.1, ESR 12 12/13/20 06:10: Sodium 140, Potassium 4.0, Chloride 106, Carbon Dioxide 24, Anion Gap 14.0, BUN 15, Creatinine 0.20 L, Estimated Creat Clear 280, Estimated GFR 372, Est GFR ( Amer) 450, Glucose 90, Calcium 8.0 L, Total Bilirubin 0.2, AST 25, ALT 22, Alkaline Phosphatase 80, C-Reactive Protein 19.4 H, Total Protein 5.6 L, Albumin 2.8 L, Globulin 2.8, Albumin/Globulin Ratio 1.0 L, Amylase 47, Lipase 51, Procalcitonin 0.079 Result diagrams: 12/13/20 06:10 12/13/20 06:10 Orders (Tests/Meds): ED MEDICATIONS Discontinued Medications Generic Name Dose Route Start Last Admin Trade Name Freq PRN Reason Stop Dose Admin Pantoprazole Sodium 80 mg/ 100 mls @ 100 mls/hr 12/13/20 06:02 12/13/20 06:21 Sodium Chloride IV 12/13/20 07:01 100 mls/hr ONCE ONE Administration Sodium Chloride 1,000 mls @ 999 mls/hr 12/13/20 06:15 12/13/20 06:22 Sod Chlor 0.9% 1000ml Bag IV 12/13/20 07:15 999 mls/hr .Q1H1M TRACY Administration Iopamidol 75 ml 12/13/20 09:03 12/13/20 09:04 Iopamidol-370 (76%);100ml Bottle IV 12/13/20 09:04 75 ml ONCE ONE Administration Ondansetron HCl 4 mg 12/13/20 06:02 12/13/20 06:21 Ondansetron 4mg/2ml Vial IV 12/13/20 06:03 4 mg ONCE ONE Administration Sodium Chloride 10 ml 12/13/20 09:03 12/13/20 09:04 Sodium Chloride 0.9% 10ml Syr (Rad Only) IV 12/13/20 09:04 10 ml ONCE ONE Administration - CT Data CT Scan: Abdomen, Pelvis Time Received: 11:[address] Reviewed: Yes: I have viewed the radiologist's interpretation Preliminary Findings: Abnormal Medical Decision Narrative: stable labs and will treat as op at this time GI Bleed HPI - General Chief complaint: GI Bleed Stated complaint: coffee ground emesis, nosebleed Time Seen by Provider: 12/13/20 06:00 Mode of Arrival: EMS Source of Information: Patient, EMS, Medical Record Limitations: Altered Mental Status Description of Symptoms (Recalled from ER Triage Doc
[2020-12-13 07:13] LABS: Occult Blood,Gastric Fluid Positive (Negative)
[2020-12-13 07:31] VITALS: BP 141/63; PULSE 102; O2SAT 97
[2020-12-13 08:24] LABS: Alanine Aminotransferase 22 U/L (12-78); Albumin Level 2.8 g/dl (3.5-5.0); Alkaline Phosphatase 80 U/L (38-126); Amylase 47 U/L (30-110); Aspartate Amino Transferase 25 U/L (14-36); Bilirubin,Total 0.2 mg/dl (0.2-1.3); Blood Urea Nitrogen 15 mg/dl (7-17); Carbon Dioxide 24 mmol/L (22.0-30.0); Chloride 106 mmol/L (98-107); Creatinine Clearance Estimated 280 mL/min (50-200); Estimated Glomerular Filt Rate 372 ml/min (>60); GFR (African American) 450 ML/MIN (>60); Globulin 2.8 g/dL (1.3-3.2); Glucose 90 mg/dl (74-100); Lipase 51 U/L (23-300); Sodium 140 mmol/L (136-145); Total Protein,Serum 5.6 g/dl (6.3-8.2)
[2020-12-13 08:30] LABS: C-Reactive Protein 19.4 mg/L (0-4)
[2020-12-13 08:41] LABS: Procalcitonin 0.079 ng/mL (0.0-2.0)
--- NOTE | 2020-12-13 10:48 | PC.NURSE ---
called office for dr gregg. office staff stated they would have him call back
[2020-12-13 12:23] VITALS: BP 123/78; PULSE 78; RESP 18; TEMP 36.6; O2SAT 98
== END 2020-12-13 12:24 | disposition home or self-care (01) ==
PROVIDERS: Emergency Provider Emergency Medicine
DX: K92.2 Gastrointestinal hemorrhage, unspecified (principal); G80.9 Cerebral palsy, unspecified; E78.5 Hyperlipidemia, unspecified; Z79.899 Other long term (current) drug therapy
CPT/HCPCS: 74177; 80053; 82150; 82272; 83690; 84145; 85025; 85651; 86140; 96365; 99284; G0328; J2405; Q9967

== ENCOUNTER 2021-01-10 00:05 | Emergency (ER) | payer MEDICARE, MEDICAID, SELFPAY ==
[2021-01-09 23:59] VITALS: BP 96/67; PULSE 79; RESP 20; TEMP 36.9; O2SAT 95; BMI 30.9
[2021-01-10] VITALS (7 sets, daily range): BP systolic 92–117; BP diastolic 44–70; PULSE 76–94; RESP 20; TEMP 36.9; O2SAT 95–99
--- NOTE | 2021-01-10 00:10 | XR_ITS ---
PROCEDURE INFORMATION: Exam: XR Abdomen Exam date and time: 01/10/2021 12:10 AM Age: 55 years old Clinical indication: Device placement; Gi device; Peg tube; Additional info: Confirm g-tube placement TECHNIQUE: Imaging protocol: XR of the abdomen. Views: Frontal supine view of the abdomen. 1 View. COMPARISON: CT ABDOMEN PELVIS W CON 12/13/2020 8:54 AM FINDINGS: Tubes, catheters and devices: Preview tennis gastrostomy tube is present. Probable shunt catheter terminates at the lower abdomen/upper pelvis. Abandoned shunt material at the right abdomen. Gastrointestinal tract: Contrast material within stomach and proximal small bowel. No extraluminal contrast extravasation. Bones/joints: Unremarkable. IMPRESSION: 1. Percutaneous gastrostomy tube is present and appears appropriately located within the stomach. 2. Contrast accumulates within the stomach and proximal small bowel. 3. No extraluminal contrast extravasation.
--- NOTE | 2021-01-10 00:37 | HMH.EDRECH ---
ED Disposition Clinical Impression: Gastrojejunostomy tube dislodgement Disposition: Home, Self-Care Condition on Discharge: Good Instructions: How to Care for Your PEG Tube Referrals: Js Gupta MD [Primary Care Provider] - - Critical Care Critical Care Time: No Attestation: On 01/10/21, the high probability of a clinically significant, sudden or life threatening deterioration of the following system(s) required my full and direct attention, intervention and personal management. The time I documented below is in addition to time spent performing reported procedures but includes the following listed in this critical care notation. Medical Decision Making - Medical Records Medical records reviewed: Yes: I reviewed the patient's medical records. - Luis Inquiry Pt receiving controlled substance: No Vital Signs: 01/09/21 23:59 Temperature 98.4 F Temperature Source Oral Pulse Rate [Right Radial] 79 Respiratory Rate 20 Blood Pressure [Right Arm] 96/67 L Blood Pressure Mean [Right Arm] 76 Blood Pressure Source [Right Arm] Automatic Cuff Blood Pressure Position [Right Arm] Supine 02 Sat by Pulse Oximetry 95 Oxygen Delivery Method Room Air - Radiology Data #1 Image(s): KUB Image Reviewed: Yes I have reviewed radiologist's interpretation Preliminary Findings: Normal/NAD Medical Decision Narrative: g tube replaced w/o diff Recheck HPI - General Chief Complaint: Recheck/Abnormal Lab/Rx Stated Complaint: pulled g tube Time Seen by Provider: 01/10/21 00:10 Mode of Arrival: EMS Source of Information: Patient, EMS, Medical Record Limitations: Physical Limitations Description of Symptoms (Recalled from ER Triage Doc. by RN): [place] reports pt removed g-tube aprox. 30 min ago. - History of Present Illness HPI narrative: pt pulled gtube out at f this pm complaint: other (g tube removal ) Initial visit (ago): hour(s) Returns today for: other (g tube pulled out ) Context: other Associated symptoms: none - Related Data Home Medications Medication Instructions Recorded Confirmed Cetirizine HCl 10 mg G-TUBE DAILY 08/24/18 12/13/20 levETIRAcetam [Keppra] 500 mg G-TUBE BID 08/24/18 12/13/20 Multivitamin,Ther and Minerals 1 each G-TUBE DAILY 08/25/18 12/13/20 [Vitamin and Minerals] Cyanocobalamin (Vitamin B-12) 1,000 mcg G-TUBE DAILY 12/27/18 12/13/20 [Vitamin B-12 1000mcg Tablet] Fluticasone Propionate [24 Hour 1 spray NOSTRIL-B DAILY 12/27/18 12/13/20 Allergy] Propylene Glycol/Peg 400/Pf 1 drp EYE-BOTH DAILY 12/27/18 12/13/20 [Systane Ultra 0.4-0.3% Eye Drp] Sennosides [Senna Lax] 17.2 mg G-TUBE BID 12/28/18 12/13/20 lisinopril 2.5 mg tablet 2.5 mg G-TUBE DAILY tab 01/25/20 12/13/20 Furosemide [Furosemide 20mg Tab*] 20 mg G-TUBE DAILY 01/29/20 12/13/20 Spironolactone [Spironolactone 12.5 mg G-TUBE BID 01/29/20 12/13/20 25mg Tablet] Denosumab [Denosumab 60mg/mL 60 mg SQ Q6M 09/25/20 12/13/20 syringe] Hyoscyamine Sulfate [Levsin-Sl] 0.125 mg SL BID 09/25/20 12/13/20 Medroxyprogesterone Acetate 150 mg IM Q3M 09/25/20 12/13/20 [Depo-Provera] Previous Rx's Medication Instructions Recorded Pantoprazole Sodium [Protonix 40mg 40 mg PO HS #30 tab 12/13/20 tablet] lacosamide 10 mg/mL oral solution 60 mg G-TUBE BID #200 ml 01/06/21 Allergies Allergy/AdvReac Type Severity Reaction Status Date / Time ampicillin Allergy Verified 08/08/20 08:45 Penicillins Allergy Verified 08/08/20 08:45 Sulfa (Sulfonamide Allergy Verified 08/08/20 08:45 Antibiotics) sulfamethoxazole Allergy Verified 08/08/20 08:45 [From Bactrim] trimethoprim [From Bactrim] Allergy Verified 08/08/20 08:45 [facility] History - Hepatitis A Screen Drug use history?: No High risk sexual behaviors?: No History of sexually transmitted infection?: No Currently employed?: No Childcare worker?: No Do you have indoor plumbing?: Yes Do you have electricity?: Yes Attest
--- NOTE | 2021-01-10 02:29 | PC.NURSE ---
Report called to FARRUKH Saini at [place] at this time.
== END 2021-01-10 05:08 | disposition home or self-care (01) ==
PROVIDERS: Emergency Provider Emergency Medicine; PCP Emergency Medicine
DX: K94.23 Gastrostomy malfunction (principal); Z43.1 Encounter for attention to gastrostomy
CPT/HCPCS: 43762; 74018; 99283

== ENCOUNTER → 2021-03-07 09:58 | Outpatient (CLI) | payer MEDICARE, MEDICAID, SELFPAY ==
--- NOTE | 2021-03-07 10:02 | XR_ITS ---
FINAL REPORT CLINICAL HISTORY: RT tibia fx FINDINGS: LEFT TIBIA FIBULA 2 views were obtained. There is a subacute fracture of the proximal tibial metaphysis with partial impaction. Callus formation is noted. There is also subacute fracture of the proximal fibular metaphysis with callus formation. The joint spaces are intact. There is no soft tissue abnormality. IMPRESSION: Subacute fractures as described. Reviewed, Interpreted and Dictated by Jorge A Strong III, MD Transcribed by Brooke Hinojosa Authenticated by Jorge A Strong III, MD on 03/07/2021 11:56:41 AM [facility]
== END ==
PROVIDERS: PCP Emergency Medicine; Visit Provider Orthopaedic Surgery
DX: S82.201A Unspecified fracture of shaft of right tibia, initial encounter for closed fracture (principal)
CPT/HCPCS: 73590

== ENCOUNTER → 2021-04-18 09:02 | Outpatient (CLI) | payer MEDICARE, MEDICAID, SELFPAY ==
--- NOTE | 2021-04-18 09:09 | XR_ITS ---
FINAL REPORT CLINICAL HISTORY: patient non-verbal, possible knee injury COMPARISON: 03/07/2021 FINDINGS: RIGHT KNEE Three views of the right knee were obtained. Again identified is a subacute-appearing fracture of the proximal tibial and fibular metaphysis. There is some callus formation but at least partial nonunion of the tibial fracture fragments. There is increased medial angulation of the proximal tibia with increased medial displacement of the distal femur. IMPRESSION: Fractures as above. Reviewed, Interpreted and Dictated by Jorge A Strong III, MD Transcribed by Laurie Olmedo Authenticated by Jorge A Strong III, MD on 04/18/2021 10:19:29 AM [facility]
== END ==
PROVIDERS: PCP Emergency Medicine; Visit Provider Orthopaedic Surgery
DX: S82.201A Unspecified fracture of shaft of right tibia, initial encounter for closed fracture (principal)
CPT/HCPCS: 73562

== ENCOUNTER 2021-08-05 16:54 | Emergency (ER) | payer MEDICARE, MEDICAID, SELFPAY ==
[2021-08-05 16:55] VITALS: BP 132/78; PULSE 88; RESP 16; TEMP 36.6; O2SAT 98; BMI 29.2
--- NOTE | 2021-08-05 18:15 | HMH.EDGENADL ---
ED Disposition Clinical Impression: Gastrojejunostomy tube dislodgement Disposition: Home, Self-Care Condition on Discharge: Fair Instructions: How to Care for Your PEG Tube Referrals: Provider,Referral, [Primary Care Provider] - - Critical Care Critical Care Time: No Attestation: On 08/05/21, the high probability of a clinically significant, sudden or life threatening deterioration of the following system(s) required my full and direct attention, intervention and personal management. The time I documented below is in addition to time spent performing reported procedures but includes the following listed in this critical care notation. Medical Decision Making - Medical Records Medical records reviewed: Yes: I reviewed the patient's medical records. - Luis Inquiry Pt receiving controlled substance: No Vital Signs: 08/05/21 16:55 08/05/21 18:20 Temperature 98 F 98.3 F Temperature Source Axillary Pulse Rate 85 Pulse Rate [Radial] 88 Respiratory Rate 16 17 Blood Pressure 107/80 L Blood Pressure [Right Arm] 132/78 Blood Pressure Mean [Right Arm] 96 Blood Pressure Position [Right Arm] Sitting 02 Sat by Pulse Oximetry 98 97 Oxygen Delivery Method Room Air Room Air - Lab Data Lab results reviewed: Yes: I reviewed the patient's lab results. Orders (Tests/Meds): ORDERS Category Date Time Status XR abdomen min 2V Stat Exams 08/05/21 20:05 Taken Medical Decision Narrative: Patient is a 55-year-old female presenting with a chief complaint of displaced G-tube. G-tube was replaced without difficulty. Confirmed with x-ray. Patient discharged to retirement. General Adult HPI - General Chief complaint: Recheck/Abnormal Lab/Rx Stated complaint: pulled out G tube Time Seen by Provider: 08/05/21 18:00 Mode of Arrival: EMS Limitations: Physical Limitations Description of Symptoms (Recalled from ER Triage Doc. by RN): to ed per squad with c/o pulled g-tube out. - History of Present Illness HPI narrative: Lorenza is a 55yo female presenting from [facility] presenting with cc/of displaced G tube. Patient is unable to provide history due to the fact that she is nonverbal at baseline, I spoke with staff at [facility] facility who do not have any additional concerns. They states she occasionally displaces her G-tube. She has not been febrile, is tolerating feeds, having bowel movements and has not been febrile. No falls as far as they are aware. No additional concerns. - Related Data Home Medications Medication Instructions Recorded Confirmed Cetirizine HCl 10 mg G-TUBE DAILY 08/24/18 04/18/21 levETIRAcetam [Keppra] 500 mg G-TUBE BID 08/24/18 04/18/21 Multivitamin,Ther and Minerals 1 each G-TUBE DAILY 08/25/18 04/18/21 [Vitamin and Minerals] Cyanocobalamin (Vitamin B-12) 1,000 mcg G-TUBE DAILY 12/27/18 04/18/21 [Vitamin B-12 1000mcg Tablet] Fluticasone Propionate [24 Hour 1 spray NOSTRIL-B DAILY 12/27/18 04/18/21 Allergy] Propylene Glycol/Peg 400/Pf 1 drp EYE-BOTH DAILY 12/27/18 04/18/21 [Systane Ultra 0.4-0.3% Eye Drp] Sennosides [Senna Lax] 17.2 mg G-TUBE BID 12/28/18 04/18/21 lisinopril 2.5 mg tablet 2.5 mg G-TUBE DAILY tab 01/25/20 04/18/21 Furosemide [Furosemide 20mg Tab*] 20 mg G-TUBE DAILY 01/29/20 04/18/21 Spironolactone [Spironolactone 12.5 mg G-TUBE BID 01/29/20 04/18/21 25mg Tablet] Denosumab [Denosumab 60mg/mL 60 mg SQ Q6M 09/25/20 04/18/21 syringe] Hyoscyamine Sulfate [Levsin-Sl] 0.125 mg SL BID 09/25/20 04/18/21 Medroxyprogesterone Acetate 150 mg IM Q3M 09/25/20 04/18/21 [Depo-Provera] Previous Rx's Medication Instructions Recorded Pantoprazole Sodium [Protonix 40mg 40 mg PO HS #30 tab 12/13/20 tablet] hydrocodone 5 mg-acetaminophen 325 1 tab PO BID PRN #60 tab 07/07/21 mg tablet lacosamide 10 mg/mL oral solution 60 mg G-TUBE BID #200 ml 07/21/21 Allergies Allergy/AdvReac Type Severity Reaction Sta
[2021-08-05 18:20] VITALS: BP 107/80; PULSE 85; RESP 17; TEMP 36.8; O2SAT 97
--- NOTE | 2021-08-05 20:05 | XR_ITS ---
PROCEDURE INFORMATION: Exam: XR Abdomen Exam date and time: 08/05/2021 8:39 PM Age: 55 years old Clinical indication: Device placement; Gi device; Peg tube; Additional info: Obtain portapeg w/contrast to assess gt TECHNIQUE: Imaging protocol: Radiologic exam of the abdomen. Views: 2 Views. Upright and supine views. COMPARISON: CR XR KUB 01/10/2021 12:21 AM FINDINGS: Tubes, catheters and devices: There is a percutaneous gastrostomy tube in place. There is injection of intraluminal contrast demonstrating satisfactory position of the gastrostomy tube. No extravasation of contrast is identified. Ventriculoperitoneal shunts in place. Gastrointestinal tract: Unremarkable. No bowel dilation. Intraperitoneal space: No free air. Organs: Multiple calcified gallstones. Bones/joints: Unremarkable for age. IMPRESSION: Percutaneous gastrostomy tube in satisfactory position.
[2021-08-05 22:42] VITALS: BP 132/74; PULSE 83; RESP 18; TEMP 36.2; O2SAT 95
== END 2021-08-06 00:38 | disposition home or self-care (01) ==
PROVIDERS: Emergency Provider Emergency Medicine
DX: K94.23 Gastrostomy malfunction (principal); E78.5 Hyperlipidemia, unspecified; G80.9 Cerebral palsy, unspecified; G40.909 Epilepsy, unspecified, not intractable, without status epilepticus; Z79.899 Other long term (current) drug therapy; Z88.0 Allergy status to penicillin; Z88.1 Allergy status to other antibiotic agents; Z88.2 Allergy status to sulfonamides; Z88.3 Allergy status to other anti-infective agents; Z88.8 Allergy status to other drugs, medicaments and biological substances; Z74.01 Bed confinement status; Z68.29 Body mass index [BMI] 29.0-29.9, adult
CPT/HCPCS: 74019; 99283

== ENCOUNTER 2021-08-08 01:46 | Emergency (ER) | payer MEDICARE, MEDICAID, SELFPAY ==
[2021-08-08 01:44] VITALS: BP 122/83; PULSE 66; RESP 18; TEMP 36.4; O2SAT 98; BMI 22.6
[2021-08-08 01:49] VITALS: BP 122/83; PULSE 67; O2SAT 100
--- NOTE | 2021-08-08 01:56 | XR_ITS ---
PROCEDURE INFORMATION: Exam: XR Abdomen Exam date and time: 08/08/2021 2:16 AM Age: 55 years old Clinical indication: Device placement; Gi device; Gastrostomy, other; Additional info: Replaced gtube TECHNIQUE: Imaging protocol: Radiologic exam of the abdomen. Views: Frontal supine view of the abdomen. 1 View. COMPARISON: CR XR ABDOMEN MIN 2V 08/05/2021 8:39 PM FINDINGS: Tubes, catheters and devices: There is a G-tube in place with its bubble in the fundus of the stomach. Injected contrast outlines normal rugal folds and appears to extend through the pylorus into the 1st portion of the duodenum. There is no extravasation into the peritoneum. Other shunt tubing is also seen projecting over the abdomen. Gastrointestinal tract: There is also older contrast in the colon from a prior exam. Bones/joints: Unremarkable. IMPRESSION: G-tube in appropriate position in the fundus of the stomach.
[2021-08-08 02:00] VITALS: BP 130/90; PULSE 74; O2SAT 99
--- NOTE | 2021-08-08 02:19 | HMH.EDRECH ---
ED Disposition Clinical Impression: Dislodged gastrostomy tube Disposition: Home, Self-Care Condition on Discharge: Good Instructions: How to Care for Your PEG Tube Additional Instructions: resume prev orders Referrals: Js Gupta MD [Primary Care Provider] - - Critical Care Critical Care Time: No Attestation: On 08/08/21, the high probability of a clinically significant, sudden or life threatening deterioration of the following system(s) required my full and direct attention, intervention and personal management. The time I documented below is in addition to time spent performing reported procedures but includes the following listed in this critical care notation. Medical Decision Making - Medical Records Medical records reviewed: Yes: I reviewed the patient's medical records. - Luis Inquiry Pt receiving controlled substance: No Vital Signs: 08/08/21 01:44 Temperature 97.6 F Temperature Source Oral Pulse Rate [Right] 66 Respiratory Rate 18 Blood Pressure [Right Arm] 122/83 Blood Pressure Mean [Right Arm] 96 Blood Pressure Source [Right Arm] Automatic Cuff 02 Sat by Pulse Oximetry 98 Oxygen Delivery Method Room Air Orders (Tests/Meds): ED MEDICATIONS Discontinued Medications Generic Name Dose Route Start Last Admin Trade Name Freq PRN Reason Stop Dose Admin Diatrizoate Meglum/Diatrizoate Sod 30 ml 08/08/21 01:57 Diatrizoate Laverne 66% & Diatrizoate Na 10% 30ml Udc PO 08/08/21 01:58 ONCE ONE ORDERS Category Date Time Status XR KUB Stat Exams 08/08/21 01:56 Ordered - Radiology Data #1 Image(s): Abdomen Image Reviewed: Yes I have reviewed radiologist's interpretation Preliminary Findings: Normal/NAD (g tube ok ) Recheck HPI - General Chief Complaint: Skin/Abscess/Foreign Body Stated Complaint: Pulled G tube out Time Seen by Provider: 08/08/21 02:00 Mode of Arrival: EMS Source of Information: Patient, EMS, Medical Record Limitations: Physical Limitations Description of Symptoms (Recalled from ER Triage Doc. by RN): Pt pulled her gtube out. No bleeding noted. EMS brought gtube. - History of Present Illness HPI narrative: pt pulled g tube out minerva DOSHI complaint: other (replace g tube ) Initial visit (ago): hour(s) Returns today for: other (g tube replacement ) Symptoms since prior visit: no new symptoms Associated symptoms: none - Related Data Home Medications Medication Instructions Recorded Confirmed Cetirizine HCl 10 mg G-TUBE DAILY 08/24/18 08/08/21 levETIRAcetam [Keppra] 500 mg G-TUBE BID 08/24/18 08/08/21 Multivitamin,Ther and Minerals 1 each G-TUBE DAILY 08/25/18 08/08/21 [Vitamin and Minerals] Cyanocobalamin (Vitamin B-12) 1,000 mcg G-TUBE DAILY 12/27/18 08/08/21 [Vitamin B-12 1000mcg Tablet] Fluticasone Propionate [24 Hour 1 spray NOSTRIL-B DAILY 12/27/18 08/08/21 Allergy] Propylene Glycol/Peg 400/Pf 1 drp EYE-BOTH DAILY 12/27/18 08/08/21 [Systane Ultra 0.4-0.3% Eye Drp] Sennosides [Senna Lax] 17.2 mg G-TUBE BID 12/28/18 08/08/21 lisinopril 2.5 mg tablet 2.5 mg G-TUBE DAILY tab 01/25/20 08/08/21 Furosemide [Furosemide 20mg Tab*] 20 mg G-TUBE DAILY 01/29/20 08/08/21 Spironolactone [Spironolactone 12.5 mg G-TUBE BID 01/29/20 08/08/21 25mg Tablet] Denosumab [Denosumab 60mg/mL 60 mg SQ Q6M 09/25/20 08/08/21 syringe] Hyoscyamine Sulfate [Levsin-Sl] 0.125 mg SL BID 09/25/20 08/08/21 Medroxyprogesterone Acetate 150 mg IM Q3M 09/25/20 08/08/21 [Depo-Provera] Pantoprazole Sodium [Protonix 40mg 40 mg PO HS 08/08/21 08/08/21 tablet] Previous Rx's Medication Instructions Recorded hydrocodone 5 mg-acetaminophen 325 1 tab PO BID PRN #60 tab 07/07/21 mg tablet lacosamide 10 mg/mL oral solution 60 mg G-TUBE BID #200 ml 07/21/21 Allergies Allergy/AdvReac Type Severity Reaction Status Date / Time ampicillin Allergy Verified 04/18/21 09:52 Penicillins Allergy Verified 04/18/21 09:52 Sulfa (Hatch
[2021-08-08 02:31] VITALS: BP 125/78; PULSE 83; O2SAT 99
--- NOTE | 2021-08-08 02:40 | PC.NURSE ---
MD placed new gtube, 18F. Instilled balloon with 20ml sterile water. Flushed with 30ml sterile water and GRV was 35ml of water and gastric content.
[2021-08-08 03:01] VITALS: BP 151/83; PULSE 84; O2SAT 99
[2021-08-08 03:46] VITALS: BP 144/89; PULSE 82; RESP 20; TEMP 36.7; O2SAT 98
--- NOTE | 2021-08-08 04:13 | PC.NURSE ---
REPORT TO NAIN PERALES
== END 2021-08-08 04:34 | disposition home or self-care (01) ==
PROVIDERS: Emergency Provider Emergency Medicine; PCP Emergency Medicine
DX: Z43.1 Encounter for attention to gastrostomy (principal); G80.0 Spastic quadriplegic cerebral palsy
CPT/HCPCS: 43762; 74018; 99284

== ENCOUNTER 2022-01-28 21:02 | Emergency (ER) | payer MEDICARE, MEDICAID, SELFPAY ==
[2022-01-28 21:01] VITALS: BP 117/79; PULSE 76; RESP 14; TEMP 36.8; O2SAT 99; BMI 26.6
[2022-01-28 21:30] VITALS: BP 124/80; PULSE 66; O2SAT 97
--- NOTE | 2022-01-28 21:39 | HMH.EDSKAF ---
Discharge Plan Disposition Patient Disposition: [facility] Chief Complaint: Skin/Abscess/Foreign Body Prescriptions Prescriptions: No Action lisinopril 2.5 mg tablet 2.5 mg G-TUBE DAILY Label Comments: hold if SBP is <90 Rx Instructions: hold if SBP is <90 lacosamide 10 mg/mL solution 60 mg G-TUBE BID Qty: 200 2RF hydrocodone-acetaminophen 5-325 mg tablet 1 tab PO BID PRN (Reason: pain) Qty: 60 0RF spironolactone 25 MG tablet 12.5 mg G-TUBE BID furosemide 20 MG tablet 20 mg G-TUBE DAILY Rx Instructions: medroxyprogesterone 150 MG/ML suspension 150 mg IM Q3M Label Comments: give every 3 months Rx Instructions: give every 3 months hyoscyamine sulfate 0.125 MG tablet, sublingual 0.125 mg sublingual BID denosumab 60 MG/ML syringe 60 mg SQ Q6M Rx Instructions: EVERY 6 MONTHS cetirizine 10 MG tablet 10 mg G-TUBE DAILY levetiracetam 100 MG/ML solution 500 mg G-TUBE BID multivitamin,tx-minerals 1 EACH tablet 1 each G-TUBE DAILY fluticasone propionate 9.9 ML spray,suspension 1 spray NOSTRIL-B DAILY peg 400-propylene glycol (PF) 1 EACH dropperette 1 drp Eye-Both DAILY Rx Instructions: both eyes cyanocobalamin (vitamin B-12) 1,000 MCG tablet 1,000 mcg G-TUBE DAILY sennosides 8.6 MG tablet 17.2 mg G-TUBE BID pantoprazole 40 MG tablet,delayed release (DR/EC) 40 mg PO HS Referrals Follow up/Referrals: Provider,Referral, [Primary Care Provider] - See instructions Clinical Impressions Clinical Impression: Gastrojejunostomy tube dislodgement Instructions Patient Instructions: How to Care for Your PEG Tube Discharge ED Provider: Js Gupta Skin/Abscess/FB HPI General Chief complaint: Skin/Abscess/Foreign Body Stated complaint: Pulled out G-tube Time Seen by Provider: 01/28/22 21:39 Mode of Arrival: EMS Source of Information: Patient, EMS and Medical Record Limitations: Altered Mental Status Description of Symptoms (Recalled from ER Triage Doc. by RN): per assisted pt was recieving a bath and pt gtube got caught on bed rail and was put out. History of Present Illness HPI narrative: g tube out at [facility] minerva DOSHI complaint: other (g tube out ) Onset (ago): hour(s) Tetanus up to date: unsure Severity: moderate Related Data Home Medications Medication Instructions Recorded Confirmed cetirizine 10 mg tablet 10 mg G-tube DAILY Allergy symptoms 08/24/18 12/12/21 levetiracetam 100 mg/mL oral 500 mg G-tube BID seizures 08/24/18 12/12/21 solution multivitamin,tx-minerals 1 each G-tube DAILY Supplement 08/25/18 12/12/21 cyanocobalamin (vitamin B-12) 1,000 mcg G-tube DAILY Supplement 12/27/18 12/12/21 1,000 mcg tablet fluticasone propionate 50 1 spray NOSTRIL-B DAILY Allergy 12/27/18 12/12/21 mcg/actuation nasal symptoms spray,suspension peg 400-propylene glycol (PF) 0.4 1 drp Eye-Both DAILY dry eyes 12/27/18 12/12/21 %-0.3 % eye drops in a dropperette sennosides 8.6 mg tablet 17.2 mg G-tube BID constipation 12/28/18 12/12/21 lisinopril 2.5 mg tablet 2.5 mg G-tube DAILY Hypertension 01/25/20 12/12/21 furosemide 20 mg tablet 20 mg G-tube DAILY diuretic 01/29/20 12/12/21 spironolactone 25 mg tablet 12.5 mg G-tube BID diuretic 01/29/20 12/12/21 denosumab 60 mg/mL subcutaneous 60 mg SQ Q6M Bone loss 09/25/20 12/12/21 syringe hyoscyamine sulfate 0.125 mg 0.125 mg sublingual BID SECRETIONS 09/25/20 12/12/21 sublingual tablet medroxyprogesterone 150 mg/mL 150 mg IM Q3M hormone 09/25/20 12/12/21 intramuscular suspension pantoprazole 40 mg tablet,delayed 40 mg PO HS GERD 08/08/21 12/12/21 release Previous Rx's Medication Instructions Recorded lacosamide 10 mg/mL oral solution 60 mg (6 mL) G-tube BID seizures 12/29/21 #200 mL hydrocodone 5 mg-acetaminophen 325 1 tab PO BID PRN pain #60 tabs 01/22/22 mg tablet Papito
--- NOTE | 2022-01-28 21:46 | PC.NURSE ---
Dr Gupta at to replace G-tube at this time.
--- NOTE | 2022-01-28 21:50 | XR_ITS ---
PROCEDURE INFORMATION: Exam: XR Abdomen Exam date and time: 01/28/2022 10:11 PM Age: 56 years old Clinical indication: Device placement; Gi device; Other: G tube placement; Prior surgery; Surgery date: 6+ months; Additional info: Confirm gtube placement TECHNIQUE: Imaging protocol: Radiologic exam of the abdomen. Views: Frontal supine view of the abdomen. 1 View. COMPARISON: CR XR KUB 08/08/2021 2:16 AM FINDINGS: Tubes, catheters and devices: Oral contrast material administered through gastrostomy tube is seen in the gastric body with insufflated retention balloon appearing appropriately positioned. Additional intraperitoneal catheter is again noted. Gastrointestinal tract: Non-obstructive bowel gas pattern. Bones/joints: No evidence of acute osseous abnormality. IMPRESSION: Gastrostomy tube appropriately positioned in the gastric body.
--- NOTE | 2022-01-28 22:00 | PC.NURSE ---
Dr. Gupta in with patient, #[address] Gupta. G tube stoma red, excoriated area around site. KUB ordered to confirm placement.
--- NOTE | 2022-01-28 22:18 | PC.NURSE ---
Pt gone to RAD via stretcher
--- NOTE | 2022-01-28 22:20 | PC.NURSE ---
Patient to xray to confirm placement.
[2022-01-28 22:48] VITALS: BP 122/74; PULSE 64; RESP 14; TEMP 36.8; O2SAT 97
== END 2022-01-28 23:26 ==
PROVIDERS: Emergency Provider Emergency Medicine
DX: K94.23 Gastrostomy malfunction (principal); R63.6 Underweight; G40.909 Epilepsy, unspecified, not intractable, without status epilepticus; G80.9 Cerebral palsy, unspecified; Z79.51 Long term (current) use of inhaled steroids; Z79.52 Long term (current) use of systemic steroids; Z79.899 Other long term (current) drug therapy; Z88.0 Allergy status to penicillin; Z88.1 Allergy status to other antibiotic agents; Z88.2 Allergy status to sulfonamides; Z88.3 Allergy status to other anti-infective agents; Z68.26 Body mass index [BMI] 26.0-26.9, adult
CPT/HCPCS: 43762; 74018; 99284

== ENCOUNTER 2022-03-05 21:11 | Emergency (ER) | payer MEDICARE, MEDICAID, SELFPAY ==
[2022-03-05 21:11] VITALS: BP 120/82; PULSE 83; RESP 16; TEMP 36.4; O2SAT 97; BMI 23.0
--- NOTE | 2022-03-05 21:33 | XR_ITS ---
PROCEDURE INFORMATION: Exam: XR Abdomen Exam date and time: 03/05/2022 9:54 PM Age: 56 years old Clinical indication: Device placement; Gi device; Other: Gtube; Additional info: Pulled g tube TECHNIQUE: Imaging protocol: Radiologic exam of the abdomen. Views: Frontal supine view of the abdomen. 1 View. Two images received. COMPARISON: CR XR KUB 01/28/2022 10:11 PM FINDINGS: Tubes, catheters and devices: Peg tube not visualized. Lungs: Some likely calcified right hilar lymph nodes noted in the chest. Interstitial prominence in the lower lungs, no focal consolidation as visualized. Gastrointestinal tract: Nonobstructive bowel gas pattern, mild gaseous and fecal distention of the colon. No dilated loops. Organs: Chronic calcified gallstones noted in the right upper quadrant abdomen. Bones/joints: Osteopenia. Lower lumbar degenerative changes. Soft tissues: There is previously reported abandoned shunt tubing in the soft tissues in the right flank. There is other [employer] shunt tubing coiled over the lower abdomen and pelvis, extending from the lower right chest. IMPRESSION: 1. Peg tube not visualized. 2. Nonobstructive bowel gas pattern. 3. Chronic cholelithiasis. 4. [employer] shunt tubing, unchanged in the interval.
--- NOTE | 2022-03-05 21:46 | HMH.EDGENADL ---
Discharge Plan Disposition Patient Disposition: Xfer SNF Condition: Good Prescriptions Prescriptions: No Action lisinopril 2.5 mg tablet 2.5 mg G-TUBE DAILY Label Comments: hold if SBP is <90 Rx Instructions: hold if SBP is <90 lacosamide 10 mg/mL solution 60 mg G-TUBE BID Qty: 200 2RF hydrocodone-acetaminophen 5-325 mg tablet 1 tab PO BID Qty: 60 0RF spironolactone 25 MG tablet 12.5 mg G-TUBE BID furosemide 20 MG tablet 20 mg G-TUBE DAILY Rx Instructions: medroxyprogesterone 150 MG/ML suspension 150 mg IM Q3M Label Comments: give every 3 months Rx Instructions: give every 3 months hyoscyamine sulfate 0.125 MG tablet, sublingual 0.125 mg sublingual BID denosumab 60 MG/ML syringe 60 mg SQ Q6M Rx Instructions: EVERY 6 MONTHS cetirizine 10 MG tablet 10 mg G-TUBE DAILY levetiracetam 100 MG/ML solution 500 mg G-TUBE BID multivitamin,tx-minerals 1 EACH tablet 1 each G-TUBE DAILY fluticasone propionate 9.9 ML spray,suspension 1 spray NOSTRIL-B DAILY peg 400-propylene glycol (PF) 1 EACH dropperette 1 drp Eye-Both DAILY Rx Instructions: both eyes cyanocobalamin (vitamin B-12) 1,000 MCG tablet 1,000 mcg G-TUBE DAILY sennosides 8.6 MG tablet 17.2 mg G-TUBE BID pantoprazole 40 MG tablet,delayed release (DR/EC) 40 mg PO HS Referrals Follow up/Referrals: Js Gupta MD [Primary Care Provider] - See instructions Activity Restrictions/Add. Instructions Additional Instructions/Restrictions: Please try to avoid future dislodgements. Clinical Impressions Clinical Impression: Gastrojejunostomy tube dislodgement Discharge ED Provider: Adali Sims General Adult HPI General Chief complaint: Recheck/Abnormal Lab/Rx Stated complaint: pulled g tube out Time Seen by Provider: 03/05/22 21:38 Mode of Arrival: EMS Source of Information: EMS Limitations: No Limitations Description of Symptoms (Recalled from ER Triage Doc. by RN): per jail pt's g tube was found on pt's bed History of Present Illness HPI narrative: Lorenza is a 55yo female presenting from [facility] presenting with displaced G tube approximately 45 minutes prior to arrival.? Patient is unable to provide history as she is nonverbal at baseline. Per nursing staff here, she has displaced her G-tube previously numerous times. She has not been febrile and no other concerns. Related Data Home Medications Medication Instructions Recorded Confirmed cetirizine 10 mg tablet 10 mg G-tube DAILY Allergy symptoms 08/24/18 12/12/21 levetiracetam 100 mg/mL oral 500 mg G-tube BID seizures 08/24/18 12/12/21 solution multivitamin,tx-minerals 1 each G-tube DAILY Supplement 08/25/18 12/12/21 cyanocobalamin (vitamin B-12) 1,000 mcg G-tube DAILY Supplement 12/27/18 12/12/21 1,000 mcg tablet fluticasone propionate 50 1 spray NOSTRIL-B DAILY Allergy 12/27/18 12/12/21 mcg/actuation nasal symptoms spray,suspension peg 400-propylene glycol (PF) 0.4 1 drp Eye-Both DAILY dry eyes 12/27/18 12/12/21 %-0.3 % eye drops in a dropperette sennosides 8.6 mg tablet 17.2 mg G-tube BID constipation 12/28/18 12/12/21 lisinopril 2.5 mg tablet 2.5 mg G-tube DAILY Hypertension 01/25/20 12/12/21 furosemide 20 mg tablet 20 mg G-tube DAILY diuretic 01/29/20 12/12/21 spironolactone 25 mg tablet 12.5 mg G-tube BID diuretic 01/29/20 12/12/21 denosumab 60 mg/mL subcutaneous 60 mg SQ Q6M Bone loss 09/25/20 12/12/21 syringe hyoscyamine sulfate 0.125 mg 0.125 mg sublingual BID SECRETIONS 09/25/20 12/12/21 sublingual tablet medroxyprogesterone 150 mg/mL 150 mg IM Q3M hormone 09/25/20 12/12/21 intramuscular suspension pantoprazole 40 mg tablet,delayed 40 mg PO HS GERD 08/08/21 12/12/21 release Previous Rx's Medication Instructions Recorded lacosamide 10 mg/mL oral solution 60 mg (6 mL)
--- NOTE | 2022-03-05 22:58 | XR_ITS ---
PROCEDURE INFORMATION: Exam: XR Abdomen Exam date and time: 03/05/2022 11:15 PM Age: 56 years old Clinical indication: Device placement; Gi device; Other: Gtube; Prior surgery; Additional info: Gtube placement TECHNIQUE: Imaging protocol: Radiologic exam of the abdomen. Views: Frontal supine view of the abdomen. 1 View. COMPARISON: CR XR KUB 03/05/2022 9:54 PM FINDINGS: Tubes, catheters and devices: Gastrostomy tube is in place. Contrast previously injected through the tube is noted in the distal stomach and proximal duodenum. No evidence of contrast leakage identified. Multiple portions of ventriculoperitoneal shunts are noted in the abdomen and pelvis. Gastrointestinal tract: Normal. No bowel dilation. Bones/joints: Unremarkable. IMPRESSION: Gastrostomy tube appears to be in good position.
[2022-03-05 23:40] VITALS: BP 120/82; BP 121/84; PULSE 79; PULSE 83; RESP 16; TEMP 36.4; O2SAT 97
== END 2022-03-06 00:07 ==
PROVIDERS: Emergency Provider Student in an Organized Health Care Education/Training Program; PCP Emergency Medicine
DX: K94.23 Gastrostomy malfunction (principal); G80.9 Cerebral palsy, unspecified; G40.909 Epilepsy, unspecified, not intractable, without status epilepticus
CPT/HCPCS: 74018; 99283; 99284

== ENCOUNTER 2022-04-12 03:58 | Emergency (ER) | payer MEDICARE, MEDICAID, SELFPAY ==
--- NOTE | 2022-04-12 03:26 | XR_ITS ---
PROCEDURE INFORMATION: Exam: XR Chest Exam date and time: 04/12/2022 5:14 AM Age: 56 years old Clinical indication: Fever; Prior surgery TECHNIQUE: Imaging protocol: Radiologic exam of the chest. Views: 1 view. COMPARISON: CR XR CHEST PORTABLE 09/27/2020 10:03 AM FINDINGS: Tubes, catheters and devices: There is right-sided shunt tubing in place. Lungs: There is right basilar atelectasis and scarring. Pleural spaces: No pleural effusion. No pneumothorax. Heart/Mediastinum: Heart remains mild to moderately enlarged. Diaphragm: There is elevation of the right hemidiaphragm. Bones/joints: There are degenerative changes of the spine and right shoulder. IMPRESSION: 1. No interval change. 2. A followup PA and lateral radiograph is recommended when the patient is clinically able.
--- NOTE | 2022-04-12 03:30 | CT_ITS ---
PROCEDURE INFORMATION: Exam: CT Head Without Contrast Exam date and time: 04/12/2022 4:49 AM Age: 56 years old Clinical indication: Condition or disease; Convulsions or seizures; Prior surgery; Surgery type: Shunt; Additional info: Seizure evp shunt TECHNIQUE: Imaging protocol: Computed tomography of the head without contrast. Radiation optimization: All CT scans at this facility use at least one of these dose optimization techniques: automated exposure control; mA and/or kV adjustment per patient size (includes targeted exams where dose is matched to clinical indication); or iterative reconstruction. REPORTING DATA: Count of CT and Cardiac NM exams in prior 12 months: This patient has received 0 known CTs and 0 known cardiac nuclear medicine studies in the 12 months prior to the current study. COMPARISON: CT HEAD/BRAIN WO CON 08/08/2020 5:45 PM There is motion artifact throughout. FINDINGS: Tubes, catheters and devices: There is a ventriculostomy catheter in place from a right parietal approach with the distal tip in the anterior aspect of the ventricles at the midline. 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 There are stable regions of encephalomalacia in the occipital lobes, left greater than right and involving the medial aspect of the cerebellar hemispheres. There is been interval decrease in low attenuation throughout the periventricular white matter likely secondary to resolved obstructive hydrocephalus. There is no acute parenchymal hemorrhage or extra-axial collection. Cerebral ventricles: There is enlargement of the lateral ventricles and there is effacement of the posterior aspect of the 3rd ventricle. The lateral ventricles have decreased in size since the prior exam. Paranasal sinuses: Visualized sinuses are grossly unremarkable. No fluid levels. Mastoid air cells: Visualized mastoid air cells are well aerated. Auditory system: There is material in the right external auditory canal which presumably represents cerumen. Bones/joints: There are postop changes from a posterior craniotomy and suboccipital decompression. Soft tissues: Unremarkable. IMPRESSION: 1. Limited exam due to motion artifact. 2. Ventriculostomy in place with interval decrease in size of the lateral ventricles. 3. 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 4. No acute intracranial abnormality is demonstrated.
--- NOTE | 2022-04-12 03:32 | HMH.EDGENADL ---
Discharge Plan Disposition Patient Disposition: Xfer SNF Condition: Good Prescriptions Prescriptions: No Action lisinopril 2.5 mg tablet 2.5 mg G-TUBE DAILY Label Comments: hold if SBP is <90 Rx Instructions: hold if SBP is <90 hydrocodone-acetaminophen 5-325 mg tablet 1 tab PO BID Qty: 60 0RF lacosamide 10 mg/mL solution 60 mg G-TUBE BID Qty: 200 2RF spironolactone 25 MG tablet 12.5 mg G-TUBE BID furosemide 20 MG tablet 20 mg G-TUBE DAILY Rx Instructions: medroxyprogesterone 150 MG/ML suspension 150 mg IM Q3M Label Comments: give every 3 months Rx Instructions: give every 3 months hyoscyamine sulfate 0.125 MG tablet, sublingual 0.125 mg sublingual BID denosumab 60 MG/ML syringe 60 mg SQ Q6M Rx Instructions: EVERY 6 MONTHS cetirizine 10 MG tablet 10 mg G-TUBE DAILY levetiracetam 100 MG/ML solution 500 mg G-TUBE BID multivitamin,tx-minerals 1 EACH tablet 1 each G-TUBE DAILY fluticasone propionate 9.9 ML spray,suspension 1 spray NOSTRIL-B DAILY peg 400-propylene glycol (PF) 1 EACH dropperette 1 drp Eye-Both DAILY Rx Instructions: both eyes cyanocobalamin (vitamin B-12) 1,000 MCG tablet 1,000 mcg G-TUBE DAILY sennosides 8.6 MG tablet 17.2 mg G-TUBE BID pantoprazole 40 MG tablet,delayed release (DR/EC) 40 mg PO HS Clinical Impressions Clinical Impression: COVID-19, Seizure Instructions Patient Instructions: DI for Seizure Disorder -- Adult, DI for Seizure (Not Epilepsy/Seizure Disorder), DI for Seizure Disorder -- Child Discharge ED Provider: Adeel Malone General Adult HPI General Chief complaint: Seizure Stated complaint: seizure activity for 15 min Time Seen by Provider: 04/12/22 03:25 Limitations: Altered Mental Status History of Present Illness HPI narrative: 56-year-old female with history of seizure disorder, [employer] shunt, cerebral palsy, nonverbal presents with shaking movement from alf. They were concerned about seizure. Fever in route to 100.1. They think the episode was lasting about 10 to 15 minutes prior to EMS arrival. She has persistently had the convulsing since arrival. No other history available at this time Related Data Home Medications Medication Instructions Recorded Confirmed cetirizine 10 mg tablet 10 mg G-tube DAILY Allergy symptoms 08/24/18 03/14/22 levetiracetam 100 mg/mL oral 500 mg G-tube BID seizures 08/24/18 03/14/22 solution multivitamin,tx-minerals 1 each G-tube DAILY Supplement 08/25/18 03/14/22 cyanocobalamin (vitamin B-12) 1,000 mcg G-tube DAILY Supplement 12/27/18 03/14/22 1,000 mcg tablet fluticasone propionate 50 1 spray NOSTRIL-B DAILY Allergy 12/27/18 03/14/22 mcg/actuation nasal symptoms spray,suspension peg 400-propylene glycol (PF) 0.4 1 drp Eye-Both DAILY dry eyes 12/27/18 03/14/22 %-0.3 % eye drops in a dropperette sennosides 8.6 mg tablet 17.2 mg G-tube BID constipation 12/28/18 03/14/22 lisinopril 2.5 mg tablet 2.5 mg G-tube DAILY Hypertension 01/25/20 03/14/22 furosemide 20 mg tablet 20 mg G-tube DAILY diuretic 01/29/20 03/14/22 spironolactone 25 mg tablet 12.5 mg G-tube BID diuretic 01/29/20 03/14/22 denosumab 60 mg/mL subcutaneous 60 mg SQ Q6M Bone loss 09/25/20 03/14/22 syringe hyoscyamine sulfate 0.125 mg 0.125 mg sublingual BID SECRETIONS 09/25/20 03/14/22 sublingual tablet medroxyprogesterone 150 mg/mL 150 mg IM Q3M hormone 09/25/20 03/14/22 intramuscular suspension pantoprazole 40 mg tablet,delayed 40 mg PO HS GERD 08/08/21 03/14/22 release Previous Rx's Medication Instructions Recorded hydrocodone 5 mg-acetaminophen 325 1 tab PO BID pain #60 tabs 02/22/22 mg tablet lacosamide 10 mg/mL oral solution 60 mg (6 mL) G-tube BID seizures 04/11/22 #200 mL Allergies Allergy/AdvReac Type Severity Reaction Status Date / Time ampicillin Allerg
[2022-04-12 03:35] VITALS: BMI 26.5
[2022-04-12 04:00] VITALS: BP 129/75; PULSE 110; RESP 16; TEMP 38; O2SAT 100; BMI 26.5
--- NOTE | 2022-04-12 04:15 | PC.NURSE ---
When pt arrived multiple IV attempts made by staff but veins continued to blow. Dr. Malone was able to establish 18g in the left upper arm. Unable to obtain labs, called lab and spoke with Sarah Beth Burleson at bedside now attempting to collect blood. FARRUKH Valentin has medicated pt per MAR
--- NOTE | 2022-04-12 04:38 | PC.NURSE ---
Sarah Beth HEAD LIBRARIAN was able to obtain blood-work, used 2x pediatric blood cultures and lactic. However, not enough blood for blue-top blood tube. notified, stated that would be ok for now.
--- NOTE | 2022-04-12 04:40 | PC.NURSE ---
Lily able to obtain blood at this time. Pt going to CT
[2022-04-12 04:46] LABS: Influenza A, PCR Not Detected (NotDetected); Influenza B, PCR Not Detected (NotDetected)
[2022-04-12 04:51] LABS: Basophils # 0.1 K/mm3 (0-0.2); Basophils % 1.1 % (0.1-2.0); Eosinophils # 0.2 K/mm3 (0.0-0.4); Eosinophils % 2.1 % (0.1-12.0); Hematocrit 46.5 % (37.0-47.0); Hemoglobin 14.5 g/dL (12.2-16.2); Lymphocytes # 2.4 K/mm3 (0.7-4.5); Lymphocytes % 27.7 % (10-50); Mean Corpuscular HGB Conc 31.2 g/dL (31.8-35.4); Mean Corpuscular Hemoglobin 29.9 pg (27.0-31.2); Mean Corpuscular Volume 95.8 fl (81-99); Mean Platelet Volume 10.3 fl (7.4-10.4); Monocytes # 0.6 K/mm3 (0.1-1.0); Monocytes % 6.6 % (1.7-9.3); Neutrophils # 5.4 K/mm3 (1.8-7.8); Neutrophils % 62.5 % (37.0-80.0); Platelet Count 286 K/mm3 (142-424); Red Blood Count 4.85 M/mm3 (4.20-5.40); Red Cell Distribution Width 15.5 % (11.5-17.5); White Blood Count 8.7 K/mm3 (4.8-10.8)
[2022-04-12 04:55] LABS: Alanine Aminotransferase 24 U/L (12-78); Albumin Level 3.6 g/dl (3.5-5.0); Albumin/Globulin Ratio 1.1 (1.1-1.8); Alkaline Phosphatase 87 U/L (38-126); Anion Gap 7.5 mEq/L (5-15); Aspartate Amino Transferase 23 U/L (14-36); Bilirubin,Total 0.3 mg/dl (0.2-1.3); Blood Urea Nitrogen 22 mg/dl (7-17); Calcium 8.3 mg/dl (8.4-10.2); Carbon Dioxide 25 mmol/L (22.0-30.0); Chloride 105 mmol/L (98-107); Creatinine Clearance Estimated 138 mL/min (50-200); Estimated Glomerular Filt Rate 129 ml/min (>60); GFR (African American) 156 ML/MIN (>60); Globulin 3.2 g/dL (1.3-3.2); Glucose 84 mg/dl (74-100); Potassium 4.5 mmoL/L (3.5-5.1); Sodium 133 mmol/L (136-145); Total Protein,Serum 6.8 g/dl (6.3-8.2)
[2022-04-12 05:02] LABS: Lactic Acid 1.3 mmol/L (0.7-2.1)
[2022-04-12 05:09] LABS: Coronavirus 19, PCR Detected (NotDetected)
[2022-04-12 05:18] LABS: Microscopic, Urine URINE MICROSCOPIC (MICROSCOPIC)
--- NOTE | 2022-04-12 05:28 | PC.NURSE ---
as pt is from [place] and per protocol & MD testing for Legionella. Lab states they can send the red-top blood tube to [email or web address] for testing.
[2022-04-12 05:32] LABS: Bilirubin,Urine Negative (Negative); Blood, Urine Negative (Negative); Color,Urine YELLOW (Yellow); Glucose,Urine (UA) Negative (Negative); Nitrate,Urine Negative (Negative); Urobilinogen,Urine 0.2 EU/dl (0.2)
[2022-04-12 06:16] LABS: Appearance,Urine CLOUDY (Clear); Ketones,Urine TRACE (Negative); Leukocyte Esterase,Urine Negative (Negative); Protein,Urine TRACE (Negative); Specific Gravity, Urine 1.015 (1.005-1.030)
[2022-04-12 06:27] LABS: Bacteria,Urine 4+ /lpf; RBC,Urine Occasional #/hpf (0-3); Squamous Epithelial Cell,Urine Occasional #/hpf (0-5); WBC,Urine Occasional #/hpf (0-3)
--- NOTE | 2022-04-12 06:40 | PC.NURSE ---
Raphael Block RN called [facility] and gave report to
--- NOTE | 2022-04-12 07:55 | PC.WOUNDNOTE ---
SPOKE TO [facility] SAID THEY WOULD SEND SOMEONE THIS WAY
--- NOTE | 2022-04-12 08:09 | PC.NURSE ---
ROUDNED ON PT,SLEEPING AT THIS TIME WAITNG ON [facility]
[2022-04-12 08:13] VITALS: BP 135/82; PULSE 107; O2SAT 97
--- NOTE | 2022-04-12 08:52 | PC.NURSE ---
ROUNDED ON PT RESTING IN BED STILL WAITING ON EMS
--- NOTE | 2022-04-12 09:05 | PC.NURSE ---
EMS HERE TO CATH LAB MANAGER PATIENT TO TAKE BACK TO [facility]
[2022-04-12 09:28] VITALS: BP 120/80; PULSE 78; RESP 16; TEMP 36.8; O2SAT 98
[2022-04-17 00:05] LABS: Legionella pneumophila Abs. <0.91 OD ratio (0.00-0.90)
== END 2022-04-12 09:29 ==
PROVIDERS: Emergency Provider Emergency Medicine; PCP Emergency Medicine
DX: U07.1 COVID-19 (principal); R56.9 Unspecified convulsions; G80.9 Cerebral palsy, unspecified; Z20.822 Contact with and (suspected) exposure to COVID-19
CPT/HCPCS: 36415; 70450; 71045; 80053; 81001; 83605; 85025; 86713; 87040; 87077; 87086; 87088; 87186; 96361; 96374; 96375; 99285; C9803; J1953; U0003; U0005

== ENCOUNTER 2022-04-27 04:03 | Emergency (ER) | payer MEDICARE, MEDICAID, SELFPAY ==
[2022-04-27 03:45] VITALS: BMI 27.3
[2022-04-27 03:46] VITALS: BP 116/93; PULSE 89; RESP 19; TEMP 36.7; O2SAT 98; BMI 26.4
--- NOTE | 2022-04-27 03:47 | XR_ITS ---
PROCEDURE INFORMATION: Exam: XR Abdomen Exam date and time: 04/27/2022 4:06 AM Age: 56 years old Clinical indication: Device placement; Gi device; Gastrostomy, other; Additional info: G tube placement TECHNIQUE: Imaging protocol: Radiologic exam of the abdomen. Views: Frontal supine view of the abdomen. 1 View. COMPARISON: CR XR KUB 03/05/2022 11:15 PM FINDINGS: Tubes, catheters and devices: Contrast injected through a percutaneous gastrostomy tube opacifies the stomach. No extraluminal contrast is seen. Abandoned [employer] shunt tubing in the right hemiabdomen. SON[employer] W[employer]STAND[employer] shunt terminates in the mid abdomen just right of midline. Gastrointestinal tract: Nonobstructive bowel gas pattern. Bones/joints: Unremarkable. IMPRESSION: Contrast injected through a percutaneous gastrostomy tube opacifies the stomach. No extraluminal contrast is seen.
--- NOTE | 2022-04-27 03:48 | HMH.EDGENADL ---
Discharge Plan Disposition Patient Disposition: Home, Self-Care Condition: Fair Prescriptions Prescriptions: No Action lisinopril 2.5 mg tablet 2.5 mg G-TUBE DAILY Label Comments: hold if SBP is <90 Rx Instructions: hold if SBP is <90 lacosamide 10 mg/mL solution 60 mg G-TUBE BID Qty: 200 2RF hydrocodone-acetaminophen 5-325 mg tablet 1 tab PO BID Qty: 60 0RF spironolactone 25 MG tablet 12.5 mg G-TUBE BID furosemide 20 MG tablet 20 mg G-TUBE DAILY Rx Instructions: medroxyprogesterone 150 MG/ML suspension 150 mg IM Q3M Label Comments: give every 3 months Rx Instructions: give every 3 months hyoscyamine sulfate 0.125 MG tablet, sublingual 0.125 mg sublingual BID denosumab 60 MG/ML syringe 60 mg SQ Q6M Rx Instructions: EVERY 6 MONTHS cetirizine 10 MG tablet 10 mg G-TUBE DAILY levetiracetam 100 MG/ML solution 500 mg G-TUBE BID multivitamin,tx-minerals 1 EACH tablet 1 each G-TUBE DAILY fluticasone propionate 9.9 ML spray,suspension 1 spray NOSTRIL-B DAILY peg 400-propylene glycol (PF) 1 EACH dropperette 1 drp Eye-Both DAILY Rx Instructions: both eyes cyanocobalamin (vitamin B-12) 1,000 MCG tablet 1,000 mcg G-TUBE DAILY sennosides 8.6 MG tablet 17.2 mg G-TUBE BID pantoprazole 40 MG tablet,delayed release (DR/EC) 40 mg PO HS Clinical Impressions Clinical Impression: Gastrojejunostomy tube dislodgement Discharge ED Provider: John Yun General Adult HPI General Chief complaint: Recheck/Abnormal Lab/Rx Stated complaint: gtube Time Seen by Provider: 04/27/22 03:40 History of Present Illness HPI narrative: Patient is a 56-year-old female with a past medical history of COVID, G-tube dependence, cerebral palsy who presents with dislodged G-tube. Patient continues to be at her baseline. Reported that she was rolling in bed and pulled her G-tube out. No other complaints at this time. Related Data Home Medications Medication Instructions Recorded Confirmed cetirizine 10 mg tablet 10 mg G-tube DAILY Allergy symptoms 08/24/18 04/27/22 levetiracetam 100 mg/mL oral 500 mg G-tube BID seizures 08/24/18 04/27/22 solution multivitamin,tx-minerals 1 each G-tube DAILY Supplement 08/25/18 04/27/22 cyanocobalamin (vitamin B-12) 1,000 mcg G-tube DAILY Supplement 12/27/18 04/27/22 1,000 mcg tablet fluticasone propionate 50 1 spray NOSTRIL-B DAILY Allergy 12/27/18 04/27/22 mcg/actuation nasal symptoms spray,suspension peg 400-propylene glycol (PF) 0.4 1 drp Eye-Both DAILY dry eyes 12/27/18 04/27/22 %-0.3 % eye drops in a dropperette sennosides 8.6 mg tablet 17.2 mg G-tube BID constipation 12/28/18 04/27/22 lisinopril 2.5 mg tablet 2.5 mg G-tube DAILY Hypertension 01/25/20 04/27/22 furosemide 20 mg tablet 20 mg G-tube DAILY diuretic 01/29/20 04/27/22 spironolactone 25 mg tablet 12.5 mg G-tube BID diuretic 01/29/20 04/27/22 denosumab 60 mg/mL subcutaneous 60 mg SQ Q6M Bone loss 09/25/20 04/27/22 syringe hyoscyamine sulfate 0.125 mg 0.125 mg sublingual BID SECRETIONS 09/25/20 04/27/22 sublingual tablet medroxyprogesterone 150 mg/mL 150 mg IM Q3M hormone 09/25/20 04/27/22 intramuscular suspension pantoprazole 40 mg tablet,delayed 40 mg PO HS GERD 08/08/21 04/27/22 release Previous Rx's Medication Instructions Recorded lacosamide 10 mg/mL oral solution 60 mg (6 mL) G-tube BID seizures 04/11/22 #200 mL hydrocodone 5 mg-acetaminophen 325 1 tab PO BID pain #60 tabs 04/12/22 mg tablet Allergies Allergy/AdvReac Type Severity Reaction Status Date / Time ampicillin Allergy Verified 03/14/22 21:05 Penicillins Allergy Verified 03/14/22 21:05 Sulfa (Sulfonamide Allergy Verified 03/14/22 21:05 Antibiotics) sulfamethoxazole Allergy Verified 03/14/22 21:05 [From Bactrim] trimethoprim [From Bactrim] Allergy V
--- NOTE | 2022-04-27 03:53 | PC.NURSE ---
inserted 18fr per MD.
--- NOTE | 2022-04-27 03:54 | PC.NURSE ---
md at bedside confirming placement of tube with gastrograffin and xray
[2022-04-27 04:46] VITALS: BP 113/71; PULSE 81; RESP 19; TEMP 36.5; O2SAT 98
== END 2022-04-27 05:05 | disposition home or self-care (01) ==
PROVIDERS: Emergency Provider Student in an Organized Health Care Education/Training Program
DX: K94.23 Gastrostomy malfunction (principal); G80.9 Cerebral palsy, unspecified; G40.919 Epilepsy, unspecified, intractable, without status epilepticus; Z86.16 Personal history of COVID-19
CPT/HCPCS: 43762; 74018; 99283; 99284